=== PATIENT | female | born 1955 | race Caucasian/White ===

== ENCOUNTER → 2020-07-20 17:47 | Outpatient (CLI) | payer OTHER, SELFPAY ==
--- NOTE | ~2020-07-20 | MM_ITS ---
EXAMINATION: MM screening hiro BI w radha HISTORY: Screening mammogram TECHNIQUE: Craniocaudal and mediolateral oblique 3-D tomosynthesis images were obtained and synthetic 2-D images were generated. CAD analysis was submitted and interpreted. COMPARISON: 06/19/2019, 05/12/2018, 05/10/2017 bilateral digital screening mammogram examinations BREAST PARENCHYMAL COMPOSITION: There are scattered areas of fibroglandular density. FINDINGS: There is no evidence of suspicious mass, calcification, or architectural distortion to sugg est malignancy in either breast. There has been no suspicious interval change. IMPRESSION: 1. No mammographic evidence of malignancy. 2. Recommend routine screening mammography in one year. BI-RADS Category 1: Negative Reviewed, dictated and finalized at location A. TUTOR
--- NOTE | ~2020-07-20 | DEXA_ITS ---
Bone Density Report Name: Irasema Rodriguez Age: 64 Sex: Female Ethnicity: White Date of : 1955 Indication: osteopenia; height loss; asthma or emphysema; postmenopausal Referring Provider: URMILA MESSINA Study: Bone densitometry was performed. Exam Date: July 20, 2020 Accession number: [id number] Bone Density: Region BMD T-score Z-score Classification AP Spine (L2, L3, L4) 1.061 -0.2 1.5 Normal Femoral Neck (Left) 0.556 -2.6 -1.2 Osteoporosis Total Hip (Left) 0.693 -2.0 -0.9 Osteopenia Femoral Neck (Right) 0.699 -1.4 0.0 Osteopenia Total Hip (Right) 0.813 -1.1 0.0 Osteopenia Total Hip Mean 0.753 -1.6 -0.5 Osteopenia World Health Organization criteria for BMD impression classify patients as: Normal (T-score at or above -1.0), Osteopenia (T-score between -1.0 and -2.5), or Osteoporosis (T-score at or below -2.5). 10-year Fracture Risk: FRAX not reported because: Some T-score for Spine Total or Hip Total or Femoral Neck at or below -2.5 Previous Exams: Region Exam Age BMD T-score BMD Change BMD Change Date g/cm2 vs Baseline vs Previous AP Spine(L2, L3, L4) 07/20/2020 64 1.061 -0.2 -0.068* -0.025* 05/12/2018 62 1.087 0.1 -0.043* 0.030* 04/20/2013 57 1.057 -0.2 -0.073* -0.073* 02/28/2011 55 1.130 0.5 0.000 0.115* 02/15/2008 52 1.014 -0.6 -0.116* -0.116* 01/26/2007 51 1.130 0.5 Total Hip(Left) 07/20/2020 64 0.693 -2.0 -0.241* -0.089* 05/12/2018 62 0.783 -1.3 -0.152* -0.050* 04/20/2013 57 0.833 -0.9 -0.102* -0.050* 02/28/2011 55 0.883 -0.5 -0.052* 0.004 02/15/2008 52 0.879 -0.5 -0.056* -0.056* 01/26/2007 51 0.935 -0.1 Total Hip(Right) 07/20/2020 64 0.813 -1.1 -0.099* -0.022 05/12/2018 62 0.835 -0.9 -0.077* -0.022 04/20/2013 57 0.857 -0.7 -0.056* 0.050* 02/28/2011 55 0.807 -1.1 -0.105* -0.079* 02/15/2008 52 0.886 -0.5 -0.026 -0.026 01/26/2007 51 0.912 -0.2 *Denotes significance at 95% confidence level, LSC for AP Spine = 0.022 g/cm2, LSC for Total Hip = 0.027 g/cm2 Clinical Information Provided by Patient: Has used the following medications: Vitamin D, Calcium, SYNTHROID Has the following medical conditions: Asthma or Emphysema Patient maximum height was 65.5 Menopause Ag
== END ==
PROVIDERS: PCP Family Medicine; Visit Provider Obstetrics & Gynecology
DX: Z12.31 Encounter for screening mammogram for malignant neoplasm of breast (principal); Z78.0 Asymptomatic menopausal state; M81.0 Age-related osteoporosis without current pathological fracture; M85.852 Other specified disorders of bone density and structure, left thigh; M85.851 Other specified disorders of bone density and structure, right thigh
CPT/HCPCS: 77063; 77067; 77080

== ENCOUNTER → 2021-11-10 11:49 | Outpatient (CLI) | payer OTHER, SELFPAY ==
--- NOTE | ~2021-11-10 | MM_ITS ---
EXAMINATION: MM screening hiro BI w radha HISTORY: Screening TECHNIQUE: Craniocaudal and mediolateral oblique 3-D tomosynthesis images were obtained and synthetic 2-D images were generated. CAD analysis was submitted and interpreted. COMPARISON: Comparison to multiple prior studies sequentially, with oldest reviewed study dated 04/03. BREAST PARENCHYMAL COMPOSITION: The breasts are almost entirely fatty. FINDINGS: There is no evidence of suspicious mass, calcification, or architectural distortion to sugg est malignancy in either breast. There has been no suspicious interval change. IMPRESSION: 1. No mammographic evidence of malignancy. 2. Recommend routine screening mammography in one year. BI-RADS Category 1: Negative Reviewed, dictated and finalized at location A.
== END ==
PROVIDERS: PCP Family Medicine; Visit Provider Obstetrics & Gynecology
DX: Z12.31 Encounter for screening mammogram for malignant neoplasm of breast (principal)
CPT/HCPCS: 77063; 77067

== ENCOUNTER → 2023-07-19 16:23 | Outpatient (CLI) | payer MEDICARE, OTHER, SELFPAY ==
--- NOTE | ~2023-07-19 | MM_ITS ---
EXAMINATION: MM screening hiro BI w radha HISTORY: Screening TECHNIQUE: Craniocaudal and mediolateral oblique 3-D tomosynthesis images were obtained and synthetic 2-D images were generated. CAD analysis was submitted and interpreted. COMPARISON: No prior mammogram is available for comparison at this institution. BREAST PARENCHYMAL COMPOSITION: The breasts are almost entirely fatty. FINDINGS: There is no evidence of suspicious mass, calcification, or architectural distortion to sugg est malignancy in either breast. There has been no suspicious interval change. IMPRESSION: 1. No mammographic evidence of malignancy. 2. Recommend routine screening mammography in one year. BI-RADS Category 1: Negative Reviewed, dictated and finalized at location A. T THROWER
== END ==
PROVIDERS: PCP Obstetrics & Gynecology; Visit Provider Obstetrics & Gynecology
DX: Z12.31 Encounter for screening mammogram for malignant neoplasm of breast (principal)
CPT/HCPCS: 77063; 77067

== ENCOUNTER 2023-10-18 00:01 | Day surgery (SDC) | payer MEDICARE, OTHER, SELFPAY ==
[2023-10-10 10:41] VITALS: BMI 51.7
[2023-10-18 11:38] VITALS: BP 154/79; PULSE 90; RESP 18; TEMP 36.6; O2SAT 99; BMI 50.2
[2023-10-18] MEDS: LACTATED RINGERS 1,000 ML 150 ML IV CONT (11:40)
--- NOTE | 2023-10-18 11:51 | PM.HPGS ---
History of Present Illness History of Present Illness Consent: Risks, benefits, and alternatives have been discussed and questions answered. Patient agrees to proceed with procedure. Chief complaint: neoplasm screening Narrative: Irasema Rodriguez is a 67 year old female here for screening colonoscopy, last one 10 years ago Review of Systems Review of Systems: All systems reviewed & are unremarkable except as noted in HPI and below PMFSH Past Medical History Medical History (Updated 10/18/23 @ 11:51 by Ivan Rees MD) Anxiety Arthritis Asthma Bronchitis Colon cancer screening Depression GERD (gastroesophageal reflux disease) Hiatal hernia HTN (hypertension) Hypokalemia Hypothyroid Osteoarthritis of left knee Sleep apnea Surgical History Surgical History History of fundoplication History of inguinal hernia repair History of knee replacement (~2009) Right History of tonsillectomy Hx of removal of ovary Family History Family History Father Family history of malignant neoplasm of urinary bladder Family history of coronary artery disease Hypertension Patient's father is Sibling Family history of coronary artery disease Mother Family history of chronic obstructive pulmonary disease Patient's mother is Social History Social History Social History: Patient lives at home alone. She designates her sister, Vivien Monsivais, as her surrogate medical decision maker. Her primary is Dr. Camacho. She wishes to be a Full Code Smoking status: Never smoker Second hand tobacco smoke exposure: No Alcohol intake: never Substance use: never Substance use type: does not use Lack of Transportation: No Lack of Food: Never True Current Housing: I Have Housing Concerned About Future Housing: No Difficulty Paying Gas/Electric Bills: No Difficulty Paying for Meds: No Currently Unemployed: No Education: High School Diploma/GED Difficulty w/ Childcare or Family Care: No Living arrangements: alone Gender identity (if verbalized by the patient): Female Spiritual care concerns: No Agree to blood products: No Meds Home Medications and Allergies Home Medications Medication Instructions Recorded Confirmed Type aspirin 81 mg tablet,delayed 81 mg PO DAILY 04/27/20 10/18/23 History release (Adult Aspirin Regimen) cholecalciferol (vitamin D3) 25 25 mcg PO DAILY 04/27/20 10/18/23 History mcg (1,000 unit) capsule guaifenesin 1,200 mg tablet, 1,200 mg PO HS 04/27/20 10/18/23 History extended release 12 hr (Mucinex) loratadine 10 mg tablet (Claritin) 10 mg PO PRN PRN Allergy Symptoms 04/27/20 10/18/23 History mecobalamin (vitamin B12) 1,000 1,000 mcg sublingual DAILY 04/27/20 10/18/23 History mcg disintegrating tablet,sublingual valacyclovir 1 gram tablet 1,000 mg PO DAILY PRN Cold Sores 11/29/22 10/18/23 Rx (Valtrex) #90 tabs amlodipine 10 mg tablet 10 mg PO DAILY #90 tabs 03/03/23 10/18/23 Rx famotidine 40 mg tablet 40 mg PO .qhs #90 tabs 03/03/23 10/18/23 Rx gabapentin 300 mg capsule 300 mg PO HS #90 caps 03/03/23 10/18/23 Rx (Neurontin) levothyroxine 175 mcg tablet 175 mcg PO DAILY #90 tabs 03/03/23 10/18/23 Rx (Levoxyl) spironolactone 50 mg tablet 50 mg PO QAM #90 tabs 03/03/23 10/18/23 Rx bupropion HCl 150 mg 24 hr tablet, 150 mg PO DAILY #90 tabs 05/31/23 10/18/23 Rx extended release (Wellbutrin XL) indapamide 2.5 mg tablet 5 mg PO DAILY #180 tabs 05/31/23 10/18/23 Rx montelukast 10 mg tablet 10 mg PO DAILY #90 tabs 05/31/23 10/18/23 Rx (Singulair) omeprazole 40 mg capsule,delayed 40 mg PO DAILY #90 caps 05/31/23 10/18/23 Rx release sucralfate 1 gram tablet See Rx Instructions .Route 06/01/23 10/18/23 Rx .COMPLEX #180 tabs buspirone 10 mg t
--- NOTE | 2023-10-18 11:57 | WPDANESEPPF ---
Anes - Initial Pre Proc Eval Procedure: Operation Date: 10/18/23 13:00 Proposed Procedures p Screening Colonoscopy - Ivan Rees MD Date/Time: 10/18/23 11:57 Surgeon: Ivan Rees MD Pre Op Diagnosis: neoplasm screening Patient Data Age: 67 Gender: F Height: 1.65 m Weight: 137 kg Last Vital Signs Temp 97.8 F 10/18/23 11:38 Pulse 90 10/18/23 11:38 Resp 18 10/18/23 11:38 BP 154/79 H 10/18/23 11:38 Pulse Ox 99 10/18/23 11:38 O2 Del Method Room Air 10/18/23 11:38 Allergies Allergy/AdvReac Type Severity Reaction Status Date / Time amoxicillin Allergy angioedema Verified 10/18/23 11:35 Home Medications Medication Instructions Recorded Confirmed Type aspirin 81 mg tablet,delayed 81 mg PO DAILY 04/27/20 10/18/23 History release (Adult Aspirin Regimen) cholecalciferol (vitamin D3) 25 25 mcg PO DAILY 04/27/20 10/18/23 History mcg (1,000 unit) capsule guaifenesin 1,200 mg tablet, 1,200 mg PO HS 04/27/20 10/18/23 History extended release 12 hr (Mucinex) loratadine 10 mg tablet (Claritin) 10 mg PO PRN PRN Allergy Symptoms 04/27/20 10/18/23 History mecobalamin (vitamin B12) 1,000 1,000 mcg sublingual DAILY 04/27/20 10/18/23 History mcg disintegrating tablet,sublingual valacyclovir 1 gram tablet 1,000 mg PO DAILY PRN Cold Sores 11/29/22 10/18/23 Rx (Valtrex) #90 tabs amlodipine 10 mg tablet 10 mg PO DAILY #90 tabs 03/03/23 10/18/23 Rx famotidine 40 mg tablet 40 mg PO .qhs #90 tabs 03/03/23 10/18/23 Rx gabapentin 300 mg capsule 300 mg PO HS #90 caps 03/03/23 10/18/23 Rx (Neurontin) levothyroxine 175 mcg tablet 175 mcg PO DAILY #90 tabs 03/03/23 10/18/23 Rx (Levoxyl) spironolactone 50 mg tablet 50 mg PO QAM #90 tabs 03/03/23 10/18/23 Rx bupropion HCl 150 mg 24 hr tablet, 150 mg PO DAILY #90 tabs 05/31/23 10/18/23 Rx extended release (Wellbutrin XL) indapamide 2.5 mg tablet 5 mg PO DAILY #180 tabs 05/31/23 10/18/23 Rx montelukast 10 mg tablet 10 mg PO DAILY #90 tabs 05/31/23 10/18/23 Rx (Singulair) omeprazole 40 mg capsule,delayed 40 mg PO DAILY #90 caps 05/31/23 10/18/23 Rx release sucralfate 1 gram tablet See Rx Instructions .Route 06/01/23 10/18/23 Rx .COMPLEX #180 tabs buspirone 10 mg tablet 10 mg PO DAILY #90 tabs 06/05/23 10/18/23 Rx epinephrine 0.3 mg/0.3 mL 0.3 mg (0.3 mL) IM ONCE #2 ea 06/07/23 10/18/23 Rx injection, auto-injector (EpiPen 2-Ulises) albuterol sulfate 90 mcg/actuation See Rx Instructions .Route 07/19/23 10/18/23 Rx aerosol inhaler .COMPLEX 90 days #25.5 grams irbesartan 300 mg tablet See Rx Instructions .Route 08/31/23 10/18/23 Rx .COMPLEX #90 tabs hydrocodone 5 mg-acetaminophen 325 1 tablet PO BID PRN pain #60 tabs 10/06/23 10/18/23 Rx mg tablet lorazepam 0.5 mg tablet 0.5 mg PO QHS PRN anxiety #30 tabs 10/06/23 10/18/23 Rx zolpidem 10 mg tablet 10 mg PO .qhs #30 tabs 10/06/23 10/18/23 Rx fluticasone 113 mcg-salmeterol 14 1 inh inhalation BID PRN Shortness 10/10/23 10/18/23 History mcg/actuation breath activated Of Breath Or Wheezing powdr (AirDuo RespiClick) fluticasone propionate 50 2 spray intranasal DAILY PRN Nasal 10/10/23 10/18/23 History mcg/actuation nasal Congestion spray,suspension (Flonase Allergy Relief) Patient hx anesthesia problems: none Family hx anesthesia problems: none Results Review: All pre-operative results and documents have been reviewed as part of the pre-operative evaluation. [facility] Past Medical History Medical History (Updated 10/18/23 @ 11:51 by Ivan Rees MD) Anxiety Arthritis Asthma Bronchitis Colon cancer screening Depression GERD (gastroesophageal reflux disease) Hiatal hernia HTN (hypertension) Hypokalemia Hypothyroid Osteoarthritis of left knee Sleep apnea Surgical History Surgical History History of fundoplication History of inguinal hernia
[2023-10-18 12:13] VITALS: BP 118/47; PULSE 82; RESP 18; O2SAT 100
[2023-10-18 12:23] VITALS: BP 115/75; PULSE 69; RESP 23; O2SAT 100
[2023-10-18 12:33] VITALS: BP 125/48; PULSE 82; RESP 21; O2SAT 100
== END 2023-10-18 12:45 | disposition home or self-care (01) ==
PROVIDERS: PCP Family Medicine; Visit Provider Internal Medicine Gastroenterology
PROC: 0DJD8ZZ Inspection of Lower Intestinal Tract, Via Natural or Artificial Opening Endoscopic (ICD-10-PCS; CPT 45378; principal; 2023-10-18 13:00)
DX: Z12.11 Encounter for screening for malignant neoplasm of colon (principal); K57.30 Diverticulosis of large intestine without perforation or abscess without bleeding; K64.8 Other hemorrhoids; I10 Essential (primary) hypertension; E03.9 Hypothyroidism, unspecified; K21.9 Gastro-esophageal reflux disease without esophagitis; J45.909 Unspecified asthma, uncomplicated; F41.9 Anxiety disorder, unspecified; F32.A Depression, unspecified; G47.30 Sleep apnea, unspecified; Z79.82 Long term (current) use of aspirin; Z79.51 Long term (current) use of inhaled steroids; Z79.891 Long term (current) use of opiate analgesic; E66.01 Morbid (severe) obesity due to excess calories; Z68.43 Body mass index [BMI] 50.0-59.9, adult
CPT/HCPCS: G0121; J2704; J7120

== ENCOUNTER 2023-11-20 18:51 | Emergency (ER) | payer MEDICARE, OTHER, SELFPAY ==
--- NOTE | ~2023-11-20 | CT_ITS ---
EXAMINATION: CTA chest PE protocol DATE: 11/20/2023 20:40 INDICATION: Shortness of breath and elevated d-dimer TECHNIQUE: Computed tomography (CT) pulmonary angiogram of the chest was performed with 100 mL Omnipa que-350 intravenous contrast. Additional 3D reconstructions utilizing coronal maximum intensity proje ction (MIP) were performed. Automated exposure control and iterative reconstruction technique were em ployed. The dose-length product was 1142.03 mGy-cm. COMPARISON: None FINDINGS: No pulmonary embolism. Couple small calcified nodules in the right lower lobe consistent with old gra nulomatous disease. Mild discoid atelectasis at the lingula No pneumonia, pulmonary edema, pleural ef fusion or pneumothorax. Heart size is normal. Atherosclerotic coronary artery calcification. No peric ardial effusion. Enlargement of the central pulmonary arteries consistent with pulmonary arterial hyp ertension. 1.9 cm left thyroid nodule. No pathologically enlarged thoracic lymphadenopathy. A few hep atic and multiple splenic calcifications consistent with old granulomatous disease. Mild to moderate thoracic spondylosis and severe lumbar spondylosis. IMPRESSION: 1. No pulmonary embolism or other acute cardiopulmonary disease. 2. 1.9 cm left thyroid nodule. Consider follow-up thyroid ultrasound for risk stratification. Reviewed, dictated and finalized at location A. IMPRESSION: 1. No pulmonary embolism or other acute cardiopulmonary disease. 2. 1.9 cm left thyroid nodule. Consider follow-up thyroid ultrasound for risk s tratification.
--- NOTE | ~2023-11-20 | XR_ITS ---
EXAMINATION: XR chest 1V portable DATE: 11/20/2023 19:24 INDICATION: Shortness of breath TECHNIQUE: frontal view of the chest was obtained. COMPARISON: Chest radiograph dated 05/26/2019 FINDINGS: The lungs are clear with no focal airspace opacities, pulmonary edema, pleural effusion or pneumothor ax. Heart size is normal with small left paracardial fat pad. There is enlargement of the central pul monary arteries which can be seen with pulmonary arterial hypertension. IMPRESSION: 1. Enlargement of the central pulmonary arteries which can be seen with pulmonary arterial hypertensi on. No other acute cardiopulmonary disease. Reviewed, dictated and finalized at location A. IMPRESSION: 1. Enlargement of the central pulmonary arteries which can be seen with pulmona ry arterial hypertension. No other acute cardiopulmonary disease.
[2023-11-20 18:52] VITALS: BP 153/86; PULSE 118; RESP 22; TEMP 37.1; O2SAT 100
[2023-11-20 19:00] VITALS: PULSE 112; RESP 18
[2023-11-20] MEDS: IPRATROPIUM 0.5 MG/ALBUTEROL SULFATE 2.5 MG AMPUL.NEB 3 ML INHALATION (19:00)
--- NOTE | 2023-11-20 19:00 | ECG_ITS ---
SEE SCANNED COPY FOR CONFIRMED REPORT MTDD
[2023-11-20] MEDS: EPINEPHrine HCL INJ 1 MG/ML AMPUL 0.3 MG IM (19:02)
[2023-11-20] MEDS: methylPREDNISolone SOD SUCC 125 MG VIAL IV PUSH (19:02)
--- NOTE | 2023-11-20 19:02 | ED.GENADULT ---
HPI - General Adult General Chief complaint: Shortness of Breath/Dyspnea Stated complaint: resp distress Time Seen by Provider: 11/20/23 18:55 History of Present Illness HPI narrative: Patient is a 68-year-old female who presents to the emergency department this evening with shortness of breath. Patient admits that she does have a history of asthma, however, her home inhalers were not helping. Patient does appear to be in moderate to severe respiratory distress. She states that this happened shortly prior to arrival to our emergency department while she was working in the kitchen. Patient tried to wait this out for 20 minutes at home using her home inhaler with no relief. Patient denies any previous hospitalizations for asthma and denies ever needed to be intubated for her asthma. She admits that her asthma has always been mild. She is currently denies any chest pain, nausea or vomiting, denies any additional symptoms or concerns at this time. Related Data Home Medications Medication Instructions Recorded Confirmed aspirin 81 mg tablet,delayed 81 mg PO DAILY 04/27/20 10/18/23 release (Adult Aspirin Regimen) cholecalciferol (vitamin D3) 25 25 mcg PO DAILY 04/27/20 10/18/23 mcg (1,000 unit) capsule guaifenesin 1,200 mg tablet, 1,200 mg PO HS 04/27/20 10/18/23 extended release 12 hr (Mucinex) loratadine 10 mg tablet (Claritin) 10 mg PO PRN PRN Allergy Symptoms 04/27/20 10/18/23 mecobalamin (vitamin B12) 1,000 1,000 mcg sublingual DAILY 04/27/20 10/18/23 mcg disintegrating tablet,sublingual fluticasone 113 mcg-salmeterol 14 1 inh inhalation BID PRN Shortness 10/10/23 10/18/23 mcg/actuation breath activated Of Breath Or Wheezing powdr (AirDuo RespiClick) fluticasone propionate 50 2 spray intranasal DAILY PRN Nasal 10/10/23 10/18/23 mcg/actuation nasal Congestion spray,suspension (Flonase Allergy Relief) Allergies Allergy/AdvReac Type Severity Reaction Status Date / Time amoxicillin Allergy angioedema Verified 11/20/23 18:56 Review of Systems Review of Systems: All systems are reviewed and are negative unless stated otherwise in the HPI. [facility] Past Medical History Medical History Anxiety Arthritis Asthma Bronchitis Colon cancer screening Depression GERD (gastroesophageal reflux disease) Hiatal hernia HTN (hypertension) Hypokalemia Hypothyroid Osteoarthritis of left knee Sleep apnea Surgical History Surgical History History of fundoplication History of inguinal hernia repair History of knee replacement (~2009) Right History of tonsillectomy Hx of removal of ovary Family History Family History Father Family history of malignant neoplasm of urinary bladder Family history of coronary artery disease Hypertension Patient's father is Sibling Family history of coronary artery disease Mother Family history of chronic obstructive pulmonary disease Patient's mother is Social History Social History Social History: Patient lives at home alone. She designates her sister, Vivien Monsivais, as her surrogate medical decision maker. Her primary is Dr. Camacho. She wishes to be a Full Code Smoking status: Never smoker Second hand tobacco smoke exposure: No Alcohol intake: never Substance use: never Substance use type: does not use Lack of Transportation: No Lack of Food: Never True Current Housing: I Have Housing Concerned About Future Housing: No Difficulty Paying Gas/Electric Bills: No Difficulty Paying for Meds: No Currently Unemployed: No Education: High School Diploma/GED Difficulty w/ Childcare or Family Care: No Living arrangements: alone Gender identity (if verbalized by the patient): Female Spiritual care
[2023-11-20 19:10] VITALS: PULSE 102; RESP 18
[2023-11-20 19:10] LABS: Basophils Percent Auto 0.4 % (0.2-1.2); Hematocrit 38.3 % (37.0-47.0); Immature Granulocyte Absolute 0.02 K/mm3 (0.00-0.031); Immature Granulocyte Percent A 0.2 % (0-0.5); Lymphocytes Absolute Auto 2.74 K/mm3 (0.9-3.2); Lymphocytes Percent Auto 30.4 % (18.3-44.2); Mean Corpuscular HGB Conc 33.9 g/dl (32-36); Mean Corpuscular Hemoglobin 29.9 pg (26-34); Mean Platelet Volume 10.3 fl (7.4-10.4); Monocytes Absolute Auto 0.6 K/mm3 (0.1-0.6); Monocytes Percent Auto 6.7 % (2.6-8.5); Neutrophils Absolute Auto 5.6 K/mm3 (1.3-6.7); Neutrophils Percent Auto 62.3 % (45.5-73.1); Platelet Count Result 292 k/mm3 (150-375); Red Blood Count 4.35 M/mm3 (4.2-5.4); Red Cell Distribution Width 12.4 % (11.5-14.5)
[2023-11-20 19:22] LABS: Alanine Aminotransferase 19 U/L (6-35); Albumin Level 4.8 g/dL (3.5-5.1); Alkaline Phosphatase 96 U/L (38-126); Anion Gap 10 mmol/L (4-12); Aspartate Amino Transferase 20 U/L (14-36); Bilirubin,Total 0.6 mg/dL (0.2-1.3); Blood Urea Nitrogen 18 mg/dL (7-17); Calcium 9.2 mg/dL (8.4-10.2); Carbon Dioxide 24 mmol/L (22-30); Chloride 97 mmol/L (98-107); Estimated CRCL calculation 86 ml/min; Estimated Glomerular Filt Rate > 60; Glucose 131 mg/dL (65-110); Lactic Acid Reflex 2.4 mmol/L (0.7-2.0); Potassium 3.8 mmol/L (3.4-5.0); Sodium 131 mmol/L (137-145)
[2023-11-20 19:23] LABS: Prothrombin Time 13.8 Seconds (11.1-14.7)
[2023-11-20 19:24] LABS: Partial Thromboplastin Time 36.7 Seconds (22.3-36.8)
[2023-11-20 19:31] LABS: NT Pro B Type Natriuretic Pept 127 pg/mL (19.9-100)
[2023-11-20 19:33] LABS: D Dimer 0.77 ug/mL (<0.48)
[2023-11-20 20:10] LABS: Influenza A QL RT-PCR Negative (Negative); Influenza B QL RT-PCR Negative (Negative); RSV RNA, RT-PCR Negative (Negative); SARS-CoV-2 RNA PCR Negative (Negative)
[2023-11-20 20:15] VITALS: BP 135/75; PULSE 106; RESP 20; O2SAT 99
[2023-11-20 22:07] LABS: Reflex Lactic Acid Yes or No Add Lactic
== END 2023-11-20 21:19 | disposition home or self-care (01) ==
PROVIDERS: Emergency Provider Emergency Medicine; PCP Family Medicine
DX: J45.901 Unspecified asthma with (acute) exacerbation (principal); Z20.822 Contact with and (suspected) exposure to COVID-19; I10 Essential (primary) hypertension; E03.9 Hypothyroidism, unspecified; K21.9 Gastro-esophageal reflux disease without esophagitis; K44.9 Diaphragmatic hernia without obstruction or gangrene; M17.12 Unilateral primary osteoarthritis, left knee; G47.30 Sleep apnea, unspecified; Z96.651 Presence of right artificial knee joint; Z90.721 Acquired absence of ovaries, unilateral; Z79.82 Long term (current) use of aspirin; Z79.899 Other long term (current) drug therapy
CPT/HCPCS: 36415; 71045; 71275; 80053; 83605; 83880; 85025; 85380; 85610; 85730; 87637; 93005; 94640; 96372; 96374; 99284; J0171; J2919; J3475; Q9967

== ENCOUNTER 2023-11-21 11:35 | Inpatient (IN) | payer MEDICARE, OTHER, SELFPAY ==
[2023-11-21] VITALS (22 sets, daily range): BP systolic 111–192; BP diastolic 58–90; PULSE 84–140; RESP 18–30; TEMP 36.7–37.2; O2SAT 98–100; BMI 51.3
--- NOTE | ~2023-11-21 | XR_ITS ---
Portable chest x-ray Comparison: 11/21/2023 Clinical History: Respiratory failure Findings: Endotracheal tube and NG tube are in satisfactory positions. There is prominence of the ce ntral pulmonary vasculature. There is left basilar airspace consolidation. Cardiomediastinal silhoue tte is stable. Bones and soft tissues are unremarkable. Impression: Left basilar atelectasis versus pneumonia. Probable pulmonary artery hypertension. Hilar lymphadenopathy felt to be less likely. Support tubes, as above. Reviewed, dictated and finalized at location M. Impression: Left basilar atelectasis versus pneumonia. Probable pulmonary artery hypertension. Hilar lymphadenopathy felt to be less l ikely. Support tubes, as above.
--- NOTE | ~2023-11-21 | XR_ITS ---
EXAMINATION: XR chest 1V portable DATE: 11/21/2023 12:23 INDICATION: Shortness of breath. TECHNIQUE: A single frontal view of the chest was obtained. COMPARISON: Chest single view 11/20/2023, chest CT 11/20/2023 FINDINGS: There is no pneumonia, pleural effusion, or pneumothorax. The heart size is normal. There a re prominent pericardial fat pads. IMPRESSION: 1. No acute cardiopulmonary disease. Reviewed, dictated and finalized at location A.
--- NOTE | ~2023-11-21 | XR_ITS ---
EXAMINATION: XR chest ET placement, XR abdomen gastric tube insert DATE: 11/21/2023 20:13 INDICATION: Endotracheal tube placement and orogastric tube placement TECHNIQUE: 1. Frontal view of the chest was obtained. 2. Supine AP view of the abdomen was obtained. COMPARISON: Chest radiograph dated 11/21/2023 FINDINGS: Endotracheal tube tip 4.4 cm above the yulia. Orogastric tube tip in proximal side port in the body of the stomach. There are airspace opacities in bilateral lower lung zones which could represent atel ectasis or pneumonia. No pleural effusion or pneumothorax. The cardiomediastinal silhouette is normal . Likely cholecystectomy clips in right upper quadrant. No dilated loops of gas-filled bowel in the v isualized abdomen to suggest obstruction. IMPRESSION: 1. Endotracheal tube and orogastric tube in expected positions. 2. Opacities in bilateral lower lung zones which could represent atelectasis or pneumonia. Reviewed, dictated and finalized at location A. IMPRESSION: 1. Endotracheal tube and orogastric tube in expected positions. 2. Opacities in bilateral lower lung zones which could represent atelectasis or pneumonia.
--- NOTE | ~2023-11-21 | CT_ITS ---
EXAMINATION: CT soft tissue neck w con DATE: 11/21/2023 13:50 INDICATION: Sensation of airway closing. TECHNIQUE: Computed tomography (CT) of the neck was performed with 75 mL Omnipaque-350 intravenous co ntrast. Automated exposure control and iterative reconstruction technique were employed. The dose-francie gth product was 685.92 mGy-cm. COMPARISON: None FINDINGS: The pharynx and larynx are normal. There are no pathologically enlarged lymph nodes. There is an 18 mm nodule in left thyroid lobe. There is severe cervical spondylosis. There is mild mucosal thickening in the nasal sinuses. The mastoid air cells are normal. The orbits are normal. IMPRESSION: 1. Normal pharynx and larynx. 2. Left thyroid nodule. Consider thyroid ultrasound for risk stratification. Reviewed, dictated and finalized at location A.
--- NOTE | ~2023-11-21 | XR_ITS ---
Portable chest x-ray Comparison: 11/22/2023 Clinical History: Respiratory failure Findings: Endotracheal tube, NG tube, and left-sided PICC line are in satisfactory positions. There is left basilar airspace consolidation. Right lung clear. Cardiomediastinal silhouette is stable. Heber chelle and soft tissues are unremarkable. Impression: Support tubes, as above. Left basilar atelectasis versus pneumonia. Correlate clinically. Reviewed, dictated and finalized at location . Impression: Support tubes, as above. Left basilar atelectasis versus pneumonia. Correlate clinically.
--- NOTE | ~2023-11-21 | XR_ITS ---
EXAMINATION: XR chest PICC line DATE: 11/22/2023 11:55 INDICATION: Central line placement. TECHNIQUE: A single frontal view of the chest was obtained. COMPARISON: Chest view at 4:57 AM, chest CT 11/20/2023 FINDINGS: There are airspace opacities in the lower lung zones. No pleural effusion or pneumothorax. The heart size is normal. The endotracheal tube tip is 4.7 cm above the yulia. A left upper extremit y peripherally inserted central venous catheter (PICC) is seen with tip at the superior cavoatrial ju nction. Nasogastric tube tip is in the stomach. IMPRESSION: 1. PICC tip at the superior cavoatrial junction. 2. Stable airspace opacities in the lower lung zones, consistent with atelectasis versus pneumonia. Reviewed, dictated and finalized at location A. IMPRESSION: 1. PICC tip at the superior cavoatrial junction. 2. Stable airspace opacities in the lower lung zones, consistent with atelectas is versus pneumonia.
--- NOTE | ~2023-11-21 | XR_ITS ---
EXAMINATION: XR chest 1V portable DATE: 11/25/2023 05:23 INDICATION: Respiratory failure. TECHNIQUE: A single frontal view of the chest was obtained. COMPARISON: Chest single view 11/24/2023, chest CT 11/20/2023 FINDINGS: There are airspace opacities in the lower lung zones. No pleural effusion or pneumothorax. The heart size is normal. A left upper extremity peripherally inserted central venous catheter (PICC) is seen with tip in the superior vena cava. IMPRESSION: 1. Worsened airspace opacities in the lower lung zones, likely atelectasis. Reviewed, dictated and finalized at location A.
--- NOTE | ~2023-11-21 | XR_ITS ---
Portable chest x-ray Comparison: 11/23/2023 Clinical History: Respiratory failure Findings: Endotracheal tube, NG tube, and left-sided PICC line are in place. There is probable retro cardiac airspace disease. Right lung clear. Cardiomediastinal silhouette is stable. Bones and soft t issues are unremarkable. Impression: Left basilar atelectasis versus pneumonia. Support tubes, as above. Reviewed, dictated and finalized at location . Impression: Left basilar atelectasis versus pneumonia. Support tubes, as above.
[2023-11-21] MEDS: LORazepam INJ (*CRX) 2 MG/ML VIAL 0.5 MG IV PUSH (11:52)
[2023-11-21] MEDS: ALBUTEROL SULFATE NEB 2.5 MG/3 ML INH 15 MG INHALATION (11:55)
[2023-11-21] MEDS: IPRATROPIUM BR 0.02% INH SOLN 0.5 MG/2.5 ML VIAL 1 MG INHALATION (11:56)
--- NOTE | 2023-11-21 12:05 | ED.SOB ---
HPI - SOB/Dyspnea General Chief Complaint: Shortness of Breath/Dyspnea Stated Complaint: resp distress Time Seen by Provider: 11/21/23 11:38 History of Present Illness HPI Narrative: Patient with history of asthma he was been having intermittent shortness of breath that improved with albuterol the last few days presents here after having difficulty breathing at home. Was seen yesterday for a similar episode, got better and went home, had another episode this morning, got better with the treatment and decided not to come in when 1st seen by EMS, then hours later episode returned and got worse and came back with EMS. States that she feels like she is coughing and choking on phlegm and can not breathe Related Data Home Medications Medication Instructions Recorded Confirmed aspirin 81 mg tablet,delayed 81 mg PO DAILY 04/27/20 11/21/23 release (Adult Aspirin Regimen) cholecalciferol (vitamin D3) 25 50 mcg PO DAILY 04/27/20 11/21/23 mcg (1,000 unit) capsule guaifenesin 1,200 mg tablet, 1,200 mg PO HS 04/27/20 11/21/23 extended release 12 hr (Mucinex) loratadine 10 mg tablet (Claritin) 10 mg PO PRN PRN Allergy Symptoms 04/27/20 11/21/23 mecobalamin (vitamin B12) 1,000 1,000 mcg sublingual DAILY 04/27/20 11/21/23 mcg disintegrating tablet,sublingual fluticasone propionate 50 2 spray intranasal DAILY PRN Nasal 10/10/23 11/21/23 mcg/actuation nasal Congestion spray,suspension (Flonase Allergy Relief) albuterol sulfate 90 mcg/actuation 2 puff inhalation Q6H PRN sob 11/21/23 11/21/23 aerosol inhaler albuterol sulfate 90 mcg/actuation 2 inh inhalation BID PRN sob 11/21/23 11/21/23 aerosol inhaler (ProAir HFA) famotidine 40 mg tablet 40 mg PO QHS 11/21/23 11/21/23 furosemide 20 mg tablet 20 mg PO DAILY PRN swelling 11/21/23 11/21/23 hydrocodone 5 mg-acetaminophen 325 1 tablet PO BID PRN Pain (Scale 11/21/23 11/21/23 mg tablet Score 4-6) irbesartan 300 mg tablet 300 mg PO DAILY 11/21/23 11/21/23 pyridostigmine bromide 60 mg tablet 60 mg PO TID 11/21/23 11/21/23 spironolactone 50 mg tablet 25 mg PO QAM 11/21/23 11/21/23 sucralfate 1 gram tablet 2 g PO BID 11/21/23 11/21/23 zolpidem 10 mg tablet 10 mg PO QHS 11/21/23 11/21/23 Allergies Allergy/AdvReac Type Severity Reaction Status Date / Time amoxicillin Allergy angioedema Verified 11/20/23 18:56 Review of Systems Review of Systems: CONST: No fever. HEENT: Throat tightness C/V: Chest tightness RESP: Cough and shortness of breath GI: No abdominal pain, nausea vomiting : No dysuria. M/S: No joint pain. SKIN: No rash. NEURO: [No headache or focal numbness or weakness] PSYCH: Anxious [facility] [place] Past Medical History Medical History (Updated 11/21/23 @ 17:37 by Nazia Retana MD) Anxiety Arthritis Asthma Depression Diastolic dysfunction Gastroesophageal reflux disease Hiatal hernia Hypertension Hypothyroidism Morbid obesity with body mass index (BMI) of 40.0 or higher Myasthenia gravis Obstructive sleep apnea Surgical History Surgical History (Updated 11/21/23 @ 15:19 by Hui Johnson PA-C) History of fundoplication History of inguinal hernia repair History of oophorectomy History of right knee joint replacement (2009) History of tonsillectomy Family History Family History Father Family history of malignant neoplasm of urinary bladder Family history of coronary artery disease Hypertension Patient's father is Sibling Family history of coronary artery disease Mother Family history of chronic obstructive pulmonary disease Patient's mother is Social History Social History (Updated 11/21/23 @ 15:19 by Hui Johnson PA-C) Social History: Surrogate medical decision maker: Vivien Loi, . Code status: Full code. Smoking status: Never smoker Second hand tobacco smoke exposure: No Alcohol intake: never Substance use: never Sub
[2023-11-21 12:10] LABS: Basophils Percent Auto 0.1 % (0.2-1.2); Eosinophils Percent Auto 0.1 % (0-4.4); Hematocrit 36.9 % (37.0-47.0); Hemoglobin 12.7 g/dL (12.0-15.0); Immature Granulocyte Absolute 0.07 K/mm3 (0.00-0.031); Immature Granulocyte Percent A 0.6 % (0-0.5); Lymphocytes Absolute Auto 0.43 K/mm3 (0.9-3.2); Lymphocytes Percent Auto 3.4 % (18.3-44.2); Mean Corpuscular HGB Conc 34.4 g/dl (32-36); Mean Corpuscular Hemoglobin 30.2 pg (26-34); Mean Corpuscular Volume 87.6 fl (80-100); Mean Platelet Volume 10.2 fl (7.4-10.4); Monocytes Absolute Auto 0.6 K/mm3 (0.1-0.6); Neutrophils Absolute Auto 11.5 K/mm3 (1.3-6.7); Neutrophils Percent Auto 90.8 % (45.5-73.1); Platelet Count Result 276 k/mm3 (150-375); Red Blood Count 4.21 M/mm3 (4.2-5.4); Red Cell Distribution Width 12.4 % (11.5-14.5); White Blood Count 12.7 K/mm3 (4.5-10.0)
[2023-11-21 12:29] LABS: Anion Gap 14 mmol/L (4-12); Blood Urea Nitrogen 21 mg/dL (7-17); Calcium 9.4 mg/dL (8.4-10.2); Carbon Dioxide 19 mmol/L (22-30); Chloride 96 mmol/L (98-107); Estimated CRCL calculation 97 ml/min; Estimated Glomerular Filt Rate > 60; Glucose 235 mg/dL (65-110); Potassium 2.9 mmol/L (3.4-5.0); Sodium 129 mmol/L (137-145)
[2023-11-21 13:22] LABS: Base Excess ABG -1.1 mEq/l (+/-2.0); Fractional Inspired Oxygen 30 %; HCO3 ABG 19.6 mEq/l (22.0-26.0); Oxygen Content ABG 17.9 %vol (16.0-22.0); Oxygen Saturation ABG 99.2 % (95.0-100.0); Oxyhemoglobin 98.5 % THb (90.0-100.0); PO2 FiO2 Ratio Arterial Blood 5.07 %; Total Hemoglobin 12.7 g/dL (12.0-18.0)
[2023-11-21 13:27] LABS: PCO2 ABG 22.9 mmHg (35.0-45.0); Site Drawn LEFT RADIAL
[2023-11-21 13:28] LABS: Device NON-INVASIVE VENT; Modified Allen's Test Pass; Non-Invasive Vent Rate 14 /MIN
[2023-11-21 13:29] LABS: Non-Invasive Expiratory Pressure 8 CMH2O; Non-Invasive Inspiratory Pressure 14 CMH2O
[2023-11-21] MEDS: EPINEPHrine HCL INJ 1 MG/ML AMPUL (13:56)
[2023-11-21] MEDS: LACTATED RINGERS 1,000 ML 999 ML IV CONT (14:05)
--- NOTE | 2023-11-21 14:06 | PC.NURSE ---
[address] FOR SCAN WITH RT AND THIS RN FOR IMAGING. [address] BECAME VERY ANXIOUS AND DYSPNEIC. SATS REMAINED 100% DR LOPEZ CALLED TO BEDSIDE. .1356 0.5 EPI GIVEN IM TO L DELTOID. 1357 2.5MG VERSED GIVEN IVP. 1402 PT NOW CALMER NOW ON NON REBREATHER AT 15L.
[2023-11-21] MEDS: POTASSIUM CHLORIDE INJ 40 MEQ in SODIUM CHLORIDE 0.9% IV 500 ML 130 MEQ IVPB (14:09)
--- NOTE | 2023-11-21 14:14 | PC.NURSE ---
AT 1411 PT BECAME SHORT OF BREATH AGAIN AND FELT LIKE SHE COULDN'T GET ANY AIR. DR LOPEZ AT BEDSIDE. PLACED BACK ON BIPAP AT 1414
[2023-11-21] MEDS: pyRIDostigmine bromide 60 MG TABLET PO ×2 (15:03→22:50)
--- NOTE | 2023-11-21 15:17 | PM.IMHP ---
H&P: HPI History of Present Illness Date/Time: 11/21/23 15:17 Chief Complaint: Shortness of breath. Narrative: This is a 68-year-old female with asthma, myasthenia gravis, obstructive sleep apnea, hypertension, gastroesophageal reflux disease, and hypothyroidism who presented to the emergency department via EMS from home for evaluation of shortness of breath. The patient provides the following history. She was seen in the emergency department yesterday evening for evaluation of fairly sudden onset of shortness of breath while working in the kitchen. At that time she felt as though she had a lot of mucus stuck in her throat that she could not cough up. She received a continuous DuoNeb, Solu-Medrol, and IM epinephrine with improvement and was able to be discharged home. A Chest CTA done at that time was negative for pulmonary embolism. Overnight she had a similar episode but that passed but again this morning she once again felt as though there was something blocking her airway and she was extremely short of breath and called 911. They administered a nebulizer treatment and she felt better and declined transfer. Within a couple of hours her shortness of breath returned and she came back to the ED. En route to the hospital she was given a nebulizer treatment, steroids, and was placed on BiPAP. She denies fever, sinus congestion, sore throat, postnasal drip, hemoptysis, cough, chest pain, pleuritic pain, syncope, near syncope, flushing, rash, and urticaria. In the ED: She was tachycardic and tachypneic on arrival to the ER with stable blood pressures. She is afebrile. Labs are significant for WBC count 12.7, sodium 129, potassium 2.9, chloride 96, carbon dioxide 19, anion gap 14, BUN 21, glucose 235. ABG showed a pH of 7.550, pCO2 22.9, PO2 152, HC03 19.6. Chest x-ray showed no acute cardiopulmonary disease. CT of the neck ordered for evaluation of patient reporting that her throat felt as though was closing showed no acute findings but did show an 18 mm nodule in the left thyroid lobe. She was administered 60 mg pyridostigmine and she was admitted to the ICU with respiratory distress and concerns for possible myasthenia crisis. At the time of my initial evaluation her SpO2 was 100% on 30% FiO2 on BiPAP and she was able to freely speak through the mask. BiPAP was removed per respiratory therapist to check NIF which came back at -30 however she did receive several benzodiazepines in the ED. She remained off of the BiPAP and on 1 L nasal cannula with an SpO2 of 100% thereafter. 30 minutes later a repeat NIF was a -38. Within about 1 hours time the patient began complaining again of feeling as though she had mucus stuck in her airway and started to hyperventilate. She was attempting to jump out of the bed and was extremely panicky. She asked for the BiPAP which was placed on her but she continued to hyperventilate. Repeat ABG showed a pH of 7.700, pCO2 16.8, PO2 106.5. Decision was then made to intubate the patient given her significant panic and distress. Review of Systems Review of Systems: 12 systems were reviewed and are negative except for as per HPI. [facility] Past Medical History Medical History Anxiety Arthritis Asthma Depression Diastolic dysfunction Gastroesophageal reflux disease Hiatal hernia Hypertension Hypothyroidism Morbid obesity with body mass index (BMI) of 40.0 or higher Myasthenia gravis Obstructive sleep apnea Surgical History Surgical History History of fundoplication History of inguinal hernia repair History of oophorectomy History of right knee joint replacement (2009) History of tonsillectomy Family History Family History Father Family history of malignant neoplasm of urinary bladder Family history of coronary artery disease Hypertension Patient's fa
--- NOTE | 2023-11-21 16:03 | PC.NURSE ---
This patient, Irasema Rodriguez, was admitted to Intensive Care Unit-5. Patient/family oriented to hospital policies and general routines including ID bracelet, bed and alarms, visiting hours, pain management, procedures, bathroom and other care routines, personal items, smoking policy, room service/diet, and visiting hours. Information on how to activate the Rapid Response Team has been discussed. Patient/Family are encouraged to report perceived risks to care and to ask questions if they do not understand what they are told or what they should do.
--- NOTE | 2023-11-21 17:47 | PCRCNOTE ---
NIF performed -35 CMH20
[2023-11-21 18:35] LABS: Creatinine Urine 105.2 mg/dL; Urea Random Urine 714 MG/DL
[2023-11-21 18:39] LABS: Sodium Urine Random 75 meq/L
[2023-11-21 19:20] LABS: Alveolar/Arterial O2 Gradient 23.1 mmHg; Carboxyhemoglobin 0.3 % THb (0-2.0); Fractional Inspired Oxygen 21 %; Methemoglobin ABG 0.3 %THb (0-1.5); Oxygen Content ABG 17.6 %vol (16.0-22.0); PO2 ABG 106.5 mmHg (80.0-100.0); PO2 FiO2 Ratio Arterial Blood 5.07 %; Reduced Hemoglobin 1.4 %THb (0-5.0); Total Hemoglobin 12.7 g/dL (12.0-18.0)
[2023-11-21 20:05] LABS: pH ABG > 7.700 (7.350-7.450)
[2023-11-21 20:06] LABS: PCO2 ABG 16.8 mmHg (35.0-45.0)
[2023-11-21 20:08] LABS: Device ROOM AIR; Modified Allen's Test Pass; Site Drawn RIGHT RADIAL
--- NOTE | 2023-11-21 20:24 | PCRTNOTE ---
NIF prior to intubation around 1855 -38
--- NOTE | 2023-11-21 20:28 | P.PCNBED_ITS ---
Procedures Intubation Intubation Date: 11/21/23 Intubation Time: 19:55 Consent: Patient gave consent. A pre-procedural Time-Out was completed immediately before starting the procedure and confirmed: Patient Identification, Site, Procedure, Patient Position and the Availability of Requisite Equipment: Yes Sedative: etomidate Mg given: 20 Paralytic: rocuronium Mg given: 50 Laryngoscope: fiber optic video scope Assist device used: fiber optic device ET tube size: 7.5 Tube secured depth (cm): 25 Tube secured location: lips Tube placement confirmation: visualized tube passing through cords, equal breath sounds bilaterally, no breath sounds over epigastrium and confirmation by capnometry Patient tolerated procedure: well Intubation complications: none Additional comments: The patient became increasingly anxious and was hyperventilating (ABG showed a pH of greater than 7.70). Decision was made to intubate the patient. She was preoxygenated to 100% on BiPAP. Etomidate and rocuronium were given for RSI. She was intubated quickly and atraumatically using the glide scope. A 7.5 ET tube was seen passing through the vocal cords. Mist was noted in the ET tube and lung sounds were auscultated bilaterally with positive CO2 colorimetric change. Vital signs remained stable throughout. Oropharynx, tonsils, vocal cords, and epiglottis were unremarkable and without mucous. Chest x-ray showed ET tube approximately 4 cm above the yulia. Vent settings and sedation orders were provided by the glazing superintendent. Dr. Indra Garcia, attending ED physician, was at bedside.
[2023-11-21] MEDS: IPRATROPIUM 0.5 MG/ALBUTEROL SULFATE 2.5 MG AMPUL.NEB 3 ML INHALATION (20:41)
[2023-11-21] MEDS: PROPOFOL IV EMULSION 100 ML 4.2 MG IV CONT (21:01)
[2023-11-21 21:06] LABS: Anion Gap 13 mmol/L (4-12); Blood Urea Nitrogen 17 mg/dL (7-17); Calcium 9.3 mg/dL (8.4-10.2); Carbon Dioxide 19 mmol/L (22-30); Chloride 98 mmol/L (98-107); Estimated CRCL calculation 112 ml/min; Estimated Glomerular Filt Rate > 60; Glucose 184 mg/dL (65-110); Hemoglobin A1C 5.4 % (<5.7); Potassium 3.3 mmol/L (3.4-5.0); Sodium 130 mmol/L (137-145)
[2023-11-21 21:07] LABS: Magnesium 1.9 mg/dL (1.6-2.3); Triglycerides 73 mg/dL (<150)
[2023-11-21 22:40] LABS: Alveolar/Arterial O2 Gradient 75.1 mmHg; Base Excess ABG 0.5 mEq/l (+/-2.0); Fractional Inspired Oxygen 30 %; HCO3 ABG 24.4 mEq/l (22.0-26.0); Oxygen Content ABG 16.9 %vol (16.0-22.0); Oxygen Saturation ABG 97.6 % (95.0-100.0); Oxyhemoglobin 96.9 % THb (90.0-100.0); PCO2 ABG 36.7 mmHg (35.0-45.0); PO2 ABG 95.7 mmHg (80.0-100.0); PO2 FiO2 Ratio Arterial Blood 3.19 %; Total Hemoglobin 12.3 g/dL (12.0-18.0)
[2023-11-21 22:41] LABS: Modified Allen's Test Pass; Site Drawn RIGHT RADIAL
[2023-11-21 22:42] LABS: Arterial Blood Gas PEEP 8 cmH2O; Arterial Blood Gas Tidal Volume 400 ml; Arterial Blood Gas Vent Mode CMV; Arterial Blood Gas Ventilator rate 18 /MIN; Device VENTILATOR
[2023-11-21] MEDS: FAMOTIDINE 20 MG TABLET 40 MG PO (22:48)
[2023-11-21] MEDS: RAPID SEQUENCE INTUBATION KIT 1 EACH (22:48)
[2023-11-21] MEDS: GABAPENTIN 300 MG CAPSULE PO (22:49)
[2023-11-21] MEDS: guaiFENesin 12 HR 600 MG TABCR 1200 MG PO (22:49)
[2023-11-21] MEDS: LACTATED RINGERS 1,000 ML 100 ML IV CONT (22:50)
[2023-11-21] MEDS: POTASSIUM CHLORIDE 20 MEQ PACKET (FOR LIQUID) PO (22:50)
[2023-11-21] MEDS: MINERAL OIL/WHITE PETROLATUM OINTMENT 1 APPLIC EACH EYE (22:50)
[2023-11-22] VITALS (50 sets, daily range): BP systolic 109–136; BP diastolic 54–82; PULSE 61–103; RESP 12–24; TEMP 36.5–37.2; O2SAT 97–100; BMI 51.7
[2023-11-22 00:28] LABS: Glucose Point of Care 155 mg/dl (65-105)
[2023-11-22] MEDS: methylPREDNISolone SOD SUCC 125 MG VIAL 60 MG IV PUSH ×3 (00:28→09:13)
[2023-11-22] MEDS: PROPOFOL IV EMULSION 100 ML 29.4 MG IV CONT (00:45)
[2023-11-22] MEDS: IPRATROPIUM 0.5 MG/ALBUTEROL SULFATE 2.5 MG AMPUL.NEB 3 ML INHALATION ×4 (02:10→20:17)
[2023-11-22] MEDS: PROPOFOL IV EMULSION 100 ML 33.6 MG IV CONT ×2 (03:23→05:57)
[2023-11-22 03:46] LABS: Basophils Percent Auto 0.1 % (0.2-1.2); Hematocrit 35.3 % (37.0-47.0); Hemoglobin 11.9 g/dL (12.0-15.0); Immature Granulocyte Absolute 0.08 K/mm3 (0.00-0.031); Immature Granulocyte Percent A 0.5 % (0-0.5); Lymphocytes Absolute Auto 0.62 K/mm3 (0.9-3.2); Mean Corpuscular HGB Conc 33.7 g/dl (32-36); Mean Corpuscular Hemoglobin 29.5 pg (26-34); Mean Corpuscular Volume 87.6 fl (80-100); Mean Platelet Volume 10.3 fl (7.4-10.4); Monocytes Absolute Auto 0.6 K/mm3 (0.1-0.6); Neutrophils Percent Auto 91.4 % (45.5-73.1); Platelet Count Result 261 k/mm3 (150-375); Red Blood Count 4.03 M/mm3 (4.2-5.4); Red Cell Distribution Width 12.7 % (11.5-14.5); White Blood Count 15.3 K/mm3 (4.5-10.0)
[2023-11-22 04:04] LABS: Alanine Aminotransferase 19 U/L (6-35); Albumin Level 4.1 g/dL (3.5-5.1); Alkaline Phosphatase 68 U/L (38-126); Anion Gap 7 mmol/L (4-12); Aspartate Amino Transferase 22 U/L (14-36); Bilirubin,Total 0.6 mg/dL (0.2-1.3); Blood Urea Nitrogen 17 mg/dL (7-17); Calcium 8.9 mg/dL (8.4-10.2); Carbon Dioxide 23 mmol/L (22-30); Chloride 99 mmol/L (98-107); Estimated CRCL calculation 112 ml/min; Estimated Glomerular Filt Rate > 60; Glucose 157 mg/dL (65-110); Potassium 4.3 mmol/L (3.4-5.0); Sodium 129 mmol/L (137-145)
[2023-11-22] MEDS: LEVOTHYROXINE SODIUM 100 MCG TABLET PO (04:47)
[2023-11-22] MEDS: pyRIDostigmine bromide 60 MG TABLET PO (04:47)
[2023-11-22] MEDS: LEVOTHYROXINE SODIUM 75 MCG TABLET PO (04:47)
[2023-11-22 05:27] LABS: Alveolar/Arterial O2 Gradient 63.1 mmHg; Base Excess ABG -0.6 mEq/l (+/-2.0); Carboxyhemoglobin 0.4 % THb (0-2.0); Fractional Inspired Oxygen 30 %; HCO3 ABG 22.9 mEq/l (22.0-26.0); Methemoglobin ABG 0.3 %THb (0-1.5); Oxygen Content ABG 16.6 %vol (16.0-22.0); Oxygen Saturation ABG 98.2 % (95.0-100.0); Oxyhemoglobin 97.5 % THb (90.0-100.0); PCO2 ABG 34.1 mmHg (35.0-45.0); PO2 ABG 110.7 mmHg (80.0-100.0); PO2 FiO2 Ratio Arterial Blood 3.69 %; Reduced Hemoglobin 1.8 %THb (0-5.0); pH ABG 7.445 (7.350-7.450)
[2023-11-22 05:28] LABS: Device VENTILATOR; Modified Allen's Test Pass; Site Drawn RIGHT RADIAL
[2023-11-22 05:29] LABS: Arterial Blood Gas PEEP 8 cmH2O; Arterial Blood Gas Tidal Volume 400 ml; Arterial Blood Gas Vent Mode CMV; Arterial Blood Gas Ventilator rate 18 /MIN
[2023-11-22 07:38] LABS: MRSA (PCR) NOT DETECTED (NOT DETECTE)
[2023-11-22] MEDS: PROPOFOL IV EMULSION 100 ML 37.8 MG IV CONT ×6 (08:27→21:40)
[2023-11-22] MEDS: ENOXAPARIN 40 MG/0.4 ML SYRINGE SUB-Q (08:31)
[2023-11-22] MEDS: fentaNYL CITRATE INJ (*CRX) 100 MCG/2 ML VIAL 25 MCG IV PUSH ×4 (08:31→20:04)
[2023-11-22] MEDS: MONTELUKAST SODIUM 10 MG TABLET PO (08:32)
[2023-11-22] MEDS: ACETAMINOPHEN 325 MG TABLET 650 MG PO (08:32)
--- NOTE | 2023-11-22 08:32 | WPDCNINT ---
Assessment and Plan Assessment and plan (1) Acute respiratory failure: Code(s): J96.00 - Acute respiratory failure, unspecified whether with hypoxia or hypercapnia Status: Acute Assessment and Plan: Acute Respiratory failure with no clear etiology with differential of some combination of myasthenia crisis, asthma exacerbation, panic attack, vocal cord dysfunction Patient now intubated and sedated with propofol Continue full mechanical ventilation support to prevent hypoxemia/hypercarbia and end organ damage. ABG reviewed and will decrease tidal volume to 380 and rate to 16. Patient on 30% FiO2 and 8 of PEEP PCXR reviewed Continue Bronchodilators Patient was continued on pyridostigmine 60 mg q.8 hours. Neurology has been consulted. Acetylcholine receptor antibody ordered. Will discuss with Neurology regarding additional treatment like IVIG and whether to hold pyridostigmine. Obtain records from [facility] Patient has history of asthma but does not have any significant wheezing on exam. Will decrease does and duration steroids Consult ENT for evaluation for vocal cord dysfunction Patient now sedated with propofol appears calm. May need Precedex. Will avoid benzodiazepines at this time (2) Myasthenia gravis: Code(s): G70.00 - Myasthenia gravis without (acute) exacerbation Status: Acute Assessment and Plan: See above (3) Hypothyroidism: Code(s): E03.9 - Hypothyroidism, unspecified Status: Acute Assessment and Plan: TSH in normal range Continue levothyroxine (4) Gastroesophageal reflux disease: Code(s): K21.9 - Gastro-esophageal reflux disease without esophagitis Status: Acute Assessment and Plan: Protonix IV (5) Asthma: Qualifiers: Asthma complication type: unspecified Asthma persistence: unspecified Asthma severity: unspecified severity Qualified Code(s): J45.909 - Unspecified asthma, uncomplicated Code(s): J45.909 - Unspecified asthma, uncomplicated Status: Acute Assessment and Plan: See above (6) Anxiety: Code(s): F41.9 - Anxiety disorder, unspecified Status: Acute Assessment and Plan: See Plan DVT prophylaxis -Lovenox Stress ulcer prophylaxis -PPI Nutrition -start Tube Feeds Code Status - Full Code Total Critical Care Time - 40 minutes Due to a high probability of clinically significant, life threatening deterioration, the patient required my highest level of preparedness to intervene emergently and I personally spent this critical care time directly and personally managing the patient. This critical care time included obtaining a history; examining the patient; pulse oximetry; ordering and review of studies; arranging urgent treatment with development of a management plan; evaluation of patient's response to treatment; frequent reassessment; and discussions with other providers. It was exclusive of separately billable procedures and treating other patients and teaching time. Please see Assessment and Plan section and the rest of the note for further information on patient assessment and treatment [employer] Consult Note Consult date: 11/22/23 Reason for consult: Acute respiratory failure HPI: Irasema Rodriguez is a 68 year old female with past medical history of asthma, recent diagnosis of myasthenia gravis and started on treatment, obstructive sleep apnea, hypertension, gastroesophageal reflux disease, and hypothyroidism who presented to the emergency department via EMS from home for evaluation of shortness of breath. She was seen in the emergency department the day before g for evaluation of fairly sudden onset of shortness of breath while working in the kitchen. At that time she felt as though she had a lot of mucus stuck in her throat that she could not cough up. She was suspected to be having asthma exacerbation and received a continuous DuoNeb, Solu-Medrol, a
[2023-11-22] MEDS: CYANOCOBALAMIN 1,000 MCG TABLET 1000 MCG PO (08:33)
[2023-11-22] MEDS: CHOLECALCIFEROL 1,000 UNITS TABLET 2000 UNITS PO (08:33)
[2023-11-22] MEDS: ASPIRIN 81 MG ENTERIC TABLET PO (08:33)
[2023-11-22] MEDS: busPIRone HCL 10 MG TABLET PO (08:33)
[2023-11-22] MEDS: MINERAL OIL/WHITE PETROLATUM OINTMENT 1 APPLIC EACH EYE ×2 (08:34→21:31)
[2023-11-22] MEDS: PANTOPRAZOLE SODIUM IV 40 MG VIAL IV PUSH (08:34)
[2023-11-22] MEDS: SUCRALFATE 1 GM TABLET 2 GM PO (08:45)
[2023-11-22] MEDS: LIDOCAINE HCL 1% PF INJ 5 ML VIAL INFILTRATE (11:00)
[2023-11-22 12:20] LABS: Glucose Point of Care 145 mg/dl (65-105)
--- NOTE | 2023-11-22 12:29 | WPDNEURCNPN ---
Consult date: 11/22/23 HPI: Irasema Rodriguez is a 68 year old female admitted to the hospital through the emergency room for the complaints of difficulties in breathing in addition to the ongoing history of bronchial asthma was notedly in [id number] respiratory distress at the time of visit to the ER she use the home inhaler at home waited for 20minutes without any significant relief that is why she was brought to the ER her medications included aspirin 81mg daily loratadine 10mg p.r.n. she is allergic to amoxicillin admitted to the floor with the ongoing history of myasthenia gravis as well in addition to ongoing diagnosis of obstructive sleep apnea hypertension GERD hypothyroidism subsequent visit in the ER she was continued on her Mestinon on a regular dosage and subsequently neuro consultation has been obtained for the acute respiratory failure with no clear etiology differential of myasthenia crisis attack and vocal cord dysfunction patient at present is intubated sedated on propofol and being continued on full mechanical ventilation to prevent the hypoxia and hypercarbia he was continued on pyridostigmine 60mg q.8 hours acetylcholine receptor antibodies have been ordered records are being obtained from the [facility] Past Medical History Medical History Anxiety Arthritis Asthma Depression Diastolic dysfunction Gastroesophageal reflux disease Hiatal hernia Hypertension Hypothyroidism Morbid obesity with body mass index (BMI) of 40.0 or higher Myasthenia gravis Obstructive sleep apnea Surgical History Surgical History History of fundoplication History of inguinal hernia repair History of oophorectomy History of right knee joint replacement (2009) History of tonsillectomy Family History Family History Father Family history of malignant neoplasm of urinary bladder Family history of coronary artery disease Hypertension Patient's father is Sibling Family history of coronary artery disease Mother Family history of chronic obstructive pulmonary disease Patient's mother is Social History Social History Social History: Surrogate medical decision maker: Vivien Monsivais, . Code status: Full code. Smoking status: Never smoker Second hand tobacco smoke exposure: No Alcohol intake: never Substance use: never Substance use type: does not use Do You Feel Safe in your Home?: Yes Lack of Transportation: No Lack of Food: Never True Current Housing: I Have Housing Concerned About Future Housing: No Difficulty Paying Gas/Electric Bills: No Difficulty Paying for Meds: No Currently Unemployed: No Education: Decline to Answer Difficulty w/ Childcare or Family Care: No Living arrangements: alone Spiritual care concerns: No Agree to blood products: No Meds Home Medications and Allergies Home Medications Medication Instructions Recorded Confirmed Type aspirin 81 mg tablet,delayed 81 mg PO DAILY 04/27/20 11/21/23 History release (Adult Aspirin Regimen) cholecalciferol (vitamin D3) 25 50 mcg PO DAILY 04/27/20 11/21/23 History mcg (1,000 unit) capsule guaifenesin 1,200 mg tablet, 1,200 mg PO HS 04/27/20 11/21/23 History extended release 12 hr (Mucinex) loratadine 10 mg tablet (Claritin) 10 mg PO PRN PRN Allergy Symptoms 04/27/20 11/21/23 History mecobalamin (vitamin B12) 1,000 1,000 mcg sublingual DAILY 04/27/20 11/21/23 History mcg disintegrating tablet,sublingual amlodipine 10 mg tablet 10 mg PO DAILY #90 tabs 03/03/23 11/21/23 Rx gabapentin 300 mg capsule 300 mg PO HS #90 caps 03/03/23 11/21/23 Rx (Neurontin) levothyroxine 175 mcg tablet 175 mcg PO DAILY #90 tabs 03/03/23 11/21/23 Rx (Levoxyl) indapamide 2.
[2023-11-22] MEDS: pyRIDostigmine bromide 60 MG TABLET FEED TUBE ×2 (13:46→20:03)
[2023-11-22] MEDS: CENTRAL LINE FLUSH 10 ML IV PUSH ×2 (14:00→21:31)
--- NOTE | 2023-11-22 15:30 | ECHO_ITS ---
Patient Info Name: Irasema Rodriguez Age: 68 years : 1955 Gender: Female Ht: 65 in Wt: 308 lbs BSA: 2.62 m2 HR: 73 bpm BP: 127 / 82 mmHg Heart Rhythm: Sinus Rhythm Technical Quality: Good Exam Date: 11/22/2023 7:30 AM Exam Location: Echo Lab Patient Status: Inpatient Admit Date: 11/21/2023 Staff Ordering Physician: Hui Johnson PA-C Wire Brush Maker: Anthony Kimball RDCS Attending Provider: Livier Masters MD Referring Physician: Alex GARCIAS; Exam Type: CA echo doppler color flow Study Info Indications - HTN R06.02 - Shortness of breath R00.0 - Tachycardia, unspecified Complete two-dimensional, color flow and Doppler transthoracic echocardiogram is performed. Summary 1. Left ventricular chamber dimension is normal. 2. Left ventricular systolic function is hyperdynamic, estimated at >70%. 3. There is mildly increased left ventricular wall thickness. 4. The left ventricular diastolic function is grade I diastolic dysfunction. 5. Right ventricular systolic function is normal. 6. There is mild tricuspid valve regurgitation. 7. Estimated pulmonary arterial systolic pressure is 49 mmHg. Left Ventricle Left ventricular chamber dimension is normal. Left ventricular systolic function is hyperdynamic, estimated at >70%. There is mildly increased left ventricular wall thickness. The left ventricular diastolic function is grade I diastolic dysfunction. Right Ventricle Right ventricular chamber dimension is normal. Right ventricular systolic function is normal. Left Atria Left atrial chamber dimension is normal. Right Atria Right atrial chamber dimension is normal. Atrial Septum Intact interatrial septum visualized by color flow imaging. Aortic Valve The aortic valve is probable trileaflet. There is no aortic valve stenosis. There is no aortic valve regurgitation. Pulmonic Valve The pulmonic valve is not well visualized. There is no pulmonic regurgitation. Mitral Valve There is trace mitral valve regurgitation. The mitral valve annulus is mildly calcified. Tricuspid Valve There is mild tricuspid valve regurgitation. Estimated pulmonary arterial systolic pressure is 49 mmHg. Pericardium/Pleural There is no pericardial effusion. Inferior Vena Cava Dilated inferior vena cava with <50% collapse upon inspiration consistent with elevated right atrial pressure, 15 mmHg. Aorta The aortic root size at the sinus of Valsalva is normal. Left Ventricular Outflow Tract Name Value Normal LVOT 2D LVOT Diameter 2.1 cm LVOT Doppler LVOT Peak Gradient 8 mmHg LVOT Mean Gradient 4 mmHg LVOT VTI 29 cm LVOT VTI/AV VTI Ratio 0.9 LVOT Stroke Volume 99 ml LVOT CO 7.1 l/min LVOT CI 2.7 l/min/m2 Pulmonic Valve Name Value Normal PV Doppler
[2023-11-22 17:26] LABS: Glucose Point of Care 154 mg/dl (65-105)
--- NOTE | 2023-11-22 18:08 | PM.IMPN ---
Progress Note: A&P Assessment and Plan (1) Acute respiratory failure: Code(s): J96.00 - Acute respiratory failure, unspecified whether with hypoxia or hypercapnia Status: Acute Assessment and Plan: Acute Respiratory failure with no clear etiology with differential of some combination of myasthenia crisis, asthma exacerbation, panic attack, vocal cord dysfunction Patient now intubated and sedated with propofol Continue full mechanical ventilation support to prevent hypoxemia/hypercarbia and end organ damage. ABG reviewed and will decrease tidal volume to 380 and rate to 16. Patient on 30% FiO2 and 8 of PEEP PCXR reviewed Continue Bronchodilators Patient was continued on pyridostigmine 60 mg q.8 hours. Neurology has been consulted. Acetylcholine receptor antibody ordered. Will discuss with Neurology regarding additional treatment like IVIG and whether to hold pyridostigmine. Obtain records from [facility] Patient has history of asthma but does not have any significant wheezing on exam. Will decrease does and duration steroids Consult ENT for evaluation for vocal cord dysfunction Patient now sedated with propofol appears calm. May need Precedex. Will avoid benzodiazepines at this time 11/22/23: continue ventilatory support (2) Myasthenia gravis: Code(s): G70.00 - Myasthenia gravis without (acute) exacerbation Status: Acute Assessment and Plan: See above (3) Hypothyroidism: Code(s): E03.9 - Hypothyroidism, unspecified Status: Acute Assessment and Plan: TSH in normal range Continue levothyroxine (4) Gastroesophageal reflux disease: Code(s): K21.9 - Gastro-esophageal reflux disease without esophagitis Status: Acute Assessment and Plan: Protonix IV (5) Asthma: Qualifiers: Asthma severity: unspecified severity Asthma persistence: unspecified Asthma complication type: unspecified Qualified Code(s): J45.909 - Unspecified asthma, uncomplicated Code(s): J45.909 - Unspecified asthma, uncomplicated Status: Acute Assessment and Plan: See above (6) Anxiety: Code(s): F41.9 - Anxiety disorder, unspecified Status: Acute Assessment and Plan: See Plan DVT prophylaxis -Lovenox Stress ulcer prophylaxis -PPI Nutrition -start Tube Feeds Code Status - Full Code Time Spent With Patient Time with patient: 25 - 35 minutes Subjective Date/time seen: 11/22/23 18:08 Interval history: 11/22/23: Seen and examined; on Ventilator support. not in painful or respiratory distress; follows commands Review of Systems Review of Systems: 12 systems were reviewed and are negative except for as per HPI. ROS unobtainable: Yes unobtainable due to endotracheal tube, unobtainable due to medical condition and unobtainable due to mental status Exam Narrative: General: Pt is sedated, intubated and on mechanical ventilation Lungs/Chest: Trachea central Coarse BS B/L, No crackles or wheezing. Cardiac: RRR. Normal S1 S2. No murmurs Circulation: Pedal pulses are intact and symmetrical. Abdomen: Decreased bowel sounds. Morbidly Obese. Soft. NT. ND. Extremities: No clubbing, cyanosis or edema. Warm changes of chronic venous stasis : Wilson in place Neurologic: On holding sedation patient is arousable. PERRL follows commands with all 4 extremities Objective Data Vital Signs Vital Signs: Vital Signs - 24 hr 11/21/23 20:17 11/21/23 21:01 11/21/23 20:00 Temperature Pulse Rate 129 H 112 H Respiratory Rate 22 H Blood Pressure Pulse Oximetry 99 98 Oxygen Delivery Mechanical Ventilation Mechanical Ventilation Fraction of Inspired Oxygen 50 30 11/21/23 20:00 11/21/23 20:00 11/21/23 22:00 Temperature 99 F Pulse Rate 135 H 135 H 89 Respiratory Rate 18 Blood Pressure 192/72 H Pulse Oximetry 100 Oxygen Delivery Fraction of Inspired Oxygen 11/21/23 22:00
[2023-11-23] VITALS (55 sets, daily range): BP systolic 95–158; BP diastolic 55–78; PULSE 52–109; RESP 14–21; TEMP 36.4–37.1; O2SAT 94–100
[2023-11-23 00:10] LABS: Glucose Point of Care 176 mg/dl (65-105)
[2023-11-23] MEDS: PROPOFOL IV EMULSION 100 ML 42 MG IV CONT ×4 (01:52→09:34)
[2023-11-23] MEDS: fentaNYL CITRATE INJ (*CRX) 100 MCG/2 ML VIAL 25 MCG IV PUSH ×3 (01:52→21:00)
[2023-11-23] MEDS: IPRATROPIUM 0.5 MG/ALBUTEROL SULFATE 2.5 MG AMPUL.NEB 3 ML INHALATION ×4 (02:13→20:17)
[2023-11-23 05:07] LABS: Alveolar/Arterial O2 Gradient 77.2 mmHg; Base Excess ABG 2.5 mEq/l (+/-2.0); Carboxyhemoglobin 0.3 % THb (0-2.0); Fractional Inspired Oxygen 30 %; HCO3 ABG 26.3 mEq/l (22.0-26.0); Methemoglobin ABG 0.3 %THb (0-1.5); Oxygen Saturation ABG 97.4 % (95.0-100.0); Oxyhemoglobin 96.6 % THb (90.0-100.0); PCO2 ABG 37.8 mmHg (35.0-45.0); PO2 ABG 92.3 mmHg (80.0-100.0); PO2 FiO2 Ratio Arterial Blood 3.08 %; Reduced Hemoglobin 2.8 %THb (0-5.0); Total Hemoglobin 11.7 g/dL (12.0-18.0); pH ABG 7.461 (7.350-7.450)
[2023-11-23 05:21] LABS: Device VENTILATOR; Modified Allen's Test Pass; Site Drawn LEFT RADIAL
[2023-11-23 05:22] LABS: Arterial Blood Gas PEEP 8 cmH2O; Arterial Blood Gas Tidal Volume 380 ml; Arterial Blood Gas Vent Mode CMV; Arterial Blood Gas Ventilator rate 16 /MIN
[2023-11-23] MEDS: pyRIDostigmine bromide 60 MG TABLET FEED TUBE ×3 (05:28→21:05)
[2023-11-23] MEDS: CENTRAL LINE FLUSH 10 ML IV PUSH ×3 (05:28→21:05)
[2023-11-23] MEDS: LEVOTHYROXINE SODIUM 75 MCG TABLET PO (05:28)
[2023-11-23] MEDS: LEVOTHYROXINE SODIUM 100 MCG TABLET PO (05:28)
[2023-11-23 05:46] LABS: Alanine Aminotransferase 19 U/L (6-35); Albumin Level 3.8 g/dL (3.5-5.1); Alkaline Phosphatase 60 U/L (38-126); Anion Gap 6 mmol/L (4-12); Aspartate Amino Transferase 20 U/L (14-36); Bilirubin,Total 0.5 mg/dL (0.2-1.3); Blood Urea Nitrogen 27 mg/dL (7-17); Calcium 8.2 mg/dL (8.4-10.2); Carbon Dioxide 22 mmol/L (22-30); Chloride 97 mmol/L (98-107); Estimated CRCL calculation 112 ml/min; Estimated Glomerular Filt Rate > 60; Glucose 131 mg/dL (65-110); Magnesium 1.9 mg/dL (1.6-2.3); Potassium 3.8 mmol/L (3.4-5.0); Sodium 125 mmol/L (137-145)
[2023-11-23 06:05] LABS: Basophils Percent Auto 0.2 % (0.2-1.2); Hematocrit 33.7 % (37.0-47.0); Immature Granulocyte Absolute 0.09 K/mm3 (0.00-0.031); Immature Granulocyte Percent A 0.6 % (0-0.5); Lymphocytes Absolute Auto 1.24 K/mm3 (0.9-3.2); Lymphocytes Percent Auto 7.8 % (18.3-44.2); Mean Corpuscular HGB Conc 32.6 g/dl (32-36); Mean Corpuscular Hemoglobin 30.1 pg (26-34); Mean Corpuscular Volume 92.1 fl (80-100); Mean Platelet Volume 11.3 fl (7.4-10.4); Monocytes Absolute Auto 1.1 K/mm3 (0.1-0.6); Monocytes Percent Auto 6.8 % (2.6-8.5); Neutrophils Absolute Auto 13.4 K/mm3 (1.3-6.7); Neutrophils Percent Auto 84.6 % (45.5-73.1); Platelet Count Result 154 k/mm3 (150-375); Red Blood Count 3.66 M/mm3 (4.2-5.4); Red Cell Distribution Width 12.6 % (11.5-14.5); White Blood Count 15.8 K/mm3 (4.5-10.0)
[2023-11-23] MEDS: ASPIRIN 81 MG ENTERIC TABLET PO (08:21)
[2023-11-23] MEDS: busPIRone HCL 10 MG TABLET PO (08:21)
[2023-11-23] MEDS: methylPREDNISolone SOD SUCC 125 MG VIAL 60 MG IV PUSH (08:22)
[2023-11-23] MEDS: CYANOCOBALAMIN 1,000 MCG TABLET 1000 MCG PO (08:22)
[2023-11-23] MEDS: CHOLECALCIFEROL 1,000 UNITS TABLET 2000 UNITS PO (08:22)
[2023-11-23] MEDS: ENOXAPARIN 40 MG/0.4 ML SYRINGE SUB-Q (08:22)
[2023-11-23] MEDS: PANTOPRAZOLE SODIUM IV 40 MG VIAL IV PUSH (08:23)
--- NOTE | 2023-11-23 09:10 | WPDINTPN ---
Progress Note: A&P Assessment and Plan (1) Acute respiratory failure: Code(s): J96.00 - Acute respiratory failure, unspecified whether with hypoxia or hypercapnia Status: Acute Assessment and Plan: Acute Respiratory failure with no clear etiology with differential of some combination of myasthenia crisis, asthma exacerbation, panic attack ? vocal cord dysfunction Patient now intubated and sedated with propofol Continue full mechanical ventilation support to prevent hypoxemia/hypercarbia and end organ damage. ABG reviewed and will decrease tidal volume to 380 and rate to 14. Patient on 30% FiO2 and 8 of PEEP PCXR reviewed Continue Bronchodilators 11/[address] Reyes from Neurology patient was continued on pyridostigmine 60 mg q.8 hours. Acetylcholine receptor antibody ordered. Patient was started on IVIG. Request sent to Obtain records from [facility] but I have not received any records yet Patient has history of asthma but does not have any significant wheezing on exam. I have decreased does and duration steroids Consulted ENT for evaluation for vocal cord dysfunction Patient now sedated with propofol appears calm. On sedation holiday patient was evaluated for NIF and she recorded -30 and - 40 on 2 checks. Cuff leak was present. On spontaneous / PSV patient became anxious with tidal volumes 0832-9116 mL and agitated. Weaning trial was aborted. I will start patient on Precedex infusion to provide anxiolysis while we assess for weaning trial next time (2) Myasthenia gravis: Code(s): G70.00 - Myasthenia gravis without (acute) exacerbation Status: Acute Assessment and Plan: See above (3) Hypothyroidism: Code(s): E03.9 - Hypothyroidism, unspecified Status: Acute Assessment and Plan: TSH in normal range Continue levothyroxine (4) Gastroesophageal reflux disease: Code(s): K21.9 - Gastro-esophageal reflux disease without esophagitis Status: Acute Assessment and Plan: Protonix IV (5) Asthma: Qualifiers: Asthma severity: unspecified severity Asthma persistence: unspecified Asthma complication type: unspecified Qualified Code(s): J45.909 - Unspecified asthma, uncomplicated Code(s): J45.909 - Unspecified asthma, uncomplicated Status: Acute Assessment and Plan: See above (6) Anxiety: Code(s): F41.9 - Anxiety disorder, unspecified Status: Acute Assessment and Plan: See Plan DVT prophylaxis -Lovenox Stress ulcer prophylaxis -PPI Nutrition -continue Tube Feeds Code Status - Full Code Total Critical Care Time - 40 minutes Due to a high probability of clinically significant, life threatening deterioration, the patient required my highest level of preparedness to intervene emergently and I personally spent this critical care time directly and personally managing the patient. This critical care time included obtaining a history; examining the patient; pulse oximetry; ordering and review of studies; arranging urgent treatment with development of a management plan; evaluation of patient's response to treatment; frequent reassessment; and discussions with other providers. It was exclusive of separately billable procedures and treating other patients and teaching time. Please see Assessment and Plan section and the rest of the note for further information on patient assessment and treatment Subjective Date/time seen: 11/23/23 Overnight events reviewed. Afebrile Continues to be on mechanical ventilation 30% FiO2 Tolerating tube feeds Continues to be sedated with propofol Vitals acceptable Review of Systems Review of Systems: ROS unobtainable: Yes unobtainable due to endotracheal tube, unobtainable due to medical condition and unobtainable due to mental status Exam Narrative: General: Pt is sedated, intubated and on mechanical ventilation Lungs/Chest: Trachea
[2023-11-23] MEDS: dexmedeTOMIDine 400 MCG/100 ML 400 MCG/100 ML BAG 7.04 MCG IV CONT (09:36)
--- NOTE | 2023-11-23 10:21 | PCFNICU ---
ICU Rounding Note: Pt current nutrition is Vital AF 1.2 at 50 ml/hr. Last recorded weight is 140.8 kg, down from 141. 2 kg on admit. Bowel Motility: No BM reported. Labs Reviewed:Glu 131, Cr 0.6,BUN 27, Na 125, Hct 33.7,Hgb 11.0 Meds Noted:Vit D, Precedex, Propofol 37.8 ml/hb=845 kcals, Vit B12 Skin: WNL Additional Notes:Patient remains on mechanical vent. Tube feedings are being tolerated of Vital AF 1.2 at 50 ml/hr. Flush 30 ml q 4 hours. Patient started on Precedex today with plans to decrease Propofol infusion. Agree with diet orders. Following daily in ICU rounds. Will monitor weight, meds, labs, skin, tube feeding tolerance every Monday and Monday.
--- NOTE | 2023-11-23 11:05 | WPDNEUROPN ---
Progress Note: A&P Assessment and Plan (1) Acute respiratory failure: Code(s): J96.00 - Acute respiratory failure, unspecified whether with hypoxia or hypercapnia Status: Acute (2) History of myasthenia gravis: Code(s): Z86.69 - Personal history of other diseases of the nervous system and sense organs Status: Acute (3) Choking sensation: Code(s): R09.89 - Other specified symptoms and signs involving the circulatory and respiratory systems Status: Acute (4) Asthma: Qualifiers: Asthma severity: unspecified severity Asthma persistence: unspecified Asthma complication type: unspecified Qualified Code(s): J45.909 - Unspecified asthma, uncomplicated Code(s): J45.909 - Unspecified asthma, uncomplicated Status: Acute (5) Anxiety: Code(s): F41.9 - Anxiety disorder, unspecified Status: Acute Plan Ms. Peters is a 68 year old female with a history of asthma, HTN, GERD, hypothyroidism, and myasthenia gravis presenting for evaluation of shortness of breath. Atypical picture for myasthenia crisis. Obviously with respiratory difficulty on presentation but no other findings to suggest acute worsening of MG. She has Mestinon as a home medication but no immunotherapy. Suspect etiology to be multifactorial -- asthma, anxiety, vocal cord dysfunction, and MG as well. MG antibodies have been ordered and pending. She has been started on IVIG for myasthenia crisis and received second dose today. Will likely start oral steroids once extubated to continue until she follows up with Neurology. Subjective Date/time seen: 11/23/23 11:05 Interval history: Ms. Peters is a 68 year old female with a history of asthma, HTN, GERD, hypothyroidism, and myasthenia gravis presenting fore evaluation of shortness of breath. She initially presented with shortness of breath on 11/19. She felt sudden onst SOB while working in the kitchen and felt that she had mucus stuck in her throat that she could not cough up. She was seen in the ER given nebulizer treatment and steroids. She felt better and was subsequently discharged. However, the follow-ing day she had a similar episode where she felt something was blocking her airway and was extremely short of breath. EMS was called and she was given a nebulizer treatment. She felt better and declined transfer to ER. However, within a couple of hours her shortness of breath returned so she came to the ER. En route she was given a nebulizer treatment, steroids and placed on BiPAP. BiPAP was removed by RT and she had a NIF of -30. She remained off BiPAP for about an hour. Her repeat NIH was -38. She began to hyperventilate due to feeling like something was obstructing her airway. She was put back on BiPAP but continued to hyperventilate. She was subsequently intubated. She had been receiving Mestinon 60mg TID. Unclear how and when diagnosis of myasthenia gravis was made. Myasthenia antibodies have been ordered and are pending. She was started on IVIG yesterday. Today she received a second dose. She is being sedated with Precedex currently. Review of Systems Review of Systems: ROS unobtainable: Yes unobtainable due to endotracheal tube Exam Const: General: comfortable and no acute distress Other: sedated with Precedex but still following commands well Eyes: Pupils: Equal, round and reactive pupils present Other: able to open eyes on command Resp: Effort & Inspection: normal respiratory effort Skin: General skin exam: normal color Neuro: Other: Drowsy but easily arousable, PERRL, able to open eyes on exam, face is symmetric, cough intact, able to move all extremities against gravity on command. Extrem: General: normal to inspection Objective Data Vital Signs Vital Signs: Vital Signs - 24 hr 11/22/23 11:24 11/22/23 11:24 11/22/23 12:00 Temperature Pulse Rate 80 80 75 Respiratory Rate 16 16 Blood Pressure Pulse Oximetry
[2023-11-23] MEDS: PROPOFOL IV EMULSION 100 ML 25.2 MG IV CONT (12:13)
[2023-11-23 15:37] LABS: Osmolality, Urine 714 mOsm/kg (50-1200)
[2023-11-23] MEDS: dexmedeTOMIDine 400 MCG/100 ML 400 MCG/100 ML BAG 10.56 MCG IV CONT (16:12)
[2023-11-23 16:15] LABS: Glucose Point of Care 165 mg/dl (65-105)
[2023-11-23] MEDS: PROPOFOL IV EMULSION 100 ML 16.8 MG IV CONT ×2 (17:07→22:23)
[2023-11-23 18:10] LABS: Glucose Point of Care 178 mg/dl (65-105)
--- NOTE | 2023-11-23 18:13 | PM.IMPN ---
Progress Note: A&P Assessment and Plan (1) Acute respiratory failure: Code(s): J96.00 - Acute respiratory failure, unspecified whether with hypoxia or hypercapnia Status: Acute Assessment and Plan: Acute Respiratory failure with no clear etiology with differential of some combination of myasthenia crisis, asthma exacerbation, panic attack ? vocal cord dysfunction Patient now intubated and sedated with propofol Continue full mechanical ventilation support to prevent hypoxemia/hypercarbia and end organ damage. ABG reviewed and will decrease tidal volume to 380 and rate to 14. Patient on 30% FiO2 and 8 of PEEP PCXR reviewed Continue Bronchodilators 11/[address] Reyes from Neurology patient was continued on pyridostigmine 60 mg q.8 hours. Acetylcholine receptor antibody ordered. Patient was started on IVIG. Request sent to Obtain records from [facility] but I have not received any records yet Patient has history of asthma but does not have any significant wheezing on exam. I have decreased does and duration steroids Consulted ENT for evaluation for vocal cord dysfunction Patient now sedated with propofol appears calm. On sedation holiday patient was evaluated for NIF and she recorded -30 and - 40 on 2 checks. Cuff leak was present. On spontaneous / PSV patient became anxious with tidal volumes 9974-5767 mL and agitated. Weaning trial was aborted. I will start patient on Precedex infusion to provide anxiolysis while we assess for weaning trial next time (2) Myasthenia gravis: Code(s): G70.00 - Myasthenia gravis without (acute) exacerbation Status: Acute Assessment and Plan: See above She has been started on IVIG for myasthenia crisis and received second dose today. Will likely start oral steroids once extubated to continue until she follows up with Neurology. (3) Hypothyroidism: Code(s): E03.9 - Hypothyroidism, unspecified Status: Acute Assessment and Plan: TSH in normal range Continue levothyroxine (4) Gastroesophageal reflux disease: Code(s): K21.9 - Gastro-esophageal reflux disease without esophagitis Status: Acute Assessment and Plan: Protonix IV (5) Asthma: Qualifiers: Asthma severity: unspecified severity Asthma persistence: unspecified Asthma complication type: unspecified Qualified Code(s): J45.909 - Unspecified asthma, uncomplicated Code(s): J45.909 - Unspecified asthma, uncomplicated Status: Acute Assessment and Plan: See above (6) Anxiety: Code(s): F41.9 - Anxiety disorder, unspecified Status: Acute Assessment and Plan: See Plan DVT prophylaxis -Lovenox Stress ulcer prophylaxis -PPI Nutrition -continue Tube Feeds Code Status - Full Code Total Critical Care Time - 40 minutes Due to a high probability of clinically significant, life threatening deterioration, the patient required my highest level of preparedness to intervene emergently and I personally spent this critical care time directly and personally managing the patient. This critical care time included obtaining a history; examining the patient; pulse oximetry; ordering and review of studies; arranging urgent treatment with development of a management plan; evaluation of patient's response to treatment; frequent reassessment; and discussions with other providers. It was exclusive of separately billable procedures and treating other patients and teaching time. Please see Assessment and Plan section and the rest of the note for further information on patient assessment and treatment Subjective Date/time seen: 11/23/23 18:13 Interval history: Ms. Peters is a 68 year old female with a history of asthma, HTN, GERD, hypothyroidism, and myasthenia gravis presenting fore evaluation of shortness of breath. She initially presented with shortness of breath on 11/19. She felt sudden onst SOB while wor
[2023-11-23] MEDS: GABAPENTIN 300 MG CAPSULE PO (21:05)
[2023-11-23] MEDS: MINERAL OIL/WHITE PETROLATUM OINTMENT 1 APPLIC EACH EYE (21:05)
[2023-11-23 22:17] LABS: Triglycerides 77 mg/dL (<150)
[2023-11-24] VITALS (40 sets, daily range): BP systolic 98–147; BP diastolic 53–76; PULSE 50–78; RESP 12–21; TEMP 37–37.6; O2SAT 96–100
[2023-11-24] MEDS: dexmedeTOMIDine 400 MCG/100 ML 400 MCG/100 ML BAG 14.08 MCG IV CONT (00:08)
[2023-11-24 00:14] LABS: Glucose Point of Care 169 mg/dl (65-105)
[2023-11-24] MEDS: IPRATROPIUM 0.5 MG/ALBUTEROL SULFATE 2.5 MG AMPUL.NEB 3 ML INHALATION ×4 (01:10→19:59)
[2023-11-24] MEDS: PROPOFOL IV EMULSION 100 ML 16.8 MG IV CONT (03:26)
[2023-11-24 04:12] LABS: Alveolar/Arterial O2 Gradient 61.5 mmHg; Base Excess ABG 1.5 mEq/l (+/-2.0); Carboxyhemoglobin 0.4 % THb (0-2.0); Fractional Inspired Oxygen 30 %; HCO3 ABG 25.3 mEq/l (22.0-26.0); Methemoglobin ABG 0.3 %THb (0-1.5); Oxygen Content ABG 15.8 %vol (16.0-22.0); Oxygen Saturation ABG 98.2 % (95.0-100.0); Oxyhemoglobin 97.4 % THb (90.0-100.0); PCO2 ABG 37.2 mmHg (35.0-45.0); PO2 ABG 108.7 mmHg (80.0-100.0); PO2 FiO2 Ratio Arterial Blood 3.62 %; Reduced Hemoglobin 1.9 %THb (0-5.0); Total Hemoglobin 11.4 g/dL (12.0-18.0); pH ABG 7.451 (7.350-7.450)
[2023-11-24 04:13] LABS: Device VENTILATOR; Modified Allen's Test Pass; Site Drawn RIGHT RADIAL
[2023-11-24 04:14] LABS: Arterial Blood Gas PEEP 8 cmH2O; Arterial Blood Gas Tidal Volume 380 ml; Arterial Blood Gas Vent Mode CMV; Arterial Blood Gas Ventilator rate 16 /MIN
[2023-11-24 05:38] LABS: Basophils Percent Auto 0.1 % (0.2-1.2); Hematocrit 31.7 % (37.0-47.0); Hemoglobin 10.6 g/dL (12.0-15.0); Immature Granulocyte Absolute 0.06 K/mm3 (0.00-0.031); Immature Granulocyte Percent A 0.7 % (0-0.5); Lymphocytes Absolute Auto 1.29 K/mm3 (0.9-3.2); Lymphocytes Percent Auto 14.1 % (18.3-44.2); Mean Corpuscular HGB Conc 33.4 g/dl (32-36); Mean Corpuscular Hemoglobin 30.1 pg (26-34); Mean Corpuscular Volume 90.1 fl (80-100); Mean Platelet Volume 10.9 fl (7.4-10.4); Monocytes Absolute Auto 0.7 K/mm3 (0.1-0.6); Monocytes Percent Auto 7.2 % (2.6-8.5); Neutrophils Absolute Auto 7.2 K/mm3 (1.3-6.7); Neutrophils Percent Auto 77.9 % (45.5-73.1); Platelet Count Result 197 k/mm3 (150-375); Red Blood Count 3.52 M/mm3 (4.2-5.4); Red Cell Distribution Width 12.5 % (11.5-14.5); White Blood Count 9.2 K/mm3 (4.5-10.0)
[2023-11-24] MEDS: CENTRAL LINE FLUSH 10 ML IV PUSH ×3 (05:42→21:40)
[2023-11-24] MEDS: pyRIDostigmine bromide 60 MG TABLET FEED TUBE (05:42)
[2023-11-24] MEDS: LEVOTHYROXINE SODIUM 100 MCG TABLET PO (05:42)
[2023-11-24] MEDS: LEVOTHYROXINE SODIUM 75 MCG TABLET PO (05:42)
[2023-11-24 05:48] LABS: Alanine Aminotransferase 23 U/L (6-35); Albumin Level 3.6 g/dL (3.5-5.1); Alkaline Phosphatase 53 U/L (38-126); Anion Gap 4 mmol/L (4-12); Aspartate Amino Transferase 22 U/L (14-36); Bilirubin,Total 0.4 mg/dL (0.2-1.3); Blood Urea Nitrogen 32 mg/dL (7-17); Calcium 8.1 mg/dL (8.4-10.2); Carbon Dioxide 26 mmol/L (22-30); Chloride 95 mmol/L (98-107); Estimated CRCL calculation 97 ml/min; Estimated Glomerular Filt Rate > 60; Glucose 136 mg/dL (65-110); Magnesium 2.1 mg/dL (1.6-2.3); Potassium 3.8 mmol/L (3.4-5.0); Sodium 125 mmol/L (137-145)
[2023-11-24] MEDS: CHOLECALCIFEROL 1,000 UNITS TABLET 2000 UNITS PO (08:08)
[2023-11-24] MEDS: methylPREDNISolone SOD SUCC 125 MG VIAL 60 MG IV PUSH (08:08)
[2023-11-24] MEDS: PANTOPRAZOLE SODIUM IV 40 MG VIAL IV PUSH (08:08)
[2023-11-24] MEDS: busPIRone HCL 10 MG TABLET PO (08:09)
[2023-11-24] MEDS: ENOXAPARIN 40 MG/0.4 ML SYRINGE SUB-Q (08:09)
[2023-11-24] MEDS: ASPIRIN 81 MG ENTERIC TABLET PO (08:09)
[2023-11-24] MEDS: CYANOCOBALAMIN 1,000 MCG TABLET 1000 MCG PO (08:09)
[2023-11-24] MEDS: MINERAL OIL/WHITE PETROLATUM OINTMENT 1 APPLIC EACH EYE (08:09)
[2023-11-24] MEDS: SODIUM CHLORIDE 500 MG TABLET FEED TUBE (08:09)
--- NOTE | 2023-11-24 08:28 | WPDINTPN ---
Progress Note: A&P Assessment and Plan (1) Acute respiratory failure: Code(s): J96.00 - Acute respiratory failure, unspecified whether with hypoxia or hypercapnia Status: Acute Assessment and Plan: Acute Respiratory failure with no clear etiology with differential of some combination of myasthenia crisis, asthma exacerbation, panic attack ? vocal cord dysfunction Patient now intubated and sedated with propofol and Precedex Continue full mechanical ventilation support to prevent hypoxemia/hypercarbia and end organ damage. ABG reviewed and will decrease tidal volume to 350 and rate to 14. Patient on 30% FiO2 and 8 of PEEP PCXR reviewed Continue Bronchodilators 11/[address] Contreras from Neurology patient was continued on pyridostigmine 60 mg q.8 hours. Acetylcholine receptor antibody ordered and pending. Patient was started on IVIG and will be continued for 5 days. Request sent to Obtain records from [facility] but I have not received any records yet.. Continue Solu-Medrol Patient has history of asthma but does not have any significant wheezing on exam. I have decreased does steroids Consulted ENT for evaluation for vocal cord dysfunction evaluation Patient now sedated with propofol and Precedex appears calm. 11/22 On sedation holiday patient was evaluated for NIF and she recorded -30 and - 40 on 2 checks. Cuff leak was present. On spontaneous 11/04 PSV patient became anxious with tidal volumes 1715-0636 mL and agitated. Weaning trial was aborted. I will start patient on Precedex infusion to provide anxiolysis while we assess for weaning trial next time 11/23 patient placed on PSV weaning trial again today. Will check NIF and cuff leak (2) Myasthenia gravis: Code(s): G70.00 - Myasthenia gravis without (acute) exacerbation Status: Acute Assessment and Plan: See above (3) Hypothyroidism: Code(s): E03.9 - Hypothyroidism, unspecified Status: Acute Assessment and Plan: TSH in normal range Continue levothyroxine (4) Gastroesophageal reflux disease: Code(s): K21.9 - Gastro-esophageal reflux disease without esophagitis Status: Acute Assessment and Plan: Protonix IV (5) Asthma: Qualifiers: Asthma severity: unspecified severity Asthma persistence: unspecified Asthma complication type: unspecified Qualified Code(s): J45.909 - Unspecified asthma, uncomplicated Code(s): J45.909 - Unspecified asthma, uncomplicated Status: Acute Assessment and Plan: See above (6) Anxiety: Code(s): F41.9 - Anxiety disorder, unspecified Status: Acute Assessment and Plan: See Plan DVT prophylaxis -Lovenox Stress ulcer prophylaxis -PPI Nutrition -continue Tube Feeds Code Status - Full Code Total Critical Care Time - 30 minutes Due to a high probability of clinically significant, life threatening deterioration, the patient required my highest level of preparedness to intervene emergently and I personally spent this critical care time directly and personally managing the patient. This critical care time included obtaining a history; examining the patient; pulse oximetry; ordering and review of studies; arranging urgent treatment with development of a management plan; evaluation of patient's response to treatment; frequent reassessment; and discussions with other providers. It was exclusive of separately billable procedures and treating other patients and teaching time. Please see Assessment and Plan section and the rest of the note for further information on patient assessment and treatment Subjective Date/time seen: 11/24/23 Overnight events reviewed. Afebrile Continues to be on mechanical ventilation Continues to be sedated with propofol and Precedex Other Vitals acceptable Tolerating tube feeds Review of Systems Review of Systems: ROS unobtainable: Yes unobtainable due to endotrach
[2023-11-24] MEDS: dexmedeTOMIDine 400 MCG/100 ML 400 MCG/100 ML BAG 17.6 MCG IV CONT (09:00)
[2023-11-24 09:16] LABS: Alveolar/Arterial O2 Gradient 81.5 mmHg; Base Excess ABG 0.4 mEq/l (+/-2.0); Fractional Inspired Oxygen 30 %; HCO3 ABG 24.3 mEq/l (22.0-26.0); Oxygen Content ABG 15.8 %vol (16.0-22.0); Oxygen Saturation ABG 97.2 % (95.0-100.0); Oxyhemoglobin 96.1 % THb (90.0-100.0); PCO2 ABG 36.2 mmHg (35.0-45.0); PO2 ABG 89.9 mmHg (80.0-100.0); Total Hemoglobin 11.6 g/dL (12.0-18.0); pH ABG 7.444 (7.350-7.450)
[2023-11-24 09:17] LABS: Device VENTILATOR; Modified Allen's Test Pass; Site Drawn LEFT RADIAL
[2023-11-24 09:18] LABS: Arterial Blood Gas Vent Mode SPONTANEOUS
[2023-11-24 09:19] LABS: Arterial Blood Gas PEEP 8 cmH2O; Arterial Blood Gas Pressure Support 5 cmH2O
--- NOTE | 2023-11-24 10:18 | WPDNEUROPN ---
Progress Note: A&P Assessment and Plan (1) Acute respiratory failure: Code(s): J96.00 - Acute respiratory failure, unspecified whether with hypoxia or hypercapnia Status: Acute (2) History of myasthenia gravis: Code(s): Z86.69 - Personal history of other diseases of the nervous system and sense organs Status: Acute (3) Choking sensation: Code(s): R09.89 - Other specified symptoms and signs involving the circulatory and respiratory systems Status: Acute Plan Ms. Peters is a 68 year old female with a history of asthma, HTN, GERD, hypothyroidism, and myasthenia gravis presenting for evaluation of shortness of breath. Concern for myasthenia crisis. Obviously with respiratory difficulty on presentation but no other findings to suggest acute worsening of MG. She has Mestinon as a home medication but no immunotherapy. Suspect etiology to be multifactorial -- myasthenia crisis, asthma, anxiety, and possibly vocal cord dysfunction. 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 She has been started on IVIG for myasthenia crisis and received third dose today. She has also been receiving solumedrol. She has been having a lot of secretions which could be related to Mestinon. I have asked Dr. Grey to hold this for now. Will continue full course of IVIG 2g/kg divided over five days. Once tolerating PO, can be transitioned from solumedrol to prednisone 60mg daily. Plan is to discharge her on Mestinon (likely a lower dose than she has been taking) and Prednisone 40mg daily, and then have her follow-up closely with her Neurologist who can then slowly taper the prednisone if symptoms are well controlled. Subjective Date/time seen: 11/24/23 10:18 Interval history: Ms. Peters is a 68 year old female with a history of asthma, HTN, GERD, hypothyroidism, and myasthenia gravis presenting fore evaluation of shortness of breath. She initially presented with shortness of breath on 11/19. She felt sudden onset SOB while working in the kitchen and felt that she had mucus stuck in her throat that she could not cough up.? She was seen in the ER given nebulizer treatment and steroids. She felt better and was subsequently discharged. However, the follow-ing day she had a similar episode where she felt something was blocking her airway and was extremely short of breath. EMS was called and she was given a nebulizer treatment. She felt better and declined transfer to ER. However, within a couple of hours her shortness of breath returned so she came to the ER. En route she was given a nebulizer treatment, steroids and placed on BiPAP. BiPAP was removed by RT and she had a NIF of -30. She remained off BiPAP for about an hour. Her repeat NIH was -38. She began to hyperventilate due to feeling like something was obstructing her airway. She was put back on BiPAP but continued to hyperventilate. She was subsequently intubated. She had been receiving Mestinon 60mg TID. Sister mentioned that patient was seeing a Neurologist at [facility] (Dr. Keita), who made the diagnosis. Sister said that the myasthenia antibodies were positive, and that patient had CT chest done in the past to look for thymoma. PAtient's MG symptoms were mainly localized to her eyes and speech/swallow per sister. She was started on IVIG on 11/21. Patient was extubated this morning. She is reporting a lot of secretions accumulating in her throat. She has already been started on solumedrol 60mg daily given the initial concerns for asthma. Review of Systems Review of Systems: complaining of sore throat and sensation of choking on secretions ROS unobtainable: Yes unobtainable due to medical condition Exam Const: General: uncomfortable HENMT: Mouth: Yes moist mucous membranes Eyes: Pupils: Equal, round and reactive pupils present EOM: EOMs intact bilaterally Other: conjugate gaze No ptosis Resp: Effort & Inspection: normal respiratory effort Other: frequent coughi
--- NOTE | 2023-11-24 11:03 | PCNFU ---
Nutrition Follow-Up Complete: Suboptimal energy intake as related to mechanical ventilation as evidenced by tube feedings/NPO. Goal: Meet estimated nutritional needs. Patient is progressing towards goal. We will continue current goal. Pt current nutrition is NPO. Nutrition recommendation: Advance diet as tolerated per MD orders. Last recorded weight is 140.8 kg, down from 141.2 kg on admit. Bowel Motility: +BM reported 11/23 Labs Reviewed:Glu 136, BUN 32, Na 125 Meds Noted: Precedex, VIt B12, Synthroid Skin:WNL Additional Notes: Patient has been extubated. Diet order: NPO. Recommend to advance as tolerated per MD orders. Agree with diet orders. Will follow in ICU rounds and monitoring weight, meds, labs, skin, tube feeding every 3 days.
[2023-11-24 11:43] LABS: Glucose Point of Care 172 mg/dl (65-105)
[2023-11-24] MEDS: FAMOTIDINE 20 MG/2 ML VIAL IV PUSH (13:45)
--- NOTE | 2023-11-24 14:43 | WPDPROCEDUR ---
Procedures Other Procedures Procedure 1: Other Procedure: All consents obtained procedure be flexible laryngoscopy. Right-sided nasal passage anesthetized a small amount of 4% lidocaine Afrin. Flexible scope passed. Mild postcricoid edema mild glottic edema cords move fully and symmetrically however there very weak patient make a very extreme effort to close the cords with they do move there is no obstruction no obstruction immediate subglottis. Patient tolerated the procedure very well
--- NOTE | 2023-11-24 14:44 | WPDCN ---
Assessment and Plan Assessment and plan (1) Shortness of breath: Code(s): R06.02 - Shortness of breath Status: Acute Assessment and Plan: Patient had hypo mobile cords are no masses no obstructions. The cords did move fully and symmetrically. Took an extreme effort to get them open and closed. No obstruction. (2) History of myasthenia gravis: Code(s): Z86.69 - Personal history of other diseases of the nervous system and sense organs Status: Acute HPI Data of Consult Date/Time: 11/24/23 14:44 Requesting Physician: Livier Masters MD Primary Care Provider: Wilberto Camacho MD Consult Narrative Narrative: Irasema Rodriguez is a 68 year old female history of respiratory insufficiency mycin gravis anxiety Review of Systems Review of Systems: All systems reviewed & are unremarkable except as noted in HPI and below PMFSH Past Medical History Medical History Anxiety Arthritis Asthma Depression Diastolic dysfunction Gastroesophageal reflux disease Hiatal hernia Hypertension Hypothyroidism Morbid obesity with body mass index (BMI) of 40.0 or higher Myasthenia gravis Obstructive sleep apnea Surgical History Surgical History History of fundoplication History of inguinal hernia repair History of oophorectomy History of right knee joint replacement (2009) History of tonsillectomy Family History Family History Father Family history of malignant neoplasm of urinary bladder Family history of coronary artery disease Hypertension Patient's father is Sibling Family history of coronary artery disease Mother Family history of chronic obstructive pulmonary disease Patient's mother is Social History Social History Social History: Surrogate medical decision maker: Vivien Loi, sister. Code status: Full code. Smoking status: Never smoker Second hand tobacco smoke exposure: No Alcohol intake: never Substance use: never Substance use type: does not use Do You Feel Safe in your Home?: Yes Lack of Transportation: No Lack of Food: Never True Current Housing: I Have Housing Concerned About Future Housing: No Difficulty Paying Gas/Electric Bills: No Difficulty Paying for Meds: No Currently Unemployed: No Education: Decline to Answer Difficulty w/ Childcare or Family Care: No Living arrangements: alone Spiritual care concerns: No Agree to blood products: No Meds Home Medications and Allergies Home Medications Medication Instructions Recorded Confirmed Type aspirin 81 mg tablet,delayed 81 mg PO DAILY 04/27/20 11/21/23 History release (Adult Aspirin Regimen) cholecalciferol (vitamin D3) 25 50 mcg PO DAILY 04/27/20 11/21/23 History mcg (1,000 unit) capsule guaifenesin 1,200 mg tablet, 1,200 mg PO HS 04/27/20 11/21/23 History extended release 12 hr (Mucinex) loratadine 10 mg tablet (Claritin) 10 mg PO PRN PRN Allergy Symptoms 04/27/20 11/21/23 History mecobalamin (vitamin B12) 1,000 1,000 mcg sublingual DAILY 04/27/20 11/21/23 History mcg disintegrating tablet,sublingual amlodipine 10 mg tablet 10 mg PO DAILY #90 tabs 03/03/23 11/21/23 Rx gabapentin 300 mg capsule 300 mg PO HS #90 caps 03/03/23 11/21/23 Rx (Neurontin) levothyroxine 175 mcg tablet 175 mcg PO DAILY #90 tabs 03/03/23 11/21/23 Rx (Levoxyl) indapamide 2.5 mg tablet 5 mg PO DAILY #180 tabs 05/31/23 11/21/23 Rx montelukast 10 mg tablet 10 mg PO DAILY #90 tabs 05/31/23 11/21/23 Rx (Singulair) omeprazole 40 mg capsule,delayed 40 mg PO DAILY #90 caps 05/31/23 11/21/23 Rx release epinephrine 0.3 mg/0.3 mL 0.3 mg (0.3 mL) IM ONCE #2 ea 06/07/23 11/21/23 Rx injection, auto-injector (EpiPen 2-Ulises) lorazepam 0.
[2023-11-24 15:54] LABS: Glucose Point of Care 189 mg/dl (65-105)
[2023-11-24] MEDS: dexmedeTOMIDine 400 MCG/100 ML 400 MCG/100 ML BAG 10.56 MCG IV CONT (17:52)
[2023-11-25] VITALS (24 sets, daily range): BP systolic 110–143; BP diastolic 56–85; PULSE 51–86; RESP 10–20; TEMP 36.2–37.9; O2SAT 93–100
[2023-11-25] MEDS: dexmedeTOMIDine 400 MCG/100 ML 400 MCG/100 ML BAG 10.56 MCG IV CONT ×2 (00:43→06:43)
[2023-11-25] MEDS: IPRATROPIUM 0.5 MG/ALBUTEROL SULFATE 2.5 MG AMPUL.NEB 3 ML INHALATION ×4 (02:14→20:28)
[2023-11-25] MEDS: CENTRAL LINE FLUSH 10 ML IV PUSH ×3 (06:42→20:06)
[2023-11-25 06:43] LABS: Basophils Percent Auto 0.3 % (0.2-1.2); Eosinophils Percent Auto 0.1 % (0-4.4); Hematocrit 32.8 % (37.0-47.0); Hemoglobin 10.7 g/dL (12.0-15.0); Immature Granulocyte Absolute 0.06 K/mm3 (0.00-0.031); Immature Granulocyte Percent A 0.8 % (0-0.5); Lymphocytes Absolute Auto 1.47 K/mm3 (0.9-3.2); Lymphocytes Percent Auto 18.5 % (18.3-44.2); Mean Corpuscular HGB Conc 32.6 g/dl (32-36); Mean Corpuscular Hemoglobin 29.9 pg (26-34); Mean Corpuscular Volume 91.6 fl (80-100); Mean Platelet Volume 10.9 fl (7.4-10.4); Monocytes Absolute Auto 0.7 K/mm3 (0.1-0.6); Monocytes Percent Auto 9.2 % (2.6-8.5); Neutrophils Absolute Auto 5.7 K/mm3 (1.3-6.7); Neutrophils Percent Auto 71.1 % (45.5-73.1); Platelet Count Result 178 k/mm3 (150-375); Red Blood Count 3.58 M/mm3 (4.2-5.4); Red Cell Distribution Width 12.4 % (11.5-14.5); White Blood Count 7.9 K/mm3 (4.5-10.0)
[2023-11-25 06:51] LABS: Alanine Aminotransferase 25 U/L (6-35); Albumin Level 3.5 g/dL (3.5-5.1); Alkaline Phosphatase 52 U/L (38-126); Anion Gap 5 mmol/L (4-12); Aspartate Amino Transferase 16 U/L (14-36); Bilirubin,Total 0.5 mg/dL (0.2-1.3); Blood Urea Nitrogen 25 mg/dL (7-17); Calcium 7.9 mg/dL (8.4-10.2); Carbon Dioxide 25 mmol/L (22-30); Chloride 102 mmol/L (98-107); Estimated CRCL calculation 112 ml/min; Estimated Glomerular Filt Rate > 60; Glucose 125 mg/dL (65-110); Magnesium 2.2 mg/dL (1.6-2.3); Potassium 3.6 mmol/L (3.4-5.0); Sodium 132 mmol/L (137-145)
[2023-11-25 07:27] LABS: Glucose Point of Care 123 mg/dl (65-105)
--- NOTE | 2023-11-25 07:59 | WPDINTPN ---
Progress Note: A&P Assessment and Plan (1) Acute respiratory failure: Code(s): J96.00 - Acute respiratory failure, unspecified whether with hypoxia or hypercapnia Status: Acute Assessment and Plan: Acute Respiratory failure with no clear etiology with differential of some combination of myasthenia crisis, asthma exacerbation, panic attack ? vocal cord dysfunction Patient was intubated and placed on mechanical ventilation 11/23 extubated after a successful weaning trial and adequate NIF and no cuff leak 11/23 evaluated by ENT and no evidence of vocal cord dysfunction on laryngoscopy PCXR reviewed and will add incentive spirometer Continue Bronchodilators 11/[address] Contreras from Neurology patient was continued on pyridostigmine 60 mg q.8 hours. Acetylcholine receptor antibody ordered and pending. Patient was started on IVIG and will be continued for 5 days. Request sent to Obtain records from [facility] but I have not received any records yet.. Continue Solu-Medrol Patient has history of asthma but does not have any significant wheezing on exam. 11/23. pyridostigmine was held due to concern of increased secretions after discussion with Neurology 11/24 will resume pyridostigmine at a lower dose (2) Myasthenia gravis: Code(s): G70.00 - Myasthenia gravis without (acute) exacerbation Status: Acute Assessment and Plan: See above (3) Hypothyroidism: Code(s): E03.9 - Hypothyroidism, unspecified Status: Acute Assessment and Plan: TSH in normal range Continue levothyroxine (4) Gastroesophageal reflux disease: Code(s): K21.9 - Gastro-esophageal reflux disease without esophagitis Status: Acute Assessment and Plan: Protonix and Pepcid as per patient's home regimen (5) Asthma: Qualifiers: Asthma complication type: unspecified Asthma persistence: unspecified Asthma severity: unspecified severity Qualified Code(s): J45.909 - Unspecified asthma, uncomplicated Code(s): J45.909 - Unspecified asthma, uncomplicated Status: Acute Assessment and Plan: See above (6) Anxiety: Code(s): F41.9 - Anxiety disorder, unspecified Status: Acute Assessment and Plan: DC Precedex Plan DVT prophylaxis -Lovenox Stress ulcer prophylaxis -PPI Nutrition -advance diet Code Status - Full Code Incentive spirometry, up in chair, PT OT consult Transfer out of ICU today Subjective Date/time seen: 11/25/23 Overnight events reviewed. Patient was extubated yesterday after a successful weaning trial. Afebrile On nasal cannula this morning. Clear liquid diet On 0.2 mics of Precedex She states she feels better this morning and denies any new complaints. She does have heartburn. She denies any chest pain and states the heartburn is in her belly and tracks up to her chest. She states this has been going on for years. She states she has been evaluated in the past but does not remember all the details. She is on multiple antacids. She denies any chest pain or exertional discomfort. And she also complains of cough which is better than before but as stated with clear sputum. Denies any other complaints. Patient denies fever, chest pain, shortness of breath, nausea vomiting, abdominal pain,, diarrhea, headache or constipation.. All other systems reviewed and were negative Other Vitals acceptable Review of Systems Review of Systems: All systems reviewed & are unremarkable except as noted in HPI and below (HPI) Exam Narrative: General: Pt is alert awake oriented and in no distress Lungs/Chest: Trachea central Coarse BS B/L, No crackles or wheezing. Cardiac: RRR. Normal S1 S2. No murmurs Circulation: Pedal pulses are intact and symmetrical. Abdomen: Decreased bowel sounds. Morbidly Obese. Soft. NT. ND. Extremities: No clubbing, cyanosis or edema. Warm changes of chronic venous stasis : Katie
[2023-11-25] MEDS: POTASSIUM CHLORIDE 20 MEQ PACKET (FOR LIQUID) 40 MEQ PO (08:23)
[2023-11-25] MEDS: CHOLECALCIFEROL 1,000 UNITS TABLET 2000 UNITS PO (08:23)
[2023-11-25] MEDS: ENOXAPARIN 40 MG/0.4 ML SYRINGE SUB-Q (08:23)
[2023-11-25] MEDS: CYANOCOBALAMIN 1,000 MCG TABLET 1000 MCG PO (08:23)
[2023-11-25] MEDS: methylPREDNISolone SOD SUCC 125 MG VIAL 60 MG IV PUSH (08:23)
[2023-11-25] MEDS: ASPIRIN 81 MG ENTERIC TABLET PO (08:23)
[2023-11-25] MEDS: busPIRone HCL 10 MG TABLET PO (08:23)
[2023-11-25] MEDS: MINERAL OIL/WHITE PETROLATUM OINTMENT 1 APPLIC EACH EYE (08:24)
[2023-11-25] MEDS: PANTOPRAZOLE SODIUM IV 40 MG VIAL IV PUSH (08:24)
[2023-11-25] MEDS: pyRIDostigmine bromide 30 MG TABLET PO (08:24)
--- NOTE | 2023-11-25 10:27 | PCFNICU ---
ICU Rounding Note: Pt current nutrition is Clear liquids to advance to regular diet today as tolerated. Nutrition recommendation: Add Ensure compact BID for an additional 220kcals, 9g protein per shake Last recorded weight is 140.8 kg. Bowel Motility: +BM 11/23 Labs Reviewed: Hgb:10.7, HCT:32.8, NA:132,BUN:25, Cr:0.6, Glu:189 Meds Noted: lovenox, novolog, solumedrol Skin: WNL Additional Notes: Pt extubated yesters, diet advanced to clears, to advance to regular today at lunch. Minimal intake at this time per nursing. Will send up Ensure compact for supplement. Following daily in ICU rounds. Will monitor weight, meds, labs, skin, Follow up in 3 days.
[2023-11-25] MEDS: LORATADINE 10 MG TABLET PO (11:22)
[2023-11-25 11:34] LABS: Glucose Point of Care 114 mg/dl (65-105)
[2023-11-25] MEDS: SUCRALFATE SUSP 100 MG/ML 10 ML UDC 1000 MG PO ×2 (16:28→20:05)
[2023-11-25 16:38] LABS: Glucose Point of Care 153 mg/dl (65-105)
--- NOTE | 2023-11-25 18:02 | PM.IMPN ---
Progress Note: A&P Assessment and Plan (1) Acute respiratory failure: Code(s): J96.00 - Acute respiratory failure, unspecified whether with hypoxia or hypercapnia Status: Acute Assessment and Plan: Acute Respiratory failure with no clear etiology with differential of some combination of myasthenia crisis, asthma exacerbation, panic attack ? vocal cord dysfunction Patient status post on IV Precedex, now extubated Continue Bronchodilators 11/[address] Reyes from Neurology patient was continued on pyridostigmine 60 mg q.8 hours. Acetylcholine receptor antibody ordered. Patient was started on IVIG. Request sent to Obtain records from [facility] Patient has history of asthma but does not have any significant wheezing on exam. Decreased does and duration steroids Consulted ENT for evaluation for vocal cord dysfunction. Patient underwent laryngoscopy 11/24/2023 which ruled out any obstruction or subglottis. Patient with hypomobile vocal cords that moves fully and symmetrically. (2) Myasthenia gravis: Code(s): G70.00 - Myasthenia gravis without (acute) exacerbation Status: Acute Assessment and Plan: See above She has been started on IVIG for myasthenia crisis and received 4 doses so far Continue with steroids Continue with pyridostigmine Follow-up closely with Neurology as an outpatient (3) Hypothyroidism: Code(s): E03.9 - Hypothyroidism, unspecified Status: Acute Assessment and Plan: TSH in normal range Continue levothyroxine (4) Gastroesophageal reflux disease: Code(s): K21.9 - Gastro-esophageal reflux disease without esophagitis Status: Acute Assessment and Plan: Protonix IV (5) Asthma: Qualifiers: Asthma severity: unspecified severity Asthma persistence: unspecified Asthma complication type: unspecified Qualified Code(s): J45.909 - Unspecified asthma, uncomplicated Code(s): J45.909 - Unspecified asthma, uncomplicated Status: Acute Assessment and Plan: See above (6) Anxiety: Code(s): F41.9 - Anxiety disorder, unspecified Status: Acute Assessment and Plan: Chronic stable May consider antianxiety meds as needed Plan DVT prophylaxis -Lovenox Stress ulcer prophylaxis -PPI Nutrition -continue Tube Feeds Code Status - Full Code ? Patient seen and examined at bedside during my morning rounds ? Collaborated with patient's nurse at the bedside in detail and addressed all concerns ? Labs, electrolytes, radiology, investigations and test results reviewed ? Consult/Nursing/Ancilliary notes on the chart reviewed and appreciated ? Spoke with patient/family at the bedside and answered all the questions that they had Repeat labs in a.m. Electrolyte replacement as per protocol. Patient will be monitored very closely on the floor. Further recommendations as per the hospital course. Time Spent With Patient Time with patient: 15 - 25 minutes Subjective Date/time seen: 11/25/23 18:02 Interval history: Ms. Peters is a 68 year old female with a history of asthma, HTN, GERD, hypothyroidism, and myasthenia gravis presenting fore evaluation of shortness of breath. She initially presented with shortness of breath on 11/19. She felt sudden onst SOB while working in the kitchen and felt that she had mucus stuck in her throat that she could not cough up. She was seen in the ER given nebulizer treatment and steroids. She felt better and was subsequently discharged. However, the follow-ing day she had a similar episode where she felt something was blocking her airway and was extremely short of breath. EMS was called and she was given a nebulizer treatment. She felt better and declined transfer to ER. However, within a couple of hours her shortness of breath returned so she came to the ER. En route she was given a nebulizer treatment, steroids and placed on BiPAP. BiPAP was removed by RT a
--- NOTE | 2023-11-25 18:27 | WPDNEUROPN ---
Progress Note: A&P Assessment and Plan (1) Acute respiratory failure: Code(s): J96.00 - Acute respiratory failure, unspecified whether with hypoxia or hypercapnia Status: Acute (2) History of myasthenia gravis: Code(s): Z86.69 - Personal history of other diseases of the nervous system and sense organs Status: Acute Plan Patient showing improvement. I believe that she will require some steroids along with Mestinon if she continues to improve eventually. She is should be in 5 days IVIG and after she stabilizes we can switch her from Solu-Medrol to oral prednisone around 30-40 mg a day and Mestinon 60 mg half to 1 tablet 3 to 4 times a day. She is somewhat reluctant on account of excessive salivation. Of course I made clear that this is a short-acting strategy and of course she will need to be on some steroid or immunosuppressant therapy such as a IVIG of another newer drugs can be a consideration. Subjective Date/time seen: 11/25/23 18:27 Interval history: Patient was diagnosed to have myasthenia gravis in June and is seeing a neurologist at [facility]. She has been on Mestinon however she did not find a significant improvement in her symptoms. She was not on any other treatment. She came to the hospital with debridement difficulties in ended up having intubation. She has improved after starting IV at measures. Now she is extubated and able to talk however physis still weak. She is in bed. She has some difficulty in swallowing patient denies any specific weakness in upper lower limbs. Her symptoms prior to diagnosis were difficulty speech and weakness and apparently her antibody titers were high. She has not been on any steroids and immunosuppression therapy in the past. Review of Systems Review of Systems: All systems reviewed & are unremarkable except as noted in HPI and below Exam Narrative: No aphasiaSeizure but she has somewhat of a soft speech. When asked to count from 1-50 she did manage to count up to 35 and her voice started to become weak. No weakness in upper lower limbs. No drooping of the eyes or limitation of extraocular movements. Objective Data Vital Signs Vital Signs: Vital Signs - 24 hr 11/24/23 18:43 11/24/23 19:34 11/24/23 19:37 Temperature Pulse Rate 70 67 63 Respiratory Rate 18 18 Blood Pressure Pulse Oximetry 98 Oxygen Delivery Nasal Cannula Oxygen Flow Rate 2 11/24/23 20:00 11/24/23 20:04 11/24/23 20:08 Temperature Pulse Rate 64 68 Respiratory Rate 15 12 Blood Pressure Pulse Oximetry 96 Oxygen Delivery Nasal Cannula Oxygen Flow Rate 2 11/24/23 20:00 11/24/23 22:00 11/24/23 22:00 Temperature 37.3 C 37.4 C Pulse Rate 78 56 L 57 L Respiratory Rate 18 14 Blood Pressure 136/72 129/66 Pulse Oximetry 98 97 Oxygen Delivery Oxygen Flow Rate 11/24/23 22:00 11/24/23 23:51 11/24/23 23:53 Temperature Pulse Rate 57 L 55 L 55 L Respiratory Rate 18 16 Blood Pressure Pulse Oximetry 99 Oxygen Delivery Nasal Cannula Oxygen Flow Rate 2 11/25/23 00:00 11/25/23 00:43 11/25/23 00:43 Temperature 37.4 C Pulse Rate 53 L 53 L 53 L Respiratory Rate 14 12 12 Blood Pressure 123/70 Pulse Oximetry 98 Oxygen Delivery Oxygen Flow Rate 11/25/23 00:00 11/25/23 02:16 11/25/23 02:22 Temperature Pulse Rate 55 L 57 L 59 L Respiratory Rate 14 12 18 Blood Pressure Pulse Oximetry Oxygen Delivery Oxygen Flow Rate 11/25/23 02:00 11/25/23 02:00 11/25/23 02:00 Temperature 37.2 C Pulse Rate 56 L 51 L 51 L Respiratory Rate 12 12 Blood Pressure 125/68 Pulse Oximetry 98 Oxygen Delivery Oxygen Flow Rate 11/25/23 04:00 11/25/23 04:00 11/25/23 04:00 Temperature 36.5 C Pulse Rate 66 66 60 Respiratory Rate 15 14 Blood Pressure 120/65 Pulse Oximetry 98 97 Oxygen Delivery Nasal Cannula Oxygen Flow Rate 2 11/25/23 04:00 11/25/23
[2023-11-25] MEDS: GABAPENTIN 300 MG CAPSULE PO (20:05)
[2023-11-25 20:11] LABS: Glucose Point of Care 84 mg/dl (65-105)
[2023-11-25] MEDS: ACETAMINOPHEN ELIXIR 325 MG/10.15 ML UDC 650 MG PO (20:11)
--- NOTE | 2023-11-25 21:44 | PC.NURSE ---
This patient, Irasema Rodriguez, was received from ICU-05 on 11/25/23 at 2140. Report received from SP Henriquez. Patient/family oriented to unit policies and routines
[2023-11-25 22:19] LABS: Triglycerides 103 mg/dL (<150)
[2023-11-26] VITALS (29 sets, daily range): BP systolic 134–188; BP diastolic 66–105; PULSE 71–160; RESP 14–22; TEMP 36–37.1; O2SAT 92–100
[2023-11-26] MEDS: IPRATROPIUM 0.5 MG/ALBUTEROL SULFATE 2.5 MG AMPUL.NEB 3 ML INHALATION ×4 (02:13→20:32)
[2023-11-26] MEDS: CENTRAL LINE FLUSH 20 ML IV PUSH (04:43)
[2023-11-26] MEDS: CENTRAL LINE FLUSH 10 ML IV PUSH ×3 (04:43→22:21)
[2023-11-26 05:11] LABS: Basophils Percent Auto 0.1 % (0.2-1.2); Eosinophils Percent Auto 0.1 % (0-4.4); Hematocrit 32.2 % (37.0-47.0); Hemoglobin 10.6 g/dL (12.0-15.0); Immature Granulocyte Absolute 0.09 K/mm3 (0.00-0.031); Immature Granulocyte Percent A 0.8 % (0-0.5); Lymphocytes Absolute Auto 2.16 K/mm3 (0.9-3.2); Lymphocytes Percent Auto 19.1 % (18.3-44.2); Mean Corpuscular HGB Conc 32.9 g/dl (32-36); Mean Corpuscular Hemoglobin 29.9 pg (26-34); Mean Platelet Volume 10.7 fl (7.4-10.4); Monocytes Percent Auto 8.4 % (2.6-8.5); Neutrophils Absolute Auto 8.1 K/mm3 (1.3-6.7); Neutrophils Percent Auto 71.5 % (45.5-73.1); Platelet Count Result 196 k/mm3 (150-375); Red Blood Count 3.54 M/mm3 (4.2-5.4); Red Cell Distribution Width 12.6 % (11.5-14.5); White Blood Count 11.3 K/mm3 (4.5-10.0)
[2023-11-26 05:26] LABS: Alanine Aminotransferase 32 U/L (6-35); Albumin Level 3.4 g/dL (3.5-5.1); Alkaline Phosphatase 60 U/L (38-126); Anion Gap 1 mmol/L (4-12); Aspartate Amino Transferase 25 U/L (14-36); Bilirubin,Total 0.5 mg/dL (0.2-1.3); Blood Urea Nitrogen 28 mg/dL (7-17); Calcium 8.1 mg/dL (8.4-10.2); Carbon Dioxide 31 mmol/L (22-30); Chloride 104 mmol/L (98-107); Estimated CRCL calculation 112 ml/min; Estimated Glomerular Filt Rate > 60; Glucose 105 mg/dL (65-110); Potassium 3.2 mmol/L (3.4-5.0); Sodium 136 mmol/L (137-145)
[2023-11-26] MEDS: LEVOTHYROXINE SODIUM 100 MCG TABLET PO (06:38)
[2023-11-26] MEDS: LEVOTHYROXINE SODIUM 75 MCG TABLET PO (06:38)
[2023-11-26] MEDS: SUCRALFATE SUSP 100 MG/ML 10 ML UDC 1000 MG PO ×4 (06:40→22:14)
[2023-11-26 07:56] LABS: Glucose Point of Care 76 mg/dl (65-105)
[2023-11-26 08:43] LABS: Phosphorus 3.4 mg/dL (2.5-4.5)
[2023-11-26] MEDS: CHOLECALCIFEROL 1,000 UNITS TABLET 2000 UNITS PO (09:11)
[2023-11-26] MEDS: busPIRone HCL 10 MG TABLET PO (09:11)
[2023-11-26] MEDS: POTASSIUM CHLORIDE 20 MEQ ER TABLET 40 MEQ PO ×2 (09:11→22:14)
[2023-11-26] MEDS: PANTOPRAZOLE SODIUM IV 40 MG VIAL IV PUSH (09:11)
[2023-11-26] MEDS: CYANOCOBALAMIN 1,000 MCG TABLET 1000 MCG PO (09:11)
[2023-11-26] MEDS: ASPIRIN 81 MG ENTERIC TABLET PO (09:11)
[2023-11-26] MEDS: ENOXAPARIN 40 MG/0.4 ML SYRINGE SUB-Q (09:12)
[2023-11-26] MEDS: pyRIDostigmine bromide 30 MG TABLET PO ×3 (09:19→16:57)
[2023-11-26 11:45] LABS: Glucose Point of Care 108 mg/dl (65-105)
[2023-11-26] MEDS: HYDROcodone/acetaminophen (*CRX) 5-325 MG TABLET 1 TAB PO (12:12)
--- NOTE | 2023-11-26 15:22 | PC.NURSE ---
This patient, Irasema Rodriguez, was transferred to [facility] on 11/26/23 at 1522. Personal belongings sent with patient. Report given to Terri SNOWDEN. Appropriate documentation sent with patient.
--- NOTE | 2023-11-26 16:16 | ECG_ITS ---
SEE SCANNED COPY FOR CONFIRMED REPORT MTDD
[2023-11-26] MEDS: METOPROLOL TARTRATE INJ 5 MG/5 ML VIAL IV PUSH (16:23)
[2023-11-26 16:30] LABS: Glucose Point of Care 111 mg/dl (65-105)
--- NOTE | 2023-11-26 16:42 | PC.NURSE ---
Patient's case liner was showing patient in a-fib with rate into 150's-160's, sustaining elevated heart rate. Rapid response called at 16:16, stat EKG taken showing a-fib with RVR. Pt. given 5mg IVP Lopressor x1. Pt. transferred into IMU room 203, care transferred to Kenny SNOWDEN. Belongings and appropriate documentation sent with patient.
--- NOTE | 2023-11-26 16:46 | PC.NURSE ---
This patient, Irasema Peters Jacobbola, was received from [facility] on 11/26/23 at 1646. Patient/family oriented to unit policies and routines.
--- NOTE | 2023-11-26 16:50 | PM.IMPN ---
Progress Note: A&P Assessment and Plan (1) Acute respiratory failure: Code(s): J96.00 - Acute respiratory failure, unspecified whether with hypoxia or hypercapnia Status: Acute Assessment and Plan: Acute Respiratory failure with no clear etiology with differential of some combination of myasthenia crisis, asthma exacerbation, panic attack ? vocal cord dysfunction Patient status post on IV Precedex, now extubated Continue Bronchodilators 11/[address] Reyes from Neurology patient was continued on pyridostigmine 60 mg q.8 hours. Acetylcholine receptor antibody ordered. Patient was started on IVIG. Request sent to Obtain records from [facility] Patient has history of asthma but does not have any significant wheezing on exam. Decreased does and duration steroids Consulted ENT for evaluation for vocal cord dysfunction. Patient underwent laryngoscopy 11/24/2023 which ruled out any obstruction or subglottis. Patient with hypomobile vocal cords that moves fully and symmetrically. (2) Myasthenia gravis: Code(s): G70.00 - Myasthenia gravis without (acute) exacerbation Status: Acute Assessment and Plan: See above She has been started on IVIG for myasthenia crisis and received 4 doses so far Continue with steroids Continue with pyridostigmine ... Decreased to 30 mg q.8 hours as patient is experiencing hypersalivation. Follow-up closely with Neurology both as inpatient as well as outpatient (3) Hypothyroidism: Code(s): E03.9 - Hypothyroidism, unspecified Status: Acute Assessment and Plan: TSH in normal range Continue levothyroxine (4) Gastroesophageal reflux disease: Code(s): K21.9 - Gastro-esophageal reflux disease without esophagitis Status: Acute Assessment and Plan: Protonix IV switched to oral protonix. (5) Asthma: Qualifiers: Asthma severity: unspecified severity Asthma persistence: unspecified Asthma complication type: unspecified Qualified Code(s): J45.909 - Unspecified asthma, uncomplicated Code(s): J45.909 - Unspecified asthma, uncomplicated Status: Acute Assessment and Plan: Chronic, stable. Continue with meds (6) Anxiety: Code(s): F41.9 - Anxiety disorder, unspecified Status: Acute Assessment and Plan: Chronic stable May consider antianxiety meds as needed (7) Paroxysmal atrial fibrillation with RVR: Code(s): I48.0 - Paroxysmal atrial fibrillation Status: Acute Assessment and Plan: 11/26/2023: Rapid Response called as patient developed new onset AFib with RVR Patient given Lopressor 5 mg IV x1 dose Started patient on IV Cardizem drip to be titrated 2D echo with colorflow doppler ordered to evaluate cardiac structure and function Cardiac enzymes x3 ordered Cardiology consult given for evaluation and further treatment recommendations Plan DVT prophylaxis -Lovenox Stress ulcer prophylaxis -PPI Nutrition - Heart healthy diet h Code Status - Full Code ? Patient seen and examined at bedside during my morning rounds ? Collaborated with patient's nurse at the bedside in detail and addressed all concerns ? Labs, electrolytes, radiology, investigations and test results reviewed ? Consult/Nursing/Ancilliary notes on the chart reviewed and appreciated ? Spoke with patient/family at the bedside and answered all the questions that they had Repeat labs in a.m. Electrolyte replacement as per protocol. Patient will be monitored very closely on the floor. Further recommendations as per the hospital course. This case had a high probability of a clinically significant, sudden, or life threatening deterioration of this patient's condition which required my full and direct attention, intervention and personal management. I spent around 47 minutes of direct patient care including (but not limited to) bedside evaluation, physical examination, decision-
[2023-11-26] MEDS: dilTIAZem 100 MG/100 ML 100 MG/100 ML BAG IV CONT (17:57)
--- NOTE | 2023-11-26 18:02 | WPDNEUROPN ---
Progress Note: A&P Assessment and Plan (1) Myasthenia gravis: Code(s): G70.00 - Myasthenia gravis without (acute) exacerbation Status: Acute (2) Myasthenic crisis: Code(s): G70.01 - Myasthenia gravis with (acute) exacerbation Status: Acute (3) Paroxysmal atrial fibrillation with RVR: Code(s): I48.0 - Paroxysmal atrial fibrillation Status: Acute (4) Morbid obesity with body mass index (BMI) of 40.0 or higher: Code(s): E66.01 - Morbid (severe) obesity due to excess calories Status: Acute (5) Serum acetylcholine receptor antibody positive: Code(s): R76.8 - Other specified abnormal immunological findings in serum Status: Acute Plan I spoke to the hospitalist and thought the patient should be if the be observed in ICU or transfer to tertiary care center in view of complications on day 5 despite IVIG previous he may require plasmapheresis or higher dose of steroid to manage her myasthenia in the meanwhile if atrial fibrillation would complicate things. I agree with cardiology consultation and further evaluation from the cardiac point of view. Also chest x-ray shows worsening of the atelectasis. If she has any underlying infection that can also worsen the condition. I have reviewed all the medication in fact I called [facility] where they told me that they do not have any beds available either on the floor or in ICU. I have requested and put her name on the waiting list. At the coordinating person is going to have the ICU in charge also call me and talk to me. I am waiting for the call. In the meanwhile I advised the patient should be moved to ICU and observe for any further deterioration in view of the current situation. Her sees on Solu-Medrol 60 mg a day and Mestinon 30 mg 3 times a day. Recommendations 1. While we wait for possible transfer to a tertiary care center we need to observe her closely from the point of view of any come decompensation of her breathing by keeping an eye on her respiratory function and treat her for any underlying sepsis. She may have underlying pneumonia or urinary tract infection and I spoke to the hospitalist team about that. Empiric treatment with antibiotics could be a consideration we do not shows any medication that could compromise the arm muscle weakness. Subjective Date/time seen: 05/26/24 18:02 Interval history: The patient is having difficulty with breathing and her speech is also somewhat weaker than yesterday. She went into atrial fibrillation and was treated by hospitalist with IV metoprolol once and thereafter put on Cardizem drip. She will be followed up by operator bearer systems. In the meanwhile she is on day 5 of IVIG. No fever or any additional symptoms reported. Review of Systems Review of Systems: Denies any chest pain however feels somewhat short of breath she is on oxygen. Has difficulty speech and mild difficulty swallowing. All systems reviewed & are unremarkable except as noted in HPI and below Exam Narrative: Fully conscious alert oriented to self time place and person. Cranial nerve examination shows pupils were equal reacting visual ta by confrontation are normal. There is no facial asymmetry. His face sensation were normal. Tongue was midline. However her speech is whispering. Motor system normal power and tone in both upper and lower limbs no involuntary movements are seen. Objective Data Vital Signs Vital Signs: Vital Signs - 24 hr 11/25/23 20:00 11/25/23 20:18 11/25/23 20:26 Temperature 37.9 C H Pulse Rate 83 83 76 Respiratory Rate 17 17 15 Blood Pressure 140/73 Pulse Oximetry 97 97 Oxygen Delivery Nasal Cannula Oxygen Flow Rate 2 11/25/23 20:26 11/25/23 20:36 11/25/23 23:43 Temperature 36.2 C L Pulse Rate 79 73 Respiratory Rate 16 20 Blood Pressure 143/66 H Pulse Oximetry 96 97 Oxygen Delivery Nasal Cannula Oxygen Flow Rate 2
[2023-11-26 18:53] LABS: Troponin I 0.017 ng/mL (0.000-0.034)
--- NOTE | 2023-11-26 22:01 | PCRCNOTE ---
PULMONARY MECHANICS: NIF -55CM H20 FVC 1.28 L GOOD PATIENT EFFORT
[2023-11-26] MEDS: GABAPENTIN 300 MG CAPSULE PO (22:14)
[2023-11-26 22:28] LABS: Glucose Point of Care 70 mg/dl (65-105)
[2023-11-26 22:53] LABS: Appearance Urine Cloudy (Clear); Bacteria Urine Rare /hpf; Bilirubin Urine Negative (Negative); Blood Urine Non-Hemolyzed Trace (Negative); Color Urine Dark Yellow (Yellow); Glucose Urine UA Negative (Negative); Ketones Urine Negative (Negative); Leukocyte Esterase Ur 2+ LEU/UL (Negative); Nitrate Urine Negative (Negative); Non Pathogenic Casts 0-2; Protein Urine 1+ mg/dL (Negative); Squamous Epithelial Cell Urine Moderate /hpf (Few); WBC Urine 21-50 /hpf (0-3); pH Urine 5.5 (5.0-9.0)
[2023-11-26 23:09] LABS: Troponin I 0.029 ng/mL (0.000-0.034)
[2023-11-26 23:23] LABS: Specific Grav Ur 1.036 (1.001-1.035)
[2023-11-26 23:25] LABS: Add Urine Microscopic? YES
[2023-11-27] VITALS (15 sets, daily range): BP systolic 140–184; BP diastolic 71–90; PULSE 69–95; RESP 15–24; TEMP 36.4–36.8; O2SAT 97–100
--- NOTE | 2023-11-27 00:02 | PC.NURSE ---
This patient, Irasema Haynes Fran Jamesbola, was received from Kenny SNOWDEN in IMU on 11/26/23 at 1945. Patient/family oriented to unit policies and routines
[2023-11-27 05:21] LABS: Basophils Percent Auto 0.3 % (0.2-1.2); Eosinophils Percent Auto 0.1 % (0-4.4); Hematocrit 35.7 % (37.0-47.0); Hemoglobin 11.3 g/dL (12.0-15.0); Immature Granulocyte Absolute 0.07 K/mm3 (0.00-0.031); Immature Granulocyte Percent A 0.6 % (0-0.5); Lymphocytes Absolute Auto 1.27 K/mm3 (0.9-3.2); Lymphocytes Percent Auto 11.3 % (18.3-44.2); Mean Corpuscular HGB Conc 31.7 g/dl (32-36); Mean Corpuscular Hemoglobin 29.7 pg (26-34); Mean Corpuscular Volume 93.7 fl (80-100); Mean Platelet Volume 10.1 fl (7.4-10.4); Monocytes Absolute Auto 1.1 K/mm3 (0.1-0.6); Monocytes Percent Auto 9.4 % (2.6-8.5); Neutrophils Absolute Auto 8.8 K/mm3 (1.3-6.7); Neutrophils Percent Auto 78.3 % (45.5-73.1); Platelet Count Result 185 k/mm3 (150-375); Red Blood Count 3.81 M/mm3 (4.2-5.4); Red Cell Distribution Width 12.7 % (11.5-14.5); White Blood Count 11.2 K/mm3 (4.5-10.0)
[2023-11-27 05:38] LABS: Alanine Aminotransferase 49 U/L (6-35); Albumin Level 3.4 g/dL (3.5-5.1); Alkaline Phosphatase 62 U/L (38-126); Anion Gap 1 mmol/L (4-12); Aspartate Amino Transferase 27 U/L (14-36); Bilirubin,Total 0.6 mg/dL (0.2-1.3); Blood Urea Nitrogen 24 mg/dL (7-17); Calcium 7.9 mg/dL (8.4-10.2); Carbon Dioxide 30 mmol/L (22-30); Chloride 106 mmol/L (98-107); Estimated CRCL calculation 131 ml/min; Estimated Glomerular Filt Rate > 60; Glucose 115 mg/dL (65-110); Magnesium 1.9 mg/dL (1.6-2.3); Potassium 4.4 mmol/L (3.4-5.0); Sodium 137 mmol/L (137-145)
[2023-11-27 05:54] LABS: Troponin I 0.036 ng/mL (0.000-0.034)
[2023-11-27] MEDS: SUCRALFATE SUSP 100 MG/ML 10 ML UDC 1000 MG PO ×4 (06:05→22:04)
[2023-11-27] MEDS: CENTRAL LINE FLUSH 10 ML IV PUSH ×3 (06:05→22:06)
[2023-11-27] MEDS: LEVOTHYROXINE SODIUM 75 MCG TABLET PO (06:05)
[2023-11-27] MEDS: LEVOTHYROXINE SODIUM 100 MCG TABLET PO (06:05)
[2023-11-27 08:13] LABS: Glucose Point of Care 80 mg/dl (65-105)
--- NOTE | 2023-11-27 08:18 | WPDINTPN ---
Progress Note: A&P Assessment and Plan (1) Acute respiratory failure: Code(s): J96.00 - Acute respiratory failure, unspecified whether with hypoxia or hypercapnia Status: Acute Assessment and Plan: Acute Respiratory failure with no clear etiology with differential of some combination of myasthenia crisis, asthma exacerbation, panic attack ? vocal cord dysfunction Patient was intubated and placed on mechanical ventilation 11/[address] Contreras from Neurology patient was continued on pyridostigmine 60 mg q.8 hours. Acetylcholine receptor antibody ordered and pending. Patient was started on IVIG and will be continued for 5 days. Request sent to Obtain records from [facility] but I have not received any records yet.. Continue Solu-Medrol Patient has history of asthma but does not have any significant wheezing on exam. 11/23. pyridostigmine was held due to concern of increased secretions after discussion with Neurology 11/23 extubated after a successful weaning trial and adequate NIF and no cuff leak 11/23 evaluated by ENT and no evidence of vocal cord dysfunction on laryngoscopy 11/24 will resume pyridostigmine at a lower dose 11/25 chest x-ray showed atelectasis. Patient started on Rocephin by hospitalist with concerns for pneumonia 11/26 patient is afebrile. WBC minimally elevated which could be secondary to steroids. Continue Rocephin for now although it appears more likely to be atelectasis. Patient is morbidly obese and has been in bed for many days now. I have discussed with the patient and emphasized on using incentive spirometer. Check Procalcitonin level patient is on 2 L nasal cannula. Her NIF was checked on transfer to ICU and was -55. Patient asymptomatic and not in any respiratory distress at this time (2) Myasthenia gravis: Code(s): G70.00 - Myasthenia gravis without (acute) exacerbation Status: Acute Assessment and Plan: Continue pyridostigmine and steroids Patient has completed 5 day course of IVIG Patient is awaiting transfer to [facility] I spoke to and discussed case with Dr. Julien with Neurology. He recommends increasing pyridostigmine to 60 mg and continuing steroids at 60 mg IV q.12 hours (3) Hypothyroidism: Code(s): E03.9 - Hypothyroidism, unspecified Status: Acute Assessment and Plan: TSH in normal range Continue levothyroxine (4) Gastroesophageal reflux disease: Code(s): K21.9 - Gastro-esophageal reflux disease without esophagitis Status: Acute Assessment and Plan: Protonix and Pepcid as per patient's home regimen (5) Asthma: Qualifiers: Asthma complication type: unspecified Asthma persistence: unspecified Asthma severity: unspecified severity Qualified Code(s): J45.909 - Unspecified asthma, uncomplicated Code(s): J45.909 - Unspecified asthma, uncomplicated Status: Acute Assessment and Plan: See above (6) Paroxysmal atrial fibrillation with RVR: Code(s): I48.0 - Paroxysmal atrial fibrillation Status: Acute Assessment and Plan: Patient had episode of AFib with RVR yesterday and was started on Cardizem infusion. Patient converted to sinus rhythm within few hours. Patient does not have history of AFib. It could be possible secondary to albuterol inhalation. I have changed bronchodilators to p.r.n. Patient is on aspirin and DVT prophylaxis Lovenox Echo Summary ? 1. Left ventricular chamber dimension is normal. ? 2. Left ventricular systolic function is hyperdynamic, estimated at >70%. ? 3. There is mildly increased left ventricular wall thickness. ? 4. The left ventricular diastolic function is grade I diastolic dysfunction. ? 5. Right ventricular systolic function is normal. ? 6. There is mild tricuspid valve regurgitation. ? 7. Estimated pulmonary arterial systolic pressure is 49 mmHg. Cardiology has been consulted further recomm
[2023-11-27] MEDS: CHOLECALCIFEROL 1,000 UNITS TABLET 2000 UNITS PO (08:19)
[2023-11-27] MEDS: busPIRone HCL 10 MG TABLET PO (08:19)
[2023-11-27] MEDS: ASPIRIN 81 MG ENTERIC TABLET PO (08:19)
[2023-11-27] MEDS: amLODIPine BESYLATE 5 MG TABLET PO (08:19)
[2023-11-27] MEDS: CYANOCOBALAMIN 1,000 MCG TABLET 1000 MCG PO (08:20)
[2023-11-27] MEDS: ENOXAPARIN 40 MG/0.4 ML SYRINGE SUB-Q (08:20)
[2023-11-27] MEDS: PANTOPRAZOLE 40 MG TABLET PO (08:20)
[2023-11-27] MEDS: pyRIDostigmine bromide 30 MG TABLET PO ×2 (08:20→11:25)
[2023-11-27] MEDS: ACETAMINOPHEN ELIXIR 325 MG/10.15 ML UDC 650 MG PO (08:21)
[2023-11-27] MEDS: hydrALAZINE HCL 20 MG/ML VIAL 10 MG IV PUSH (08:22)
[2023-11-27 09:35] LABS: Procalcitonin 0.1 ng/mL
--- NOTE | 2023-11-27 10:08 | PM.CNCAR ---
Assessment and Plan Assessment and plan (1) Paroxysmal atrial fibrillation with RVR: Code(s): I48.0 - Paroxysmal atrial fibrillation Status: Acute Plan 68-year-old woman with an episode of atrial fibrillation last night which converted to sinus rhythm after she was treated with intravenous diltiazem. The most likely etiology is of this are either the bronchodilator she was receiving for treatment of her respiratory difficulty and also the fact that she has morbid obesity and sleep apnea. At this time I would simply observe this conservatively in the hospital. Because of concern regarding her respiratory status I would prefer not to prescribe a beta-daniele at this time. We will follow her with you during this hospitalization and anticipate she will shortly be transferred to [facility] for plasmapheresis according to what I see on the chart as the ongoing plan of treatment for her myasthenia. Kee Campbell MD [facility] History of Present Illness History of Present Illness Consult date/time: 11/27/23 10:08 Reason For Visit: Shortness of Breath Narrative: This is a very pleasant but apparently rather unfortunate 54-year-old lady who has a recent diagnosis of myasthenia gravis who has been in the hospital here with difficulty with respiratory insufficiency. She has felt to have difficulty because of myasthenia and it was actually intubated earlier during this hospitalization because of respiratory failure and panicking on her part regarding her airway. She is now extubated and is relatively comfortable. She just finished a 5 day course of IVIG and was extubated. Last night she developed atrial fib with RVR which prompted this consultation. She was receiving bronchodilators with albuterol prior to that. She with her atrial fib she had a rapid ventricular response but was hemodynamically stable. An echocardiogram was done earlier during this hospitalization which was unremarkable. When she was in atrial fib last night she was given intravenous diltiazem after she converted to sinus rhythm that was stopped. According to the fisher trawl net and Neurology consultants plans are in place to transfer her to [facility] for plasmapheresis. 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 Review of Systems Constitutional: Comments: Muscle weakness ENT: Reports system reviewed and no additional complaints, except as documented Cardiovascular: Cardiovascular: Reports no additional cardiovascular complaints Respiratory: Respiratory: Reports as per HPI and Reports dyspnea Gastrointestinal: Gastrointestinal: Reports no additional gastrointestinal complaints Musculoskeletal: Musculoskeletal: Reports no additional musculoskeletal complaints Integumentary/Breasts: Skin/Breast: Reports system reviewed and no additional complaints, except as docu Neurologic: Reports as per HPI Endocrine: Endocrine: Reports no additional endocrine complaints Hematologic/Lymphatic: Hematologic/Lymphatic: Reports no additional hematologic/lymphatic complaints Allergic/Immunologic: Allergic/Immunologic: Reports no additional allergic/immunologic complaints [facility] Past Medical History Medical History (Updated 11/27/23 @ 08:35 by Adonis Grey MD) Anxiety Arthritis Asthma Depression Diastolic dysfunction Gastroesophageal reflux disease Hiatal hernia Hypertension Hypothyroidism Morbid obesity with body mass index (BMI) of 40.0 or higher Myasthenia gravis Myasthenia gravis in crisis Myasthenia gravis in remission Myasthenic crisis Obstructive sleep apnea Surgical History Surgical History History of fundoplication History of inguinal hernia repair History of oophorectomy History of shreya
[2023-11-27] MEDS: methylPREDNISolone SOD SUCC 125 MG VIAL 60 MG IV PUSH ×2 (11:25→22:05)
[2023-11-27 12:49] LABS: Glucose Point of Care 94 mg/dl (65-105)
--- NOTE | 2023-11-27 14:42 | PM.TDS ---
Transfer Discharge Sum: Prov Provider Date of admission: 11/21/23 16:35 Primary care physician: Wilberto Camacho MD Admitting clinician: Livier Masters MD Attending physician on admission: Livier Masters Consults: 11/21/23 14:37 Consult to Physician Routine Comment: Consulting Provider: Koby Contreras Reason for consultation: MG crisis? Has provider been notified: Yes 11/21/23 14:41 Consult to Physician Routine Comment: Consulting Provider: Adonis Grey Reason for consultation: MG crisis? shortness of breath, BIPAP Has provider been notified: Yes 11/22/23 Consult to Physician Routine Comment: notified and will follow up when pt. is extubated Consulting Provider: Bart Vera weight caller/MD group to consult: ENT Reason for consultation: Vocal cord dysfunction Has provider been notified: Yes 11/26/23 Consult to Physician Routine Comment: Consulting Provider: Kee Campbell weight caller/MD group to consult: cardiology Reason for consultation: afib rvr Has provider been notified: Yes Attending physician on discharge: Beka Hunt Discharging clinician: Beka Hunt Anticipated date of transfer: 11/27/23 Receiving physician/facility: Dr. Julian ..Megha Kiln Car Repairer at MICU at [facility] Dr. Velasquez Hudson Neurologist at [facility] DS: Admitting Diagnosis Discharge Date 11/27/2023: Admitting Diagnosis (1) Respiratory distress: ?Code(s): R06.03 - Acute respiratory distress ?Status:?Acute ?Assessment and Plan: She presented in respiratory distress and received nebulizers, steroids, and IM epinephrine in the ED. A similar episode occurred last night but she was discharged home given improvement with the same treatment. Differential diagnosis includes asthma exacerbation which is unlikely as she has no wheezing on exam, myasthenia gravis crisis given shortness of breath and reports of slurred speech the last few days but no evidence of respiratory failure on ABG (7.550/22.9/152/19.6), vocal cord dysfunction given intermittent inspiratory stridor which improve with calming techniques, versus other. Now intubated on cm be mode with a tidal volume of 400, respiratory rate 18, peep of 8. Sedated comfortably on propofol. (2) Myasthenia gravis: ?Code(s): G70.00 - Myasthenia gravis without (acute) exacerbation ?Status:?Acute ?Assessment and Plan: Positive acetylcholine antibodies in April 2023. Reports taking pyridostigmine at home but she does not know the dose. Started on 60 mg pyridostigmine q.8 hours. Neurology consulted for their opinion. (3) Electrolyte abnormality: ?Code(s): E87.8 - Other disorders of electrolyte and fluid balance, not elsewhere classified ?Status:?Acute ?Assessment and Plan: Several electrolyte abnormalities including a sodium of 129, potassium 2.9, chloride 96. May be a bit dry. Potassium will be repleted and monitored. Normal saline to be given overnight with repeat labs in a.m. Hold indapamide and furosemide (p.r.n. for swelling). (4) Asthma: ?Qualifiers: ?Asthma complication type:?unspecified??Asthma persistence:?unspecified??Asthma severity:?unspecified severity? Qualified Code(s):?J45.909 - Unspecified asthma, uncomplicated ?Code(s): J45.909 - Unspecified asthma, uncomplicated ?Status:?Acute ?Assessment and Plan: Patient reports being diagnosed with mild asthma. Rescue inhaler has not helped her symptoms the last few days. (5) Left thyroid nodule: ?Code(s): E04.1 - Nontoxic single thyroid nodule ?Status:?Acute ?Assessment and Plan: 18 mm left thyroid nodule noted on cervical spine CT. Will need outpatient thyroid ultrasound for risk stratification. (6) Hyperglycemia: ?Code(s): R73.9 - Hyperglycemia, unspecified ?Status:?Acute ?Assessment and Plan: Random glucose was 235 though she did receive IV steroids. Check fasting glucose and hemoglobin A1c. (7) Hypothyroi
[2023-11-27] MEDS: pyRIDostigmine bromide 60 MG TABLET PO ×2 (15:40→16:54)
[2023-11-27 16:46] LABS: Glucose Point of Care 131 mg/dl (65-105)
--- NOTE | 2023-11-27 19:11 | WPDNEUROPN ---
Progress Note: A&P Assessment and Plan (1) Myasthenic crisis: Code(s): G70.01 - Myasthenia gravis with (acute) exacerbation Status: Acute (2) Paroxysmal atrial fibrillation with RVR: Code(s): I48.0 - Paroxysmal atrial fibrillation Status: Acute (3) Atelectasis: Code(s): J98.11 - Atelectasis Status: Acute (4) Elevated troponin: Code(s): R79.89 - Other specified abnormal findings of blood chemistry Status: Acute (5) Obstructive sleep apnea: Code(s): G47.33 - Obstructive sleep apnea (adult) (pediatric) Status: Acute Plan I discussed this case with the [facility] neurologist and senior insight manager international in addition to Dr. Grey, senior insight manager international and . He agreed to keep her on Solu-Medrol 60 mg IV twice a day and pyridostigmine 60 mg 3 times a day. I would also suggest to keep her on CPAP since he was using it at home and she has not used that in the last 2 nights. In She is still on the waiting list for transfer to [facility] where there is a shortage of beds currently. Thank you very much Subjective Date/time seen: 11/27/23 19:11 Interval history: The patient is 68 years old with history of myasthenia gravis in intensive care unit at this time since he has deteriorated yesterday however she is stable today. For the most part she feels that her breathing was better during the daytime but in the last hour or 2 she is getting somewhat short of breath. She is on oxygen 2 liters/minute. In addition she is also having some problem the speech but no diplopia or any other new symptoms. She is able to swallow but thinks he has slight problem with larger pills. See you is tolerating Mestinon 60 mg 3 times a day as advised. Review of Systems Review of Systems: All systems reviewed & are unremarkable except as noted in HPI and below Exam Narrative: Steve was alert oriented to self time place and person Cranial nerves angio test intact. Extraocular movements are intact. No ptosis. Motor system normal power and tone in both upper and lower limbs. When asked to count from 1-50 she did start to get somewhat short of breath and also the voice became slightly weak after 20 she did well. No other additional findings noted. Objective Data Vital Signs Vital Signs: Vital Signs - 24 hr 11/26/23 20:35 11/26/23 20:36 11/26/23 20:46 Temperature Pulse Rate 89 90 Respiratory Rate 14 14 17 Blood Pressure Pulse Oximetry 98 Oxygen Delivery Nasal Cannula Oxygen Flow Rate 4 11/26/23 20:00 11/26/23 22:00 11/26/23 20:00 Temperature Pulse Rate 90 82 90 Respiratory Rate Blood Pressure Pulse Oximetry Oxygen Delivery Oxygen Flow Rate 11/26/23 22:00 11/26/23 22:00 11/26/23 20:00 Temperature Pulse Rate 88 88 Respiratory Rate 18 Blood Pressure 188/79 H 188/79 H Pulse Oximetry 97 99 Oxygen Delivery Nasal Cannula Oxygen Flow Rate 4 11/27/23 00:00 11/27/23 00:00 11/26/23 20:00 Temperature 37.1 C Pulse Rate 80 90 Respiratory Rate 21 H Blood Pressure 184/80 H Pulse Oximetry 97 99 Oxygen Delivery Nasal Cannula Oxygen Flow Rate 4 11/26/23 20:08 11/27/23 00:00 11/27/23 00:58 Temperature Pulse Rate 88 84 Respiratory Rate Blood Pressure 175/80 H 172/83 H Pulse Oximetry Oxygen Delivery Oxygen Flow Rate 11/27/23 02:00 11/27/23 04:00 11/27/23 06:00 Temperature Pulse Rate 89 88 90 Respiratory Rate Blood Pressure Pulse Oximetry Oxygen Delivery Oxygen Flow Rate 11/27/23 00:00 11/27/23 04:00 11/27/23 02:00 Temperature 36.4 C L Pulse Rate 86 89 Respiratory Rate 18 19 Blood Pressure 184/80 H 165/87 H Pulse Oximetry 98 99 98 Oxygen Delivery Nasal Cannula Oxygen Flow Rate 4 11/27/23 04:00 11/27/23 06:00 11/27/23 08:08 Temperature 36.6 C Pulse Rate 77 90 Respiratory Rate 18 18 Blood Pressure 161/89 H 170/85
[2023-11-27] MEDS: HYDROcodone/acetaminophen (*CRX) 5-325 MG TABLET 1 TAB PO (22:04)
[2023-11-27] MEDS: GABAPENTIN 300 MG CAPSULE PO (22:05)
[2023-11-28] VITALS (10 sets, daily range): BP systolic 133–181; BP diastolic 81–101; PULSE 62–93; RESP 12–24; TEMP 36.6–36.7; O2SAT 93–99
[2023-11-28] MEDS: LEVOTHYROXINE SODIUM 75 MCG TABLET PO (05:32)
[2023-11-28] MEDS: SUCRALFATE SUSP 100 MG/ML 10 ML UDC 1000 MG PO ×2 (05:32→11:43)
[2023-11-28] MEDS: LEVOTHYROXINE SODIUM 100 MCG TABLET PO (05:32)
[2023-11-28] MEDS: CENTRAL LINE FLUSH 10 ML IV PUSH ×2 (05:32→13:13)
[2023-11-28 05:44] LABS: Basophils Percent Auto 0.1 % (0.2-1.2); Hematocrit 33.8 % (37.0-47.0); Hemoglobin 11.1 g/dL (12.0-15.0); Immature Granulocyte Absolute 0.08 K/mm3 (0.00-0.031); Immature Granulocyte Percent A 1.1 % (0-0.5); Lymphocytes Absolute Auto 0.53 K/mm3 (0.9-3.2); Lymphocytes Percent Auto 7.4 % (18.3-44.2); Mean Corpuscular HGB Conc 32.8 g/dl (32-36); Mean Corpuscular Volume 91.4 fl (80-100); Mean Platelet Volume 10.5 fl (7.4-10.4); Monocytes Absolute Auto 0.3 K/mm3 (0.1-0.6); Monocytes Percent Auto 3.9 % (2.6-8.5); Neutrophils Absolute Auto 6.3 K/mm3 (1.3-6.7); Neutrophils Percent Auto 87.5 % (45.5-73.1); Platelet Count Result 171 k/mm3 (150-375); Red Cell Distribution Width 12.5 % (11.5-14.5); White Blood Count 7.2 K/mm3 (4.5-10.0)
[2023-11-28 05:54] LABS: Alanine Aminotransferase 53 U/L (6-35); Albumin Level 3.2 g/dL (3.5-5.1); Alkaline Phosphatase 61 U/L (38-126); Anion Gap 1 mmol/L (4-12); Aspartate Amino Transferase 25 U/L (14-36); Bilirubin,Total 0.5 mg/dL (0.2-1.3); Blood Urea Nitrogen 29 mg/dL (7-17); Carbon Dioxide 29 mmol/L (22-30); Chloride 105 mmol/L (98-107); Estimated CRCL calculation 130 ml/min; Estimated Glomerular Filt Rate > 60; Glucose 151 mg/dL (65-110); Potassium 4.2 mmol/L (3.4-5.0); Sodium 135 mmol/L (137-145); Triglycerides 78 mg/dL (<150)
[2023-11-28 07:28] LABS: Glucose Point of Care 144 mg/dl (65-105)
[2023-11-28] MEDS: ASPIRIN 81 MG ENTERIC TABLET PO (08:20)
[2023-11-28] MEDS: amLODIPine BESYLATE 5 MG TABLET PO (08:20)
[2023-11-28] MEDS: busPIRone HCL 10 MG TABLET PO (08:20)
[2023-11-28] MEDS: methylPREDNISolone SOD SUCC 125 MG VIAL 60 MG IV PUSH (08:20)
[2023-11-28] MEDS: CHOLECALCIFEROL 1,000 UNITS TABLET 2000 UNITS PO (08:20)
[2023-11-28] MEDS: ENOXAPARIN 40 MG/0.4 ML SYRINGE SUB-Q (08:21)
[2023-11-28] MEDS: CYANOCOBALAMIN 1,000 MCG TABLET 1000 MCG PO (08:21)
[2023-11-28] MEDS: pyRIDostigmine bromide 60 MG TABLET PO ×2 (08:21→13:12)
[2023-11-28] MEDS: PANTOPRAZOLE 40 MG TABLET PO (08:21)
--- NOTE | 2023-11-28 11:19 | PCNFU ---
Nutrition Follow-Up Complete: Suboptimal energy intake as related to mechanical ventilation as evidenced by tube feedings/NPO. Goal: Meet estimated nutritional needs. Patient is progressing towards goal. We will continue current goal. Pt current nutrition is Regular with Ensure compact BID. Last recorded weight is 137.8 kg, down from 141 kg on admit. Bowel Motility: +BM reported 11/27 Labs Reviewed: Glu 151, Cr 0.5, BUN 29, Na 135, Alb 3.2 Meds Noted:Vit B, Vit D, Synthroid,Lovenox,Protonix Skin: WNL Additional Notes: Patient remains on a Regular diet, tolerating diet. Diet Supplements of ensure compact BID providing an additional 220 kcal and 9 gm protein. Agree with diet orders. Will monitor weight, meds, labs, skin, tube feeding tolerance every Monday and Monday.
[2023-11-28 11:44] LABS: Glucose Point of Care 125 mg/dl (65-105)
--- NOTE | 2023-11-28 11:45 | WPDINTPN ---
Progress Note: A&P Assessment and Plan (1) Acute respiratory failure: Code(s): J96.00 - Acute respiratory failure, unspecified whether with hypoxia or hypercapnia Status: Acute Assessment and Plan: Acute Respiratory failure with no clear etiology with differential of some combination of myasthenia crisis, asthma exacerbation, panic attack ? vocal cord dysfunction Patient was intubated and placed on mechanical ventilation 11/[address] Contreras from Neurology patient was continued on pyridostigmine 60 mg q.8 hours. Acetylcholine receptor antibody ordered and pending. Patient was started on IVIG and will be continued for 5 days. Request sent to Obtain records from [facility] but I have not received any records yet.. Continue Solu-Medrol Patient has history of asthma but does not have any significant wheezing on exam. 11/23. pyridostigmine was held due to concern of increased secretions after discussion with Neurology 11/23 extubated after a successful weaning trial and adequate NIF and no cuff leak 11/23 evaluated by ENT and no evidence of vocal cord dysfunction on laryngoscopy 11/24 will resume pyridostigmine at a lower dose 11/25 chest x-ray showed atelectasis. Patient started on Rocephin by hospitalist with concerns for pneumonia 11/26 patient is afebrile. WBC minimally elevated which could be secondary to steroids. Continue Rocephin for now although it appears more likely to be atelectasis. Patient is morbidly obese and has been in bed for many days now. I have discussed with the patient and emphasized on using incentive spirometer. Check Procalcitonin level patient is on 2 L nasal cannula. Her NIF was checked on transfer to ICU and was -55. Patient asymptomatic and not in any respiratory distress at this time -11/27: Patient is currently on room air with adequate O2 sats, WBC count has normalized, remains on steroids for myasthenia gravis along with pyridostigmine. Patient has been able to stand up and walk to the restroom. Good strength in all extremities (2) Myasthenia gravis: Code(s): G70.00 - Myasthenia gravis without (acute) exacerbation Status: Acute Assessment and Plan: Continue pyridostigmine and steroids Patient has completed 5 day course of IVIG Patient is awaiting transfer to [facility] 11/26: Case was discussed with Dr. Draper,with Neurology. He recommends increasing pyridostigmine to 60 mg and continuing steroids (3) Hypothyroidism: Code(s): E03.9 - Hypothyroidism, unspecified Status: Acute Assessment and Plan: TSH in normal range Continue levothyroxine (4) Gastroesophageal reflux disease: Code(s): K21.9 - Gastro-esophageal reflux disease without esophagitis Status: Acute Assessment and Plan: Protonix and Pepcid as per patient's home regimen (5) Asthma: Qualifiers: Asthma severity: unspecified severity Asthma persistence: unspecified Asthma complication type: unspecified Qualified Code(s): J45.909 - Unspecified asthma, uncomplicated Code(s): J45.909 - Unspecified asthma, uncomplicated Status: Acute Assessment and Plan: See above (6) Paroxysmal atrial fibrillation with RVR: Code(s): I48.0 - Paroxysmal atrial fibrillation Status: Acute Assessment and Plan: Patient had episode of AFib with RVR yesterday and was started on Cardizem infusion. Patient converted to sinus rhythm within few hours. Patient does not have history of AFib. It could be possible secondary to albuterol inhalation. I have changed bronchodilators to p.r.n. Patient is on aspirin and DVT prophylaxis Lovenox -currently in sinus rhythm Echo Summary ? 1. Left ventricular chamber dimension is normal. ? 2. Left ventricular systolic function is hyperdynamic, estimated at >70%. ? 3. There is mildly increased left ventricular wall thickness. ? 4. The left ventricular d
--- NOTE | 2023-11-28 14:16 | PM.DS ---
DS: Admitting Diagnosis Discharge Date 11/28/2023: Admitting Diagnosis (1) Respiratory distress: ?Code(s): R06.03 - Acute respiratory distress ?Status:?Acute ?Assessment and Plan: She presented in respiratory distress and received nebulizers, steroids, and IM epinephrine in the ED. A similar episode occurred last night but she was discharged home given improvement with the same treatment. Differential diagnosis includes asthma exacerbation which is unlikely as she has no wheezing on exam, myasthenia gravis crisis given shortness of breath and reports of slurred speech the last few days but no evidence of respiratory failure on ABG (7.550/22.9/152/19.6), vocal cord dysfunction given intermittent inspiratory stridor which improve with calming techniques, versus other. Now intubated on cm be mode with a tidal volume of 400, respiratory rate 18, peep of 8. Sedated comfortably on propofol. (2) Myasthenia gravis: ?Code(s): G70.00 - Myasthenia gravis without (acute) exacerbation ?Status:?Acute ?Assessment and Plan: Positive acetylcholine antibodies in April 2023. Reports taking pyridostigmine at home but she does not know the dose. Started on 60 mg pyridostigmine q.8 hours. Neurology consulted for their opinion. (3) Electrolyte abnormality: ?Code(s): E87.8 - Other disorders of electrolyte and fluid balance, not elsewhere classified ?Status:?Acute ?Assessment and Plan: Several electrolyte abnormalities including a sodium of 129, potassium 2.9, chloride 96. May be a bit dry. Potassium will be repleted and monitored. Normal saline to be given overnight with repeat labs in a.m. Hold indapamide and furosemide (p.r.n. for swelling). (4) Asthma: ?Qualifiers: ?Asthma complication type:?unspecified??Asthma persistence:?unspecified??Asthma severity:?unspecified severity? Qualified Code(s):?J45.909 - Unspecified asthma, uncomplicated ?Code(s): J45.909 - Unspecified asthma, uncomplicated ?Status:?Acute ?Assessment and Plan: Patient reports being diagnosed with mild asthma. Rescue inhaler has not helped her symptoms the last few days. (5) Left thyroid nodule: ?Code(s): E04.1 - Nontoxic single thyroid nodule ?Status:?Acute ?Assessment and Plan: 18 mm left thyroid nodule noted on cervical spine CT. Will need outpatient thyroid ultrasound for risk stratification. (6) Hyperglycemia: ?Code(s): R73.9 - Hyperglycemia, unspecified ?Status:?Acute ?Assessment and Plan: Random glucose was 235 though she did receive IV steroids. Check fasting glucose and hemoglobin A1c. (7) Hypothyroidism: ?Code(s): E03.9 - Hypothyroidism, unspecified ?Status:?Acute ?Assessment and Plan: Continue levothyroxine and check TSH. (8) Obstructive sleep apnea: ?Code(s): G47.33 - Obstructive sleep apnea (adult) (pediatric) ?Status:?Acute ?Assessment and Plan: CPAP will be provided for the patient to use while hospitalized. DS: Discharge Diagnosis Discharge Diagnosis (1) Myasthenic crisis: Code(s): G70.01 - Myasthenia gravis with (acute) exacerbation Status: Acute (2) Atelectasis: Code(s): J98.11 - Atelectasis Status: Acute (3) Elevated troponin: Code(s): R79.89 - Other specified abnormal findings of blood chemistry Status: Acute (4) Paroxysmal atrial fibrillation with RVR: Code(s): I48.0 - Paroxysmal atrial fibrillation Status: Acute (5) Acute respiratory failure: Code(s): J96.00 - Acute respiratory failure, unspecified whether with hypoxia or hypercapnia Status: Acute (6) Shortness of breath: Code(s): R06.02 - Shortness of breath Status: Acute (7) Choking sensation: Code(s): R09.89 - Other specified symptoms and signs involving the circulatory and respiratory systems Status: Acute (8) Acute hyperventilation: Code(s): R06.4 - Hyperventila
[2023-12-01 22:37] LABS: Anti Striated Muscle Antibody POSITIVE (NEGATIVE)
[2023-12-07 09:48] LABS: Acetylchol Receptor Binding Ab 3.86 nmol/L
== END 2023-11-28 15:39 | disposition home health service (06) | DRG 56 ==
LOC: ANHED 11:52 → ANHICU 15:02 → ANHIMU 11-25 21:14 → ANH3MEDSUR 11-26 15:12 → ANHIMU 11-26 16:39 → ANHICU 11-26 19:19
PROVIDERS: Internal Medicine; Physician Assistant; Admitting Provider General Practice; Emergency Provider Emergency Medicine; PCP Family Medicine; Visit Provider Family Medicine
DX: G70.01 Myasthenia gravis with (acute) exacerbation (principal); J18.9 Pneumonia, unspecified organism; J96.00 Acute respiratory failure, unspecified whether with hypoxia or hypercapnia; Z68.43 Body mass index [BMI] 50.0-59.9, adult; J98.11 Atelectasis; I48.0 Paroxysmal atrial fibrillation; I51.89 Other ill-defined heart diseases; I10 Essential (primary) hypertension; J45.909 Unspecified asthma, uncomplicated; E04.1 Nontoxic single thyroid nodule; E87.8 Other disorders of electrolyte and fluid balance, not elsewhere classified; E03.9 Hypothyroidism, unspecified; E66.01 Morbid (severe) obesity due to excess calories; E87.6 Hypokalemia; R79.89 Other specified abnormal findings of blood chemistry; R73.9 Hyperglycemia, unspecified; K44.9 Diaphragmatic hernia without obstruction or gangrene; K21.9 Gastro-esophageal reflux disease without esophagitis; M19.90 Unspecified osteoarthritis, unspecified site; G47.33 Obstructive sleep apnea (adult) (pediatric); F32.A Depression, unspecified; F41.9 Anxiety disorder, unspecified; Z96.651 Presence of right artificial knee joint; Z79.82 Long term (current) use of aspirin
CPT/HCPCS: 36415; 36569; 36600; 70491; 71045; 71275; 80048; 80053; 81001; 82375; 82570; 82805; 82948; 83036; 83050; 83605; 83735; 83880; 83930; 83935; 84100; 84145; 84300; 84443; 84478; 84484; 84540; 85025; 85380; 85610; 85730; 86255; 87637; 87641; 93005; 93306; 94002; 94003; 94640; 96372; 96374; 97110; 97116; 97162; 97165; A9270; C1751; C9113; G0378; J0171; J0360; J0696; J1459; J1650; J2060; J2250; J2704; J2919; J3010; J3480; J7040; J7120; Q9967

== ENCOUNTER 2023-12-18 08:41 | Outpatient (CLI) | payer MEDICARE, OTHER, SELFPAY ==
--- NOTE | ~2023-12-18 | US_ITS ---
EXAMINATION: US thyroid DATE: 12/18/2023 09:03 INDICATION: Nontoxic single thyroid nodule. TECHNIQUE: Multiple ultrasound images of the thyroid were obtained. COMPARISON: Neck CT 11/21/2023 FINDINGS: The right thyroid lobe measures 4.9 x 1.9 x 2.1 cm. The left thyroid lobe measures 5.4 x 2.0 x 2.4 c m. The thyroid demonstrates heterogeneous echogenicity and increased vascularity. No discrete nodule . IMPRESSION: 1. Heterogeneous, hypervascular thyroid, consistent with chronic lymphocytic (Anderson) thyroiditis. Reviewed, dictated and finalized at location E. IMPRESSION: 1. Heterogeneous, hypervascular thyroid, consistent with chronic lymphocytic (H ashimoto) thyroiditis.
== END 2023-12-18 08:42 ==
LOC: GOSHIMG 08:41
PROVIDERS: PCP Otolaryngology; Visit Provider Family Medicine
DX: E04.1 Nontoxic single thyroid nodule (principal)
CPT/HCPCS: 76536

== ENCOUNTER 2024-01-11 13:19 | Outpatient (CLI) | payer MEDICARE, OTHER, SELFPAY ==
--- NOTE | ~2024-01-11 | XR_ITS ---
Clinical Indication: Pneumonia PA and lateral views of the chest: Comparison: 11/25/2023 Findings: The lungs are clear, without evidence of focal consolidation or pleural effusion. Cardiome diastinal silhouette is within normal limits. Bones and soft tissues are unremarkable. Impression: Clear lungs. Reviewed, dictated and finalized at location . Impression: Clear lungs.
== END 2024-01-11 13:20 | disposition home or self-care (01) ==
PROVIDERS: PCP Family Medicine; Visit Provider Family Medicine
DX: J18.9 Pneumonia, unspecified organism (principal)
CPT/HCPCS: 71046

== ENCOUNTER 2024-01-23 13:03 | Outpatient (CLI) | payer MEDICARE, OTHER, SELFPAY ==
--- NOTE | ~2024-01-23 | US_ITS ---
EXAMINATION:US venous doppler LE BI INDICATION:Leg edema TECHNIQUE: Multiple grayscale, color flow and Doppler images of the right and left lower extremity de ep venous systems were obtained and reviewed. COMPARISON:04/05/2009 FINDINGS: The common femoral, superficial femoral and popliteal veins demonstrate normal respiratory variation, augmentation and compressibility. Color flow is also seen within the posterior tibial, pe roneal, greater saphenous and profunda veins. IMPRESSION: 1: No lower extremity deep venous thrombosis. Reviewed, dictated and finalized at location B.
== END 2024-01-23 13:04 | disposition home or self-care (01) ==
LOC: ANHIMG 13:04
PROVIDERS: PCP Family Medicine; Visit Provider Physician Assistant
DX: R60.0 Localized edema (principal); M79.605 Pain in left leg; I83.90 Asymptomatic varicose veins of unspecified lower extremity
CPT/HCPCS: 93970

== ENCOUNTER 2024-07-29 13:45 | Outpatient (CLI) | payer MEDICARE, OTHER, SELFPAY ==
--- OUTSIDE RECORDS SUMMARY | 2024-07-29 14:37 | XMS_ITS | Continuity of Care Document ---
Author Organization [facility] Address [address] [place] [address] Phone Care Team Providers Care Director [employer] Name Role Phone Filemon MOBLEY, Dixie Unavailable Unavailable Allergies, Adverse Reactions, Alerts Substance Reaction Status Criticality amlodipine Active No Information Cephalosporins Swelling(moderate) Active No Info rmation clarithromycin GI Pain(moderate) Active No Infor divine astlilianaizole Makes her nuts(moderate) Active No Information HYDROCODONE BITARTRATE (moderate) Active No In formation acetaminophen (moderate) Active No Information latex (moderate) Active No Information azithromycin (moderate) Active No Information RANITIDINE HCL (moderate) Active No Informatio n Medications Medication Instructions Dosage Effective Dates (start - stop) Status Comments ASPIRIN 81 mg ORAL - Active Tirosint 75 mcg capsule take 1 capsule by oral route every day 75 MCG - Active metoprolol tartrate 50 mg tablet take 1 tablet by oral route every day with meals 50 MG - Active metformin 1,000 mg tablet take 1 tablet by oral route 2 times every day with morning and evening meals 1000 MG - Active Vitamin D3 1,000 unit tablet take 1 tablet by oral route every day 1 tablet - Active Procedures Procedure Date COLONOSCOPY/ BX FACILITY COLONOSCOPY/ BX Moderate Sedation TISSUE EXAM BY PATHOLOGIST COLONOSCOPY/ BX FACILITY COLONOSCOPY/ BX TISSUE EXAM BY PATHOLOGIST Advance Directives Directive Yes / No Effective Date File Name No Information Encounters Encounter Description Practice Location Reason(s) For Visit Diagnoses Date Provider Providers Copied on Encounter [facility], [facility], [place], [id number] tel: [phone] [facility] No Information Filemon Colin. [facility], [place], [address]. tel: [phone] [facility], [facility] [place] [id number] tel: [phone] [facility] Personal history of colonic polypsRectal polyp Filemon Colin. [facility], [place], [address]. tel: [phone] [facility], [address] [place], [place] [address], [place], [id number] tel: [phone] [facility] No Information Filemon Colin. [facility], [place], [address]. tel: [phone] [facility], [address] [place], [place] [address], [place], [id number] tel: [phone] [facility] No Information Filemon Colin. [facility], [place], [address]. tel: [phone] [facility], [address] [place], [place] [address], [id number] tel: [phone] [facility] [place] Screening Malignant Neoplasm ColonColon PolypHemorrhoi ds, Unspecified Filemon Colin. [address] [place] [address], [place], [address]. tel: [phone] [facility], [address] [place], [place] [address], [id number] tel: [phone] [facility] No Information Filemon Colin. [facility], [place], [address]. tel: [phone] [facility], [address] [place] [address], [place], [place], [id number] tel: [phone] [facility] No Information Filemon Colin. [address] , [facility], [place], [address]. tel: [phone] Family History Family Member Type Diagnosis Age At Onset Problem (finding) Family history of gallb ladder disease Payers Payer name Insurance type Covered alliance party ID Ender kunz(s) Linda CI [id number] Social History Type Description Quantity Date Captured Comments Alcohol Use Details Unknown Caffeine Use Details Unknown Tobacco Use Status No Information Smoking Status No Information Sex Female Chief Complaint And Reason For Visit No Information Reason For Referral Reason For Referral No Information History Of Present Illness Encounter Date Complaint History Of Prese nt Illness No Information Functional Status Date Functional Assessmen t No Information Instructions Date Instruction Additional Infor mation No Information Assessments Type Assessment Date No Information Patient Care Teams Name Effective Dates (start - stop) Status Members No Information
--- OUTSIDE RECORDS SUMMARY | 2024-07-29 14:37 | XMS_ITS | Data Portability ---
Author Organization [place] - [facility], Main Office Address [address] [place] [address] Care Team Providers Care Pin Cleaner Name Role Phone CATE BETANCOURT Primary Care Provider CATE BETANCOURT Referring Provider [phone] Assessment Encounter Date Assessment Date Assessment LastModified by Organization Details LastModified Time 02/16/2024 02/16/2024 The patient has a new onset of more significant left lower extremity pain with edema bilaterally due to the fact that she is on chronic steroids now and has been treated for myasthenia gravis she also has some more significant left knee pain that was doing very well after shot of cortisone about 6 weeks ago this has been aggravated by activities where she was overdoing it as well. We talked about trying to get rid of that swelling she has furosemide that she is going to use for p.r.n. use I think she needs to use this she will discuss this further with her primary care physician. She really can not use compression stockings because of the shape of her legs she would not be able to find anything that can fit her or stay up properly. Talked about elevating her leg as much as possible. She was requesting a shot of cortisone but it is too early for that we did talk about possibly doing gel shots she wanted proceed therefore under sterile conditions I injected the patient's left knee joint in the office with the Orthovisc injection number 1. I will see her back next week for the 2nd injection left knee. She voiced understanding and agrees above plan she will call for any further problems difficulties or questions. Not available 02/16/2024 11:30:53 02/26/2024 02/26/2024 The patient has severe primary osteoarthritis left knee joint with valgus deformity as described. Under sterile conditions I injected the patient's left knee joint in the office today with Orthovisc injection number 2. I will see her back next week for the 3rd injection left knee. She voiced understanding agrees above plan she will call for any further problems difficulties or questions. Not available 02/26/2024 11:59:30 03/05/2024 03/05/2024 The patient has severe primary osteoarthritis left knee joint. Under sterile conditions I injected the patient's left knee joint in the office with Orthovisc injection number 3. I will see her back in 6-8 weeks to see what impact treatment has had. Hopefully she will get good relief that will improve over time. She voiced understanding agrees above plan she will call for any further problems difficulties or questions. Not available 03/05/2024 14:56:44 04/16/2024 04/16/2024 The patient has severe primary osteoarthritis left knee joint. At her request under sterile conditions I injected the patient's left knee joint in the office with 4 cc 0.5% bupivacaine and 20 mg of Kenalog. Patient tolerated the procedure well. I will see her back as needed we can do this again in 3 months if necessary she has to wait 4 1/2 months before we can do gel shots again. She voiced understanding agrees above plan she will call for any further problems difficulties or questions. Not available 04/16/2024 14:32:05 07/09/2024 07/09/2024 The patient has severe primary osteoarthritis left knee joint as described. Under sterile conditions I injected the patient's left knee joint in the office with 4 cc of 0.5% bupivacaine and 20 mg of Kenalog. Patient tolerated the procedure well. I will see her back as needed we can do this again in 3 months if necessary although she is thinking about doing gel shots instead next time we will get this set up for her. She thought those worked pretty well for her also. We are going to try to get by with conservative measures until she can achieve enough weight loss to undergo total knee arthroplasty which is what she really needs she voiced understanding and agreed with the above plan. Not available 07/09/2024 14:30:53 Plan of Treatment Reminders Order Date Submit Date Provider Last Modified By Organization Details Last Modified Time Details Appointments Any 2024 01:00P M MANUELA Her Not available Not available Not available Any 2024 01:30P M MANUELA Her Not available Not available Not available Any 2024 01:00P M MANUELA Her Not available Not available Not available Lab None recorded. Referral None recorded. Procedures knee aspiratio n/injecti on (PROC) 2023 024 [email or web address] In-Office Order, Internal Use Only DO Not Attach Compendium DO Not Attach Compendium, Do Not Delete/merge, [id number] 02/16/2024 10:58:43 knee aspiratio n/injecti on (PROC) 2023 024 [email or web address] In-Office Order, Internal Use Only DO Not Attach Compendium DO Not Attach Compendium, Do Not Delete/merge, [id number] 02/26/2024 11:31:21 knee aspiratio n/injecti on (PROC) 2023 024 [email or web address] In-Office Order, Internal Use Only DO Not Attach Compendium DO Not Attach Compendium, Do Not Delete/merge, [id number] 03/05/2024 14:45:45 injection /aspirati on joint/bur sa (PROC) 2023 024 [email or web address] In-Office Order, Internal Use Only DO Not Attach Compendium DO Not Attach Compendium, Do Not Delete/merge, [id number] 04/16/2024 14:18:30 injection /aspirati on joint/bur sa (PROC) 2024 025 [email or web address] In-Office Order, Internal Use Only DO Not Attach Compendium DO Not Attach Compendium, Do Not Delete/merge, [id number] 07/09/2024 14:18:15 Surgeries None recorded. Imaging XR, tibia + fibula 2023 024 [email or web address] [facility] [place], [address], [place], [address], 02/16/2024 11:33:15 XR, knee 2024 025 [facility] [place], [address], [place], [address], 07/09/2024 15:39:00 Medication Orders ORTHOVISC 30 mg/2 mL intra-art icular syringe 2023 024 [email or web address] [id number], [address], [place], [place], [id number], 07/09/2024 14:09:39 ORTHOVISC 30 mg/2 mL intra-art icular syringe 2023 024 [email or web address] [facility] #[id number], [address], [place], [place], [phone], 07/09/2024 14:09:39 ORTHOVISC 30 mg/2 mL intra-art icular syringe 2023 024 [email or web address] [facility] #69755, [address], [place], [place], [id number], 07/09/2024 14:09:39 bupivacai ne HCl 0.5 % (5 mg/mL) injection solution 2023 024 [email or web address] [facility]64, [address], [place], [place], [id number], 07/09/2024 14:07:53 Kenalog 10 mg/mL suspensio n for injection 2023 024 [email or web address] [id number], [address] [place], [place], [id number], 07/09/2024 14:10:51 bupivacai ne HCl 0.5 % (5 mg/mL) injection solution 2024 025 [facility], [address], [place], [id number], 07/09/2024 15:39:00 Kenalog 10 mg/mL suspensio n for injection 2024 025 [facility] #77506, [address], [place], [place], [id number], 07/09/2024 15:39:00 Patient TargetsNo targets recorded. Patient InstructionsNo instructions recorded. Reason for Referral None Reported. Results Created Date Observation Date Name Description Value Unit Range Abnormal Flag Note LastModifiedBy Organization Detail LastModifiedTime 02/16/20 24 XR, tibia + fibul a No observ ation record ed. [facility] [place] [address], [place], [address], 02/16/2024 11:31:38 07/09/19 25 XR, knee No observ ation record ed. [facility] [place] [address], [place], [address], 07/09/2024 14:34:48 Result Notes None recorded. Problems Name Problem SNOMED Code Status Onset Date Resolution Date Notes Provider Name and Address Organization Details Recorded Time History of total knee arthroplas ty 3765812164628 Active 2021 Not Available [facility] 3 03:08:20 Osteoarthr itis of knee 651311914 Active 2021 Not Available [facility] 3 03:08:20 Osteoarthr itis of left knee joint 2113829584301 09 Active 2021 Not Available [facility] 3 03:08:20 Osteoarthr itis 521545377 Active Not Available [facility] 3 03:08:21 Pain of left knee joint 5868474427671 07 Active 2021 Not Available [facility] 3 03:08:21 Pain in left lower limb 466583168 Active 2023 Carina Nunez CNA null, [place] [facility] 4 10:32:45 Essential hypertensi on 57154552 Active 2023 CONNER Longo, [place] [facility] 4 14:31:40 Gout 95680591 Active 2023 Carina Nunez [employer]ELD INSTRUCTOR null, [place] [facility] 4 14:31:40 Folliculit is 62765995 Active 2023 Carina Nunez FIELD INSTRUCTOR null, [place] [facility] [place] [facility] 14:31:40 Problem Notes None recorded. Procedures Surgical History Date Name Laterality Status Provider Name and Address Organization Details Recorded Time operation on ovary completed CONNER Longo - [facility] 07/09/2024 14:11:46 Hernia Surgery completed Not Available [facility] 08/31/2022 02:55:10 Knee Replacement completed Carina guaman CNA [place] - [facility] 07/09/2024 14:11:36 Imaging Results Imaging Date Name Status LastModified by Organiz ation Details LastModified Time 02/16/2024 XR, tibia + fibula completed [facility] [place] [address], [place], [address], 02/16/2024 11:31:38 07/09/2024 XR, knee completed [facility] [place] [address], [place], [address], 07/09/2024 14:34:48 Procedure Notes None recorded. Medical Equipment None Reported. Allergies Allergen ID Allergen Name Allergen Category Reaction Reaction Severity Criticality Documentation Date Start Date Code Code System Note Provider Name and Address Organization Details Recorded Time 15095 amoxicill in medicatio n swelling Not available Not available 07/09/2024 723 RxNorm Carina Nunez FIELD INSTRUCTOR null, [place] [facility] [place] [facility] 14:07:22 Medications Name Sig Start Date Stop Date Status Note LastModified by Organization Details LastModified Time levothyroxi ne 175 mcg tablet TAKE 1 TABLET BY MOUTH DAILY active Not Available Not Available No t Available levothyroxi ne 137 mcg tablet 04/18 completed Not Available Not Available Not Available prednisone 10 mg tablet TAKE 2 TABLETS BY MOUTH DAILY 07/09 completed Not Available Not Available Not Available albuterol sulfate 2.5 mg/3 mL (0.083 %) solution for nebulizatio n 07/18 completed Not Available Not Available Not Available loperamide 2 mg capsule 07/09 completed Not Available Not Available Not Available azithromyci n 250 mg tablet 07/18 completed Not Available Not Available Not Available indapamide 2.5 mg tablet TAKE 2 TABLETS BY MOUTH DAILY active Not Available Not Available No t Available tizanidine 4 mg tablet 02/17 completed Not Available Not Available Not Available sulfamethox azole 400 mg-trimetho prim 80 mg tablet TAKE 1 TABLET BY MOUTH DAILY active Not Available Not Available No t Available valacyclovi r 1 gram tablet TAKE 1 TABLET BY MOUTH DAILY NEEDED FOR COLD SORES active Not Available Not Available No t Available ranitidine 300 mg tablet 02/17 completed Not Available Not Available Not Available hydrocodone 5 mg-acetamin ophen 325 mg tablet TAKE 1 TABLET BY MOUTH TWICE DAILY NEEDED FOR PAIN active Not Available Not Available No t Available sucralfate 1 gram tablet TAKE 1 TABLET BY MOUTH TWICE DAILY NEEDED active Not Available Not Available No t Available famotidine 40 mg tablet TAKE 1 TABLET BY MOUTH EVERY NIGHT AT BEDTIME active Not Available Not Available No t Available bupivacaine HCl 0.5 % (5 mg/mL) injection solution Take 20 mg by injection route. 2024 active Not Available Not Available Not Avai lable prednisone 20 mg tablet TAKE 1 TABLET BY MOUTH TWICE DAILY FOR 3 DAYS 07/09 completed Not Available Not Available Not Available prednisone 5 mg tablet TAKE 8 TABLETS BY MOUTH DAILY active Not Available Not Available No t Available valsartan 80 mg tablet 04/18 completed Not Available Not Available Not Available diltiazem CD 360 mg capsule,ext ended release 24 hr 02/17 completed Not Available Not Available Not Available amlodipine 5 mg tablet TAKE 1 TABLET BY MOUTH EVERY MORNING 07/09 completed Not Available Not Available Not Available omeprazole 40 mg capsule,del ayed release TAKE 1 CAPSULE BY MOUTH DAILY active Not Available Not Available No t Available spironolact one 25 mg tablet TAKE 1 TABLET BY MOUTH ONCE DAILY active Not Available Not Available No t Available mycophenola te mofetil 500 mg tablet take 2 tablets bid active Not Available Not Available No t Available prednisone 10 mg tablets in a dose pack Take 1 tab by mouth, 3 times a day for 3 daysTake 1 tab by mouth 2 times a day for 2 daysTake 1 tab by mouth once a day for 1 day 02/17 completed Not Available Not Available Not Available amoxicillin 875 mg tablet TAKE 1 TABLET BY MOUTH TWICE DAILY UNTIL ALL TAKEN 07/09 completed Not Available Not Available Not Available potassium chloride ER 20 mEq tablet,exte nded release(par t/cryst) TAKE 1 TABLET BY MOUTH EVERY OTHER DAY 02/17 completed Not Available Not Available Not Available prednisolon e acetate 1 % eye drops,suspe nsion 04/27 completed Not Available Not Available Not Available lorazepam 0.5 mg tablet TAKE 1 TABLET BY MOUTH EVERY NIGHT AT BEDTIME NEEDED FOR ANXIETY active Not Available Not Available No t Available Kenalog 10 mg/mL suspension for injection Take 20 mg by injection route. [address] [facility]: 0003- 0494- 20 Not Available Not Available Not Available amlodipine 10 mg tablet TAKE 1 TABLET BY MOUTH DAILY active Not Available Not Available No t Available benzonatate 100 mg capsule 02/17 completed Not Available Not Available Not Available cephalexin 500 mg capsule TAKE 4 CAPSULES BY MOUTH 1 HOUR BEFORE PROCEDURE active Not Available Not Available No t Available pantoprazol e 40 mg tablet,vern yed release TAKE 1 TABLET BY MOUTH EVERY MORNING active Not Available Not Available No t Available levothyroxi ne 125 mcg tablet 04/18 completed Not Available Not Available Not Available buspirone 10 mg tablet TAKE 1 TABLET BY MOUTH DAILY 07/09 completed Not Available Not Available Not Available pyridostigm ine bromide 60 mg tablet tid active Not Available Not Available Not Available levothyroxi ne 150 mcg tablet 04/18 completed Not Available Not Available Not Available indapamide 1.25 mg tablet 04/05 completed Not Available Not Available Not Available gabapentin 300 mg capsule TAKE 1 CAPSULE BY MOUTH DAILY AT BEDTIME active Not Available Not Available No t Available irbesartan 75 mg tablet 07/09 completed Not Available Not Available Not Available cephalexin 500 mg tablet Take 4 tablets by oral route as directed. 07/09 completed Not Available Not Available Not Available montelukast 10 mg tablet TAKE 1 TABLET BY MOUTH DAILY active Not Available Not Available No t Available furosemide 20 mg tablet TAKE 1 TABLET BY MOUTH DAILY NEEDED FOR SWELLING active Not Available Not Available No t Available gabapentin 100 mg capsule 04/05 completed Not Available Not Available Not Available irbesartan 150 mg tablet 07/18 completed Not Available Not Available Not Available epinephrine 0.3 mg/0.3 mL injection, auto-inject or active Not Available Not Available Not Available zolpidem 10 mg tablet TAKE 1 TABLET BY MOUTH EVERY NIGHT AT BEDTIME 07/09 completed Not Available Not Available Not Available methylpredn isolone 4 mg tablets in a dose pack TAKE BY MOUTH DIRECTED ON INSIDE OF PACKAGE 04/27 completed Not Available Not Available Not Available albuterol sulfate HFA 90 mcg/actuati on aerosol inhaler INHALE 2 PUFFS EVERY 4 TO 6 HOURS NEEDED FOR SHORTNESS OF BREATH active Not Available Not Available No t Available ondansetron 4 mg disintegrat ing tablet 02/17 completed Not Available Not Available Not Available fluticasone propionate 50 mcg/actuati on nasal spray,suspe nsion USE 2 SPRAY(S) IN EACH NOSTRIL ONCE DAILY active Not Available Not Available No t Available irbesartan 300 mg tablet TAKE 1 TABLET BY MOUTH DAILY active Not Available Not Available No t Available loratadine 10 mg tablet 10/11 completed Not Available Not Available Not Available spironolact one 50 mg tablet TAKE 1/2 TABLET BY MOUTH EVERY MORNING 07/09 completed Not Available Not Available Not Available levothyroxi ne 112 mcg tablet 04/05 completed Not Available Not Available Not Available valsartan 40 mg tablet 04/18 completed Not Available Not Available Not Available cyclobenzap rine 5 mg tablet TAKE 1 TABLET BY MOUTH THREE TIMES DAILY NEEDED FOR MUSCLE SPASM 02/17 completed Not Available Not Available Not Available bupropion HCl XL 150 mg 24 hr tablet, extended release TAKE 1 TABLET BY MOUTH ONCE DAILY 02/17 completed Not Available Not Available Not Available Marcaine (PF) 0.5 % (5 mg/mL) injection solution Take 20 mg by injection route. 07/09 completed Not Available Not Available Not Available ORTHOVISC 30 mg/2 mL intra-artic ular syringe Inject 2 mL every week by intra-art icular route. 07/09 completed Not Available Not Available Not Available DILT-XR 120 mg capsule, extended release TAKE 3 CAPSULES BY MOUTH AT BEDTIME 02/17 completed Not Available Not Available Not Available ibandronate 150 mg tablet TAKE 1 TABLET BY MOUTH ONCE EVERY MONTH 07/09 completed Not Available Not Available Not Available Boniva 02/17 completed Not Available Not Available Not Available lidocaine (PF) 10 mg/mL (1 %) injection solution In office injection administe red by the provider 02/[address] [facility]: [phone]- 4276- 17 Not Available Not Available Not Available lidocaine (PF) 5 mg/mL (0.5 %) injection solution Take 20 mg by injection route. 02/17 completed Not Available Not Available Not Available FeroSul 325 mg (65 mg iron) tablet TAKE 1 TABLET BY MOUTH DAILY active Not Available Not Available No t Available Dexilant 60 mg capsule, delayed release 04/05 completed Not Available Not Available Not Available Matzim LA 360 mg tablet,exte nded release 04/05 completed Not Available Not Available Not Available ropivacaine (PF) 5 mg/mL (0.5 %) injection solution Take 20 mg by injection route. 07/[address] [facility] [phone] -[phone] Not Available Not Available Not Available Dymista 137 mcg-50 mcg/spray nasal spray 04/05 completed Not Available Not Available Not Available Belviq 10 mg tablet 04/05 completed Not Available Not Available Not Available Breo Ellipta 100 mcg-25 mcg/dose powder for inhalation 04/05 completed Not Available Not Available Not Available Belviq XR 20 mg tablet,exte nded release 04/05 completed Not Available Not Available Not Available fluticasone 113 mcg-salmete rol 14 mcg/actuati on breath activated powdr INHALE ONE PUFF BY MOUTH TWICE DAILY. RINSE AND SPIT AFTER EACH USE active Not Available Not Available No t Available Afluria Quad (PF) 60 mcg (15 mcg x 4)/0.5 mL IM syringe ADM 0.5ML IM UTD 04/05 completed Not Available Not Available Not Available Afluria Qd 2018- (36 mos up)(PF)60 mcg (15 mcg x4)/0.5 mL IM syringe ADM 0.5ML IM UTD 02/17 completed Not Available Not Available Not Available Vitals Date Recorded Body height Body mass index (BMI) Body weight Provider Name and Address Organization Details Last Updated DateTime 02/16/2024 165.1 cm 51.6 kg/m2 834597.63 g Carina [place], FIELD IN[employer] [facility] 02/16/2024 10:27:21 Date Recorded Body height Body mass index (BMI) Body weight Provider Name and Address Organization Details Last Updated DateTime 02/26/2024 165.1 cm 51.6 kg/m2 100758.63 g Carina [place], FIELD INSTRUCTOR [facility] 02/26/2024 11:29:54 Date Recorded Body height Body mass index (BMI) Body weight Provider Name and Address Organization Details Last Updated DateTime 03/05/2024 165.1 cm 51.6 kg/m2 787212.63 g Carina [place], FIELD INSTRUCTOR [facility] 03/05/2024 14:43:23 Date Recorded Body height Body mass index (BMI) Body weight Provider Name and Address Organization Details Last Updated DateTime 04/16/2024 165.1 cm 51.6 kg/m2 034239.63 g Carina [place], FIELD INSTRUCTOR [facility] 04/16/2024 14:16:46 Date Recorded Body height Body mass index (BMI) Body weight Provider Name and Address Organization Details Last Updated DateTime 07/09/2024 165.1 cm 51.6 kg/m2 544372.63 g Carina [place], FIELD INSTRUCTOR [facility] 07/09/2024 14:06:44 Social History Question Answer Notes LastModified by Organizat ion Details LastModified Time Tobacco Smoking Status Never Smoker Carina [place], FIELD IN[employer]CTOR [employer], [facility] 07/09/2024 14:11:25 What Is Your Level Of Alcohol Consumption? None [email or web address] Information not available 07/09/2024 Sex: Unknown Functional Status None recorded. Mental Status None recorded. Family History Relationship Description Onset Age of this Age Resolved Age Notes LastModified by Organization Details LastModified Time Father Heart disease [id number] Not available 08/31/2022 02:55:20 Father Family history of malignant neoplasm [email or web address] Not available 2024 13:54:02 Father Essential hypertension [email or web address] Not available 12/2024 13:54:02 Brother Heart disease [id number] Not available 08/31/2022 02:55:21 Medical History Condition Response HYPERTENSION Y Gynecological HistoryNo gynecological history recorded. Obstetrics History GPAL:G 0 P 0 0 0 0 Past Encounters Encounter ID Performer Location Encounter Start Date Encounter Closed Date Diagnosis/Indication Diagnosis SNOMED-CT Code Diagnosis ICD10 Code Diagnosis Note [id number] [facility] [place] [address] [place] [address] 09/17/2020 00:00:00 09/17/2020 10:46:44 [id number] [facility] [place] [address] [place] [address] 11/19/2020 00:00:00 11/19/2020 11:01:38 [id number] [facility] [place] [address] [place], [place] [address] 02/02/2021 00:00:00 02/02/2021 14:52:38 [id number] [facility] [place] [address] [place] [address] 04/15/2021 00:00:00 04/15/2021 11:36:08 [id number] [facility] [place] [address] [place], [place] [address] 06/15/2021 00:00:00 06/15/2021 16:02:39 [id number] [facility] [place] [address] [place] [address] 09/07/2021 00:00:00 09/07/2021 14:28:30 [id number] [facility] [place] [address] [place] [address] 11/23/2021 00:00:00 11/23/2021 14:38:22 [id number] [facility] [place] [address] [place] [address] 02/17/2022 00:00:00 02/17/2022 15:31:43 [id number] [facility] [place] [address] [place] [address] 05/19/2022 00:00:00 05/19/2022 15:37:07 [id number] [facility] [place] [address] [place] [address] 08/18/2022 00:00:00 08/18/2022 14:42:40 [id number] MANUELA Her [facility] [place] [address] [place] [address] 11/10/2022 14:05:25 11/10/2022 16:08:32 Osteoarthritis of left knee joint 1893667876 17768 M17.12 Pain of le ft knee joint 0326677097 95255 M25.562 [id number] MANUELA Her [facility] [place] [address] [place] [address] 01/31/2023 13:58:35 01/31/2023 15:15:00 Osteoarthritis of left knee joint 4995008829 87652 M17.12 Pain of le ft knee joint 7423144485 50003 M25.566 [id number] MANUELA Her [facility] [place] [address] [place] [address] 04/27/2023 13:54:12 04/27/2023 14:33:12 Pain of left knee joint 4420419602 61638 M25.562 Osteoarthr itis of left knee joint 2720353159 58390 M17.12 History of right total knee replacement 3999989140 142897 Z96.501 [id number] MANUELA Her [facility] [place] [address] [place] [address] 07/20/2023 14:12:27 07/20/2023 14:31:22 Pain of left knee joint 9002581054 42102 M25.562 Osteoarthr itis of left knee joint 6783524933 69585 M17.12 History of right total knee replacement 5925986977 991042 Z96.124 [id number] MANUELA Her [facility] [place] [address] [place] [address] 10/12/2023 14:10:25 10/12/2023 15:05:48 Osteoarthritis of left knee joint 3375059827 28067 M17.12 Pain of le ft knee joint 4198621821 93140 M25.562 History of total knee arthroplasty 0475444016 105 Z96.298 [id number] MANUELA Her [facility] [address] [place] [address] 12/28/2023 14:00:03 12/28/2023 14:32:04 History of total knee arthroplasty [id number] 105 Z96.651 Osteoarthr itis of left knee joint [id number] 22356 M17.12 Pain of le ft knee joint 1550535649 84191 M25.813 [id number] MANUELA Her [facility] [address] [place] [address] 02/16/2024 10:23:03 02/16/2024 11:33:14 History of total knee arthroplasty [id number] 105 Z96.651 Osteoarthr itis of left knee joint [id number] 25230 M17.12 Pain of le ft knee joint 4230219597 49040 M25.562 Pain in le ft lower limb 675878915 M79.783 [id number] MANUELA Her [facility] [address] [place] [address] 02/26/2024 11:27:33 02/26/2024 12:13:24 History of total knee arthroplasty [id number] 105 Z96.651 Osteoarthr itis of left knee joint 3763027422 52956 M17.12 Pain of le ft knee joint 4083351783 29939 M25.562 Pain in le ft lower limb 273536428 M79.223 [id number] MANUELA Her [facility] [address] [place] [address] 03/05/2024 14:41:22 03/05/2024 15:19:21 History of total knee arthroplasty [id number] 105 Z96.651 Osteoarthr itis of left knee joint 3429834209 59849 M17.12 Pain of le ft knee joint [id number] 53321 M25.562 Pain in le ft lower limb 903362030 M79.322 [id number] MANUELA Her [facility] [address] [place] [address] 04/16/2024 14:12:24 04/16/2024 14:59:48 History of total knee arthroplasty 8890739486 105 Z96.651 Osteoarthr itis of left knee joint 2386223688 20967 M17.12 Pain of le ft knee joint 2085972894 00231 M25.562 Pain in le ft lower limb 201026728 M79.784 [id number] MANUELA Her [facility] [address] [place] [address] 07/09/2024 13:52:19 07/09/2024 14:42:38 History of total knee arthroplasty 5471786537 105 Z96.651 Osteoarthr itis of left knee joint 4323890448 26442 M17.12 Pain of le ft knee joint 8599713957 69255 M25.562 Health Concerns Section Related Observation LastModified by Organization Detai ls LastModified Time None Recorded Concern Status LastModified by Organization Details LastModified Time None Recorded Advance Directives Directive None Recorded Payers Encounter Date Sequence Insurance Name Policy Number Policy Rajan Covered Member ID Rajan Member ID Guarantor Name 02/16/2024 1 [place] Irasema Rodriguez [id number] Irasema Dardenal owski 02/16/2024 2 [employer] [place] (MEDICARE SUPPLEMENT) Irasema Artalowski [id number] Irasema Peters-Nicolas owski 02/26/2024 1 [place] Irasema Artalowski [id number] Irasema Haynes Fran-Nicolas owski 02/26/2024 2 [employer] [place] (MEDICARE SUPPLEMENT) Irasema Alvares Rafalowski [id number] Irasema Haynes Fran-Nicolas owski 03/05/2024 1 [place] Irasema Alvares Rafalowski [id number] 5 Irasema Haynes Fran-Nicolas owski 03/05/2024 2 [employer] [place] (MEDICARE SUPPLEMENT) Irasema S Rafalowski [id number] Irasema Haynes Fran-Nicolas owski 04/16/2024 1 [place] Irasema Alvares Rafalowski [id number] 5 Irasema Peters-Nicolas owski 04/16/2024 2 [employer] [place] (MEDICARE SUPPLEMENT) Irasema Alvares Rafalowski [id number] Irasema Haynes Fran-Nicolas owski 07/09/2024 1 [place] Irasema Artalowski [id number] 5 Irasema Haynes Fran-Nicolas owski 07/09/2024 2 [employer] [place] (MEDICARE SUPPLEMENT) Irasema Alvares Rafalowski [id number] Irasema Haynes Fran-Nicolas owski Notes Date Note Type Note Provider Name and Address Organization Details Recorded Time 02/16/2024 text/html patient returns today with new complaints with her left lower extremity. She does have a long history of severe primary osteoarthritis of left knee joint with valgus deformity jmye-vj-gjpc changes lateral compartment and hypertrophic spurring. She has a hard time getting around her BMI is 50.8 way too high for total knee arthroplasty. She has made no progress in losing any weight recently. She did have hospitalization due to myasthenia gravis and currently she is on steroids. She states the steroids have started to cause her to have quite a bit of lower extremity edema from the shins down. On exam she does have pitting edema both lower extremities. She states a couple weeks ago she did a lot of walking back and forth over at [facility] and then soon afterwards she started having a lot of pain that radiated down from her knee to her ankle. Previously the pain was basically localized to her knee. She also noted increasingly worsening swelling of the bilateral lower extremities. She has talked to her primary care doctor about this and he has placed her on furosemide she states she has elevated her legs a bit here and there but continues have some swelling. She is going to increase the dose of her p.r.n. furosemide. In the meantime she is having a lot of aching pain where she can hardly walk or get around she uses a cane for support pain is localized to the lateral left lower extremity down to the ankle we will get x-rays of the tibia and fibula to see if there is anything new going on. I suspect the overuse recently with increasing swelling in both lower extremities has aggravated her left lower extremity pain. MANUELA Her [address], [address], [place], [address], [facility] 02/16/2024 11:32:02 02/26/2024 text/html Patient returns for Orthovisc injection number 2 left knee. The patient has severe primary osteoarthritis with valgus deformity and zthd-rt-xkhz changes lateral compartment with hypertrophic spurring. Her BMI is 50.8 which is too high for total knee arthroplasty she is in the progress of recovering from a myasthenia gravis episode and hospitalization has not been able to lose much weight. She does state that the 1st injection has already started giving her some relief. MANUELA Her [address], [address], [place], [address], [facility] 02/26/2024 11:59:42 03/05/2024 text/html Patient returns for Orthovisc injection number 3 left knee. She has severe primary osteoarthritis with valgus deformity and obws-qm-usxz changes lateral compartment hypertrophic spurring. She states she was getting some good relief from the 1st round has not noticed much relief since then I have advised her to give it more time see how the 3rd injection does over the next month. MANUELA Her [address], [address], [place], [address], [employer] [facility] 03/05/2024 14:57:11 04/16/2024 text/html Patient returns she has severe primary osteoarthritis left knee joint with valgus deformity and eurs-ms-xlzu changes lateral compartment with hypertrophic spurring. She got pretty good relief from the round of Orthovisc injections this lasted her about a month or so but now her pain has started to return. She is stating she is having quite a bit of pain about an 8 on a scale of 1-10 denies any erythema effusion or signs of infection no new trauma or injury. She has to use a cane for support to get around unfortunately she is not a good candidate for total knee arthroplasty at 5 ft 5 in tall 310 lb. She knows she needs to she had quite a bit of weight before she could qualify for total knee arthroplasty she comes in today asking for cortisone left knee. This typically gives her a couple of months relief. MANUELA Her [address], [address], [place], [address], [employer] [facility] 04/16/2024 14:48:59 07/09/2024 text/html The patient retu rns with left knee pain. She has severe primary osteoarthritis left knee joint with valgus deformity and emgc-ri-qafe changes in the lateral compartment. She walks with an antalgic gait has to use a cane for support. Unfortunately she is not a candidate for total knee arthroplasty due the fact that her height is 5 ft 5 in tall weight is 310 lb. It has been quite awhile since she has had x-rays we will get new x-rays today to check the progression of the osteoarthritis. Over the holiday she was quite busy and active this aggravated her symptoms. Her pain is about a 7 on a scale of 1-10 today. The last shot of cortisone gave her good relief but has now completely worn off. She is having a hard time getting around. She would like another shot today. New past medical history sheet was reviewed and signed on intake sheet of today's date drug allergies current medications family social history previous surgical history 10 point review of systems was reviewed and discussed in detail today with the patient. MANUELA Her [address], [address], [place], [address], [facility] [place] [facility] 07/09/2024 14:35:15 OBGyn Episode No OBEpisode recorded.
--- OUTSIDE RECORDS SUMMARY | 2024-07-29 14:37 | XMS_ITS | Clinical Summary ---
Author Organization [facility] Address [address] [address] Phone Care Team Providers Care Boots And Shoes Supervisor Name Role Phone Wilberto Camacho MD Primary Care Provider Catia Vaz MD Unavailable [phone] Allergies No known active allergies Medications albuterol (PROVENTIL, VENTOLIN) (2.5 MG/3ML) 0.083% Nebulizer Soln as needed. 02/14/2018 Act steffanie PROAIR HFA 108 (90 Base) MCG/ACT Aerosol Solution 04/16/2018 Active levothyroxine (SYNTHROID) 125 MCG Tablet TAKE 1 TABLET BY MOUTH ONCE DAILY 02/14/2018 Active DilTIAZem HCl Coated Beads 360 MG CAPSULE SR 24 HR 04/18/2018 Active buPROPion (WELLBUTRIN) 150 MG XL tablet 04/03/2018 Active zolpidem (AMBIEN) 10 MG Tablet Take by mouth. Active valACYclovir (VALTREX) 1 GM Tablet as needed Active aspirin EC 81 MG Tablet Delayed Response take 1 tablet at bedtime Active DYMISTA 137-50 MCG/ACT Suspension SHAKE LQ AND U 1 SPR IEN BID 5 05/09/2018 Active fluticasone-elizabeth anterol (BREO ELLIPTA) 100-25 MCG/INH AEROSOL POWDER, BREATH ACTIVATED as needed. 02/14/2018 Active furosemide (LASIX) 20 MG Tablet as needed Active gabapentin (NEURONTIN) 300 MG Capsule 04/18/2018 Active raNITIdine (ZANTAC) 300 MG Tablet 04/23/2018 Active sucralfate (CARAFATE) 1 GM Tablet 03/23/2018 Active Family History Medical History Relation Name Comments Heart Attack Father No Known Problems Mother Relation Name Status Comments Father Mother Social History Tobacco Use Types Packs/Day Years Used Date Smoking Tobacco: Never Smokeless Tobacco: Never Alcohol Use Standard Drinks/Week Comments No 0 (1 standard drink = 0.6 oz pur e alcohol) Sexually Active Control Partners Comments Never Comments Unknown Sex and Gender Information Value Date Recorded Sex Assigned at Not on file Legal Sex Female 11:41 PM CDT Gender Identity Not on file Sexual Orientation Not on file Last Filed Vital Signs Vital Sign Reading Time Taken Comments Blood Pressure 120/92 05/28/2018 1:32 PM [employer] Pulse 62 05/28/2018 1:32 PM [employer]INEER Temperature - - Respiratory Rate 20 05/28/2018 1:32 PM [employer] ENGINEER Oxygen Saturation 98% 05/28/2018 1:32 PM [employer] ENGINEER Inhaled Oxygen Concentration - - Weight 138.6 kg (305 lb 9.6 oz) 05/28/2018 1:32 PM [employer] ENGINEER Height 166.4 cm (5' 5.5 ) 05/28/2018 1:32 PM [employer]INEER Body Mass Index 50.08 05/28/2018 1:32 PM [employer]INEER Plan of Treatment Health Maintenance Due Date Last Done Comments DEXA Bone Density 1955 Hepatitis C Virus (HCV) Screening 1955 TdaP Immunization 1955 Cologuard 11/14/2007 Immunochemical Fecal Occult Blood 11/14/2007 Mammogram 11/14/2007 Pneumococcal Immunization (5 0+ years) (1 of 1 - PCV) 11/14/2007 Zoster Immunization (1 of 2) 11/14/2007 Colonoscopy 03/26/2019 03/26/2018, 07/20/2009 Colorectal Cancer Screening 03/26/2019 Influenza Immunization (#1) 2024 SARS-COV-2 Immunization ( - 2023- season) 2024 09/22/2020, 09/01/2020 Respiratory Syncytial Virus (RSV) Immunization (Adult) (1 - 1-dose 75+ series) 2032 03/26/2018, 07/20/2009 Hepatitis B Immunization Aged Out No longer eligible based on patient's age to complete this topic Meningococcal Immunization (ACWY) Aged Out No longer eligible b ased on patient's age to complete this topic Rotavirus Immunization Aged Out No lo nger eligible based on patient's age to complete this topic Procedures Procedure Name Priority Date/Time Associated Diagnosis Comments HM COLONOSCOPY Routine 03/26/2018 from Last 3 Months or Most Recently Relevant to Health Maintenance Results * HM COLONOSCOPY (03/26/2018) Fabian Piedra DO PROCEDURE/MINOR SURGICAL ORDERA BLES Final Result from Last 3 Months or Most Recently Relevant to Health Maintenance Care Teams Boots And Shoes Supervisor Relationship Specialty Start Date End Date Wilberto Camacho MD [address] [place], [place] [id number] PCP - General Family Medicine 11/06/17 Catia Vaz MD [address] [place] [address] Pulmonary Disease 11/06/17
[2024-07-29 14:42] LABS: Basophils Percent Auto 0.2 % (0.2-1.2); Hematocrit 35.4 % (37.0-47.0); Hemoglobin 11.5 g/dL (12.0-15.0); Immature Granulocyte Absolute 0.11 K/mm3 (0.00-0.031); Immature Granulocyte Percent A 1.1 % (0-0.5); Lymphocytes Absolute Auto 0.54 K/mm3 (0.9-3.2); Lymphocytes Percent Auto 5.2 % (18.3-44.2); Mean Corpuscular HGB Conc 32.5 g/dl (32-36); Mean Corpuscular Hemoglobin 29.8 pg (26-34); Mean Corpuscular Volume 91.7 fl (80-100); Mean Platelet Volume 10.9 fl (7.4-10.4); Monocytes Absolute Auto 0.3 K/mm3 (0.1-0.6); Monocytes Percent Auto 2.6 % (2.6-8.5); Neutrophils Absolute Auto 9.4 K/mm3 (1.3-6.7); Neutrophils Percent Auto 90.9 % (45.5-73.1); Platelet Count Result 244 k/mm3 (150-375); Red Blood Count 3.86 M/mm3 (4.2-5.4); White Blood Count 10.3 K/mm3 (4.5-10.0)
[2024-07-29 14:56] LABS: CRP 0.7 mg/dL (<1.0)
[2024-07-29 15:16] LABS: Erythrocyte Sedimentation Rate 19 mm/hr (0-20)
== END 2024-07-29 13:46 | disposition home or self-care (01) ==
PROVIDERS: PCP Family Medicine; Visit Provider Family Medicine
DX: G70.00 Myasthenia gravis without (acute) exacerbation (principal); M54.9 Dorsalgia, unspecified; R53.83 Other fatigue
CPT/HCPCS: 36415; 85025; 85652; 86140

== ENCOUNTER 2024-08-27 07:52 | Outpatient (CLI) | payer MEDICARE, OTHER, SELFPAY ==
--- OUTSIDE RECORDS SUMMARY | 2024-08-27 08:01 | XMS_ITS | Data Portability ---
Author Organization [place] [facility], Main Office Address [address] [place] [address] Care Team Providers Care Sample Maker Original Name Role Phone CATE BETANCOURT Primary Care Provider CATE BETANCOURT Referring Provider Assessment Encounter Date Assessment Date Assessment LastModified [...] Lab None recorded. Referral None recorded. Procedures injection /aspirati on joint/bur sa (PROC) 2024 025 [email or web address] In-Office Order, Internal Use Only DO Not Attach Compendium DO Not Attach Compendium, Do Not Delete/merge, [id number] 07/09/2024 14:18:15 injection /aspirati on joint/bur sa (PROC) 2023 024 [email or web address] In-Office Order, Internal Use Only DO Not Attach Compendium DO Not Attach Compendium, Do Not Delete/merge, [id number] 04/16/2024 14:18:30 knee aspiratio n/injecti on (PROC) 2023 024 [email or web address] In-Office Order, Internal Use Only DO Not Attach Compendium DO Not Attach Compendium, Do Not Delete/merge, [id number] 03/05/2024 14:45:45 knee aspiratio n/injecti on (PROC) 2023 024 [email or web address] In-Office Order, Internal Use Only DO Not Attach Compendium DO Not Attach Compendium, Do Not Delete/merge, [id number] 02/26/2024 11:31:21 knee aspiratio n/injecti on (PROC) 2023 024 [email or web address] In-Office Order, Internal Use Only DO Not Attach Compendium DO Not Attach Compendium, Do Not Delete/merge, [id number] 02/16/2024 10:58:43 Surgeries None recorded. Imaging XR, knee 2024 025 [facility] [place], [address], [place], [address], 07/09/2024 15:39:00 XR, tibia + fibula 2023 024 [email or web address] [facility] [place], [address], [place], [address], 02/16/2024 11:33:15 Medication Orders bupivacai ne HCl 0.5 % (5 mg/mL) injection solution 2024 025 [id number], [address] [facility], [place], [place], [id number], 07/09/2024 15:39:00 Kenalog 10 mg/mL suspensio n for injection 2024 025 [facility], [address] [facility], [place], [place], [id number], 07/09/2024 15:39:00 bupivacai ne HCl 0.5 % (5 mg/mL) injection solution 2023 024 [email or web address] [facility] #34997, [address] [facility], [place], [place], [id number], 07/09/2024 14:07:53 Kenalog 10 mg/mL suspensio n for injection 2023 024 [email or web address] [facility] #33213, [address] [facility], [place], [place], [id number], 07/09/2024 14:10:51 ORTHOVISC 30 mg/2 mL intra-art icular syringe 2023 024 [email or web address] [facility]807, [address] [place], [place], [id number], 07/09/2024 14:09:39 ORTHOVISC 30 mg/2 mL intra-art icular syringe 2023 024 [email or web address] [facility]86256, [address] [place] [address], [id number], 07/09/2024 14:09:39 ORTHOVISC 30 mg/2 mL intra-art icular syringe 2023 024 [email or web address] [facility] #21204, [address], [place], [place], [id number], 07/09/2024 14:09:39 Patient TargetsNo targets recorded. Patient InstructionsNo instructions recorded. Reason for Referral None Reported. Results Created Date Observation Date Name Description Value Unit Range Abnormal Flag Note LastModifiedBy Organization Detail LastModifiedTime 02/16/20 24 XR, tibia + fibul a No observ ation record ed. [facility] [place] [address], [place], [address], 02/16/2024 11:31:38 07/09/19 25 XR, knee No observ ation record ed. [facility] [place] [address], [place], [address], 07/09/2024 14:34:48 Result Notes None recorded. Problems Name Problem SNOMED Code Status Onset Date Resolution Date Notes Provider Name and Address Organization Details Recorded Time History of total knee arthroplas ty 3316469654658 Active 2021 Not Available [facility] 3 03:08:20 Osteoarthr itis of knee 315791091 Active 2021 Not Available [facility] 3 03:08:20 Osteoarthr itis of left knee joint 1179787980577 09 Active 2021 Not Available [facility] 3 03:08:20 Osteoarthr itis 206645533 Active Not Available [facility] 3 03:08:21 Pain of left knee joint 1126365341493 07 Active 2021 Not Available [facility] 3 03:08:21 Pain in left lower limb 284298719 Active 2023 Carina Nunez CNA null, [place] [facility] 4 10:32:45 Essential hypertensi on 24982525 Active 2023 CONNER Longo, [place] [facility] 4 14:31:40 Gout 20917142 Active 2023 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 Procedures Surgical History Date Name Laterality Status Provider Name and Address Organization Details Recorded Time operation on ovary completed CONNER Longo - [facility] 07/09/2024 14:11:46 Hernia Surgery completed Not Available [facility] 08/31/2022 02:55:10 Knee Replacement completed Carina guaman CNA [place] [facility] [employer] [facility] 07/09/2024 14:11:36 Imaging Results Imaging Date Name Status LastModified by Organiz ation Details LastModified Time 02/16/2024 XR, tibia + fibula completed [facility] [place] [address], [place], [address], 02/16/2024 11:31:38 07/09/2024 XR, knee completed [facility] [place] [address], [place], [address], 07/09/2024 14:34:48 Procedure Notes None recorded. Medical Equipment None Reported. Allergies Allergen ID Allergen Name Allergen Category Reaction Reaction Severity Criticality Documentation Date Start Date Code Code System Note Provider Name and Address Organization Details Recorded Time 42905 amoxicill in medicatio n swelling Not available Not available 07/09/2024 723 RxNorm Carina Nunez PRESSING MACHINE TENDER null, [place] [facility] 14:07:22 Medications Name Sig Start Date Stop [...] 20 mg by injection route. [address] [facility]: 0003- 0494- 20 Not Available Not Available [...] administe red by the provider 02/[address] [facility]: 0409- 4276- 17 Not Available Not Available [...] 20 mg by injection route. 07/[address] [facility] 40814 -064- 01 Not Available Not Available Not [...] Updated DateTime 02/16/2024 165.1 cm 51.6 kg/m2 589883.63 g Carina [place]ra, PRESSING MACHINE TENDER [facility] 02/16/2024 10:27:21 Date Recorded Body height Body mass index (BMI) Body weight Provider Name and Address Organization Details Last Updated DateTime 02/26/2024 165.1 cm 51.6 kg/m2 758536.63 g Carina [place]ra, PRESSING MACHINE TENDER [facility] 02/26/2024 11:29:54 Date Recorded Body height Body mass index (BMI) Body weight Provider Name and Address Organization Details Last Updated DateTime 03/05/2024 165.1 cm 51.6 kg/m2 752252.63 g Carina [place]ra, PRESSING MACHINE TENDER [employer] [facility] 03/05/2024 14:43:23 Date Recorded Body height Body mass index (BMI) Body weight Provider Name and Address Organization Details Last Updated DateTime 04/16/2024 165.1 cm 51.6 kg/m2 774981.63 g Carina [place]ra, PRESSING MACHINE TENDER [employer] [facility] 04/16/2024 14:16:46 Date Recorded Body height Body mass index (BMI) Body weight Provider Name and Address Organization Details Last Updated DateTime 07/09/2024 165.1 cm 51.6 kg/m2 687727.63 g Carina [place]ra, PRESSING MACHINE TENDER [facility] [facility] 07/09/2024 14:06:44 Social History Question Answer Notes LastModified by Organizat ion Details LastModified Time Tobacco Smoking Status Never Smoker Carina [place]ra, PRESSING MACHINE T[employer]ER [employer], [facility] 07/09/2024 14:11:25 What Is Your Level Of Alcohol Consumption? None [email or web address] Information not available 07/09/2024 Sex: Unknown Functional Status None recorded. Mental Status None recorded. Family History Relationship Description Onset Age of this Age Resolved Age Notes LastModified by Organization Details LastModified Time Father Heart disease [id number] Not available 08/31/2022 02:55:20 Father Family history of malignant neoplasm [email or web address] Not available 2024 13:54:02 Father Essential hypertension [email or web address] Not available 12/2024 13:54:02 Brother Heart disease [id number] [id number] Not available 08/31/2022 02:55:21 Medical History Condition Response HYPERTENSION Y Gynecological HistoryNo gynecological history recorded. Obstetrics History GPAL:G 0 P 0 0 0 0 Past Encounters Encounter ID Performer Location Encounter Start Date Encounter Closed Date Diagnosis/Indication Diagnosis SNOMED-CT Code Diagnosis ICD10 Code Diagnosis Note [id number] [facility] [place] [address] [place] [address] 09/17/2020 00:00:00 09/17/2020 10:46:44 [id number] [facility] [place] [address] [place] [address] 11/19/2020 00:00:00 11/19/2020 11:01:38 [id number] [facility] [place] [address] [place], [place] [address] 02/02/2021 00:00:00 02/02/2021 14:52:38 [id number] [facility] [place] [address] [place] [address] 04/15/2021 00:00:00 04/15/2021 11:36:08 [id number] [facility] [place] [address] [place], [place] [address] 06/15/2021 00:00:00 06/15/2021 16:02:39 [id number] [facility] [place] [address] [place] [address] 09/07/2021 00:00:00 09/07/2021 14:28:30 [id number] [facility] [place] [address] [place] [address] 11/23/2021 00:00:00 11/23/2021 14:38:22 [id number] [facility] [place] [address] [place] [address] 02/17/2022 00:00:00 02/17/2022 15:31:43 [id number] [facility] [place] [address] [place] [address] 05/19/2022 00:00:00 05/19/2022 15:37:07 [id number] [facility] [place] [address] [place] [address] 08/18/2022 00:00:00 08/18/2022 14:42:40 [id number] MANUELA Her [facility] [place] [address] [place] [address] 11/10/2022 14:05:25 11/10/2022 16:08:32 Osteoarthritis of left knee joint 0903555696 36516 M17.12 Pain of le ft knee joint 3215399717 82229 M25.562 [id number] MANUELA Her [facility] [place] [address] [place] [address] 01/31/2023 13:58:35 01/31/2023 15:15:00 Osteoarthritis of left knee joint 0282345508 44889 M17.12 Pain of le ft knee joint 4806763062 23649 M25.514 [id number] MANUELA Her [facility] [place] [address] [place] [address] 04/27/2023 13:54:12 04/27/2023 14:33:12 Pain of left knee joint 3157337775 33660 M25.562 Osteoarthr itis of left knee joint 0304559912 07754 M17.12 History of right total knee replacement 6216512924 815695 Z96.441 [id number] MANUELA Her [facility] [place] [address] [place] [address] 07/20/2023 14:12:27 07/20/2023 14:31:22 Pain of left knee joint 6630725134 02111 M25.562 Osteoarthr itis of left knee joint 8194355943 81331 M17.12 History of right total knee replacement 1850359792 679972 Z96.616 [id number] MANUELA Her [facility] [place] [address] [place] [address] 10/12/2023 14:10:25 10/12/2023 15:05:48 Osteoarthritis of left knee joint 2999792045 93711 M17.12 Pain of le ft knee joint 2197496358 45961 M25.562 History of total knee arthroplasty 4616088302 105 Z96.513 [id number] MANUELA Her [facility] [place] [address] [place] [address] 12/28/2023 14:00:03 12/28/2023 14:32:04 History of total knee arthroplasty 0375557263 105 Z96.651 Osteoarthr itis of left knee joint 3991057498 03748 M17.12 Pain of le ft knee joint 9224745724 48143 M25.044 [id number] MANUELA Her [facility] [place] [address] [place] [address] 02/16/2024 10:23:03 02/16/2024 11:33:14 History of total knee arthroplasty 4753236698 105 Z96.651 Osteoarthr itis of left knee joint 9323271610 24395 M17.12 Pain of le ft knee joint 6638408407 04925 M25.562 Pain in le ft lower limb 258067062 M79.715 [id number] MANUELA Her [facility] [place] [address] [place] [address] 02/26/2024 11:27:33 02/26/2024 12:13:24 History of total knee arthroplasty 7415688151 105 Z96.651 Osteoarthr itis of left knee joint 2617482012 55495 M17.12 Pain of le ft knee joint 0762654119 75246 M25.562 Pain in le ft lower limb 948320827 M79.614 [id number] MANUELA Her [facility] [place] [address] [place] [address] 03/05/2024 14:41:22 03/05/2024 15:19:21 History of total knee arthroplasty 7843998567 105 Z96.651 Osteoarthr itis of left knee joint 2372440031 17217 M17.12 Pain of le ft knee joint 1239239705 10502 M25.562 Pain in le ft lower limb 706143218 M79.187 [id number] MANUELA Her [facility] [place] [address] [place] [address] 04/16/2024 14:12:24 04/16/2024 14:59:48 History of total knee arthroplasty 2074203287 105 Z96.651 Osteoarthr itis of left knee joint 9565816894 78300 M17.12 Pain of le ft knee joint 1418653129 51051 M25.562 Pain in le ft lower limb 641535668 M79.105 [id number] MANUELA Her [facility] [place] [address] [place] [address] 07/09/2024 13:52:19 07/09/2024 14:42:38 History of total knee arthroplasty 6999616925 105 Z96.651 Osteoarthr itis of left knee joint 1715985216 06441 M17.12 Pain of le ft knee joint 3742133478 30590 M25.562 Health Concerns Section Related Observation LastModified by Organization Detai ls LastModified Time None Recorded Concern Status LastModified by Organization Details LastModified Time None Recorded Advance Directives Directive None Recorded Payers Encounter Date Sequence Insurance Name Policy Number Policy Rajan Covered Member ID Rajan Member ID Guarantor Name 02/16/2024 1 [place] Irasema Rodriguez [id number] Irasema Dardenal owski 02/16/2024 2 [employer] (MEDICARE SUPPLEMENT) Irasema Artalowski [id number] Irasema Peters-Nicolas owski 02/26/2024 1 [place] Irasema Artalowski [id number] 5 Irasema Haynes Fran-Nicolas owski 02/26/2024 2 [employer] [place] (MEDICARE SUPPLEMENT) Irasema Alvares Rafalowski [id number] Irasema [place] Fran-Nicolas owski 03/05/2024 1 [place] Irasema Alvares Rafalowski [id number] 5 Irasema [place] Fran-Nicolas owski 03/05/2024 2 [employer] [place] (MEDICARE SUPPLEMENT) Irasmea S Rafalowski [id number] Irasema [place] Fran-Nicolas owski 04/16/2024 1 [place] Irasema Alvares Rafalowski [id number] 5 Irasema Peters-Nicolas owski 04/16/2024 2 [employer] [place] (MEDICARE SUPPLEMENT) Irasema Alvares Rafalowski [id number] Irasema [place] Fran-Nicolas owski 07/09/2024 1 [place] Irasema Artalowski [id number] 5 Irasema [place] Fran-Nicolas owski 07/09/2024 2 [employer] [place] [place] (MEDICARE SUPPLEMENT) Irasema Alvares Rafalowski [id number] Irasema [place] Fran-Nicolas owski Notes Date Note Type Note Provider Name and Address Organization Details Recorded Time 02/16/2024 text/html patient returns today with new complaints with her left lower extremity. She does have a long history of severe primary osteoarthritis of left knee joint with valgus deformity avdl-cx-ehrq changes lateral compartment and hypertrophic spurring. She [...] of walking back and forth over at [facility] and then soon afterwards she started having [...] extremity pain. MANUELA Her [address], [employer], [place], [address], [employer] [facility] 02/16/2024 11:32:02 02/26/2024 text/html Patient returns for Orthovisc injection number 2 left knee. The patient has severe primary osteoarthritis with valgus deformity and qyxo-pe-evcy changes lateral compartment with hypertrophic spurring. Her BMI is 50.8 which is too high for total knee arthroplasty she is in the progress of recovering from a myasthenia gravis episode and hospitalization has not been able to lose much weight. She does state that the 1st injection has already started giving her some relief. MANUELA Her [address], [address], [place], [address], [employer] [facility] 02/26/2024 11:59:42 03/05/2024 text/html Patient returns for Orthovisc injection number 3 left knee. She has severe primary osteoarthritis with valgus deformity and ebsl-du-vjwq changes lateral compartment hypertrophic spurring. She states she was getting some good relief from the 1st round has not noticed much relief since then I have advised her to give it more time see how the 3rd injection does over the next month. MANUELA Her [address], [address], [place], [address], [employer] [facility] 03/05/2024 14:57:11 04/16/2024 text/html Patient returns she has severe primary osteoarthritis left knee joint with valgus deformity and zjbk-yi-hcns changes lateral compartment with hypertrophic spurring. She [...] MANUELA Her [address], [address], [place], [address], [employer] [facility] 04/16/2024 14:48:59 07/09/2024 text/html The patient retu rns with left knee pain. She has severe primary osteoarthritis left knee joint with valgus deformity and skqz-st-impz changes in the lateral compartment. She walks [...] today with the patient. MANUELA Her [address], [address], [place], [address], [facility] [facility] 07/09/2024 14:35:15 OBGyn Episode No OBEpisode recorded.
--- OUTSIDE RECORDS SUMMARY | 2024-08-27 08:01 | XMS_ITS | Continuity of Care Document ---
Author Organization [facility] Address [address] [place] [address] Phone Care Team Providers Care Smalltalk Developer Name Role Phone Filemon MOBLEY, Dixie Unavailable [...] Date Provider Providers Copied on Encounter [facility], [facility] [place], [place], [id number] tel: [phone] [facility] No Information Filemon Colin. [facility], [place], [address]. tel: [phone] [facility] [place] [id number] tel: [phone] [facility] Personal history of colonic polypsRectal polyp Filemon Colin. [facility], [place], [address]. tel: [phone] [facility], [address] [place], [place] [address], [place], [id number] tel: [phone] [facility] No Information Filemon Colin. [facility], [place], [address]. tel: [phone] [facility], [address] [place], [place] [address], [place], [id number] tel: [phone] [facility] No Information Filemon Colin. [facility], [place], [address]. tel: [phone] [facility], [address] [place], [place] [address], [place], [id number] tel: [phone] [facility] [place] Screening Malignant Neoplasm ColonColon PolypHemorrhoi ds, Unspecified Filemon Colin. [address] [place] [address], [place], [address]. tel: [phone] [facility], [address] [place], [place] [address], [place], [id number] tel: [phone] [facility] No Information Filemon Colin. [facility], [place], [address]. tel: [phone] [facility], [address] [place] [address], [place], [place], [id number] tel: [phone] [facility] No Information Filemon Colin. [address] , [facility], [place], [address]. tel: [phone] Family History Family Member Type Diagnosis Age At Onset Problem (finding) Family history of gallb ladder disease Payers Payer name Insurance type Covered constitution party ID Ender kunz(s) Linda CI [id number] Social History Type Description Quantity Date Captured [...]
--- NOTE | 2024-09-19 07:57 | P.SLEEP_ITS ---
Sleep Study Date of Study: 08/27/24 Ordering Provider: Priscilla Snyder MD Interpreting Physician: Letitia Orr DO Sleep Study Type: CPAP Titration Height: 1.65 m Weight: 147.418 kg Body Mass Index: 54.1 Neck Circumference (inches): 17 [place]: 3 Reason for Sleep Study Previously diagnosed GISELA and compliant with APAP. Nocturnal oximetry on 05/25/2024 showed that the lowest saturation was 78%, ERICKA 29, 88 min spent below 88% saturation. Insurance required CPAP Titration before they would cover supplemental oxygen therapy. Sleep History The patient is a 68-year-old female that had a sleep study ordered by her fruit preserver for hypoxemia present on nocturnal oximetry despite using AutoPAP. The patient occasionally awakens from sleep short of breath. She rarely awakens at night with coughing, heartburn or belching. She rarely snores and is never loud enough that others complain. She occasionally has trouble sleeping when she has a cold. She occasionally wakes up gasping for air throughout the night. She rarely has breathing problems at night observed by herself or others. She denies sweating excessively at night. She denies having heart palpitations or irregular heartbeats during the night. She denies falling asleep during the day and while driving. She denies sleep paralysis, cataplexy and hypnagogic/ hypnopompic hallucinations. She denies having trouble at school or work due to sleepiness. She occasionally feels afraid of going to sleep. She denies having nightmares. She rarely remembers her dreams. She rarely has thoughts racing through her mind. She rarely feels sad, depressed or anxious. She frequently has muscular tension. She rarely notices parts of her body jerk. She rarely kicks during the night. She occasionally has crawling and aching feelings in her legs and occasionally has leg pain during the night. He denies grinding her teeth during sleep and denies awakening with morning jaw pain. She is occasionally bothered by pain during the day and occasionally awakened by pain during the night. She frequently wakes up feeling stiff in the morning. She rarely wakes up with sore or achy muscles. She rarely wakes up the pain in the neck, spine or other joints. She goes to bed at 11:00 p.m. on both weekdays and weekends. It takes her 30 minutes to fall asleep. She wakes up twice throughout the night to urinate and is able fall back asleep within 10 minutes. She wakes up at 6:00 a.m. on both weekdays and weekends. She typically gets 4-6 hours of sleep per night. She will stay in bed for 5 minutes after waking up in the morning. He currently lives alone. She denies consuming any caffeinated beverages within 2 hours of bedtime. She denies engaging in physical exercise before bedtime. She denies reading before falling asleep. She will watch television before falling asleep. She denies taking naps in the afternoon or the evening. She consumes 3 caffeinated beverages per day. She denies tobacco, alcohol and recreational drug use. COUNT INCLUDES THE [facility] Past Medical History Medical History Rhinitis Myasthenic crisis Myasthenia gravis in remission Myasthenia gravis in crisis Myasthenia gravis Obstructive sleep apnea Hypothyroidism Hypertension Gastroesophageal reflux disease Morbid obesity with body mass index (BMI) of 40.0 or higher Diastolic dysfunction Anxiety Depression Arthritis Hiatal hernia Asthma Surgical History Surgical History History of oophorectomy History of right knee joint replacement (2009) History of fundoplication History of inguinal hernia repair History of tonsillectomy Family History Family History Father Family history of malignant neoplasm of urinary bladder Family history of coronary artery disease Hypertension Patient's father is Sibling Family history of coronary artery disease Mother Family history of chronic obstructive pulmonary disease Patient's mother is Social History Social History Social History: Surrogate medical decision maker: Vivien Monsivais, sister. Code status: Full code. Smoking status: Never smoker Second hand tobacco smoke exposure: No Alcohol intake: never Substance use: never Substance use type: does not use Do You Feel Safe in your Home?: Yes Lack of Transportation: No Lack of Food: Never True Current Housing: I Have Housing Concerned About Future Housing: No Difficulty Paying Gas/Electric Bills: No Difficulty Paying for Meds: No Currently Unemployed: No Education: High School Diploma/GED Difficulty w/ Childcare or Family Care: No Living arrangements: alone Occupation/Education: occupation Gender identity (if verbalized by the patient): Female Sexual Orientation (if Verbalized by the Patient): Straight or Heterosexual Spiritual care concerns: No Agree to blood products: No Medications Home Medications ?Medication ?Instructions ?Recorded ?Confirmed ?Type cholecalciferol (vitamin D3) 25 50 mcg PO DAILY 04/27/20 07/29/24 History mcg (1,000 unit) capsule guaifenesin 1,200 mg tablet, 1,200 mg PO HS 04/27/20 07/29/24 History extended release 12 hr (Mucinex) loratadine 10 mg tablet (Claritin) 10 mg PO PRN PRN Allergy Symptoms 04/27/20 07/29/24 History mecobalamin (vitamin B12) 1,000 1,000 mcg sublingual DAILY 04/27/20 07/29/24 History mcg disintegrating tablet,sublingual epinephrine 0.3 mg/0.3 mL 0.3 mg (0.3 mL) IM ONCE #2 ea 06/07/23 07/29/24 Rx injection, auto-injector (EpiPen 2-Ulises) fluticasone propionate 50 2 spray intranasal DAILY PRN Nasal 10/10/23 07/29/24 History mcg/actuation nasal Congestion spray,suspension (Flonase Allergy Relief) albuterol sulfate 90 mcg/actuation 2 puff inhalation Q6H PRN sob 11/21/23 07/29/24 History aerosol inhaler albuterol sulfate 90 mcg/actuation 2 inh inhalation BID PRN sob 11/21/23 07/29/24 History aerosol inhaler (ProAir HFA) pyridostigmine bromide 60 mg tablet 60 mg PO TID #30 tabs 11/28/23 07/29/24 Rx albuterol sulfate 90 mcg/actuation 2 inh inhalation Q4-6H PRN 02/19/24 07/29/24 Rx aerosol inhaler (Ventolin HFA) shortness of breath 90 days #8.5 grams valacyclovir 1 gram tablet See Rx Instructions .Route 03/19/24 07/29/24 Rx (Valtrex) .COMPLEX #84 tabs montelukast 10 mg tablet 10 mg PO DAILY #90 tabs 04/03/24 07/29/24 Rx (Singulair) mycophenolate mofetil 500 mg 500 mg PO Q12H 04/30/24 07/29/24 History tablet (CellCept) ferrous sulfate 325 mg (65 mg 325 mg PO DAILY #90 tabs 05/24/24 07/29/24 Rx iron) tablet furosemide 20 mg tablet 20 mg PO DAILY PRN swelling #90 05/24/24 07/29/24 Rx tabs sulfamethoxazole 400 1 tablet PO DAILY 05/24/24 07/29/24 Rx mg-trimethoprim 80 mg tablet pneumocystis/toxoplasmosis prophylaxis #90 tabs amlodipine 10 mg tablet 10 mg PO DAILY #90 tabs 06/11/24 07/29/24 Rx indapamide 2.5 mg tablet 5 mg (2 x 2.5 mg) PO DAILY #180 06/11/24 07/29/24 Rx tabs omeprazole 40 mg capsule,delayed 40 mg PO DAILY #90 caps 06/11/24 07/29/24 Rx release spironolactone 50 mg tablet 25 mg (1/2 x 50 mg) PO QAM #45 tabs 06/11/24 07/29/24 Rx sucralfate 1 gram tablet See Rx Instructions .Route 06/17/24 07/29/24 Rx .COMPLEX #180 tabs famotidine 40 mg tablet See Rx Instructions .Route 07/08/24 07/29/24 Rx .COMPLEX #90 tabs prednisone 10 mg tablet 40 mg (4 x 10 mg) PO DAILY #60 tabs 07/18/24 07/29/24 Rx baclofen 10 mg tablet 10 mg PO TID #21 tabs 08/19/24 Rx lorazepam 0.5 mg tablet 0.5 mg PO QHS PRN anxiety #30 tabs 08/30/24 Rx fluticasone 113 mcg-salmeterol 14 1 inh inhalation BID #1 ea 09/06/24 Rx mcg/actuation breath activated powdr gabapentin 300 mg capsule 300 mg PO HS #90 caps 09/07/24 Rx (Neurontin) hydrocodone 5 mg-acetaminophen 325 1 tablet PO BID PRN Pain (Scale 09/07/24 Rx mg tablet Score 4-6) #60 tabs irbesartan 300 mg tablet 300 mg PO DAILY #90 tabs 09/07/24 Rx levothyroxine 175 mcg tablet 175 mcg PO DAILY #90 tabs 09/07/24 Rx (Levoxyl) Sleep Procedure A full night CPAP Titration using the [employer] multi-channel system recorded the standard physiologic parameters including EEG, EOG, submentalis EMG, anterior tibialis EMG, EKG, body position, nasal and oral airflow using nasal pressure sensor and thermistor.? Respiratory parameters of chest and abdominal movements were recorded with Respiratory Inductance Plethysmography belts. Oxygen saturation was recorded by pulse oximetry. Video monitoring was also performed. Sleep stages, periodic limb movements, and EEG arousals were scored in 30 second epochs according to the criteria of the AASM Scoring Manual. The Apnea-Hypopnea Index was calculated using [facility] guidelines for definition of hypopnea with 4% O2 desaturations while scoring respiratory events. Sleep Architecture The total recording time was 483.0 minutes.? The total sleep time was 327.0 minutes. Sleep latency was 14.4 minutes. REM latency was 171.0 minutes. Sleep efficiency was 67.7%. The patient had 40 awakenings for an awakening index of 7.3. Wake after Sleep Onset time was 142.0 minutes. The patient spent 36.0 minutes, 11.0% of total sleep time in Stage N1. The patient spent 261.5 minutes, 80.0% in Stage N2. The patient spent 4.5 minutes, 1.4% in Stage N3. The patient spent 25.0 minutes, 7.6% in Stage REM. Respiratory Analysis The patient had 8 hypopneas, 1 mixed apnea, and 1 central apnea for an overall Apnea Hypopnea Index of 1.8 events per hour. The REM Apnea Hypopnea Index was 7.2. The NREM Apnea Hypopnea Index was 1.4. The patient had a Central Apnea Hypopnea Index of 0.2. There was no evidence of Paul-Ballard Respirations. The patient was started on CPAP 5 cm H2O and titrated to CPAP 11 cm H2O due to hypopneas. The patient was able to fall asleep starting on CPAP 5 cm H2O. The patient was able to achieve REM sleep starting on CPAP 10 cm H2O. The patient was able to achieve a residual AHI less than 5 with both NREM and REM sleep on the final 2 pressure settings. On CPAP 10 cm H2O, the patient spent 46 minutes in NREM and 8.5 minutes in REM with 1 hypopnea, resulting in an AHI of 1.1. On CPAP 11 cm H2O, the patient spent 181 minutes in NREM and 16.5 minutes in REM with 1 central apnea, 1 mixed apnea and 6 hypopneas, resulting in an AHI of 2.4. The patient had a sleep efficiency of 99.1% on 10 cm H2O and 73.8% on 11 cm H2O. Arousals There were 64 total arousals for an arousal index of 11.7. There were 29 spontaneous arousals for an index of 5.3. ?There were 7 arousals due to respiratory events for an index of 1.3. There were 21 arousals due to periodic limb movements for an index of 3.9.? There were 7 arousals due to isolated limb movements for an index of 1.3. Periodic Limb Movements The patient had 11 isolated limb movements with an index of 2.0. The patient had 66 periodic limb movements with index of 12.1. Patient had a total of 77 limb movements with a total limb movement index of 14.1. Oximetry Data The patient had an average oxygen saturation of 93.0% in sleep with a minimum oxygen saturation of 86.0% and a maximum oxygen saturation of 99.0%. The patient had 13 oxygen desaturations that were 4% or greater resulting in an Oxygen Desaturation Index of 2.4.? The patient spent 5.5 minutes, 1.2% of total sleep time with an oxygen saturation below 88%. Snoring Profile Moderate snoring was present in the beginning of the study. The snoring resolved once the patient was titrated to 10 cm H2O. Cardiac Profile The EKG showed normal sinus rhythm with rare PVCs. The patient had an average pulse rate of 80.8 bpm with a minimum pulse rate of 68.0 bpm and a maximum pulse rate of 102.0 bpm. ? EEG Profile No signs of seizure activity seen. Alpha intrusion was present throughout the majority of the study. Assessment and Plan Assessment and Plan (1) Obstructive sleep apnea: Code(s): G47.33 - Obstructive sleep apnea (adult) (pediatric) Status: Acute Assessment and Plan: The patient was started on CPAP 5 cm H2O and titrated to CPAP 11 cm H2O due to hypopneas. The patient's sleep apnea fully resolved on the final two pressure settings and her SpO2 remained above 90%. I recommend that the patient's pressure settings be changed to CPAP 10 cm H2O. The patient did not achieve REM sleep in the supine position during this study. If the patient sleeps in the supine position at home, her oxygen saturation could fall below 90%. I recommend getting a nocturnal oximetry in 2 weeks after changing her pressure settings to ensure that her SpO2 remains above 90% during sleep. This should be used with all episodes of sleep.? Compliance should be reviewed within 31-90 days of starting therapy for usage greater than 4 hours per night greater than 70% of the nights. The patient should be asked about symptoms such as?excessive daytime sleepiness, quality of sleep, decreased nocturia, increased?mental functioning such as memory, mood, and concentration. Alpha intrusion, also known as alpha-delta sleep, is an EEG finding where alpha waves are present during NREM sleep. Alpha waves are typically present in wake. While alpha intrusion can be seen in a small subset of healthy individuals, it is often found in patients with depression, fibromyalgia, chronic pain and other sleep disorders. Clinically, alpha intrusion presents as non-restorative sleep. Treatment of alpha intrusion is directed towards the underlying cause. Data The data obtained during this sleep study is adequate for interpretation. Certification This sleep study has been reviewed by a board certified sleep medicine physician.
[2024-09-19 09:04] VITALS: BMI 54.1
== END 2024-08-28 07:18 | disposition home or self-care (01) ==
LOC: ANHCSM 07:52
PROVIDERS: PCP Family Medicine; Visit Provider Internal Medicine Critical Care Medicine
DX: G47.33 Obstructive sleep apnea (adult) (pediatric) (principal)
CPT/HCPCS: 95811

== ENCOUNTER 2024-11-11 14:11 | Outpatient (CLI) | payer MEDICARE, OTHER, SELFPAY ==
--- NOTE | ~2024-11-11 | CT_ITS ---
CT Scan of the Chest without Contrast: Clinical Indication: Pulmonary nodule Technique: Contiguous sections were acquired throughout the chest without intravenous contrast. Dose reduction technique was used on this scan by utilizing automated exposure control and iterative recon struction technique. The dose-length product (DLP) was 792.98 mGy-cm. COMPARISON: 11/20/2023 Findings: There is no evidence of any significant mediastinal, hilar or axillary lymphadenopathy. Coronary arsenio ry calcifications are present. There is no evidence of pleural or pericardial effusion. Stable small right lower lobe calcified granulomas. No suspicious pulmonary nodule. Images through the upper abdomen reveal no abnormalities. Impression: No significant abnormalities seen. Reviewed, dictated and finalized at location . Impression: No significant abnormalities seen.
--- OUTSIDE RECORDS SUMMARY | 2024-11-11 14:15 | XMS_ITS | Data Portability ---
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 Not available 07/09/2024 14:30:53 09/03/2024 09/03/2024 The patient has severe primary osteoarthritis left knee joint as described. Under sterile conditions I injected the patient's left knee joint in the office today with Orthovisc injection number 1. I will see her back next week for the 2nd injection left knee. She has done well with these before hopefully she will get the same result this time she voiced understanding and agreed with the above plan she will call for any further problems difficulties or questions. Not available 09/03/2024 14:27:13 09/10/2024 09/10/2024 The patient has severe primary osteoarthritis left knee joint as described. At her request under sterile conditions I injected the patient's left knee joint in the office with Orthovisc injection number 2. I will see her back next week for the 3rd injection left knee she voiced understanding and agreed with the above plan she will call for any further problems difficulties or questions. Not available 09/10/2024 14:54:59 09/24/2024 09/24/2024 The patient has severe primary osteoarthritis left knee joint. She is getting good relief from the 1st 2 rounds of injections she comes in today for Orthovisc injection 3. Under sterile conditions I injected the patient's left knee joint in the office with Orthovisc injection number 3. I will see her back in a couple of months if necessary for cortisone if she needs it hopefully the gel shots will last for awhile. 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 We talked about treatment options for this in detail as well she would like to try a shot of cortisone she declined formal therapy or other medication. At her request under sterile conditions I injected the patient's left shoulder joint in the office with 4 cc of 0.5% bupivacaine and 20 mg of Kenalog. The patient tolerated procedure well. I will recheck her shoulder in a couple of months as well. If her symptoms worsen or change she will call she voiced understanding and agreed with the above plan. Not available 09/24/2024 14:16:26 Plan of Treatment Reminders Order Date Submit Date Provider Last Modified By Organization Details Last Modified Time Details Appointments Any 5 2024 01:00P MANUELA Bueno Not available Not available Not available Lab None recorded. Referral None recorded. Procedures injection /aspirati on joint/bur sa (PROC) 2024 025 [email or web address] In-Office Order, Internal Use Only DO Not Attach Compendium DO Not Attach Compendium, Do Not Delete/merge, [id number] 09/24/2024 14:10:54 knee aspiratio n/injecti on (PROC) 2024 025 [email or web address] In-Office Order, Internal Use Only DO Not Attach Compendium DO Not Attach Compendium, Do Not Delete/merge, [id number] 09/24/2024 13:54:04 knee aspiratio n/injecti on (PROC) 2024 025 [email or web address] In-Office Order, Internal Use Only DO Not Attach Compendium DO Not Attach Compendium, Do Not Delete/merge, [id number] 09/10/2024 14:38:48 knee aspiratio n/injecti on (PROC) 2024 025 [email or web address] In-Office Order, Internal Use Only DO Not Attach Compendium DO Not Attach Compendium, Do Not Delete/merge, [id number] 09/03/2024 14:08:30 injection /aspirati on joint/bur sa (PROC) 2024 025 [email or web address] In-Office Order, Internal Use Only DO Not Attach Compendium DO Not Attach Compendium, Do Not Delete/merge, [id number] 07/09/2024 14:18:15 injection /aspirati on joint/bur sa (PROC) 2023 024 [email or web address] In-Office Order, Internal Use Only DO Not Attach Compendium DO Not Attach Compendium, Do Not Delete/merge, [id number] 04/16/2024 14:18:30 Surgeries None recorded. Imaging XR, shoulder 2024 025 [facility] [place], [address], [place], [address], 09/24/2024 15:10:38 XR, knee 2024 025 [facility] [place], [facility] [facility] [address], [place], [address], 07/09/2024 15:39:00 Medication Orders bupivacai ne HCl 0.5 % (5 mg/mL) injection solution 2024 025 [facility], [address], [place], [place], [id number], 09/24/2024 15:10:38 Kenalog 10 mg/mL suspensio n for injection 2024 025 [facility]16525, [address] [facility] [address] [facility], [place], [place], [id number], 09/24/2024 15:10:38 cephalexi n 500 mg capsule 2024 025 [facility] #61927, [address] [facility] [address] [facility], [place], [place], [id number], 09/24/2024 15:10:38 ORTHOVISC 30 mg/2 mL intra-art icular syringe 2024 025 [facility]26745, [address], [place], [place], [id number], 09/24/2024 15:10:38 ORTHOVISC 30 mg/2 mL intra-art icular syringe 2024 025 [facility]09969, [address], [place], [place], [id number], 09/10/2024 15:05:51 ORTHOVISC 30 mg/2 mL intra-art icular syringe 2024 025 [facility] #97512, [address], [place], [place], [id number], 09/03/2024 16:31:38 bupivacai ne HCl 0.5 % (5 mg/mL) injection solution 2024 025 [facility]87327, [address], [place], [place], [id number], 07/09/2024 15:39:00 Kenalog 10 mg/mL suspensio n for injection 2024 025 [facility] #35470, [address], [place], [place], [id number], 07/09/2024 15:39:00 bupivacai ne HCl 0.5 % (5 mg/mL) injection solution 2023 024 [email or web address] [facility]44870, [address], [place], [place], [id number], 07/09/2024 14:07:53 Kenalog 10 mg/mL suspensio n for injection 2023 024 [email or web address] [facility]63401, [address], [place], [place], [id number], 07/09/2024 14:10:51 Patient TargetsNo targets recorded. Patient InstructionsNo instructions recorded. Reason for Referral None Reported. Results Created Date Observation Date Name Description Value Unit Range Abnormal Flag Note LastModifiedBy Organization Detail LastModifiedTime 07/09/19 25 XR, knee No observ ation record ed. [facility] [place] [address], [place], [address], 07/09/2024 14:34:48 09/25/19 25 XR, shoul mo No observ ation record ed. [facility] [place] [address], [place], [address], 09/24/2024 14:17:59 Result Notes None recorded. Problems Name Problem SNOMED Code Status Onset Date Resolution Date Notes Provider Name and Address Organization Details Recorded Time History of total knee arthroplas ty 2348039103791 Active 2021 Not Available [facility] 3 03:08:20 Osteoarthr itis of knee 741002559 Active 2021 Not Available [facility] 3 03:08:20 Osteoarthr itis of left knee joint 5362612385873 09 Active 2021 Not Available [facility] 3 03:08:20 Osteoarthr itis 012663619 Active Not Available [facility] 3 03:08:21 Pain of left knee joint 9786029333983 07 Active 2021 Not Available [facility] 3 03:08:21 Pain in left lower limb 860910215 Active 2023 Carina Nunez [employer] null, [place] [facility] 4 10:32:45 Essential hypertensi on 18777325 Active 2023 Carina Nunez [facility] [employer] null, [place] [facility] 4 14:31:40 Gout 60466238 Active 2023 Carina Nunez [employer] null, [place] [facility] 4 14:31:40 Folliculit is 00960395 Active 2023 Carina Nunez [employer] null, [place] [facility] 4 14:31:40 Pain of left shoulder joint 5509882377540 9109 Active 2024 Carina Nunez [facility] [employer] null, [place] [facility] 5 13:52:20 Osteoarthr itis of left glenohumer al joint 2841657347802 104 Active 2024 MANUELA Her [address] [facility], [facility] [address], [place], [address] , [place] [facility] 5 14:18:10 Osteoarthr itis of left acromiocla vicular joint 2479985061966 108 Active 2024 MANUELA Her [address], [address], [place], [address] , [facility] [employer] [facility] 14:18:19 Tendinitis of left rotator cuff 4028854913872 9101 Active 2024 MANUELA Her [address], [address], [place], [address] , [facility] [employer] [facility] 14:18:25 Problem Notes None recorded. Procedures Surgical History Date Name Laterality Status Provider Name and Address Organization Details Recorded Time operation on ovary completed Carina Nunez CNA [place] [facility] [employer] [email or web address] 07/09/2024 14:11:46 Hernia Surgery completed Not Available [facility] 08/31/2022 02:55:10 Knee Replacement completed Carina guaman CNA [place] [email or web address] 07/09/2024 14:11:36 Imaging Results Imaging Date Name Status LastModified by [facility] Details LastModified Time 07/09/2024 XR, knee completed [facility] [place] [address], [place], [address], 07/09/2024 14:34:48 09/24/2024 XR, shoulder completed [facility] [place] [address], [place], [address], 09/24/2024 14:17:59 Procedure Notes None recorded. Medical Equipment None Reported. Allergies Allergen ID Allergen Name Allergen Category Reaction Reaction Severity Criticality Documentation Date Start Date Code Code System Note Provider Name and Address Organization Details Recorded Time 22909 amoxicill in medicatio n swelling Not available Not available 07/09/2024 723 RxNorm CONNER Longo [place] [email or web address] 14:07:22 Medications Name Sig Start Date Stop Date Status Note LastModified by Organization Details LastModified Time levothyroxi ne 175 mcg tablet TAKE 1 TABLET BY MOUTH DAILY active Not Available Not Available No t Available levothyroxi ne 137 mcg tablet 04/18 completed Not Available Not Available Not Available prednisone 10 mg tablet TAKE 1 TABLET BY MOUTH DAILY active Not Available Not Available No t Available albuterol sulfate 2.5 mg/3 mL (0.083 [...] tablet TAKE 1 TABLET BY MOUTH EVERY DAY AT BEDTIME NEEDED FOR ANXIETY active Not Available Not Available No t Available Kenalog 10 mg/mL suspension for injection Take 20 mg by injection route. [address] [facility]: 0003- 0494- 20 Not Available Not Available Not Available baclofen 10 mg tablet TAKE 1 TABLET BY MOUTH THREE TIMES DAILY active Not Available Not Available No t Available amlodipine 10 mg tablet TAKE 1 [...] Not Available gabapentin 300 mg capsule TAKE 2 CAPSULES BY MOUTH AT BEDTIME active Not Available Not Available [...] TAKE 1/2 TABLET BY MOUTH EVERY MORNING active Not Available Not Available No t Available levothyroxi ne 112 mcg tablet 04/05 [...] mL every week by intra-art icular route. 2024 active Not Available Not Available Not Johnnieai lable DILT-XR 120 mg capsule, extended release TAKE [...] route. 07/[address] [facility] 14830 -064- 01 Not Available Not Available Not [...] Not Available Not Available No t Available baclofen 5 mg tablet TAKE 1 TABLET BY MOUTH THREE TIMES DAILY active Not Available Not Available No [...] Updated DateTime 04/16/2024 165.1 cm 51.6 kg/m2 478043.63 g Carina Mayra, [employer] 04/16/2024 14:16:46 Date Recorded Body height Body mass index (BMI) Body weight Provider Name and Address Organization Details Last Updated DateTime 07/09/2024 165.1 cm 51.6 kg/m2 169022.63 g Carina Mayra, [email or web address] 07/09/2024 14:06:44 Date Recorded Body height Body mass index (BMI) Body weight Provider Name and Address Organization Details Last Updated DateTime 09/03/2024 165.1 cm 35.9 kg/m2 38259.95 g Carina Mayra, [facility] [employer] 09/03/2024 14:06:14 Date Recorded Body height Body mass index (BMI) Body weight Pain severity - 0-10 verbal numeric rating [Score] - Reported Provider Name and Address Organization Details Last Updated DateTime 09/10/2024 165.1 cm 52.6 kg/m2 935063.19 g Bhavesh Minor [facility] [email or web address] 09/10/2024 14:36:52 Date Recorded Body height Body mass index (BMI) Body weight Provider Name and Address Organization Details Last Updated DateTime 09/24/2024 165.1 cm 52.6 kg/m2 945459.19 g Carina Mayra, [facility] [employer] 09/24/2024 13:51:48 Social History None recorded. Functional Status Question Answer Note LastModified by Organization D etails LastModified Time What is your level of alcohol consumption? None [email or web address] Information not available 07/09/2024 Mental Status None recorded. Family History Relationship Description Onset Age of this Age Resolved Age Notes LastModified by Organization Details LastModified Time Father Heart disease [email or web address] [id number] Not available 08/31/2022 02:55:20 Father Family history of malignant neoplasm [email or web address] Not available 09/03 14:03:31 Father Essential hypertension [email or web address] Not available 14:03:31 Brother Heart disease [email or web address] [id number] Not available 08/31/2022 02:55:21 Medical History Condition Response HYPERTENSION Y Gynecological HistoryNo gynecological history recorded. Obstetrics History GPAL:G 0 P 0 0 0 0 Past Encounters Encounter ID Performer Location Encounter Start Date Encounter Closed Date Diagnosis/Indication Diagnosis SNOMED-CT Code Diagnosis ICD10 Code Diagnosis Note [id number] MANUELA Her [facility] [place] [address] [place] [address] 09/17/2020 00:00:00 09/17/2020 10:46:44 [id number] MANUELA Her [facility] [place] [address] [place] [address] 11/19/2020 00:00:00 11/19/2020 11:01:38 [id number] MANUELA Her [facility] [place] [address] [place] [address] 02/02/2021 00:00:00 02/02/2021 14:52:38 [id number] MANUELA Her [facility] [place] [address] [place] [address] 04/15/2021 00:00:00 04/15/2021 11:36:08 [id number] Miguel Metzger MD [facility] [place] [address] [place] [address] 06/15/2021 00:00:00 06/15/2021 16:02:39 [id number] Miguel Metzger MD [facility] [place] [address] [place] [address] 09/07/2021 00:00:00 09/07/2021 14:28:30 [id number] Miguel Metzger MD [facility] [place] [address] [place] [address] 11/23/2021 00:00:00 11/23/2021 14:38:22 [id number] Miguel Metzger MD [facility] [place] [address] [place] [address] 02/17/2022 00:00:00 02/17/2022 15:31:43 [id number] Miguel Metzger MD [facility] [place] [address] [place] [address] 05/19/2022 00:00:00 05/19/2022 15:37:07 [id number] Miguel Metzger MD [facility] [place] [address] [place] [address] 08/18/2022 00:00:00 08/18/2022 14:42:40 [id number] Miguel Metzger MD [facility] [place] [address] [place] [address] 11/10/2022 14:05:25 11/10/2022 16:08:32 Osteoarthritis of left knee joint 0698904188 86688 M17.12 Pain of le ft knee joint 9161868091 47027 M25.562 [id number] Miguel Metzger MD [facility] [place] [address] [place] [address] 01/31/2023 13:58:35 01/31/2023 15:15:00 Osteoarthritis of left knee joint 5550075397 77112 M17.12 Pain of le ft knee joint 7879555098 98730 M25.793 [id number] Cortez Armas MD [facility] [place] [address] [place] [address] 04/27/2023 13:54:12 04/27/2023 14:33:12 Pain of left knee joint 3460225224 03614 M25.562 Osteoarthr itis of left knee joint 5105935229 44890 M17.12 History of right total knee replacement 3148222842 304887 Z96.888 [id number] Cortez Armas MD [facility] [place] [address] [place] [address] 07/20/2023 14:12:27 07/20/2023 14:31:22 Pain of left knee joint 9992931929 36712 M25.562 Osteoarthr itis of left knee joint 9276348857 63750 M17.12 History of right total knee replacement 8207108608 403462 Z96.715 [id number] Derek Herrera MD [facility] [place] [address] [place] [address] 10/12/2023 14:10:25 10/12/2023 15:05:48 Osteoarthritis of left knee joint 6279098579 60690 M17.12 Pain of le ft knee joint 4688809800 08258 M25.562 History of total knee arthroplasty 4499660913 105 Z96.240 [id number] Derek Herrera MD [facility] [place] [address] [place] [address] 12/28/2023 14:00:03 12/28/2023 14:32:04 History of total knee arthroplasty 4138596781 105 Z96.651 Osteoarthr itis of left knee joint 7310456463 79425 M17.12 Pain of le ft knee joint 0759952782 02098 M25.623 [id number] Derek Herrera MD [facility] [place] [address] [place] [address] 02/16/2024 10:23:03 02/16/2024 11:33:14 History of total knee arthroplasty 0408054177 105 Z96.651 Osteoarthr itis of left knee joint 2720188298 34803 M17.12 Pain of le ft knee joint 7920019662 41762 M25.562 Pain in le ft lower limb 849950028 M79.751 [id number] Derek Herrera MD [facility] [place] [address] [place] [address] 02/26/2024 11:27:33 02/26/2024 12:13:24 History of total knee arthroplasty 9874283932 105 Z96.651 Osteoarthr itis of left knee joint 4396728538 58003 M17.12 Pain of le ft knee joint 4519497496 47025 M25.562 Pain in le ft lower limb 128936262 M79.702 [id number] Derek Herrera MD [facility] [place] [address] [place] [address] 03/05/2024 14:41:22 03/05/2024 15:19:21 History of total knee arthroplasty 1566209414 105 Z96.651 Osteoarthr itis of left knee joint 2621007849 49627 M17.12 Pain of le ft knee joint 2945052621 19937 M25.562 Pain in le ft lower limb 470513620 M79.882 [id number] Derek Herrera MD [facility] [place] [address] [place] [address] 04/16/2024 14:12:24 04/16/2024 14:59:48 History of total knee arthroplasty 8105008075 105 Z96.651 Osteoarthr itis of left knee joint 4415652837 57943 M17.12 Pain of le ft knee joint 8061226378 01184 M25.562 Pain in le ft lower limb 958563530 M79.444 [id number] Derek Herrera MD [facility] [place] [address] [place] [address] 07/09/2024 13:52:19 07/09/2024 14:42:38 History of total knee arthroplasty 0967391223 105 Z96.651 Osteoarthr itis of left knee joint 6773061545 23627 M17.12 Pain of le ft knee joint 1647350068 43409 M25.595 [id number] Derek [facility] [place] [address] [place] [address] 09/03/2024 14:00:38 09/03/2024 15:01:36 History of total knee arthroplasty 3084761037 105 Z96.651 Osteoarthr itis of left knee joint 1937627837 47030 M17.12 Pain of le ft knee joint 1625862809 05899 M25.904 [id number] Derek Herrera MD [facility] [place] [address] [place] [address] 09/10/2024 14:29:27 09/10/2024 15:14:45 History of total knee arthroplasty 9202613242 105 Z96.651 Osteoarthr itis of left knee joint 7591981047 85775 M17.12 Pain of le ft knee joint 1758802023 22079 M25.526 [id number] Derek Herrera MD [facility] [place] [address] [place] [address] 09/24/2024 13:48:41 09/24/2024 14:48:51 Osteoarthritis of left knee joint 9391285703 39875 M17.12 Pain of le ft knee joint 8956958763 79330 M25.562 Pain of le ft shoulder joint 2386260218 8275877 M25.512 History of right total knee replacement 6575927487 432508 Z96.651 Osteoarthr itis of left glenohumeral joint 4989933429 112802 M19.012 Osteoarthr itis of left acromioclavicular joint 1800975204 089352 M19.012 Tendinitis of left rotator cuff 3358785435 2285953 M67.814 Health Concerns Section Related Observation LastModified by Organization Detai ls LastModified Time None Recorded Concern Status LastModified by Organization Details LastModified Time None Recorded Advance Directives Directive None Recorded Payers Encounter Date Sequence Insurance Name Policy Number Policy Rajan Covered Member ID Rajan Member ID Guarantor Name 04/16/2024 1 [place] Irasema Rodriguez [id number] 5 Irasema [place] castro 04/16/2024 2 [employer] (MEDICARE SUPPLE[place]) Irasema Rodriguez [id number] Irasema [place] Katlyn castro 07/09/2024 1 [place]ras[place] Rodriguez [id number] 5 Irasema [place] castro 07/09/2024 2 [employer] [place] (MEDICARE SUPPLE[place]) Irasema Dentki [id number] Irasema Potts owski 09/03/2024 1 [place] Irasema Dentki [id number] 5 Irasema Potts owski 09/03/2024 2 [employer] [place] (MEDICARE SUPP[place]) Irasema Artalowski [id number] Irasema Potts owski 09/10/2024 1 [place] Irasema Jameswski [id number] 5 Irasema Potts owski 09/10/2024 2 [employer] [place] (MEDICARE SUPP[place]) Irasema Dentki [id number] Irasema oPtts owski 09/24/2024 1 [place] Irasema Artalowski [id number] 5 Irasema Potts owski 09/24/2024 2 [employer] [place] (MEDICARE SUPPLEMENT) Irasema Dentki [id number] Irasema leivai Notes Date Note Type Note Provider Name and Address Organization Details Recorded Time 04/16/2024 text/html Patient returns she has severe primary osteoarthritis left knee joint with valgus deformity and ktjo-oz-ddnp changes lateral compartment with hypertrophic spurring. She [...] couple of months relief. MANUELA Her [address] [facility], [address], [place], [address], [place] [facility] [employer] 04/16/2024 14:48:59 07/09/2024 text/html The patient retu rns with left knee pain. She has severe primary osteoarthritis left knee joint with valgus deformity and xxrh-oi-nmnm changes in the lateral compartment. She walks [...] today with the patient. MANUELA Her [address] [employer] [address], [place], [address], [email or web address] 07/09/2024 14:35:15 09/03/2024 text/html The patient retu rns for Orthovisc injection number 1 into the left knee. The patient has severe primary osteoarthritis with valgus deformity and qjeu-bc-rkyy changes lateral compartment. She has an antalgic gait uses a cane for support. She gets by with conservative measures at 5 ft 5 in tall 310 lb she is not a good candidate for total knee arthroplasty. She is trying to get by with conservative measures. The patellofemoral articulation also shows significant narrowing with lateral patellar tilt. She has a valgus deformity of about 20 . She comes in today for the 1st Orthovisc injection. MANUELA Her [address], [address], [place], [address], [email or web address] 09/03/2024 14:27:47 09/10/2024 text/html The patient retu rns for Orthovisc injection number 2 left knee. The patient has severe primary osteoarthritis with kqab-sp-mbqe changes lateral compartment and a significant valgus deformity of about 20 . She also has significant patellofemoral narrowing with lateral patellar tilt. She is not a candidate for total knee arthroplasty due to her elevated BMI she is getting by with conservative measures. She uses a walker for support due to her knee deformity, she typically gets pretty good relief from injections. States she is starting get some relief from the 1st round last week. MANUELA Her [address], [facility] [address], [place], [address], [employer] 09/10/2024 14:55:35 09/24/2024 text/html the patient retu rns for Orthovisc injection number 3 left knee. She is doing well after the 1st 2 rounds of injections. She does have severe inyp-vv-gajq primary osteoarthritis in the lateral compartment with significant valgus deformity of about 20 . She also has significant patellofemoral narrowing with lateral patellar tilt not a candidate for total knee arthroplasty due to elevated BMI. She gets by with conservative measures. The patient is having a new problem with her left shoulder today. She states over the past few weeks it has been bothering her she has had some chronic issues but not bad. Lately it has been quite significant about a 7 on a scale of 1-10. She denies any trauma or injury no weakness or loss of motion but lots of pain with trying to do anything heavy or repetitive particularly reaching behind her back or up overhead. She has aching pain in the anterior shoulder radiates a bit into the upper arm she also has little bit of tenderness over the AC joint but that has resolved. Her main complaint is aching pain in the shoulder denies any dysfunction no evidence of a frozen shoulder. She comes in today requesting initial evaluation treatment of her left shoulder pain as described. MANUELA Her [address], [facility] [address], [place], [address], [employer] 09/24/2024 14:21:09 OBGyn Episode No OBEpisode recorded.
--- OUTSIDE RECORDS SUMMARY | 2024-11-11 14:15 | XMS_ITS | Continuity of Care Document ---
Author Organization [facility] Address [address] [place] [address] Phone Care Team Providers Care Broadcast Checker Name Role Phone Filemon MOBLEY, Dixie Unavailable [...] Date Provider Providers Copied on Encounter [facility], [facility], [place], [id number] tel: [phone] [facility] No Information Filemon Colin. [facility] [facility], [place], [address]. tel: [phone] [facility] [place] [id number] tel: [phone] [facility] Personal history of colonic polypsRectal polyp Filemon Colin. [facility] [facility], [place], [address]. tel: [phone] [facility], [address] [place], [place] [address], [place], [id number] tel: [phone] [facility] No Information Filemon Colin. [facility] [facility], [place], [address]. tel: [phone] [facility], [address] [place], [place] [address], [place], [id number] tel: [phone] [facility] No Information Filemon Colin. [facility], [place], [address]. tel: [phone] [facility], [address] [place], [place] [address], [place], [id number] tel: [phone] [facility] Scre[facility] Malignant Neoplasm ColonColon PolypHemorrhoi ds, Unspecified Filemon Colin. [address] [place] [address], [place], [address]. tel: [phone] [facility], [address] [place], [place] [address], [place], [id number] tel: [phone] [facility] No Information Filemon Colin. [facility] [facility], [place], [address]. tel: [phone] [facility], [address] [place] [address], [place], [place], [id number] tel: [phone] [facility] No Information Filemon Colin. [address] , [facility], [place], [address]. tel: [phone] Family History Family Member Type Diagnosis Age At Onset Problem (finding) Family history of gallb ladder disease Payers Payer name Insurance type Covered democrat [place] Ender kunz(s) Linda CI [id number] Social History Type Description Quantity Date Captured [...]
--- OUTSIDE RECORDS SUMMARY | 2024-11-11 14:15 | XMS_ITS | Clinical Summary ---
Author Organization [facility] Address [address] [address] Phone Care Team Providers Care Manager Net Name Role Phone Wilberto Camacho MD Primary Care Provider Catia Vaz MD Unavailable [phone] Allergies No known active allergies Medications [...] Comments Blood Pressure 120/92 05/28/2018 1:32 PM SCREEN PRINTING EQUIPMENT SETTER Pulse 62 05/28/2018 1:32 PM SCREEN PRINTING EQUIPMENT SETTER Temperature - - Respiratory Rate 20 05/28/2018 1:32 PM SCREEN PRINTING EQUIPMENT SETTER Oxygen Saturation 98% 05/28/2018 1:32 PM SCREEN PRINTING EQUIPMENT SETTER Inhaled Oxygen Concentration - - Weight 138.6 kg (305 lb 9.6 oz) 05/28/2018 1:32 PM SCREEN PRINTING EQUIPMENT SETTER Height 166.4 cm (5' 5.5 ) 05/28/2018 1:32 PM SCREEN PRINTING EQUIPMENT SETTER Body Mass Index 50.08 05/28/2018 1:32 PM SCREEN PRINTING EQUIPMENT SETTER Plan of Treatment Health Maintenance Due Date Last Done Comments Hepatitis C Virus (HCV) Screening 1955 TdaP Immunization 1955 Cologuard 11/14/2007 Immunochemical Fecal Occult Blood 11/14/2007 Pneumococcal Immunization (5 0+ years) (1 of 1 - PCV) 11/14/2007 Zoster Immunization (1 of 2) 11/14/2007 Colonoscopy 03/26/2019 03/26/2018, 07/20/2009 Colorectal Cancer Screening 03/26/2019 Influenza Immunization (#1) 2024 SARS-COV-2 Immunization ( season) 2024 09/22/2020, 09/01/2020 Respiratory Syncytial Virus [...] Procedure Name Priority Date/Time Associated Diagnosis Comments COLONOSCOPY Routine 03/26/2018 from Last 3 Months or Most Recently Relevant to Health Maintenance Results * COLONOSCOPY (03/26/2018) Fabian Piedra DO PROCEDURE/MINOR SURGICAL ORDERA BLES Final Result from Last 3 Months or Most Recently Relevant to Health Maintenance Care Teams Manager Net Relationship Specialty Start Date End Date Wilberto Camacho MD [address] [place] [address] PCP - General Family Medicine 11/06/17 Catia Vaz MD [address] [place], [place] [id number] Pulmonary Disease 11/06/17
== END 2024-11-11 14:12 | disposition home or self-care (01) ==
PROVIDERS: PCP Family Medicine; Visit Provider Family Medicine
DX: R91.1 Solitary pulmonary nodule (principal)
CPT/HCPCS: 71250

== ENCOUNTER 2025-01-14 15:33 | Emergency (ER) | payer MEDICARE, OTHER, SELFPAY ==
--- NOTE | ~2025-01-14 | XR_ITS ---
XR hip RT 2V w AP pelvis Ordering provider: Max Garcia MD History: . pain, NKI . Comparison: January 30, 2017 FINDINGS: BONES: Healing fracture in the right pubic bone. Sclerotic lesion seen in the left iliac bone. HIP JOINT SPACES: Severe osteoarthritic changes of the right hip with impingement. SACROILIAC JOINT SPACES/LUMBAR SPINE: The sacroiliac joint spaces shows left sacroiliitis. Mild degen erative changes of the visualized lower lumbar spine. PUBIC SYMPHYSIS: Normal. SOFT TISSUES: Normal. IMPRESSION: Healing fracture in the right pubic bone. Severe right hip osteoarthritic changes with impingement. Sclerotic lesion in the left iliac bone with lucency. Further evaluation advised. Left sacroiliitis. Reviewed, dictated and finalized at location A. IMPRESSION: Healing fracture in the right pubic bone. Severe right hip osteoarthritic changes with impingement. Sclerotic lesion in the left iliac bone with lucency. Further evaluation advise d. Left sacroiliitis.
--- OUTSIDE RECORDS SUMMARY | 2025-01-14 15:35 | XMS_ITS | Clinical Summary ---
Author Organization [facility] Address [address] [address] Phone Care Team Providers Care Flask Carrier Name Role Phone Wilberto Camacho MD Primary Care Provider Catia Vaz MD Unavailable [phone] Allergies No known active allergies Medications [...] Comments Blood Pressure 120/92 05/28/2018 1:32 PM INBOUND SALES CONSULTANT Pulse 62 05/28/2018 1:32 PM INBOUND SALES CONSULTANT Temperature - - Respiratory Rate 20 05/28/2018 1:32 PM INBOUND SALES CONSULTANT Oxygen Saturation 98% 05/28/2018 1:32 PM INBOUND SALES CONSULTANT Inhaled Oxygen Concentration - - Weight 138.6 kg (305 lb 9.6 oz) 05/28/2018 1:32 PM INBOUND SALES CONSULTANT Height 166.4 cm (5' 5.5) 05/28/2018 1:32 PM INBOUND SALES CONSULTANT Body Mass Index 50.08 05/28/2018 1:32 PM INBOUND SALES CONSULTANT Plan of Treatment Health Maintenance Due Date Last Done Comments Hepatitis C Virus (HCV) Screening 1955 TdaP Immunization 1955 Cologuard 2002 Immunochemical Fecal Occult Blood 2002 Pneumococcal Immunization (5 0+ years) (1 of 1 - PCV) 11/14/2007 Zoster Immunization (1 of 2) 11/14/2007 Colonoscopy 03/26/2019 03/26/2018, 07/20/2009 Colorectal Cancer Screening 03/26/2019 SARS-COV-2 Immunization ( - 2023- season) 2024 09/22/2020, 09/01/2020 Influenza Immunization (#1) 2025 Respiratory Syncytial Virus (RSV) Immunization (Adult) (1 - 1-dose 75+ series) 2032 Hepatitis B Immunization Aged Out No longer eligible based on patient's age to complete this topic Human Papillomavirus (HPV) Immunization Aged Out No longer eligible b ased [...] Recently Relevant to Health Maintenance Care Teams Flask Carrier Relationship Specialty Start Date End Date Wilberto Camacho MD [address] [place] [address] PCP - General Family Medicine 11/06/17 Catia Vaz MD [address] [place] [address] Pulmonary Disease 11/06/17
--- OUTSIDE RECORDS SUMMARY | 2025-01-14 15:36 | XMS_ITS | Continuity of Care Document ---
Author Organization [facility] Address [address] [place] [address] Phone Care Team Providers Care Physician Ophthalmologist Name Role Phone Filemon MOBLEY, iDxie Unavailable Unavailable Allergies, Adverse Reactions, Alerts Substance Reaction Status Criticality amlodipine Active No Information Cephalosporins Swelling(moderate) Active No Info rmation clarithromycin GI Pain(moderate) Active No Infor divine astemizole Makes her nuts(moderate) Active No Information HYDROCODONE BITARTRATE (moderate) Active No In formation acetaminophen (moderate) Active No Information latex (moderate) Active No Information azithromycin (moderate) Active No Information RANITIDINE HCL (moderate) Active No Informatio n Medications Medication Instructions Dosage Effective Dates (start - stop) Status Comments ASPIRIN 81 mg ORAL - Active Vitamin D3 1,000 unit tablet take 1 tablet by oral route every day 1 tablet - Active metformin 1,000 mg tablet take 1 tablet by oral route 2 times every day with morning and evening meals 1000 MG - Active metoprolol tartrate 50 mg tablet take 1 tablet by oral route every day with meals 50 MG - Active Tirosint 75 mcg capsule take 1 capsule by oral route every day 75 MCG - Active Procedures Procedure Date COLONOSCOPY/ BX FACILITY COLONOSCOPY/ BX Moderate Sedation TISSUE EXAM BY PATHOLOGIST COLONOSCOPY/ BX FACILITY COLONOSCOPY/ BX TISSUE EXAM BY PATHOLOGIST Advance Directives Directive Yes / No Effective Date File Name No Information Encounters Encounter Description Practice Location Reason(s) For Visit Diagnoses Date Provider Providers Copied on Encounter [facility], [facility], [place], [id number] tel: [phone] [facility] No Information Filemon Colin. [facility]9 [facility], [place], [address]. tel: [phone] [facility] [place] [id number] tel: [phone] [facility] Personal history of colonic polypsRectal polyp Filemon Colin. [facility] [facility], [place], [address]. tel: [phone] [facility], [address] [place], [place] [address], [place], [id number] tel: [phone] [facility] No Information Filemon Colin. [facility], [place], [address]. tel: [phone] [facility], [address] [place], [place] [address], [place], [id number] tel: [phone] [facility] No Information Filemon Colin. [facility], [place], [address]. tel: [phone] [facility], [address] [place], [place] [address], [place], [id number] tel: [phone] [facility] Screening Malignant Neoplasm ColonColon PolypHemorrhoi ds, Unspecified Filemon Colin. [address] [place] [address], [place], [address]. tel: [phone] [facility], [address] [place], [place] [address], [place], [id number] tel: [phone] [facility] No Information Filemon Colin. [facility], [place], [address]. tel: [phone] [facility], [address] [place] [address], [place], [place], [id number] tel: [phone] [facility] No Information Filemon Colin. [address] , [facility], [place], [address]. tel: [phone] Family History Family Member Type Diagnosis Age At Onset Problem (finding) Family history of gallb ladder disease Payers Payer name Insurance type Covered libertarian [place] Ender kunz(s) Linda CI [id number] Social History Type Description Quantity Date Captured [...]
--- OUTSIDE RECORDS SUMMARY | 2025-01-14 15:36 | XMS_ITS | Data Portability ---
Author Organization [place] [facility] [employer], Main Office Address [address] [place] [address] Care Team Providers Care Nut Sorter Name Role Phone CATE BETANCOURT Primary Care Provider CATE BETANCOURT Referring Provider [phone] Assessment Encounter Date Assessment Date Assessment LastModified by Organization Details LastModified Time 07/09/2024 07/09/2024 The patient has severe primary [...] the above plan. 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 Under sterile conditions I injected the patient's left knee joint in the office with 4 cc 0.5% bupivacaine and 20 mg of Kenalog the patient tolerated procedure well. We can do this again in 3 months if necessary. She would also like to repeat this gel shot series at the six-month juwan we will do that down the road if necessary. The patient also has impingement with rotator cuff tendonitis of the right shoulder. X-rays today do show a large subacromial spur likely impinging on the rotator cuff tendon. Tendon appears to be intact on exam and x-ray today. We talked about treatment options for this she wanted proceed with cortisone therefore under sterile conditions I injected the patient's right shoulder subacromial space in the office with 4 cc 0.5% bupivacaine and 20 mg of Kenalog. The patient tolerated procedure well. She declined formal physical therapy for this she is going to give it time see how the shot works. The patient also has severe [id number]-ae-[id number] femoroacetabular joint osteoarthritis. Her symptoms do not seem to be related to this so much as the lateral trochanteric region of the right hip is very tender and causes aching pain in that anatomic region. Today's x-rays also show what appeared to be a nondisplaced healing fracture of the superior and inferior pubic ramus. This appears to be in the mid to late stages of healing. She has not recall any trauma or injury to the region states she has had some falls but did not relate any of those falls to any onset of pain in the pubic area or the groin. We will keep an eye on this get new x-rays when she comes in next time. If her symptoms worsen or change she is instructed to call. To treat the trochanteric bursitis she wants to try a shot of cortisone therefore under sterile conditions I injected the patient's right hip trochanteric bursa in the office with 4 cc 0.5% bupivacaine and 20 mg of Kenalog. Patient tolerated procedure well. As far as the osteoarthritis goes what she really needs a total hip arthroplasty unfortunately her BMI is quite high and she would have to lose weight to qualify for surgical intervention. We have talked about this in multiple occasions on previous exam visits. We have talked about bariatric surgery she states she would not want to go through surgical intervention she is afraid of that. She also states she can not afford the weight loss drugs as is very expensive. She states she has tried to diet but really has not had any success. Unfortunately she is also on chronic steroids but is tapering off of those. When she tapers off she states she will try to adjust her diet to see if she could trop significant weight. We have talked about getting her BMI below 40 and we talked about how to calculate this using Internet tools. If she decides that she is having a lot of groin pain due to the osteoarthritis and the cortisone injection does not work in the right hip laterally we could consider an intra-articular injection of the right hip under fluoroscopy. I have advised her to give the shot today at least 6 weeks how things go. I will see her back at that point. She voiced understanding and agreed with the above plan she will call for any further problems difficulties or questions. Unfortunately the patient's treatment options are limited and complicated by the fact that she is morbidly obese, she is on chronic high-dose steroids to treat myasthenia gravis and has severe osteoarthritis that really would require total joint arthroplasty in the right hip in the left knee to give her any sort of long-term relief. The patient would have to be tapered off of her steroids and then achieve significant weight loss before we could proceed with surgical interventions that would give her the best outcome. Not available 11/26/2024 14:59:37 Plan of Treatment Reminders Order Date Submit Date Provider Last Modified By Organization Details Last Modified Time Details Appointments Any 2024 01:00P M MANUELA Her Not available Not available Not available Any 2024 01:00P MANUELA Bueno Not available Not available Not available Any 2024 01:00P MANUELA Bueno Not available Not available Not available Any 2024 01:00P M MANUELA Her Not available Not available Not available Lab None recorded. Referral None recorded. Procedures injection /aspirati on joint/bur sa (PROC) 2024 025 [email or web address] In-Office Order, Internal Use Only DO Not Attach Compendium DO Not Attach Compendium, Do Not Delete/merge, [id number] 11/26/2024 14:32:50 injection /aspirati on joint/bur sa (PROC) 2024 025 [email or web address] In-Office Order, Internal Use Only DO Not Attach Compendium DO Not Attach Compendium, Do Not Delete/merge, [id number] 11/26/2024 13:59:01 injection /aspirati on joint/bur sa (PROC) 2024 025 [email or web address] In-Office Order, Internal Use Only DO Not Attach Compendium DO Not Attach Compendium, Do Not Delete/merge, [id number] 11/26/2024 14:32:51 injection /aspirati on joint/bur sa (PROC) 2024 025 [email or web address] In-Office Order, Internal Use Only DO Not Attach Compendium DO Not Attach Compendium, Do Not Delete/merge, 09/24/2024 14:10:54 knee aspiratio n/injecti on (PROC) 2024 025 [email or web address] In-Office Order, Internal Use Only DO Not Attach Compendium DO Not Attach Compendium, Do Not Delete/merge, 09/24/2024 13:54:04 knee aspiratio n/injecti on (PROC) 2024 025 [email or web address] In-Office Order, Internal Use Only DO Not Attach Compendium DO Not Attach Compendium, Do Not Delete/merge, 09/10/2024 14:38:48 knee aspiratio n/injecti on (PROC) 2024 025 [email or web address] In-Office Order, Internal Use Only DO Not Attach Compendium DO Not Attach Compendium, Do Not Delete/merge, [id number] 09/03/2024 14:08:30 injection /aspirati on joint/bur sa (PROC) 2024 025 [email or web address] In-Office Order, Internal Use Only DO Not Attach Compendium DO Not Attach Compendium, Do Not Delete/merge, 07/09/2024 14:18:15 Surgeries None recorded. Imaging XR, hip + pelvis, unilatera l, 2 or 3 view 2024 025 [facility] [place], [address], [place], [address], 11/26/2024 14:52:13 XR, shoulder 2024 025 [facility] [place], [address], [place], [address], 11/26/2024 14:53:52 XR, shoulder 2024 025 [facility] [place], [address], [place], [address], 09/24/2024 15:10:38 XR, knee 2024 025 [facility] [place], [address], [place], [address], 07/09/2024 15:39:00 Medication Orders bupivacai ne HCl 0.5 % (5 mg/mL) injection solution 2024 025 [facility], [address] [facility], [place], [place], [id number], 11/26/2024 14:35:26 Kenalog 10 mg/mL suspensio n for injection 2024 025 [facility] #[facility]99, [address] [facility] [address], [place], [place], [id number], 11/26/2024 14:35:26 bupivacai ne HCl 0.5 % (5 mg/mL) injection solution 2024 025 [facility] #05870, [address] [address], [place], [place], [id number], 11/26/2024 14:01:16 Kenalog 10 mg/mL suspensio n for injection 2024 025 [facility] #97496, [address], [place], [place], [id number], 11/26/2024 14:01:16 bupivacai ne HCl 0.5 % (5 mg/mL) injection solution 2024 025 [facility] #81136, [address], [place], [place], [id number], 11/26/2024 14:35:26 Kenalog 10 mg/mL suspensio n for injection 2024 025 [facility] #86753, [address], [place], [place], [id number], 11/26/2024 14:35:26 bupivacai ne HCl 0.5 % (5 mg/mL) injection solution 2024 025 [facility] #40522, [address], [place], [place], [id number], 09/24/2024 15:10:38 Kenalog 10 mg/mL suspensio n for injection 2024 025 [facility]20750, [address], [place], [place], [id number], 09/24/2024 15:10:38 cephalexi n 500 mg capsule 2024 025 [facility] #37611, [address], [place], [place], [id number], 09/24/2024 15:10:38 ORTHOVISC 30 mg/2 mL intra-art icular syringe 2024 025 [facility]89120, [address], [place], [place], [id number], 09/24/2024 15:10:38 ORTHOVISC 30 mg/2 mL intra-art icular syringe 2024 025 [facility] #41728, [address], [place], [place], [id number], 09/10/2024 15:05:51 ORTHOVISC 30 mg/2 mL intra-art icular syringe 2024 025 [facility] #30334, [address], [place], [place], [id number], 09/03/2024 16:31:38 bupivacai ne HCl 0.5 % (5 mg/mL) injection solution 2024 025 [email or web address] [facility] #85302, [address], [place], [place], [id number], 07/09/2024 15:39:00 Kenalog 10 mg/mL suspensio n for injection 2024 025 [email or web address] [facility] #53398, [address] [address], [place], [place], [id number], 07/09/2024 15:39:00 Patient TargetsNo targets recorded. Patient InstructionsNo instructions recorded. Reason for Referral None Reported. Results Created Date Observation Date Name Description Value Unit Range Abnormal Flag Note LastModifiedBy Organization Detail LastModifiedTime 07/09/19 25 XR, knee No observ ation record ed. [facility] [place] [address], [place], [address], 07/09/2024 14:34:48 09/25/19 25 XR, shoul mo No observ ation record ed. [facility] [place] [address], [place], [address], 09/24/2024 14:17:59 11/27/19 XR, hip + pelvi s, unila teral , 2 or 3 view No observ ation record ed. [facility] [place] [address], [place], [address], 11/26/2024 14:52:12 11/27/19 25 XR, shoul mo No observ ation record ed. [facility] [place] [address], [place], [address], 11/26/2024 14:53:50 Result Notes None recorded. Problems Name Problem SNOMED Code Status Onset Date Resolution Date Notes Provider Name and Address Organization Details Recorded Time History of total knee arthroplas ty 9481864809457 Active 2021 Not Available [facility] 3 03:08:20 Osteoarthr itis of knee 524075957 Active 2021 Not Available [facility] 3 03:08:20 Osteoarthr itis of left knee joint 0992963430364 09 Active 2021 Not Available [facility] 3 03:08:20 Osteoarthr itis 271150344 Active Not Available [facility] 3 03:08:21 Pain of left knee joint 5738462890653 07 Active 2021 Not Available [facility] 3 03:08:21 Pain in left lower limb 909039499 Active 2023 Carina Nunez TELECOMMUNICATIONS FIELD TECHNICIAN null, [place] [facility] 4 10:32:45 Essential hypertensi on 93704246 Active 2023 Carina Nunez TELECOMMUNICATIONS FIELD TECHNICIAN null, [facility] 4 14:31:40 Gout 60877078 Active 2023 Carina Nunez TELECOMMUNICATIONS FIELD TECHNICIAN null, [facility] 4 14:31:40 Folliculit is 71232528 Active 2023 Carina Nunez TELECOMMUNICATIONS FIELD TECHNICIAN null, [facility] 4 14:31:40 Pain of left shoulder joint 5282252772478 9109 Active 2024 TIM LongoA null, [facility] 5 13:52:20 Osteoarthr itis of left glenohumer al joint 6485038612775 104 Active 2024 MANUELA Her [address], [place], [address] , [facility] 5 14:18:10 Osteoarthr itis of left acromiocla vicular joint 5173861662525 108 Active 2024 MANUELA Her [address], [address], [place], [address] , [place] [facility] 5 14:18:19 Tendinitis of left rotator cuff 4240636537002 9101 Active 2024 MANUELA Her [address], [address], [place], [address] , [place] [facility] 5 14:18:25 Pain of hip region 35544808 Active 2024 Carina Mayra, [employer]COMM[employer] FI[employer] TECHNICIAN null, [place] [facility] 5 13:54:26 Pain of right shoulder region Active 2024 Carina Nunez TELECOMMUNICATIONS FIELD TECHNICIAN null, [place] [facility] 5 13:54:51 Trochanter ic bursitis of right hip 9626782262309 00 Active 2024 Carina Nunez TELECOMMUNICATIONS FIELD TECHNICIAN null, [place] [facility] 5 14:29:32 Osteoarthr itis of right hip joint 2720116202851 07 Active 2024 MANUELA Her [address], [address], [place], [address] , [place] [facility] 5 14:54:04 Greater trochanter ic pain syndrome 3374732 Active 2024 MANUELA Her [address], [address], [place], [address] , [place] [facility] 5 14:54:14 Closed fracture of pubic ramus Active 2024 MANUELA Her [address], [address], [place], [address] , [place] [facility] 5 14:54:53 Rotator cuff impingemen t syndrome 272298706 Active 2024 MANUELA Her [address], [address], [place], [address] , [facility] [employer] [facility] [employer] 14:55:09 Arthropath y 593717987 Active 2024 MANUELA Her [address] [facility] [facility] [address], [place], [address] , [facility] [employer] [facility] 14:55:21 Problem Notes None recorded. Procedures Surgical History Date Name Laterality Status Provider Name and Address Organization Details Recorded Time operation on ovary completed Carina Nunez TELECOMMUNICATIONS FIELD TECHNICIAN [facility] [employer] 07/09/2024 14:11:46 Hernia Surgery completed Not Available [employer] [facility] 08/31/2022 02:55:10 Knee Replacement completed Carina Ric guaman TELECOMMUNICATIONS FIELD TECHNICIAN [employer] [facility] [employer] [facility] 07/09/2024 14:11:36 Imaging Results None recorded. Procedure Notes None recorded. Medical Equipment None Reported. Allergies Allergen ID Allergen Name Allergen Category Reaction Reaction Severity Criticality Documentation Date Start Date Code Code System Note Provider Name and Address Organization Details Recorded Time 51129 amoxicill in medicatio n swelling Not available Not available 07/09/2024 723 RxNorm [facility] [employer] [facility] 14:07:22 Medications Name Sig Start Date [...] mL (0.083 %) solution for nebulizatio n USE 1 VIAL VIA NEBULIZER EVERY 6 HOURS NEEDED FOR SHORTNESS OF BREATH OR WHEEZING active Not Available Not Available No t Available loperamide 2 mg capsule 07/09 completed [...] mg tablet TAKE 8 TABLETS BY MOUTH EVERY OTHER DAY AND 6 TABLETS EVERY OTHER DAY active Not Available Not Available No t [...] 20 mg by injection route. 2024 active [facility]: 0003- 0494- 20 Not Available Not Available [...] HFA 90 mcg/actuati on aerosol inhaler INHALE 1 TO 2 PUFFS BY MOUTH EVERY 4 TO 6 HOURS NEEDED FOR SHORTNESS OF BREATH OR WHEEZING active Not Available Not Available No t [...] Not Available Not Available Not Avai lable DILT-XR 120 mg capsule, extended release [...] administe red by the provider 02/17 completed [facility]: 0409- 4276- 17 Not Available Not Available [...] 20 mg by injection route. 07/09 completed [facility] 14281 -064- 01 Not Available Not Available Not [...] Not Available No t Available Afluria Quad 7314-4724 (PF) 60 mcg (15 mcg x 4)/0.5 [...] Updated DateTime 07/09/2024 165.1 cm 51.6 kg/m2 564926.63 g CONNER Longo [facility] [employer]@ [employer] [facility] 07/09/2024 14:06:44 Date Recorded Body height Body mass index (BMI) Body weight Provider Name and Address Organization Details Last Updated DateTime 09/03/2024 165.1 cm 35.9 kg/m2 68909.95 ric Nunez CNA [facility] [employer] [facility] 09/03/2024 14:06:14 Date Recorded Body height Body mass index (BMI) Body weight Provider Name and Address Organization Details Last Updated DateTime 09/10/2024 165.1 cm 52.6 kg/m2 162939.19 ric Minor [facility] [employer] [facility] 09/10/2024 14:36:50 Date Recorded Body height Body mass index (BMI) Body weight Provider Name and Address Organization Details Last Updated DateTime 09/24/2024 165.1 cm 52.6 kg/m2 350931.19 ric Nunez [facility] [employer] [facility] 09/24/2024 13:51:48 Date Recorded Body height Body mass index (BMI) Body weight Provider Name and Address Organization Details Last Updated DateTime 11/26/2024 165.1 cm 52.6 kg/m2 317942.19 ric Nunez [facility] [employer] [facility] 11/26/2024 13:52:54 Social History None recorded. Functional Status Question Answer Note LastModified by Organization D etails LastModified Time What is your level of alcohol consumption? None [email or web address] Information not available 07/09/2024 Mental Status None recorded. Family History Relationship Description Onset Age of this Age Resolved Age Notes LastModified by Organization Details LastModified Time Father Heart disease [id number] Not available 08/31/2022 02:55:20 Father Family history of malignant neoplasm [email or web address] Not available 09/03 14:03:31 Father Essential hypertension [email or web address] Not available 14:03:31 Brother Heart disease [id number] [id number] Not available 08/31/2022 02:55:21 Medical History Condition Response HYPERTENSION Y Gynecological HistoryNo gynecological history recorded. Obstetrics History GPAL:G 0 P 0 0 0 0 Past Encounters Encounter ID Performer Location Encounter Start Date Encounter Closed Date Diagnosis/Indication Diagnosis SNOMED-CT Code Diagnosis ICD10 Code Diagnosis Note [id number] MANUELA Her [facility] [place] [address] [place] [address] 09/17/2020 00:00:00 09/17/2020 10:46:44 [id number] MANUELA Her [facility] [place] [address] [place] [address] 11/19/2020 00:00:00 11/19/2020 11:01:38 [id number] MANUELA Her [facility] [place] [address] [place] [address] 02/02/2021 00:00:00 02/02/2021 14:52:38 [id number] MANUELA Her [facility] [place] [address] [place] [address] 04/15/2021 00:00:00 04/15/2021 11:36:08 [id number] Miguel Metzger MD [facility] [place] [address] [place] [address] 06/15/2021 00:00:00 06/15/2021 16:02:39 [id number] Miguel Metzger MD [facility] [place] [address] [place] [address] 09/07/2021 00:00:00 09/07/2021 14:28:30 [id number] Miguel Metzger MD [facility] [place] [address] [place] [address] 11/23/2021 00:00:00 11/23/2021 14:38:22 [id number] Miguel Metzger MD [facility] [place] [address] [place] [address] 02/17/2022 00:00:00 02/17/2022 15:31:43 [id number] Miguel Metzger MD [facility] [place] [address] [place] [address] 05/19/2022 00:00:00 05/19/2022 15:37:07 [id number] Miguel Metzger MD [facility] [place] [address] [place] [address] 08/18/2022 00:00:00 08/18/2022 14:42:40 [id number] Miguel Metzger MD [facility] [place] [address] [place] [address] 11/10/2022 14:05:25 11/10/2022 16:08:32 Osteoarthritis of left knee joint 7479358935 90239 M17.12 Pain of le ft knee joint 8812516539 80300 M25.562 [id number] Miguel Metzger MD [facility] [place] [address] [place] [address] 01/31/2023 13:58:35 01/31/2023 15:15:00 Osteoarthritis of left knee joint 2987182085 00178 M17.12 Pain of le ft knee joint 6436624489 16083 M25.264 [id number] Cortez Armas MD [facility] [place] [address] [place] [address] 04/27/2023 13:54:12 04/27/2023 14:33:12 Pain of left knee joint 7014683219 15907 M25.562 Osteoarthr itis of left knee joint 4455017209 99170 M17.12 History of right total knee replacement 1192797039 305456 Z96.946 [id number] Cortez Armas MD [facility] [place] [address] [place] [address] 07/20/2023 14:12:27 07/20/2023 14:31:22 Pain of left knee joint 2385179438 15407 M25.562 Osteoarthr itis of left knee joint 3513921021 84797 M17.12 History of right total knee replacement 8536978228 838109 Z96.135 [id number] Derek Herrera MD [facility] [place] [address] [place] [address] 10/12/2023 14:10:25 10/12/2023 15:05:48 Osteoarthritis of left knee joint 7477344778 45372 M17.12 Pain of le ft knee joint 7627671015 72621 M25.562 History of total knee arthroplasty 2933491676 105 Z96.990 [id number] Derek Herrera MD [facility] [place] [address] [place] [address] 12/28/2023 14:00:03 12/28/2023 14:32:04 History of total knee arthroplasty 6826814667 105 Z96.651 Osteoarthr itis of left knee joint 6063555846 05751 M17.12 Pain of le ft knee joint 9401948388 66939 M25.468 [id number] Derek Herrera MD [facility] [place] [address] [place] [address] 02/16/2024 10:23:03 02/16/2024 11:33:14 History of total knee arthroplasty 1692268810 105 Z96.651 Osteoarthr itis of left knee joint 7142950956 88775 M17.12 Pain of le ft knee joint 3228048118 84236 M25.562 Pain in le ft lower limb 691168922 M79.899 [id number] Derek Herrera MD [facility] [place] [address] [place] [address] 02/26/2024 11:27:33 02/26/2024 12:13:24 History of total knee arthroplasty 0667461828 105 Z96.651 Osteoarthr itis of left knee joint 0120911661 98540 M17.12 Pain of le ft knee joint 3572400922 99936 M25.562 Pain in le ft lower limb 136902751 M79.525 [id number] Derek Herrera MD [facility] [place] [address] [place] [address] 03/05/2024 14:41:22 03/05/2024 15:19:21 History of total knee arthroplasty 7921484031 105 Z96.651 Osteoarthr itis of left knee joint 9721871960 13320 M17.12 Pain of le ft knee joint 2072451588 19854 M25.562 Pain in le ft lower limb 596071706 M79.088 [id number] Derek Herrera MD [facility] [place] [address] [place] [address] 04/16/2024 14:12:24 04/16/2024 14:59:48 History of total knee arthroplasty 7564852412 105 Z96.651 Osteoarthr itis of left knee joint 0126626542 37515 M17.12 Pain of le ft knee joint 5713407021 04224 M25.562 Pain in le ft lower limb 759647482 M79.611 [id number] MD [facility] [place] [address] [place] [address] 07/09/2024 13:52:19 07/09/2024 14:42:38 History of total knee arthroplasty 4393078899 105 Z96.651 Osteoarthr itis of left knee joint 5573537970 45067 M17.12 Pain of le ft knee joint 7147415946 48549 M25.741 [id number] Derek Herrera MD [facility] [place] [address] [place] [address] 09/03/2024 14:00:38 09/03/2024 15:01:36 History of total knee arthroplasty 7632541814 105 Z96.651 Osteoarthr itis of left knee joint 0194277752 39015 M17.12 Pain of le ft knee joint 4682030566 45530 M25.681 [id number] Derek Herrera MD [facility] [place] [address] [place] [address] 09/10/2024 14:29:27 09/10/2024 15:14:45 History of total knee arthroplasty 3076461025 105 Z96.651 Osteoarthr itis of left knee joint 3754026266 83703 M17.12 Pain of le ft knee joint 6019421303 64743 M25.454 [id number] [facility] [place] [address] [place] [address] 09/24/2024 13:48:41 09/24/2024 14:48:51 Osteoarthritis of left knee joint 0403509398 42484 M17.12 Pain of le ft knee joint 9319258797 06648 M25.562 Pain of le ft shoulder joint 2130508995 9778610 M25.512 History of right total knee replacement 9822922473 482904 Z96.651 Osteoarthr itis of left glenohumeral joint 5050265800 528949 M19.012 Osteoarthr itis of left acromioclavicular joint [id number] M19.012 Tendinitis of left rotator cuff [id number] M67.509 [id number] Derek Herrera MD [facility] [address] [place] [address] 11/26/2024 13:50:16 11/26/2024 14:38:32 Osteoarthritis of left knee joint [id number] 79967 M17.12 Pain of le ft knee joint [id number] 09551 M25.562 Pain of hip region 03715 002 M25.551 Pain of ri ght shoulder region [id number] M25.511 Trochanter ic bursitis of right hip [id number] 00190 M70.61 Osteoarthr itis of right hip joint [id number] 72396 M16.11 Closed fra cture of pubic ramus [id number] S32.591A Rotator cu ff impingement syndrome [id number] M75.41 Arthropathy [id number] M1 9.011 Health Concerns Section Related Observation LastModified by Organization Detai ls LastModified Time None Recorded Concern Status LastModified by Organization Details LastModified Time None Recorded Advance Directives Directive None Recorded Payers Insurance Date Sequence Insurance Name Policy Number Policy Rajan Covered Member ID Rajan Member ID Guarantor Name 11/23/2024 1 [place] Irasema Rodriguez [id number] Irasema castro 11/30/2024 2 [employer] [place] (MEDICARE SUPPLEMENT) Irasema Rodriguez [id number] Irasema castro 09/02/2024 1 [employer] [id number] Irasema Rodriguez [id number] Irasema castro Notes Date Note Type Note Provider Name and Address Organization Details Recorded Time 07/09/2024 text/html The patient retu rns with left knee pain. She has severe primary osteoarthritis left knee joint with valgus deformity and ifck-on-ogzd changes in the lateral compartment. She walks [...] today with the patient. MANUELA Her [address], [place], [address], [employer] 07/09/2024 14:35:15 09/03/2024 text/html The patient retu rns for Orthovisc injection number 1 into the left knee. The patient has severe primary osteoarthritis with valgus deformity and qcgd-of-ogei changes lateral compartment. She has an antalgic [...] the 1st Orthovisc injection. MANUELA Her [address], [address], [place], [address], [employer] 09/03/2024 14:27:47 09/10/2024 text/html The patient retu rns for Orthovisc injection number 2 left knee. The patient has severe primary osteoarthritis with kkwt-cz-txkn changes lateral compartment and a significant valgus [...] round last week. MANUELA Her [address], [place], [address], [employer] 09/10/2024 14:55:35 09/24/2024 text/html the patient retu rns for Orthovisc injection number 3 left knee. She is doing well after the 1st 2 rounds of injections. She does have severe ushe-lc-qfjp primary osteoarthritis in the lateral compartment with [...] pain as described. MANUELA Her [address], [place], [address], [employer] 09/24/2024 14:21:09 11/26/2024 text/html The patient retu rns today with multiple problems. First problem is recurrent left knee pain she has severe primary osteoarthritis she comes in every 3 months for cortisone injections. She had gel shots 2 months ago this gave her some temporary relief but her pain has returned. She would like another shot of cortisone in the left knee. Denies any new problems she has severe vvaa-vb-yutc osteoarthritis of the lateral compartment with a significant valgus deformity of about 20 . She also has significant patellofemoral narrowing with lateral patellar tilt. Unfortunately her high BMI precludes her from total knee arthroplasty. The patient also has developed right hip pain recently. She states since June she has been having quite a bit of pain more over the lateral trochanteric region but also somewhat in the groin. It took her 2-3 months to get to the point where she could get up and move very much. She was having a lot of pain kept her from going about her daily activities. Complicating this she has also had previous recent flare of myasthenia gravis and it has been on high-dose steroids for several months now. The pain was there before the steroid treatment however. She states she has trouble with range of motion of her hip notes that it is somewhat limited. She does walk with a walker because of her left knee pain mainly but also to support her right hip. She has no radicular pain down the leg no numbness or tingling or weakness. She states the pain will wake her up at night particularly if she tries to lie on her right side in bed. Denies any erythema effusion or signs of infection. She comes in today for an initial evaluation and treatment for right hip pain as described. The patient also has a new problem with her right shoulder. She has had previous issues with the left shoulder with rotator cuff tendonitis and impingement. She states the right shoulder starting to feel that way as well. She denies loss of motion or weakness but has aching pain that radiates into the upper arm. Most of the pain occurs if she tries to reach up overhead or out to her side or do anything heavy or repetitive in nature. She has had no specific trauma or injury to the right shoulder. Despite activity modification her symptoms continue. She comes in today for initial evaluation treatment of her right shoulder pain as described. MANUELA Her [address], [facility] [address], [place], [address], [place] - [email or web address] 11/26/2024 14:59:52 OBGyn Episode No OBEpisode recorded.
--- OUTSIDE RECORDS SUMMARY | 2025-01-14 15:45 | XMS_ITS | Continuity of Care Document ---
Author Organization [facility] Address [address] [place] [address] Phone Care Team Providers Care Founder Chairman And Chief Creative Officer Name Role Phone Filemon MOBLEY, Dixie Unavailable [...] Date Provider Providers Copied on Encounter [facility], [facility], [place], [id number] tel: [phone] [facility] No Information Filemon Colin. [facility] [facility], [place], [address]. tel: [phone] [facility], [facility] [place] [id number] tel: [phone] [facility] Personal history of colonic polypsRectal polyp Filemon Colin. [facility], [place], [address]. tel: [phone] [facility], [address] [place], [place] [address], [place], [id number] tel: [phone] [facility] No Information Filemon Colin. [facility], [place], [address]. tel: [phone] [facility], [address] [place], [place] [address], [place], [id number] tel: [phone] [facility] No Information Filemon Colin. [facility], [place], [address]. tel: [phone] [facility], [address] [place], [place] [address], [place], [id number] tel: [phone] [facility] [place] Screening Malignant Neoplasm ColonColon PolypHemorrhoi ds, Unspecified Filemon Colin. [address] [place] [address], [place], [address]. tel: [phone] [facility], [address] [place], [place] [address], [id number] tel: [phone] [facility] No Information Filemon Colin. [facility], [place], [address]. tel: [phone] [facility], [address] [place] [address], [place], [place], [id number] tel: [phone] [facility] No Information Filemon Colin. [address] , [facility], [place], [address]. tel: [phone] Family History Family Member Type Diagnosis Age At Onset Problem (finding) Family history of gallb ladder disease Payers Payer name Insurance type Covered green party ID Ender kunz(s) Linda CI [id number] Social History Type Description Quantity Date Captured [...]
[2025-01-14 15:52] VITALS: BP 153/79; PULSE 90; RESP 20; TEMP 36.6; O2SAT 99
[2025-01-14] MEDS: KETOROLAC (*BKC) 60 MG/2 ML VIAL IM (16:06)
[2025-01-14] MEDS: oxyCODONE/ACETAMINOPHEN (*CRX) 5-325 MG TABLET 1 TABLET PO (16:06)
--- NOTE | 2025-01-14 17:27 | ED_ITS ---
HPI - Extremity Problem General Chief complaint: Extremity Problem,Nontraumatic Stated complaint: right hip pain Time Seen by Provider: 01/14/25 15:36 History of Present Illness HPI Narrative: Patient is a 69-year-old female who presents ER with right hip pain. Ongoing for several months but worsening recently. She is trying to get into pain management. Known hip arthritis and resolving pelvic fracture. Has been on prednisone as well as muscle relaxers. No new numbness or tingling legs. No new trauma. She has tried Nemacolin without improvement. Related Data Home Medications ?Medication ?Instructions ?Recorded ?Confirmed ?Last Taken ?Type cholecalciferol (vitamin D3) 25 50 mcg PO DAILY 04/27/20 11/18/24 10/17/23 History mcg (1,000 unit) capsule loratadine 10 mg tablet (Claritin) 10 mg PO PRN PRN Allergy Symptoms 04/27/20 11/18/24 10/17/23 History fluticasone propionate 50 2 spray intranasal DAILY PRN Nasal 10/10/23 11/18/24 10/17/23 History mcg/actuation nasal Congestion spray,suspension (Flonase Allergy Relief) guaifenesin 1,200 mg tablet, 1,200 mg PO BID 10/22/24 11/18/24 Unknown History extended release 12 hr (Mucinex) mycophenolate mofetil 500 mg 1,000 mg PO Q12H 10/22/24 11/18/24 Unknown History tablet (CellCept) ibuprofen 800 mg tablet 800 mg PO Q6H 12/30/24 Unknown History Allergies Allergy/AdvReac Type Severity Reaction Status Date / Time amoxicillin Allergy angioedema Verified 01/14/25 15:56 Review of Systems Review of Systems: All systems reviewed & are unremarkable except as noted in HPI and below Constitutional: Constitutional: Reports no additional constitutional complain ts Respiratory: Respiratory: Reports no additional respiratory complaints Gastrointestinal: Gastrointestinal: Reports no additional gastrointestinal complaints Musculoskeletal: Musculoskeletal: Reports no additional musculoskeletal compla ints [facility] Past Medical History Medical History Rhinitis Myasthenic crisis Myasthenia gravis in remission Myasthenia gravis in crisis Myasthenia gravis Obstructive sleep apnea Hypothyroidism Hypertension Gastroesophageal reflux disease Morbid obesity with body mass index (BMI) of 40.0 or higher Diastolic dysfunction Anxiety Depression Arthritis Hiatal hernia Asthma Surgical History Surgical History History of oophorectomy History of right knee joint replacement (2009) History of fundoplication History of inguinal hernia repair History of tonsillectomy Family History Family History Father Family history of malignant neoplasm of urinary bladder Family history of coronary artery disease Hypertension Patient's father is Sibling Family history of coronary artery disease Mother Family history of chronic obstructive pulmonary disease Patient's mother is Social History Social History Social History: Surrogate medical decision maker: Vivien Monsivais, sister. Code status: Full code. Smoking status: Never smoker Second hand tobacco smoke exposure: No Alcohol intake: never Substance use: never Substance use type: does not use Do You Feel Safe in your Home?: Yes Lack of Transportation: No Lack of Food: Never True Current Housing: I Have Housing Concerned About Future Housing: No Difficulty Paying Gas/Electric Bills: No Difficulty Paying for Meds: No Currently Unemployed: No Education: High School Diploma/GED Difficulty w/ Childcare or Family Care: No Living arrangements: alone Occupation/Education: occupation Gender identity (if verbalized by the patient): Female Sexual Orientation (if Verbalized by the Patient): Straight or Heterosexual Spiritual care concerns: No Agree to blood products: No Exam Narrative: GENERAL: Well-appearing, morbidly obese, and in no acute distress. HEAD: Normocephalic, atraumatic. ENT: Mucous membranes moist. EXTREMITIES: Normal range of motion. No edema. SKIN: Warm, dry, no rash. NEURO: Alert and oriented x3. PSYCH: Normal mood and affect. Course Course Emergency Course: Patient received Toradol and Percocet. She is able to get up and walk a bit with a walker. Certainly has significant chronic disease to her hip and pelvis. She did get a phone call from pain management while she was here. Discharged with Percocet home. Discussed bowel regimen patient verbalized understanding. Vital Signs Vital signs: Vital Signs Temperature 98 F 01/14/25 15:52 Pulse Rate 90 01/14/25 15:52 Respiratory Rate 20 01/14/25 15:52 Blood Pressure 153/79 H 01/14/25 15:52 Pulse Oximetry 99 01/14/25 15:52 Oxygen Delivery Room Air 01/14/25 15:52 Temperature 98 F 01/14/25 15:52 Pulse Rate 90 01/14/25 15:52 Respiratory Rate 20 01/14/25 15:52 Blood Pressure 153/79 H 01/14/25 15:52 Pulse Oximetry 99 01/14/25 15:52 Oxygen Delivery Room Air 01/14/25 15:52 MDM - Extremity (Nontraumatic) Imaging Data Radiologist's impression: ITS Impressions Hip/Pelvis X-Ray 01/14/25 16:40 IMPRESSION: Healing fracture in the right pubic bone. Severe right hip osteoarthritic changes with impingement. Sclerotic lesion in the left iliac bone with lucency. Further evaluation advised. Left sacroiliitis. Discharge Plan Discharge Clinical Impression: Chronic hip pain Patient Disposition: Home Condition: Stable Instructions: Antibiotic Form Additional Instructions: Return ER if you suffered a fall with injury, you have chest pain shortness of breath, you can not keep down food water, or you have additional concerns. Continue to take stool softeners and laxatives as needed to avoid constipation. Patient Language: Italian Prescriptions: New oxycodone-acetaminophen [Endocet] 7.5-325 mg tablet 1 tablet PO Q6H PRN (Reason: pain) Qty: 20 0RF No Action epinephrine [EpiPen 2-Ulises] 0.3 mg/0.3 mL auto-injector 0.3 mg IM ONCE Qty: 2 0RF Rx Instructions: as a single dose; may repeat once sulfamethoxazole-trimethoprim 400-80 mg tablet 1 tablet PO DAILY Qty: 90 1RF furosemide 20 mg tablet 40 mg PO DAILY PRN (Reason: swelling) Qty: 180 1RF loratadine [Claritin] 10 mg tablet 10 mg PO PRN PRN (Reason: Allergy Symptoms) Rx Instructions: Every other day cholecalciferol (vitamin D3) 25 mcg (1,000 unit) capsule 50 mcg PO DAILY Mucinex 1,200 mg tablet extended release 12hr 1,200 mg PO BID mycophenolate mofetil [CellCept] 500 mg tablet 1,000 mg PO Q12H ferrous sulfate 325 mg (65 mg iron) tablet 325 mg PO DAILY Qty: 90 3RF prednisone 10 mg tablet 40 mg PO DAILY Qty: 60 1RF Rx Instructions: alternates w/ 15mg, 40mg ibuprofen 800 mg tablet 800 mg PO Q6H hydrocodone-acetaminophen 5-325 mg tablet 1 tablet PO Q8H PRN (Reason: pain) Qty: 90 0RF naloxone [Narcan] 4 mg/actuation spray,non-aerosol 1 spray intranasal Q2-3M PRN (Reason: opioid overdose) Qty: 2 0RF Rx Instructions: spray 1 dose into ONE nostril; alternate nostrils w each dose until help arrives fluticasone propionate [Flonase Allergy Relief] 50 mcg/actuation spray,suspension 2 spray INTRANASAL DAILY PRN (Reason: Nasal Congestion) pyridostigmine bromide 60 mg tablet 60 mg PO TID Qty: 30 0RF valacyclovir [Valtrex] 1 gram tablet See Rx Instructions .Route .COMPLEX Qty: 84 1RF Rx Instructions: 2 po prn cold sore, repeat after 12 hrs ; montelukast [Singulair] 10 mg tablet 10 mg PO DAILY Qty: 90 2RF indapamide 2.5 mg tablet 5 mg PO DAILY Qty: 180 2RF sucralfate 1 gram tablet See Rx Instructions .ROUTE .COMPLEX Qty: 180 1RF Dose Instruction: TAKE 1 TABLET BY MOUTH TWICE DAILY NEEDED Rx Instructions: TAKE 1 TABLET BY MOUTH TWICE DAILY NEEDED famotidine 40 mg tablet See Rx Instructions .ROUTE .COMPLEX Qty: 90 1RF Dose Instruction: TAKE 1 TABLET BY MOUTH EVERY NIGHT AT BEDTIME Rx Instructions: TAKE 1 TABLET BY MOUTH EVERY NIGHT AT BEDTIME fluticasone propion-salmeterol 113-14 mcg/actuation aerosol powdr breath activated 1 inh inhalation BID Qty: 1 11RF Rx Instructions: rinse and spit levothyroxine [Levoxyl] 175 mcg tablet 175 mcg PO DAILY Qty: 90 2RF irbesartan 300 mg tablet 300 mg PO DAILY Qty: 90 3RF gabapentin [Neurontin] 300 mg capsule 600 mg PO HS Qty: 180 2RF albuterol sulfate [Ventolin HFA] 90 mcg/actuation HFA aerosol inhaler 1 - 2 inh inhalation Q4-6H PRN (Reason: shortness of breath or wheezing) Qty: 8.5 5RF albuterol sulfate 2.5 mg /3 mL (0.083 %) solution for nebulization 2.5 mg inhalation Q6H PRN (Reason: shortness of breath or wheezing) Qty: 75 5RF amlodipine 10 mg tablet 10 mg PO DAILY Qty: 90 1RF spironolactone 50 mg tablet 25 mg PO QAM Qty: 45 1RF omeprazole 40 mg capsule,delayed release(DR/EC) 40 mg PO DAILY Qty: 90 1RF lorazepam 0.5 mg tablet 0.5 mg PO QHS PRN (Reason: anxiety) Qty: 30 0RF baclofen 10 mg tablet 10 mg PO TID PRN (Reason: muscle pain) Qty: 270 0RF Follow-up/Referrals: Wilberto Camacho MD [Primary Care Provider] - 1 Week
== END 2025-01-14 17:48 | disposition home or self-care (01) ==
PROVIDERS: Emergency Provider Emergency Medicine; PCP Family Medicine
DX: M25.551 Pain in right hip (principal); G89.29 Other chronic pain; M16.11 Unilateral primary osteoarthritis, right hip; G47.30 Sleep apnea, unspecified; E03.9 Hypothyroidism, unspecified; I10 Essential (primary) hypertension; K21.9 Gastro-esophageal reflux disease without esophagitis; F41.9 Anxiety disorder, unspecified; F32.A Depression, unspecified; J45.909 Unspecified asthma, uncomplicated
CPT/HCPCS: 73502; 96372; 99283; A9270; J1885

== ENCOUNTER 2025-04-07 14:00 | Outpatient (RCR) | payer MEDICARE, OTHER, SELFPAY ==
--- NOTE | 2025-03-12 15:31 | OPREHPOC ---
Outpatient Therapy Plan of Care This is a Multidisciplinary Plan of Care that may contain components documented by all disciplines (PT, OT, and ST.) PT Problem 1 PT Problem #1 Knowledge Deficit PT Goal 1 Goal / Goal Update *independent with HEP Target Visit 8 PT Problem 2 PT Problem #2 Impaired Strength PT Goal 1 Goal / Goal Update increase strength of R and L LE, to improve mobility skills: pt able to perform 10 reps of R and L: sitting hip flexion to 90' & knee extension to 0' Target Visit 8 PT Problem 3 PT Problem #3 Impaired Functional Mobility PT Goal 1 Goal / Goal Update 1* pt transfer sit to stand from w/c independent 2* pt ambulate with wheeled walker 50' 3* pt transfer supine/sit independent Target Visit 8
--- NOTE | 2025-03-12 15:31 | PTOPEVAL1 ---
Assessment and note entered by Shantell Huitron, PT Evaluation Information Assessment Status Evaluation ICD-10 Condition Codes (PT) Pain in right hip M25.551,Pain in left knee M25. 562 Other ICD-10 Condition Codes ( pain shoulder M25.519; OA R hip M16.11,OA L knee PT) M17.12;chronic painG89.29 Onset Jun 2024 Subjective Information have been using the cane for about 2 years due to knee pain; then started having more pain in R hip and started using a walker around June; in the past 2-3 months-- no longer driving and getting weaker, worse and more pain; x ray: severe OA R hip with impingement and healing pubic fracture; mild degenerative changes in lumbar spine saw ortho in [facility] RE; THR few days ago, they cannot do anything until she loses 80#; to be set up with new pain management there for other interventions; activity: in home, use wheeled walker to get room /room; do not have a wheel chair in her home; have not been out of the house except for dr batista over the past few months; live alone; have a lift recliner to assist her to stand at home; sleeping in the recliner chair due to pain; NOW- sister Kaia does all laundry, cooking, personal care, shopping, transportation; Reported Pain Level Pain Score Self Report Additional Pain Score Comments pain range in the past week 3-9/10; R lateral & anterior hip, groin anterior thigh increase pain: walking , move hip decrease pain: pain meds prescription, muscle cream, sitting sleeping in recliner--take pain pill before bed, occasional awaken from sleep due to pain- varies 0 -2x/night Assessment PT Clinical Summary Irasema has the diagnosis of shoulder pain, knee pain, hip pain and chronic pain. Her most concern is R hip--have seen ortho in [facility] about THR and was told she needed to lose 80# before she could have surgery. She reports her legs are more swollen and she does elevate them in her recliner chair. Her sister is assisting her with all personal and home care. She sleeps in her lift chair and uses it for assisting her to stand. Medical history includes myasthenia gravis, R TKR, a-fib. Aquatic therapy is not feasible for pt due to her weight is too much for the lift and she is not able to go up/down the 7 steps. With the evaluation: to dept in w/c and ambulated with walker 10' tolerance with pain increase to 6/10 and crying in pain; sit to stand from the w/c required moderate assist x1; poor standing posture with flexion of trunk and hips, L knee valgus. Weakness of both legs and limited bilateral knee flexion ROM. Skilled PT services are indicated for modalities for pain control, therapeutic exercises to increase LE strength, transfer and gait skills, with education for HEP and pain management. Plan of Care Interventions Electrical Stimulation,Gait Training,Hot Pack/Cold Pack,Manual Therapy,Neuro Re-education,Patient/ Caregiver Education,Therapeutic Activities, Therapeutic Exercise,Ultrasound,Other PT Services Indicated Yes Treatment Frequency and 1-2x/wk for 8 visits Duration These treatments will address the objective and functional deficits as defined above. The patient will be advanced safely and appropriately in order for the patient to progress towards his/her prior level of function. Additional exercises will be introduced and as well as a comprehensive home exercise program upon discharge, if needed, ?to ensure carryover of functional gains achieved in the clinic. This treatment plan has been reviewed and agreement upon by the patient.
--- NOTE | 2025-04-15 12:43 | PCPTNOTE ---
Pt's daughter canceled today and further appt.s due to hospitalization.
--- NOTE | 2025-04-29 11:45 | PTOPDC ---
Assessment and note entered by Shantell Huitron, PT Assessment Status Discharge - Pt Not Present ICD-10 Condition Codes (PT) Pain in right shoulder M25.511,Pain in left shoulder M25.512,Pain in right hip M25.551,Pain in right knee M25.561,Pain in left knee M25.562, Difficulty Walking R26.2,Abnormalities of gait and mobility R26.9,Weakness R53.1 Other ICD-10 Condition Codes ( pain shoulder M25.519; OA R hip M16.11,OA L knee PT) M17.12;chronic painG89.29 Onset Jun 2024 Subjective Information pt called on 04-15-25 and canceled PT treatments due to being in the hospital. Assessment PT Clinical Summary Irasema has received a total of 5 PT sessions, from Mar 12 to Apr 07. Discharge PT due to pt being in the hospital. The goals were not addressed. Plan of Care PT Services Indicated No
== END 2025-04-29 12:35 | disposition home or self-care (01) ==
LOC: ANHPT 14:00
PROVIDERS: PCP Family Medicine; Visit Provider Anesthesiology Pain Medicine
DX: M25.569 Pain in unspecified knee (principal); M25.551 Pain in right hip; M25.519 Pain in unspecified shoulder; M16.0 Bilateral primary osteoarthritis of hip; E66.01 Morbid (severe) obesity due to excess calories; G89.29 Other chronic pain
CPT/HCPCS: 97110; 97116; 97140; 97162; 97530

== ENCOUNTER 2025-04-09 16:54 | Emergency (ER) | payer MEDICARE, OTHER, SELFPAY ==
[2025-04-09] VITALS (56 sets, daily range): BP systolic 97–150; BP diastolic 53–83; PULSE 95–146; RESP 7–27; TEMP 37.2; O2SAT 78–98
--- NOTE | ~2025-04-09 | XR_ITS ---
Examination: XR chest 1V Clinical History: tachycardia, pain Comparison: 01/11/2024 Technique: Portable AP Findings: Cardiomegaly. Lungs clear. No acute bony abnormality. IMPRESSION: 1. No acute cardiopulmonary findings given portable technique. Reviewed, dictated and finalized at location R.
--- NOTE | ~2025-04-09 | CT_ITS ---
EXAMINATION: CT brain wo isadora, 04/09/2025 17:47 CDT HISTORY: altered mental status COMPARISON: No comparisons available. Technique: Axial images obtained of the brain without contrast. One or more of the following dose reduction techniques were used: automated exposure control, adjustment of the mA and/or kV according to patient size, use of iterative reconstruction technique. Findings: No acute infarct or parenchymal hemorrhage. No abnormal mass or mass effect. No midline shift. No extra-axial fluid collections. No hydrocephalus. Mastoid air cells unremarkable. Sinuses and orbits unremarkable. No acute fracture. No significant facial or scalp soft tissue swelling evident. No radiopaque foreign body is seen. Impression: 1.No acute intracranial abnormality. Reviewed, dictated and finalized at location P. Impression: 1.No acute intracranial abnormality.
--- NOTE | ~2025-04-09 | XR_ITS ---
Examination: XR hip BI 2V w AP pelvis Clinical History: bilateral hip pain Comparison: None Technique: 2 views bilateral hips and AP pelvis Findings/impression: 1. Fracture right symphysis pubis. 2. 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 3. No additional abnormality identified, but refer to upcoming CT abdomen pelvis ordered for today. Reviewed, dictated and finalized at location R.
--- NOTE | ~2025-04-09 | CT_ITS ---
CT ABDOMEN AND PELVIS WITHOUT CONTRAST Clinical History: lower abdominal pain Comparison: CT 10/15/2011 Technique: Unenhanced axial images lung bases to symphysis pubis Coronal, sagittal reformats CT images acquired with automatic exposure control for dose reduction DLP: 1628 mGy-cm Findings: Without intravenous contrast, sensitivity for detecting visceral parenchymal abnormalities decreased. Lung bases: Free air along GE junction. Visualized heart and pericardium: Cardiomegaly. Liver: Unremarkable. Gallbladder: Distended. Spleen: Unremarkable. Pancreas: Unremarkable. Adrenal glands: Unremarkable. Kidneys: Right kidney- No hydronephrosis. No renal stones. Left kidney- No hydronephrosis. No renal stones. Distal esophagus/stomach: Unremarkable. Small bowel loops: Normal caliber and wall thickness. Colon: Diverticula. Free air deep within pelvis abutting right lateral rectal wall Normal caliber and wall thickness. Normal RLQ appendix. Nodes: No enlarged nodes. Peritoneum: No ascites. Large volume scattered free intraperitoneal air. Central mesenteric phlegmon with large scattered free air and gas. Urinary bladder: Unremarkable. Uterus: Removed. Adnexa: No masses. Bones: No acute bony abnormality. Soft tissues: Unremarkable. Unopacified abdominal aorta: No aneurysmal dilatation. IMPRESSION: 1. Extensive free intraperitoneal air consistent with hollow viscus perforation. Urgent surgical consultation required. 2. Large phlegmon (nonorganized infection) lower abdominal central mesentery. 3. Site of perforation not definitely identified. Suspect sigmoid diverticula, but rectal wall also possible. Reviewed, dictated and finalized at location R. IMPRESSION: 1. Extensive free intraperitoneal air consistent with hollow viscus perforatio n. Urgent surgical consultation required. 2. Large phlegmon (nonorganized infection) lower abdominal central mesentery. 3. Site of perforation not definitely identified. Suspect sigmoid diverticula, but rectal wall also possible.
--- NOTE | 2025-04-09 16:57 | ECG_ITS ---
Test Date: 2025-04-09 16:57:20 Measurements Intervals [place] Rate: 120 P: 0 VT: 0 QRS: 28 QRSD: 88 T: 18 QT: 295 QTc: 418 Interpretive Statements ATRIAL FIBRILLATION WITH RAPID VENTRICULAR RESPONSE MINIMAL Q WAVES- INFERIOR LEADS NONSPECIFIC ST & T-WAVE ABNORMALITY- DIFFUSE LEADS ABNORMAL ECG No previous ECG available for comparison Electronically Signed On 04-09-2025 17:40:01 CDT by Mango Hollis D.O.
--- NOTE | 2025-04-09 17:28 | ED_ITS ---
HPI - Altered Mental Status General Chief Complaint: Altered Mental Status <Katlyn Ortiz APRN - Last Filed: 04/10/25 03:52> Stated Complaint: AMS <Katlyn Ortiz APRN - Last Filed: 04/10/25 03:52> Time Seen by Provider: 04/09/25 16:56 <Katlyn Ortiz APRN - Last Filed: 04/10/25 03:52> History of Present Illness HPI narrative: Patient is a 69-year-old female who presents to the ER altered mental status. Her sister is her primary caregiver and reports she has not been herself over the past couple of days. Patient's sister has been out of town recently so patient has been caring for herself. Her sister reports when she spoke with her phone she was incoherent at times and could not stay awake. Patient's sister reports the symptoms started 2 days ago. Her sister endorses a history of myasthenia gravis, asthma, congestive heart failure and diabetes. < Katlyn Ortiz APRN - Last Filed: 04/10/25 03:52> Related Data Home Medications: Home Medications ?Medication ?Instructions ?Recorded ?Confirmed ?Last Taken ?Type cholecalciferol (vitamin D3) 25 50 mcg PO DAILY 04/09/25 04/09/25 History mcg (1,000 unit) capsule loratadine 10 mg tablet (Claritin) 10 mg PO PRN PRN Al lergy Symptoms 04/27/20 04/09/25 04/09/25 History fluticasone propionate 50 2 spray intranasal DAILY PRN Nasal 10/10/23 04/09/25 04/09/25 History mcg/actuation nasal Congestion spray,suspension (Flonase Allergy Relief) mycophenolate mofetil 500 mg 1,000 mg PO Q12H 10/22/24 04/09/25 04/09/25 History tablet (CellCept) Held on 04/09/25. Instructions: Patient no longer taking ibuprofen 800 mg tablet 800 mg PO Q6H 12/30/2404/09 Unknown History semaglutide 0.5 mg/0.1 mL mg subcut 02/03/25 02/12/25 Unknown History subcutaneous syringe Held on 04/09/25. Instructions: Patient no longer taking baclofen 5 mg tablet mg 04/09/25 04/09/25 Histor y hydrocodone 5 mg-acetaminophen 325 tablet 04/09/25 Un known History mg tablet <Katlyn Ortiz APRN - Last Filed: 04/10/25 03:52> Allergies/Adverse Reactions: Allergies Allergy/AdvReac Type Severity Reaction Status Date / Time amoxicillin Allergy angioedema Verified 02/11/25 13:53 <Katlyn Ortiz APRN - Last Filed: 04/10/25 03:52> Review of Systems 2 Review of Systems: All systems reviewed & are unremarkable except as noted in HPI and below <Katlyn Ortiz APRN - Last Filed: 04/10/25 03:52> [facility] Past Medical History Medical History: Medical History Rhinitis Myasthenic crisis Myasthenia gravis in remission Myasthenia gravis in crisis Myasthenia gravis Obstructive sleep apnea Hypothyroidism Hypertension Gastroesophageal reflux disease Morbid obesity with body mass index (BMI) of 40.0 or higher Diastolic dysfunction Anxiety Depression Arthritis Hiatal hernia Asthma <Katlyn Ortiz APRN - Last Filed: 04/10/25 03:52> Surgical History Surgical History: Surgical History History of oophorectomy History of right knee joint replacement (2009) History of fundoplication History of inguinal hernia repair History of tonsillectomy <Katlyn Ortiz APRN - Last Filed: 04/10/25 03:52> Family History Family History: Family History Father Family history of malignant neoplasm of urinary bladder Family history of coronary artery disease Hypertension Patient's father is Sibling Family history of coronary artery disease Mother Family history of chronic obstructive pulmonary disease Patient's mother is <Katlyn Ortiz APRN - Last Filed: 04/10/25 03:52> Social History Social History: Social History Social History: Surrogate medical decision maker: Vivien Monsivais, sister. Code status: Full code. Smoking status: Never smoker Second hand tobacco smoke exposure: No Alcohol intake: never Substance use: never Substance use type: does not use Do You Feel Safe in your Home?: Yes Lack of Transportation: No Lack of Food: Never True Current Housing: I Have Housing Concerned About Future Housing: No Difficulty Paying Gas/Electric Bills: No Difficulty Paying for Meds: No Currently Unemployed: No Education: High School Diploma/GED Difficulty w/ Childcare or Family Care: No Living arrangements: alone Occupation/Education: occupation Gender identity (if verbalized by the patient): Female Sexual Orientation (if Verbalized by the Patient): Straight or Heterosexual Spiritual care concerns: No Agree to blood products: No <Katlyn Ortiz APRN - Last Filed: 04/10/25 03:52> Exam 2 Narrative: GENERAL: Ill appearing, well-nourished, non-toxic, in mild distress. HEAD: Normocephalic, atraumatic. NECK: Supple. No adenopathy, no masses. RESPIRATORY: Airway patent, respirations nonlabored. Clear to auscultation bilaterally, no rales, rhonchi, wheezing. CARDIOVASCULAR: Tachycardia without murmurs, rubs, or gallops. Peripheral pulses 2+ and equal bilaterally. ABDOMINAL: Soft, tender pelvis area-no pain to upper abdomen with palpation, nondistended, no hepatosplenomegaly. Normoactive BS. MUSCULOSKELETAL: Moves all extremities. Strength/ROM intact without gross deformities. SKIN: Warm, dry, normal color. No rashes. NEURO: A&O X3. Speech clear. Cranial nerves II-XII intact. No ataxic movements. PSYCHIATRIC: Appropriate mood and affect. Normal interaction. <Katlyn Ortiz, MANAGER OF TRAINING AND DEVELOPMENT - Last Filed: 04/10/25 03:52> Course STEREOTYPE MOLDER/PA Physician Supervision Upon learning that patient had a perforated viscus, I was made aware of this diagnosis and immediately presented to patient's bedside. She is having abdominal tenderness to palpation although initial complaint had been for left hip. She is tender in the left lower quadrant. CT scan had been performed without contrast however this is the suspected location of perforation due to other findings. Patient has been hemodynamically stable but has been altered by report of her sister who presents with her. Antibiotics were initiated. Nurse practitioner involved with coordinating patient's care including discussion with on-call surgeon, on-call anesthesia team, on-call hospitalist, patient is neurologist team as well as multiple providers through tertiary facilities given the concern for patient's myasthenia gravis. She remained hemodynamically stable in the emergency department and ultimately the decision was made for patient to be transferred. <Adilia Bearden MD - Last Filed: 04/11/25 08:08> Vital Signs Vital signs: Vital Signs Temperature 98.9 F 04/09/25 17:01 Pulse Rate 112 H 04/09/25 17:01 Respiratory Rate 18 04/09/25 17:01 Blood Pressure 100/81 04/09/25 17:01 Pulse Oximetry 96 04/09/25 17:01 Temperature 98.9 F 04/09/25 17:01 Pulse Rate 109 H 04/10/25 00:01 Respiratory Rate 11 L 04/10/25 00:01 Blood Pressure 130/58 L 04/10/25 00:01 Pulse Oximetry 96 04/09/25 23:32 Oxygen Delivery Room Air 04/09/25 18:16 <Katlyn Ortiz, MANAGER OF TRAINING AND DEVELOPMENT - Last Filed: 04/10/25 03:52> Vital Signs Temperature 98.9 F 04/09/25 17:01 Pulse Rate 112 H 04/09/25 17:01 Respiratory Rate 18 04/09/25 17:01 Blood Pressure 100/81 04/09/25 17:01 Pulse Oximetry 96 04/09/25 17:01 Temperature 98.9 F 04/09/25 17:01 Pulse Rate 109 H 04/10/25 00:01 Respiratory Rate 11 L 04/10/25 00:01 Blood Pressure 130/58 L 04/10/25 00:01 Pulse Oximetry 96 04/09/25 23:32 Oxygen Delivery Room Air 04/09/25 18:16 <Adilia Bearden MD - Last Filed: 04/11/25 08:08> MDM - Altered Mental Status MDM Narrative Medical decision making narrative: Patient is a 69-year-old female who presents to the ER altered mental status. She also complains of lower abdominal pain and bilateral hip pain. Her sister is her primary caregiver and reports she has not been herself over the past couple of days. Patient's sister has been out of town recently so patient has been caring for herself. Her sister reports when she spoke with her on the phone she was incoherent at times and could not stay awake. Patient's sister reports the symptoms started 2 days ago. Her sister endorses patient has a history of myasthenia gravis, asthma, congestive heart failure and diabetes. Labs Ordered: CBC, CMP, BNP, PTT, INR, lactic acid, lipase, TSH, CRP, UA, type and screen Imaging Ordered: CT abdomen pelvis without contrast, chest x-ray, x-ray bilateral hip Medications Ordered: 1 L normal saline IV bolus x2, Dilaudid 0.5 mg IV, Dilaudid 1 mg IV, Zofran 4 mg IV, Flagyl 500 mg IV, meropenem 1 g IV Results: Patient's CBC indicates white blood cell count of 31.1, RBCs of 3.7, hemoglobin of 10.9, hematocrit of 32.4%. Her chemistry indicates a sodium of 124, chloride of 90, carbon dioxide 21, anion gap of 13, BUN of 54, creatinine of 2.38, GFR of 20. Patient's CRP was 36.5. Her proBNP was 2880. Patient's lipase was 13. Her TSH was 2.46. Pt's CT scan indicates 1. Extensive free intraperitoneal air consistent with hollow viscus perforation. Urgent surgical consultation required. 2. Large phlegmon (nonorganized infection) lower abdominal central mesentery. 3. Site of perforation not definitely identified. Suspect sigmoid diverticula, but rectal wall also possible. MDM: Results of imaging and lab work shared with patient and her family. It was advised patient be admitted to the hospital for further evaluation and treatment. Patient and her family verbalized understanding and are in agreement with plan. 2029- Spoke with Dr. Black, general surgery, who will come in to operate on pt. He requests pt receive Meropenem and Flagyl for antibiotic coverage. Pt should remain NPO. 2114- Spoke with Dr. Masters, hospitalist, who voiced concerns regarding pt's myasthenia gravis history. He suggests contacting pt's neurologist at [facility] for further recommendation. Pt's neurologist at [facility] is Dr. Kevin Negron, . His team will be contacted for consult. 2129- Spoke with [facility], who reports their general surgeon, Dr Middleton, declined acceptance of pt to [facility] for emergency surgery. He reports if our facility has the capabilities to perform surgery, then it should proceed here since it is an emergent procedure. 2215- Spoke with neurology fellow, Dr. Palacio, who reports he could not admit pt at [facility] if she had been declined by general surgery. He reports there is a possibility pt could be transferred to their facility after her surgery. Dr. Palacio advised pt can receive IVIG if she is having difficulty coming off the ventilator following surgery. 2330- Dr. Black, [facility], spoke with attendings at [facility], who agreed to accept pt for emergent surgery. CRITICAL CARE ADDENDUM: Indication: Bowel perforation, sepsis, tachycardia Time type: intermittent I provided a total of 75 minutes of critical care excluding separately billable procedures. This includes time w/ EMS, initial bedside evaluation, reviewing old records, review of testing done while under my care, discussion w/ the family, nurses, csm consultant and guiding the patient?s care while in the emergency department. Approximate time distribution: 15 minutes ? Initial evaluation, d/w involved parties, attempting to gather old records. 10 minutes ? Documenting medical record 15 minutes ? Review of results (EKGs, labs, imaging) 15 minutes ? Serial repeat bedside evaluation 20 minutes ? Discussing case with multiple providers Please see main chart for details. Excludes separately billable procedures. <Katlyn Ortiz, MANAGER OF TRAINING AND DEVELOPMENT - Last Filed: 04/10/25 03:52> Differential Diagnosis Differential diagnosis: Likely hyponatremia, sepsis and other (Urinary tract infection, osteomyelitis, acute abdominal infection) <Katlyn Ortiz MANAGER OF TRAINING AND DEVELOPMENT - Last Filed: 04/10/25 03:52> Lab Data Attestation: I reviewed the patient's lab results. <Katlyn Ortiz MANAGER OF TRAINING AND DEVELOPMENT - Last Filed: 04/10/25 03:52> Result diagrams: 04/09/25 17:38 04/09/25 17:38 <Katlyn Ortiz, MANAGER OF TRAINING AND DEVELOPMENT - Last Filed: 04/10/25 03:52> Labs: Lab Results 04/09/25 04/09/25 04/09/25 Range/Units 17:37 17:38 17:38 WBC Cancelled 31.1 H RBC Cancelled Hgb Hct MCV MCH MCHC RDW Plt Count MPV Immature Gran % (Auto) Neut % (Auto) Lymph % (Auto) [place] % (Auto) Eos % (Auto) Baso % (Auto) Lymph # (Auto) [place] # (Auto) Eos # (Auto) Baso # (Auto) Abs Immat Gran (auto) Absolute Neuts (auto) Absolute Nucleated RBC Band Neutrophils % Nucleated RBC % Platelet Estimate (Adequate) % Immature Plt Fraction Crenated Cell Acanthocytes (Spur) Schistocytes PT INR APTT Sodium Potassium Chloride Carbon Dioxide Anion Gap BUN Creatinine Estim Creat Clear Calc Estimated GFR Glucose Lactic Acid (0.7-2.0) mmol/L Calcium Total Bilirubin AST ALT Alkaline Phosphatase C-Reactive Protein (<1.0) mg/dL NT-Pro-B Natriuret Pep (19.9-100) pg/mL Total Protein Albumin Lipase (23-300) U/L TSH (Reflex) (0.465-4.68) uIU/mL Urine Color (Yellow) Urine Appearance (Clear) Urine pH (5.0-9.0) Ur Specific [place] (1.001-1.035) Urine Protein (Negative) mg/dL Urine Glucose (UA) (Negative) mg/dL Urine Ketones (Negative) mg/dL Ur Blood (Man) (Negative) Urine Nitrate (Negative) Urine Bilirubin (Negative) Urine Urobilinogen (<2.0) mg/dL Leukocyte Esterase Rfl (Negative) VICTORIA/UL Urine RBC (0-2) /hpf Urine WBC (0-3) /hpf Ur Squamous Epith Cells (Few) /hpf Urine Bacteria /hpf Urine Casts Influenza A (RT-PCR) (Negative) Influenza B (RT-PCR) (Negative) RSV (RT-PCR) (Negative) SARS-CoV-2 RNA (RT-PCR) (Negative) Blood Type O Positive Antibody Screen Negative 04/09/25 04/09/25 04/09/25 Range/Units 17:38 17:38 17:38 WBC RBC 3.70 L Hgb Cancelled 10.9 L Hct Cancelled 32.4 L MCV Cancelled MCH MCHC RDW Plt Count MPV Immature Gran % (Auto) Neut % (Auto) Lymph % (Auto) [place] % (Auto) Eos % (Auto) Baso % (Auto) Lymph # (Auto) [place] # (Auto) Eos # (Auto) Baso # (Auto) Abs Immat Gran (auto) Absolute Neuts (auto) Absolute Nucleated RBC Band Neutrophils % Nucleated RBC % Platelet Estimate (Adequate) % Immature Plt Fraction Crenated Cell Acanthocytes (Spur) Schistocytes PT INR APTT Sodium Potassium Chloride Carbon Dioxide Anion Gap BUN Creatinine Estim Creat Clear Calc Estimated GFR Glucose Lactic Acid (0.7-2.0) mmol/L Calcium Total Bilirubin AST ALT Alkaline Phosphatase C-Reactive Protein (<1.0) mg/dL NT-Pro-B Natriuret Pep (19.9-100) pg/mL Total Protein Albumin Lipase (23-300) U/L TSH (Reflex) (0.465-4.68) uIU/mL Urine Color (Yellow) Urine Appearance (Clear) Urine pH (5.0-9.0) Ur Specific [place] (1.001-1.035) Urine Protein (Negative) mg/dL Urine Glucose (UA) (Negative) mg/dL Urine Ketones (Negative) mg/dL Ur Blood (Man) (Negative) Urine Nitrate (Negative) Urine Bilirubin (Negative) Urine Urobilinogen (<2.0) mg/dL Leukocyte Esterase Rfl (Negative) VICTORIA/UL Urine RBC (0-2) /hpf Urine WBC (0-3) /hpf Ur Squamous Epith Cells (Few) /hpf Urine Bacteria /hpf Urine Casts Influenza A (RT-PCR) (Negative) Influenza B (RT-PCR) (Negative) RSV (RT-PCR) (Negative) SARS-CoV-2 RNA (RT-PCR) (Negative) Blood Type Antibody Screen 04/09/25 04/09/25 04/09/25 Range/Units 17:38 17:38 17:38 WBC RBC Hgb Hct MCV 87.6 MCH Cancelled 29.5 MCHC Cancelled 33.6 RDW Cancelled Plt Count MPV Immature Gran % (Auto) Neut % (Auto) Lymph % (Auto) [place] % (Auto) Eos % (Auto) Baso % (Auto) Lymph # (Auto) [place] # (Auto) Eos # (Auto) Baso # (Auto) Abs Immat Gran (auto) Absolute Neuts (auto) Absolute Nucleated RBC Band Neutrophils % Nucleated RBC % Platelet Estimate (Adequate) % Immature Plt Fraction Crenated Cell Acanthocytes (Spur) Schistocytes PT INR APTT Sodium Potassium Chloride Carbon Dioxide Anion Gap BUN Creatinine Estim Creat Clear Calc Estimated GFR Glucose Lactic Acid (0.7-2.0) mmol/L Calcium Total Bilirubin AST ALT Alkaline Phosphatase C-Reactive Protein (<1.0) mg/dL NT-Pro-B Natriuret Pep (19.9-100) pg/mL Total Protein Albumin Lipase (23-300) U/L TSH (Reflex) (0.465-4.68) uIU/mL Urine Color (Yellow) Urine Appearance (Clear) Urine pH (5.0-9.0) Ur Specific [place] (1.001-1.035) Urine Protein (Negative) mg/dL Urine Glucose (UA) (Negative) mg/dL Urine Ketones (Negative) mg/dL Ur Blood (Man) (Negative) Urine Nitrate (Negative) Urine Bilirubin (Negative) Urine Urobilinogen (<2.0) mg/dL Leukocyte Esterase Rfl (Negative) VICTORIA/UL Urine RBC (0-2) /hpf Urine WBC (0-3) /hpf Ur Squamous Epith Cells (Few) /hpf Urine Bacteria /hpf Urine Casts Influenza A (RT-PCR) (Negative) Influenza B (RT-PCR) (Negative) RSV (RT-PCR) (Negative) SARS-CoV-2 RNA (RT-PCR) (Negative) Blood Type Antibody Screen 04/09/25 04/09/25 04/09/25 Range/Units 17:38 17:38 17:38 WBC RBC Hgb Hct MCV MCH MCHC RDW 14.5 Plt Count Cancelled 284 MPV Cancelled 10.0 Immature Gran % (Auto) Cancelled Neut % (Auto) Lymph % (Auto) [place] % (Auto) Eos % (Auto) Baso % (Auto) Lymph # (Auto) [place] # (Auto) Eos # (Auto) Baso # (Auto) Abs Immat Gran (auto) Absolute Neuts (auto) Absolute Nucleated RBC Band Neutrophils % Nucleated RBC % Platelet Estimate (Adequate) % Immature Plt Fraction Crenated Cell Acanthocytes (Spur) Schistocytes PT INR APTT Sodium Potassium Chloride Carbon Dioxide Anion Gap BUN Creatinine Estim Creat Clear Calc Estimated GFR Glucose Lactic Acid (0.7-2.0) mmol/L Calcium Total Bilirubin AST ALT Alkaline Phosphatase C-Reactive Protein (<1.0) mg/dL NT-Pro-B Natriuret Pep (19.9-100) pg/mL Total Protein Albumin Lipase (23-300) U/L TSH (Reflex) (0.465-4.68) uIU/mL Urine Color (Yellow) Urine Appearance (Clear) Urine pH (5.0-9.0) Ur Specific [place] (1.001-1.035) Urine Protein (Negative) mg/dL Urine Glucose (UA) (Negative) mg/dL Urine Ketones (Negative) mg/dL Ur Blood (Man) (Negative) Urine Nitrate (Negative) Urine Bilirubin (Negative) Urine Urobilinogen (<2.0) mg/dL Leukocyte Esterase Rfl (Negative) VICTORIA/UL Urine RBC (0-2) /hpf Urine WBC (0-3) /hpf Ur Squamous Epith Cells (Few) /hpf Urine Bacteria /hpf Urine Casts Influenza A (RT-PCR) (Negative) Influenza B (RT-PCR) (Negative) RSV (RT-PCR) (Negative) SARS-CoV-2 RNA (RT-PCR) (Negative) Blood Type Antibody Screen 04/09/25 04/09/25 04/09/25 Range/Units 17:38 17:38 17:38 WBC RBC Hgb Hct MCV MCH MCHC RDW Plt Count MPV Immature Gran % (Auto) 3.8 H Neut % (Auto) Cancelled 91.8 H Lymph % (Auto) Cancelled 0.8 L [place] % (Auto) Cancelled Eos % (Auto) Baso % (Auto) Lymph # (Auto) [place] # (Auto) Eos # (Auto) Baso # (Auto) Abs Immat Gran (auto) Absolute Neuts (auto) Absolute Nucleated RBC Band Neutrophils % Nucleated RBC % Platelet Estimate (Adequate) % Immature Plt Fraction Crenated Cell Acanthocytes (Spur) Schistocytes PT INR APTT Sodium Potassium Chloride Carbon Dioxide Anion Gap BUN Creatinine Estim Creat Clear Calc Estimated GFR Glucose Lactic Acid (0.7-2.0) mmol/L Calcium Total Bilirubin AST ALT Alkaline Phosphatase C-Reactive Protein (<1.0) mg/dL NT-Pro-B Natriuret Pep (19.9-100) pg/mL Total Protein Albumin Lipase (23-300) U/L TSH (Reflex) (0.465-4.68) uIU/mL Urine Color (Yellow) Urine Appearance (Clear) Urine pH (5.0-9.0) Ur Specific [place] (1.001-1.035) Urine Protein (Negative) mg/dL Urine Glucose (UA) (Negative) mg/dL Urine Ketones (Negative) mg/dL Ur Blood (Man) (Negative) Urine Nitrate (Negative) Urine Bilirubin (Negative) Urine Urobilinogen (<2.0) mg/dL Leukocyte Esterase Rfl (Negative) VICTORIA/UL Urine RBC (0-2) /hpf Urine WBC (0-3) /hpf Ur Squamous Epith Cells (Few) /hpf Urine Bacteria /hpf Urine Casts Influenza A (RT-PCR) (Negative) Influenza B (RT-PCR) (Negative) RSV (RT-PCR) (Negative) SARS-CoV-2 RNA (RT-PCR) (Negative) Blood Type Antibody Screen 04/09/25 04/09/25 04/09/25 Range/Units 17:38 17:38 17:38 WBC RBC Hgb Hct MCV MCH MCHC RDW Plt Count MPV Immature Gran % (Auto) Neut % (Auto) Lymph % (Auto) [place] % (Auto) 3.0 Eos % (Auto) Cancelled 0.2 Baso % (Auto) Cancelled 0.4 Lymph # (Auto) Cancelled [place] # (Auto) Eos # (Auto) Baso # (Auto) Abs Immat Gran (auto) Absolute Neuts (auto) Absolute Nucleated RBC Band Neutrophils % Nucleated RBC % Platelet Estimate (Adequate) % Immature Plt Fraction Crenated Cell Acanthocytes (Spur) Schistocytes PT INR APTT Sodium Potassium Chloride Carbon Dioxide Anion Gap BUN Creatinine Estim Creat Clear Calc Estimated GFR Glucose Lactic Acid (0.7-2.0) mmol/L Calcium Total Bilirubin AST ALT Alkaline Phosphatase C-Reactive Protein (<1.0) mg/dL NT-Pro-B Natriuret Pep (19.9-100) pg/mL Total Protein Albumin Lipase (23-300) U/L TSH (Reflex) (0.465-4.68) uIU/mL Urine Color (Yellow) Urine Appearance (Clear) Urine pH (5.0-9.0) Ur Specific [place] (1.001-1.035) Urine Protein (Negative) mg/dL Urine Glucose (UA) (Negative) mg/dL Urine Ketones (Negative) mg/dL Ur Blood (Man) (Negative) Urine Nitrate (Negative) Urine Bilirubin (Negative) Urine Urobilinogen (<2.0) mg/dL Leukocyte Esterase Rfl (Negative) VICTORIA/UL Urine RBC (0-2) /hpf Urine WBC (0-3) /hpf Ur Squamous Epith Cells (Few) /hpf Urine Bacteria /hpf Urine Casts Influenza A (RT-PCR) (Negative) Influenza B (RT-PCR) (Negative) RSV (RT-PCR) (Negative) SARS-CoV-2 RNA (RT-PCR) (Negative) Blood Type Antibody Screen 04/09/25 04/09/25 04/09/25 Range/Units 17:38 17:38 17:38 WBC RBC Hgb Hct MCV MCH MCHC RDW Plt Count MPV Immature Gran % (Auto) Neut % (Auto) Lymph % (Auto) [place] % (Auto) Eos % (Auto) Baso % (Auto) Lymph # (Auto) 0.26 L [place] # (Auto) Cancelled 0.9 H Eos # (Auto) Cancelled 0.1 Baso # (Auto) Cancelled Abs Immat Gran (auto) Absolute Neuts (auto) Absolute Nucleated RBC Band Neutrophils % Nucleated RBC % Platelet Estimate (Adequate) % Immature Plt Fraction Crenated Cell Acanthocytes (Spur) Schistocytes PT INR APTT Sodium Potassium Chloride Carbon Dioxide Anion Gap BUN Creatinine Estim Creat Clear Calc Estimated GFR Glucose Lactic Acid (0.7-2.0) mmol/L Calcium Total Bilirubin AST ALT Alkaline Phosphatase C-Reactive Protein (<1.0) mg/dL NT-Pro-B Natriuret Pep (19.9-100) pg/mL Total Protein Albumin Lipase (23-300) U/L TSH (Reflex) (0.465-4.68) uIU/mL Urine Color (Yellow) Urine Appearance (Clear) Urine pH (5.0-9.0) Ur Specific [place] (1.001-1.035) Urine Protein (Negative) mg/dL Urine Glucose (UA) (Negative) mg/dL Urine Ketones (Negative) mg/dL Ur Blood (Man) (Negative) Urine Nitrate (Negative) Urine Bilirubin (Negative) Urine Urobilinogen (<2.0) mg/dL Leukocyte Esterase Rfl (Negative) VICTORIA/UL Urine RBC (0-2) /hpf Urine WBC (0-3) /hpf Ur Squamous Epith Cells (Few) /hpf Urine Bacteria /hpf Urine Casts Influenza A (RT-PCR) (Negative) Influenza B (RT-PCR) (Negative) RSV (RT-PCR) (Negative) SARS-CoV-2 RNA (RT-PCR) (Negative) Blood Type Antibody Screen 04/09/25 04/09/25 04/09/25 Range/Units 17:38 17:38 17:38 WBC RBC Hgb Hct MCV MCH MCHC RDW Plt Count MPV Immature Gran % (Auto) Neut % (Auto) Lymph % (Auto) [place] % (Auto) Eos % (Auto) Baso % (Auto) Lymph # (Auto) [place] # (Auto) Eos # (Auto) Baso # (Auto) 0.1 Abs Immat Gran (auto) Cancelled 1.19 H Absolute Neuts (auto) Cancelled 28.5 H Absolute Nucleated RBC Cancelled Band Neutrophils % Nucleated RBC % Platelet Estimate (Adequate) % Immature Plt Fraction Crenated Cell Acanthocytes (Spur) Schistocytes PT INR APTT Sodium Potassium Chloride Carbon Dioxide Anion Gap BUN Creatinine Estim Creat Clear Calc Estimated GFR Glucose Lactic Acid (0.7-2.0) mmol/L Calcium Total Bilirubin AST ALT Alkaline Phosphatase C-Reactive Protein (<1.0) mg/dL NT-Pro-B Natriuret Pep (19.9-100) pg/mL Total Protein Albumin Lipase (23-300) U/L TSH (Reflex) (0.465-4.68) uIU/mL Urine Color (Yellow) Urine Appearance (Clear) Urine pH (5.0-9.0) Ur Specific [place] (1.001-1.035) Urine Protein (Negative) mg/dL Urine Glucose (UA) (Negative) mg/dL Urine Ketones (Negative) mg/dL Ur Blood (Man) (Negative) Urine Nitrate (Negative) Urine Bilirubin (Negative) Urine Urobilinogen (<2.0) mg/dL Leukocyte Esterase Rfl (Negative) VICTORIA/UL Urine RBC (0-2) /hpf Urine WBC (0-3) /hpf Ur Squamous Epith Cells (Few) /hpf Urine Bacteria /hpf Urine Casts Influenza A (RT-PCR) (Negative) Influenza B (RT-PCR) (Negative) RSV (RT-PCR) (Negative) SARS-CoV-2 RNA (RT-PCR) (Negative) Blood Type Antibody Screen 04/09/25 04/09/25 04/09/25 Range/Units 17:38 17:38 17:38 WBC RBC Hgb Hct MCV MCH MCHC RDW Plt Count MPV Immature Gran % (Auto) Neut % (Auto) Lymph % (Auto) [place] % (Auto) Eos % (Auto) Baso % (Auto) Lymph # (Auto) [place] # (Auto) Eos # (Auto) Baso # (Auto) Abs Immat Gran (auto) Absolute Neuts (auto) Absolute Nucleated RBC 0.000 Band Neutrophils % Not Reportable Nucleated RBC % Cancelled 0.0 Platelet Estimate Adequate (Adequate) % Immature Plt Fraction Cancelled Crenated Cell 1+ Acanthocytes (Spur) Occasional Schistocytes None seen PT Cancelled 15.5 H INR Cancelled APTT Sodium Potassium Chloride Carbon Dioxide Anion Gap BUN Creatinine Estim Creat Clear Calc Estimated GFR Glucose Lactic Acid (0.7-2.0) mmol/L Calcium Total Bilirubin AST ALT Alkaline Phosphatase C-Reactive Protein (<1.0) mg/dL NT-Pro-B Natriuret Pep (19.9-100) pg/mL Total Protein Albumin Lipase (23-300) U/L TSH (Reflex) (0.465-4.68) uIU/mL Urine Color (Yellow) Urine Appearance (Clear) Urine pH (5.0-9.0) Ur Specific [place] (1.001-1.035) Urine Protein (Negative) mg/dL Urine Glucose (UA) (Negative) mg/dL Urine Ketones (Negative) mg/dL Ur Blood (Man) (Negative) Urine Nitrate (Negative) Urine Bilirubin (Negative) Urine Urobilinogen (<2.0) mg/dL Leukocyte Esterase Rfl (Negative) VICTORIA/UL Urine RBC (0-2) /hpf Urine WBC (0-3) /hpf Ur Squamous Epith Cells (Few) /hpf Urine Bacteria /hpf Urine Casts Influenza A (RT-PCR) (Negative) Influenza B (RT-PCR) (Negative) RSV (RT-PCR) (Negative) SARS-CoV-2 RNA (RT-PCR) (Negative) Blood Type Antibody Screen 04/09/25 04/09/25 04/09/25 Range/Units 17:38 17:38 17:38 WBC RBC Hgb Hct MCV MCH MCHC RDW Plt Count MPV Immature Gran % (Auto) Neut % (Auto) Lymph % (Auto) [place] % (Auto) Eos % (Auto) Baso % (Auto) Lymph # (Auto) [place] # (Auto) Eos # (Auto) Baso # (Auto) Abs Immat Gran (auto) Absolute Neuts (auto) Absolute Nucleated RBC Band Neutrophils % Nucleated RBC % Platelet Estimate (Adequate) % Immature Plt Fraction Crenated Cell Acanthocytes (Spur) Schistocytes PT INR 1.2 APTT Cancelled 33.2 Sodium Cancelled 124 L Potassium Cancelled Chloride Carbon Dioxide Anion Gap BUN Creatinine Estim Creat Clear Calc Estimated GFR Glucose Lactic Acid (0.7-2.0) mmol/L Calcium Total Bilirubin AST ALT Alkaline Phosphatase C-Reactive Protein (<1.0) mg/dL NT-Pro-B Natriuret Pep (19.9-100) pg/mL Total Protein Albumin Lipase (23-300) U/L TSH (Reflex) (0.465-4.68) uIU/mL Urine Color (Yellow) Urine Appearance (Clear) Urine pH (5.0-9.0) Ur Specific [place] (1.001-1.035) Urine Protein (Negative) mg/dL Urine Glucose (UA) (Negative) mg/dL Urine Ketones (Negative) mg/dL Ur Blood (Man) (Negative) Urine Nitrate (Negative) Urine Bilirubin (Negative) Urine Urobilinogen (<2.0) mg/dL Leukocyte Esterase Rfl (Negative) VICTORIA/UL Urine RBC (0-2) /hpf Urine WBC (0-3) /hpf Ur Squamous Epith Cells (Few) /hpf Urine Bacteria /hpf Urine Casts Influenza A (RT-PCR) (Negative) Influenza B (RT-PCR) (Negative) RSV (RT-PCR) (Negative) SARS-CoV-2 RNA (RT-PCR) (Negative) Blood Type Antibody Screen 04/09/25 04/09/25 04/09/25 Range/Units 17:38 17:38 17:38 WBC RBC Hgb Hct MCV MCH MCHC RDW Plt Count MPV Immature Gran % (Auto) Neut % (Auto) Lymph % (Auto) [place] % (Auto) Eos % (Auto) Baso % (Auto) Lymph # (Auto) [place] # (Auto) Eos # (Auto) Baso # (Auto) Abs Immat Gran (auto) Absolute Neuts (auto) Absolute Nucleated RBC Band Neutrophils % Nucleated RBC % Platelet Estimate (Adequate) % Immature Plt Fraction Crenated Cell Acanthocytes (Spur) Schistocytes PT INR APTT Sodium Potassium 3.6 Chloride Cancelled 90 L Carbon Dioxide Cancelled 21 L Anion Gap Cancelled BUN Creatinine Estim Creat Clear Calc Estimated GFR Glucose Lactic Acid (0.7-2.0) mmol/L Calcium Total Bilirubin AST ALT Alkaline Phosphatase C-Reactive Protein (<1.0) mg/dL NT-Pro-B Natriuret Pep (19.9-100) pg/mL Total Protein Albumin Lipase (23-300) U/L TSH (Reflex) (0.465-4.68) uIU/mL Urine Color (Yellow) Urine Appearance (Clear) Urine pH (5.0-9.0) Ur Specific [place] (1.001-1.035) Urine Protein (Negative) mg/dL Urine Glucose (UA) (Negative) mg/dL Urine Ketones (Negative) mg/dL Ur Blood (Man) (Negative) Urine Nitrate (Negative) Urine Bilirubin (Negative) Urine Urobilinogen (<2.0) mg/dL Leukocyte Esterase Rfl (Negative) VICTORIA/UL Urine RBC (0-2) /hpf Urine WBC (0-3) /hpf Ur Squamous Epith Cells (Few) /hpf Urine Bacteria /hpf Urine Casts Influenza A (RT-PCR) (Negative) Influenza B (RT-PCR) (Negative) RSV (RT-PCR) (Negative) SARS-CoV-2 RNA (RT-PCR) (Negative) Blood Type Antibody Screen 04/09/25 04/09/25 04/09/25 Range/Units 17:38 17:38 17:38 WBC RBC Hgb Hct MCV MCH MCHC RDW Plt Count MPV Immature Gran % (Auto) Neut % (Auto) Lymph % (Auto) [place] % (Auto) Eos % (Auto) Baso % (Auto) Lymph # (Auto) [place] # (Auto) Eos # (Auto) Baso # (Auto) Abs Immat Gran (auto) Absolute Neuts (auto) Absolute Nucleated RBC Band Neutrophils % Nucleated RBC % Platelet Estimate (Adequate) % Immature Plt Fraction Crenated Cell Acanthocytes (Spur) Schistocytes PT INR APTT Sodium Potassium Chloride Carbon Dioxide Anion Gap 13 H BUN Cancelled 54 H D Creatinine Cancelled 2.38 H Estim Creat Clear Calc Cancelled Estimated GFR Glucose Lactic Acid (0.7-2.0) mmol/L Calcium Total Bilirubin AST ALT Alkaline Phosphatase C-Reactive Protein (<1.0) mg/dL NT-Pro-B Natriuret Pep (19.9-100) pg/mL Total Protein Albumin Lipase (23-300) U/L TSH (Reflex) (0.465-4.68) uIU/mL Urine Color (Yellow) Urine Appearance (Clear) Urine pH (5.0-9.0) Ur Specific [place] (1.001-1.035) Urine Protein (Negative) mg/dL Urine Glucose (UA) (Negative) mg/dL Urine Ketones (Negative) mg/dL Ur Blood (Man) (Negative) Urine Nitrate (Negative) Urine Bilirubin (Negative) Urine Urobilinogen (<2.0) mg/dL Leukocyte Esterase Rfl (Negative) VICTORIA/UL Urine RBC (0-2) /hpf Urine WBC (0-3) /hpf Ur Squamous Epith Cells (Few) /hpf Urine Bacteria /hpf Urine Casts Influenza A (RT-PCR) (Negative) Influenza B (RT-PCR) (Negative) RSV (RT-PCR) (Negative) SARS-CoV-2 RNA (RT-PCR) (Negative) Blood Type Antibody Screen 04/09/25 04/09/25 04/09/25 Range/Units 17:38 17:38 17:38 WBC RBC Hgb Hct MCV MCH MCHC RDW Plt Count MPV Immature Gran % (Auto) Neut % (Auto) Lymph % (Auto) [place] % (Auto) Eos % (Auto) Baso % (Auto) Lymph # (Auto) [place] # (Auto) Eos # (Auto) Baso # (Auto) Abs Immat Gran (auto) Absolute Neuts (auto) Absolute Nucleated RBC Band Neutrophils % Nucleated RBC % Platelet Estimate (Adequate) % Immature Plt Fraction Crenated Cell Acanthocytes (Spur) Schistocytes PT INR APTT Sodium Potassium Chloride Carbon Dioxide Anion Gap BUN Creatinine Estim Creat Clear Calc 30 Estimated GFR Cancelled 20 L Glucose Cancelled 117 H Lactic Acid 1.2 (0.7-2.0) mmol/L Calcium Cancelled Total Bilirubin AST ALT Alkaline Phosphatase C-Reactive Protein (<1.0) mg/dL NT-Pro-B Natriuret Pep (19.9-100) pg/mL Total Protein Albumin Lipase (23-300) U/L TSH (Reflex) (0.465-4.68) uIU/mL Urine Color (Yellow) Urine Appearance (Clear) Urine pH (5.0-9.0) Ur Specific [place] (1.001-1.035) Urine Protein (Negative) mg/dL Urine Glucose (UA) (Negative) mg/dL Urine Ketones (Negative) mg/dL Ur Blood (Man) (Negative) Urine Nitrate (Negative) Urine Bilirubin (Negative) Urine Urobilinogen (<2.0) mg/dL Leukocyte Esterase Rfl (Negative) VICTOIRA/UL Urine RBC (0-2) /hpf Urine WBC (0-3) /hpf Ur Squamous Epith Cells (Few) /hpf Urine Bacteria /hpf Urine Casts Influenza A (RT-PCR) (Negative) Influenza B (RT-PCR) (Negative) RSV (RT-PCR) (Negative) SARS-CoV-2 RNA (RT-PCR) (Negative) Blood Type Antibody Screen 04/09/25 04/09/25 04/09/25 Range/Units 17:38 17:38 17:38 WBC RBC Hgb Hct MCV MCH MCHC RDW Plt Count MPV Immature Gran % (Auto) Neut % (Auto) Lymph % (Auto) [place] % (Auto) Eos % (Auto) Baso % (Auto) Lymph # (Auto) [place] # (Auto) Eos # (Auto) Baso # (Auto) Abs Immat Gran (auto) Absolute Neuts (auto) Absolute Nucleated RBC Band Neutrophils % Nucleated RBC % Platelet Estimate (Adequate) % Immature Plt Fraction Crenated Cell Acanthocytes (Spur) Schistocytes PT INR APTT Sodium Potassium Chloride Carbon Dioxide Anion Gap BUN Creatinine Estim Creat Clear Calc Estimated GFR Glucose Lactic Acid (0.7-2.0) mmol/L Calcium 8.6 Total Bilirubin Cancelled 0.4 AST Cancelled 25 ALT Cancelled Alkaline Phosphatase C-Reactive Protein (<1.0) mg/dL NT-Pro-B Natriuret Pep (19.9-100) pg/mL Total Protein Albumin Lipase (23-300) U/L TSH (Reflex) (0.465-4.68) uIU/mL Urine Color (Yellow) Urine Appearance (Clear) Urine pH (5.0-9.0) Ur Specific [place] (1.001-1.035) Urine Protein (Negative) mg/dL Urine Glucose (UA) (Negative) mg/dL Urine Ketones (Negative) mg/dL Ur Blood (Man) (Negative) Urine Nitrate (Negative) Urine Bilirubin (Negative) Urine Urobilinogen (<2.0) mg/dL Leukocyte Esterase Rfl (Negative) VICTORIA/UL Urine RBC (0-2) /hpf Urine WBC (0-3) /hpf Ur Squamous Epith Cells (Few) /hpf Urine Bacteria /hpf Urine Casts Influenza A (RT-PCR) (Negative) Influenza B (RT-PCR) (Negative) RSV (RT-PCR) (Negative) SARS-CoV-2 RNA (RT-PCR) (Negative) Blood Type Antibody Screen 04/09/25 04/09/25 04/09/25 Range/Units 17:38 17:38 17:38 WBC RBC Hgb Hct MCV MCH MCHC RDW Plt Count MPV Immature Gran % (Auto) Neut % (Auto) Lymph % (Auto) [place] % (Auto) Eos % (Auto) Baso % (Auto) Lymph # (Auto) [place] # (Auto) Eos # (Auto) Baso # (Auto) Abs Immat Gran (auto) Absolute Neuts (auto) Absolute Nucleated RBC Band Neutrophils % Nucleated RBC % Platelet Estimate (Adequate) % Immature Plt Fraction Crenated Cell Acanthocytes (Spur) Schistocytes PT INR APTT Sodium Potassium Chloride Carbon Dioxide Anion Gap BUN Creatinine Estim Creat Clear Calc Estimated GFR Glucose Lactic Acid (0.7-2.0) mmol/L Calcium Total Bilirubin AST ALT 26 Alkaline Phosphatase Cancelled 125 C-Reactive Protein 36.5 H (<1.0) mg/dL NT-Pro-B Natriuret Pep 2880 H (19.9-100) pg/mL Total Protein Cancelled 7.2 Albumin Cancelled Lipase (23-300) U/L TSH (Reflex) (0.465-4.68) uIU/mL Urine Color (Yellow) Urine Appearance (Clear) Urine pH (5.0-9.0) Ur Specific [place] (1.001-1.035) Urine Protein (Negative) mg/dL Urine Glucose (UA) (Negative) mg/dL Urine Ketones (Negative) mg/dL Ur Blood (Man) (Negative) Urine Nitrate (Negative) Urine Bilirubin (Negative) Urine Urobilinogen (<2.0) mg/dL Leukocyte Esterase Rfl (Negative) VICTORIA/UL Urine RBC (0-2) /hpf Urine WBC (0-3) /hpf Ur Squamous Epith Cells (Few) /hpf Urine Bacteria /hpf Urine Casts Influenza A (RT-PCR) (Negative) Influenza B (RT-PCR) (Negative) RSV (RT-PCR) (Negative) SARS-CoV-2 RNA (RT-PCR) (Negative) Blood Type Antibody Screen 04/09/25 Range/Units 17:38 WBC RBC Hgb Hct MCV MCH MCHC RDW Plt Count MPV Immature Gran % (Auto) Neut % (Auto) Lymph % (Auto) [place] % (Auto) Eos % (Auto) Baso % (Auto) Lymph # (Auto) [place] # (Auto) Eos # (Auto) Baso # (Auto) Abs Immat Gran (auto) Absolute Neuts (auto) Absolute Nucleated RBC Band Neutrophils % Nucleated RBC % Platelet Estimate (Adequate) % Immature Plt Fraction Crenated Cell Acanthocytes (Spur) Schistocytes PT INR APTT Sodium Potassium Chloride Carbon Dioxide Anion Gap BUN Creatinine Estim Creat Clear Calc Estimated GFR Glucose Lactic Acid (0.7-2.0) mmol/L Calcium Total Bilirubin AST ALT Alkaline Phosphatase C-Reactive Protein (<1.0) mg/dL NT-Pro-B Natriuret Pep (19.9-100) pg/mL Total Protein Albumin 3.4 L Lipase 13 L (23-300) U/L TSH (Reflex) 2.460 (0.465-4.68) uIU/mL Urine Color Yellow (Yellow) Urine Appearance Clear (Clear) Urine pH 5.5 (5.0-9.0) Ur Specific [place] 1.012 (1.001-1.035) Urine Protein 1+ H (Negative) mg/dL Urine Glucose (UA) Negative (Negative) mg/dL Urine Ketones Negative (Negative) mg/dL Ur Blood (Man) Negative (Negative) Urine Nitrate Negative (Negative) Urine Bilirubin Negative (Negative) Urine Urobilinogen 0.2 (<2.0) mg/dL Leukocyte Esterase Rfl Negative (Negative) VICTORIA/UL Urine RBC 0-2 (0-2) /hpf Urine WBC 0-5 (0-3) /hpf Ur Squamous Epith Cells Few (Few) /hpf Urine Bacteria None seen /hpf Urine Casts 3-5 Influenza A (RT-PCR) Negative (Negative) Influenza B (RT-PCR) Negative (Negative) RSV (RT-PCR) Negative (Negative) SARS-CoV-2 RNA (RT-PCR) Negative (Negative) Blood Type Antibody Screen <Katlyn LMegha Ortiz, MANAGER OF TRAINING AND DEVELOPMENT - Last Filed: 04/10/25 03:52> Lab Results 04/09/25 04/09/25 04/09/25 Range/Units 17:37 17:38 17:38 WBC Cancelled 31.1 H RBC Cancelled Hgb Hct MCV MCH MCHC RDW Plt Count MPV Immature Gran % (Auto) Neut % (Auto) Lymph % (Auto) [place] % (Auto) Eos % (Auto) Baso % (Auto) Lymph # (Auto) [place] # (Auto) Eos # (Auto) Baso # (Auto) Abs Immat Gran (auto) Absolute Neuts (auto) Absolute Nucleated RBC Band Neutrophils % Nucleated RBC % Platelet Estimate (Adequate) % Immature Plt Fraction Crenated Cell Acanthocytes (Spur) Schistocytes PT INR APTT Sodium Potassium Chloride Carbon Dioxide Anion Gap BUN Creatinine Estim Creat Clear Calc Estimated GFR Glucose Lactic Acid (0.7-2.0) mmol/L Calcium Total Bilirubin AST ALT Alkaline Phosphatase C-Reactive Protein (<1.0) mg/dL NT-Pro-B Natriuret Pep (19.9-100) pg/mL Total Protein Albumin Lipase (23-300) U/L TSH (Reflex) (0.465-4.68) uIU/mL Urine Color (Yellow) Urine Appearance (Clear) Urine pH (5.0-9.0) Ur Specific [place] (1.001-1.035) Urine Protein (Negative) mg/dL Urine Glucose (UA) (Negative) mg/dL Urine Ketones (Negative) mg/dL Ur Blood (Man) (Negative) Urine Nitrate (Negative) Urine Bilirubin (Negative) Urine Urobilinogen (<2.0) mg/dL Leukocyte Esterase Rfl (Negative) VICTORIA/UL Urine RBC (0-2) /hpf Urine WBC (0-3) /hpf Ur Squamous Epith Cells (Few) /hpf Urine Bacteria /hpf Urine Casts Influenza A (RT-PCR) (Negative) Influenza B (RT-PCR) (Negative) RSV (RT-PCR) (Negative) SARS-CoV-2 RNA (RT-PCR) (Negative) Blood Type O Positive Antibody Screen Negative 04/09/25 04/09/25 04/09/25 Range/Units 17:38 17:38 17:38 WBC RBC 3.70 L Hgb Cancelled 10.9 L Hct Cancelled 32.4 L MCV Cancelled MCH MCHC RDW Plt Count MPV Immature Gran % (Auto) Neut % (Auto) Lymph % (Auto) [place] % (Auto) Eos % (Auto) Baso % (Auto) Lymph # (Auto) [place] # (Auto) Eos # (Auto) Baso # (Auto) Abs Immat Gran (auto) Absolute Neuts (auto) Absolute Nucleated RBC Band Neutrophils % Nucleated RBC % Platelet Estimate (Adequate) % Immature Plt Fraction Crenated Cell Acanthocytes (Spur) Schistocytes PT INR APTT Sodium Potassium Chloride Carbon Dioxide Anion Gap BUN Creatinine Estim Creat Clear Calc Estimated GFR Glucose Lactic Acid (0.7-2.0) mmol/L Calcium Total Bilirubin AST ALT Alkaline Phosphatase C-Reactive Protein (<1.0) mg/dL NT-Pro-B Natriuret Pep (19.9-100) pg/mL Total Protein Albumin Lipase (23-300) U/L TSH (Reflex) (0.465-4.68) uIU/mL Urine Color (Yellow) Urine Appearance (Clear) Urine pH (5.0-9.0) Ur Specific [place] (1.001-1.035) Urine Protein (Negative) mg/dL Urine Glucose (UA) (Negative) mg/dL Urine Ketones (Negative) mg/dL Ur Blood (Man) (Negative) Urine Nitrate (Negative) Urine Bilirubin (Negative) Urine Urobilinogen (<2.0) mg/dL Leukocyte Esterase Rfl (Negative) VICTORIA/UL Urine RBC (0-2) /hpf Urine WBC (0-3) /hpf Ur Squamous Epith Cells (Few) /hpf Urine Bacteria /hpf Urine Casts Influenza A (RT-PCR) (Negative) Influenza B (RT-PCR) (Negative) RSV (RT-PCR) (Negative) SARS-CoV-2 RNA (RT-PCR) (Negative) Blood Type Antibody Screen 04/09/25 04/09/25 04/09/25 Range/Units 17:38 17:38 17:38 WBC RBC Hgb Hct MCV 87.6 MCH Cancelled 29.5 MCHC Cancelled 33.6 RDW Cancelled Plt Count MPV Immature Gran % (Auto) Neut % (Auto) Lymph % (Auto) [place] % (Auto) Eos % (Auto) Baso % (Auto) Lymph # (Auto) [place] # (Auto) Eos # (Auto) Baso # (Auto) Abs Immat Gran (auto) Absolute Neuts (auto) Absolute Nucleated RBC Band Neutrophils % Nucleated RBC % Platelet Estimate (Adequate) % Immature Plt Fraction Crenated Cell Acanthocytes (Spur) Schistocytes PT INR APTT Sodium Potassium Chloride Carbon Dioxide Anion Gap BUN Creatinine Estim Creat Clear Calc Estimated GFR Glucose Lactic Acid (0.7-2.0) mmol/L Calcium Total Bilirubin AST ALT Alkaline Phosphatase C-Reactive Protein (<1.0) mg/dL NT-Pro-B Natriuret Pep (19.9-100) pg/mL Total Protein Albumin Lipase (23-300) U/L TSH (Reflex) (0.465-4.68) uIU/mL Urine Color (Yellow) Urine Appearance (Clear) Urine pH (5.0-9.0) Ur Specific [place] (1.001-1.035) Urine Protein (Negative) mg/dL Urine Glucose (UA) (Negative) mg/dL Urine Ketones (Negative) mg/dL Ur Blood (Man) (Negative) Urine Nitrate (Negative) Urine Bilirubin (Negative) Urine Urobilinogen (<2.0) mg/dL Leukocyte Esterase Rfl (Negative) VICTORIA/UL Urine RBC (0-2) /hpf Urine WBC (0-3) /hpf Ur Squamous Epith Cells (Few) /hpf Urine Bacteria /hpf Urine Casts Influenza A (RT-PCR) (Negative) Influenza B (RT-PCR) (Negative) RSV (RT-PCR) (Negative) SARS-CoV-2 RNA (RT-PCR) (Negative) Blood Type Antibody Screen 04/09/25 04/09/25 04/09/25 Range/Units 17:38 17:38 17:38 WBC RBC Hgb Hct MCV MCH MCHC RDW 14.5 Plt Count Cancelled 284 MPV Cancelled 10.0 Immature Gran % (Auto) Cancelled Neut % (Auto) Lymph % (Auto) [place] % (Auto) Eos % (Auto) Baso % (Auto) Lymph # (Auto) [place] # (Auto) Eos # (Auto) Baso # (Auto) Abs Immat Gran (auto) Absolute Neuts (auto) Absolute Nucleated RBC Band Neutrophils % Nucleated RBC % Platelet Estimate (Adequate) % Immature Plt Fraction Crenated Cell Acanthocytes (Spur) Schistocytes PT INR APTT Sodium Potassium Chloride Carbon Dioxide Anion Gap BUN Creatinine Estim Creat Clear Calc Estimated GFR Glucose Lactic Acid (0.7-2.0) mmol/L Calcium Total Bilirubin AST ALT Alkaline Phosphatase C-Reactive Protein (<1.0) mg/dL NT-Pro-B Natriuret Pep (19.9-100) pg/mL Total Protein Albumin Lipase (23-300) U/L TSH (Reflex) (0.465-4.68) uIU/mL Urine Color (Yellow) Urine Appearance (Clear) Urine pH (5.0-9.0) Ur Specific [place] (1.001-1.035) Urine Protein (Negative) mg/dL Urine Glucose (UA) (Negative) mg/dL Urine Ketones (Negative) mg/dL Ur Blood (Man) (Negative) Urine Nitrate (Negative) Urine Bilirubin (Negative) Urine Urobilinogen (<2.0) mg/dL Leukocyte Esterase Rfl (Negative) VICTORIA/UL Urine RBC (0-2) /hpf Urine WBC (0-3) /hpf Ur Squamous Epith Cells (Few) /hpf Urine Bacteria /hpf Urine Casts Influenza A (RT-PCR) (Negative) Influenza B (RT-PCR) (Negative) RSV (RT-PCR) (Negative) SARS-CoV-2 RNA (RT-PCR) (Negative) Blood Type Antibody Screen 04/09/25 04/09/25 04/09/25 Range/Units 17:38 17:38 17:38 WBC RBC Hgb Hct MCV MCH MCHC RDW Plt Count MPV Immature Gran % (Auto) 3.8 H Neut % (Auto) Cancelled 91.8 H Lymph % (Auto) Cancelled 0.8 L [place] % (Auto) Cancelled Eos % (Auto) Baso % (Auto) Lymph # (Auto) [place] # (Auto) Eos # (Auto) Baso # (Auto) Abs Immat Gran (auto) Absolute Neuts (auto) Absolute Nucleated RBC Band Neutrophils % Nucleated RBC % Platelet Estimate (Adequate) % Immature Plt Fraction Crenated Cell Acanthocytes (Spur) Schistocytes PT INR APTT Sodium Potassium Chloride Carbon Dioxide Anion Gap BUN Creatinine Estim Creat Clear Calc Estimated GFR Glucose Lactic Acid (0.7-2.0) mmol/L Calcium Total Bilirubin AST ALT Alkaline Phosphatase C-Reactive Protein (<1.0) mg/dL NT-Pro-B Natriuret Pep (19.9-100) pg/mL Total Protein Albumin Lipase (23-300) U/L TSH (Reflex) (0.465-4.68) uIU/mL Urine Color (Yellow) Urine Appearance (Clear) Urine pH (5.0-9.0) Ur Specific [place] (1.001-1.035) Urine Protein (Negative) mg/dL Urine Glucose (UA) (Negative) mg/dL Urine Ketones (Negative) mg/dL Ur Blood (Man) (Negative) Urine Nitrate (Negative) Urine Bilirubin (Negative) Urine Urobilinogen (<2.0) mg/dL Leukocyte Esterase Rfl (Negative) VICTORIA/UL Urine RBC (0-2) /hpf Urine WBC (0-3) /hpf Ur Squamous Epith Cells (Few) /hpf Urine Bacteria /hpf Urine Casts Influenza A (RT-PCR) (Negative) Influenza B (RT-PCR) (Negative) RSV (RT-PCR) (Negative) SARS-CoV-2 RNA (RT-PCR) (Negative) Blood Type Antibody Screen 04/09/25 04/09/25 04/09/25 Range/Units 17:38 17:38 17:38 WBC RBC Hgb Hct MCV MCH MCHC RDW Plt Count MPV Immature Gran % (Auto) Neut % (Auto) Lymph % (Auto) [place] % (Auto) 3.0 Eos % (Auto) Cancelled 0.2 Baso % (Auto) Cancelled 0.4 Lymph # (Auto) Cancelled [place] # (Auto) Eos # (Auto) Baso # (Auto) Abs Immat Gran (auto) Absolute Neuts (auto) Absolute Nucleated RBC Band Neutrophils % Nucleated RBC % Platelet Estimate (Adequate) % Immature Plt Fraction Crenated Cell Acanthocytes (Spur) Schistocytes PT INR APTT Sodium Potassium Chloride Carbon Dioxide Anion Gap BUN Creatinine Estim Creat Clear Calc Estimated GFR Glucose Lactic Acid (0.7-2.0) mmol/L Calcium Total Bilirubin AST ALT Alkaline Phosphatase C-Reactive Protein (<1.0) mg/dL NT-Pro-B Natriuret Pep (19.9-100) pg/mL Total Protein Albumin Lipase (23-300) U/L TSH (Reflex) (0.465-4.68) uIU/mL Urine Color (Yellow) Urine Appearance (Clear) Urine pH (5.0-9.0) Ur Specific [place] (1.001-1.035) Urine Protein (Negative) mg/dL Urine Glucose (UA) (Negative) mg/dL Urine Ketones (Negative) mg/dL Ur Blood (Man) (Negative) Urine Nitrate (Negative) Urine Bilirubin (Negative) Urine Urobilinogen (<2.0) mg/dL Leukocyte Esterase Rfl (Negative) VICTORIA/UL Urine RBC (0-2) /hpf Urine WBC (0-3) /hpf Ur Squamous Epith Cells (Few) /hpf Urine Bacteria /hpf Urine Casts Influenza A (RT-PCR) (Negative) Influenza B (RT-PCR) (Negative) RSV (RT-PCR) (Negative) SARS-CoV-2 RNA (RT-PCR) (Negative) Blood Type Antibody Screen 04/09/25 04/09/25 04/09/25 Range/Units 17:38 17:38 17:38 WBC RBC Hgb Hct MCV MCH MCHC RDW Plt Count MPV Immature Gran % (Auto) Neut % (Auto) Lymph % (Auto) [place] % (Auto) Eos % (Auto) Baso % (Auto) Lymph # (Auto) 0.26 L [place] # (Auto) Cancelled 0.9 H Eos # (Auto) Cancelled 0.1 Baso # (Auto) Cancelled Abs Immat Gran (auto) Absolute Neuts (auto) Absolute Nucleated RBC Band Neutrophils % Nucleated RBC % Platelet Estimate (Adequate) % Immature Plt Fraction Crenated Cell Acanthocytes (Spur) Schistocytes PT INR APTT Sodium Potassium Chloride Carbon Dioxide Anion Gap BUN Creatinine Estim Creat Clear Calc Estimated GFR Glucose Lactic Acid (0.7-2.0) mmol/L Calcium Total Bilirubin AST ALT Alkaline Phosphatase C-Reactive Protein (<1.0) mg/dL NT-Pro-B Natriuret Pep (19.9-100) pg/mL Total Protein Albumin Lipase (23-300) U/L TSH (Reflex) (0.465-4.68) uIU/mL Urine Color (Yellow) Urine Appearance (Clear) Urine pH (5.0-9.0) Ur Specific [place] (1.001-1.035) Urine Protein (Negative) mg/dL Urine Glucose (UA) (Negative) mg/dL Urine Ketones (Negative) mg/dL Ur Blood (Man) (Negative) Urine Nitrate (Negative) Urine Bilirubin (Negative) Urine Urobilinogen (<2.0) mg/dL Leukocyte Esterase Rfl (Negative) VICTORIA/UL Urine RBC (0-2) /hpf Urine WBC (0-3) /hpf Ur Squamous Epith Cells (Few) /hpf Urine Bacteria /hpf Urine Casts Influenza A (RT-PCR) (Negative) Influenza B (RT-PCR) (Negative) RSV (RT-PCR) (Negative) SARS-CoV-2 RNA (RT-PCR) (Negative) Blood Type Antibody Screen 04/09/25 04/09/25 04/09/25 Range/Units 17:38 17:38 17:38 WBC RBC Hgb Hct MCV MCH MCHC RDW Plt Count MPV Immature Gran % (Auto) Neut % (Auto) Lymph % (Auto) [place] % (Auto) Eos % (Auto) Baso % (Auto) Lymph # (Auto) [place] # (Auto) Eos # (Auto) Baso # (Auto) 0.1 Abs Immat Gran (auto) Cancelled 1.19 H Absolute Neuts (auto) Cancelled 28.5 H Absolute Nucleated RBC Cancelled Band Neutrophils % Nucleated RBC % Platelet Estimate (Adequate) % Immature Plt Fraction Crenated Cell Acanthocytes (Spur) Schistocytes PT INR APTT Sodium Potassium Chloride Carbon Dioxide Anion Gap BUN Creatinine Estim Creat Clear Calc Estimated GFR Glucose Lactic Acid (0.7-2.0) mmol/L Calcium Total Bilirubin AST ALT Alkaline Phosphatase C-Reactive Protein (<1.0) mg/dL NT-Pro-B Natriuret Pep (19.9-100) pg/mL Total Protein Albumin Lipase (23-300) U/L TSH (Reflex) (0.465-4.68) uIU/mL Urine Color (Yellow) Urine Appearance (Clear) Urine pH (5.0-9.0) Ur Specific [place] (1.001-1.035) Urine Protein (Negative) mg/dL Urine Glucose (UA) (Negative) mg/dL Urine Ketones (Negative) mg/dL Ur Blood (Man) (Negative) Urine Nitrate (Negative) Urine Bilirubin (Negative) Urine Urobilinogen (<2.0) mg/dL Leukocyte Esterase Rfl (Negative) VICTORIA/UL Urine RBC (0-2) /hpf Urine WBC (0-3) /hpf Ur Squamous Epith Cells (Few) /hpf Urine Bacteria /hpf Urine Casts Influenza A (RT-PCR) (Negative) Influenza B (RT-PCR) (Negative) RSV (RT-PCR) (Negative) SARS-CoV-2 RNA (RT-PCR) (Negative) Blood Type Antibody Screen 04/09/25 04/09/25 04/09/25 Range/Units 17:38 17:38 17:38 WBC RBC Hgb Hct MCV MCH MCHC RDW Plt Count MPV Immature Gran % (Auto) Neut % (Auto) Lymph % (Auto) [place] % (Auto) Eos % (Auto) Baso % (Auto) Lymph # (Auto) [place] # (Auto) Eos # (Auto) Baso # (Auto) Abs Immat Gran (auto) Absolute Neuts (auto) Absolute Nucleated RBC 0.000 Band Neutrophils % Not Reportable Nucleated RBC % Cancelled 0.0 Platelet Estimate Adequate (Adequate) % Immature Plt Fraction Cancelled Crenated Cell 1+ Acanthocytes (Spur) Occasional Schistocytes None seen PT Cancelled 15.5 H INR Cancelled APTT Sodium Potassium Chloride Carbon Dioxide Anion Gap BUN Creatinine Estim Creat Clear Calc Estimated GFR Glucose Lactic Acid (0.7-2.0) mmol/L Calcium Total Bilirubin AST ALT Alkaline Phosphatase C-Reactive Protein (<1.0) mg/dL NT-Pro-B Natriuret Pep (19.9-100) pg/mL Total Protein Albumin Lipase (23-300) U/L TSH (Reflex) (0.465-4.68) uIU/mL Urine Color (Yellow) Urine Appearance (Clear) Urine pH (5.0-9.0) Ur Specific [place] (1.001-1.035) Urine Protein (Negative) mg/dL Urine Glucose (UA) (Negative) mg/dL Urine Ketones (Negative) mg/dL Ur Blood (Man) (Negative) Urine Nitrate (Negative) Urine Bilirubin (Negative) Urine Urobilinogen (<2.0) mg/dL Leukocyte Esterase Rfl (Negative) VICTORIA/UL Urine RBC (0-2) /hpf Urine WBC (0-3) /hpf Ur Squamous Epith Cells (Few) /hpf Urine Bacteria /hpf Urine Casts Influenza A (RT-PCR) (Negative) Influenza B (RT-PCR) (Negative) RSV (RT-PCR) (Negative) SARS-CoV-2 RNA (RT-PCR) (Negative) Blood Type Antibody Screen 04/09/25 04/09/25 04/09/25 Range/Units 17:38 17:38 17:38 WBC RBC Hgb Hct MCV MCH MCHC RDW Plt Count MPV Immature Gran % (Auto) Neut % (Auto) Lymph % (Auto) [place] % (Auto) Eos % (Auto) Baso % (Auto) Lymph # (Auto) [place] # (Auto) Eos # (Auto) Baso # (Auto) Abs Immat Gran (auto) Absolute Neuts (auto) Absolute Nucleated RBC Band Neutrophils % Nucleated RBC % Platelet Estimate (Adequate) % Immature Plt Fraction Crenated Cell Acanthocytes (Spur) Schistocytes PT INR 1.2 APTT Cancelled 33.2 Sodium Cancelled 124 L Potassium Cancelled Chloride Carbon Dioxide Anion Gap BUN Creatinine Estim Creat Clear Calc Estimated GFR Glucose Lactic Acid (0.7-2.0) mmol/L Calcium Total Bilirubin AST ALT Alkaline Phosphatase C-Reactive Protein (<1.0) mg/dL NT-Pro-B Natriuret Pep (19.9-100) pg/mL Total Protein Albumin Lipase (23-300) U/L TSH (Reflex) (0.465-4.68) uIU/mL Urine Color (Yellow) Urine Appearance (Clear) Urine pH (5.0-9.0) Ur Specific [place] (1.001-1.035) Urine Protein (Negative) mg/dL Urine Glucose (UA) (Negative) mg/dL Urine Ketones (Negative) mg/dL Ur Blood (Man) (Negative) Urine Nitrate (Negative) Urine Bilirubin (Negative) Urine Urobilinogen (<2.0) mg/dL Leukocyte Esterase Rfl (Negative) VICTORIA/UL Urine RBC (0-2) /hpf Urine WBC (0-3) /hpf Ur Squamous Epith Cells (Few) /hpf Urine Bacteria /hpf Urine Casts Influenza A (RT-PCR) (Negative) Influenza B (RT-PCR) (Negative) RSV (RT-PCR) (Negative) SARS-CoV-2 RNA (RT-PCR) (Negative) Blood Type Antibody Screen 04/09/25 04/09/25 04/09/25 Range/Units 17:38 17:38 17:38 WBC RBC Hgb Hct MCV MCH MCHC RDW Plt Count MPV Immature Gran % (Auto) Neut % (Auto) Lymph % (Auto) [place] % (Auto) Eos % (Auto) Baso % (Auto) Lymph # (Auto) [place] # (Auto) Eos # (Auto) Baso # (Auto) Abs Immat Gran (auto) Absolute Neuts (auto) Absolute Nucleated RBC Band Neutrophils % Nucleated RBC % Platelet Estimate (Adequate) % Immature Plt Fraction Crenated Cell Acanthocytes (Spur) Schistocytes PT INR APTT Sodium Potassium 3.6 Chloride Cancelled 90 L Carbon Dioxide Cancelled 21 L Anion Gap Cancelled BUN Creatinine Estim Creat Clear Calc Estimated GFR Glucose Lactic Acid (0.7-2.0) mmol/L Calcium Total Bilirubin AST ALT Alkaline Phosphatase C-Reactive Protein (<1.0) mg/dL NT-Pro-B Natriuret Pep (19.9-100) pg/mL Total Protein Albumin Lipase (23-300) U/L TSH (Reflex) (0.465-4.68) uIU/mL Urine Color (Yellow) Urine Appearance (Clear) Urine pH (5.0-9.0) Ur Specific [place] (1.001-1.035) Urine Protein (Negative) mg/dL Urine Glucose (UA) (Negative) mg/dL Urine Ketones (Negative) mg/dL Ur Blood (Man) (Negative) Urine Nitrate (Negative) Urine Bilirubin (Negative) Urine Urobilinogen (<2.0) mg/dL Leukocyte Esterase Rfl (Negative) VICTORIA/UL Urine RBC (0-2) /hpf Urine WBC (0-3) /hpf Ur Squamous Epith Cells (Few) /hpf Urine Bacteria /hpf Urine Casts Influenza A (RT-PCR) (Negative) Influenza B (RT-PCR) (Negative) RSV (RT-PCR) (Negative) SARS-CoV-2 RNA (RT-PCR) (Negative) Blood Type Antibody Screen 04/09/25 04/09/25 04/09/25 Range/Units 17:38 17:38 17:38 WBC RBC Hgb Hct MCV MCH MCHC RDW Plt Count MPV Immature Gran % (Auto) Neut % (Auto) Lymph % (Auto) [place] % (Auto) Eos % (Auto) Baso % (Auto) Lymph # (Auto) [place] # (Auto) Eos # (Auto) Baso # (Auto) Abs Immat Gran (auto) Absolute Neuts (auto) Absolute Nucleated RBC Band Neutrophils % Nucleated RBC % Platelet Estimate (Adequate) % Immature Plt Fraction Crenated Cell Acanthocytes (Spur) Schistocytes PT INR APTT Sodium Potassium Chloride Carbon Dioxide Anion Gap 13 H BUN Cancelled 54 H D Creatinine Cancelled 2.38 H Estim Creat Clear Calc Cancelled Estimated GFR Glucose Lactic Acid (0.7-2.0) mmol/L Calcium Total Bilirubin AST ALT Alkaline Phosphatase C-Reactive Protein (<1.0) mg/dL NT-Pro-B Natriuret Pep (19.9-100) pg/mL Total Protein Albumin Lipase (23-300) U/L TSH (Reflex) (0.465-4.68) uIU/mL Urine Color (Yellow) Urine Appearance (Clear) Urine pH (5.0-9.0) Ur Specific [place] (1.001-1.035) Urine Protein (Negative) mg/dL Urine Glucose (UA) (Negative) mg/dL Urine Ketones (Negative) mg/dL Ur Blood (Man) (Negative) Urine Nitrate (Negative) Urine Bilirubin (Negative) Urine Urobilinogen (<2.0) mg/dL Leukocyte Esterase Rfl (Negative) VICTORIA/UL Urine RBC (0-2) /hpf Urine WBC (0-3) /hpf Ur Squamous Epith Cells (Few) /hpf Urine Bacteria /hpf Urine Casts Influenza A (RT-PCR) (Negative) Influenza B (RT-PCR) (Negative) RSV (RT-PCR) (Negative) SARS-CoV-2 RNA (RT-PCR) (Negative) Blood Type Antibody Screen 04/09/25 04/09/25 04/09/25 Range/Units 17:38 17:38 17:38 WBC RBC Hgb Hct MCV MCH MCHC RDW Plt Count MPV Immature Gran % (Auto) Neut % (Auto) Lymph % (Auto) [place] % (Auto) Eos % (Auto) Baso % (Auto) Lymph # (Auto) [place] # (Auto) Eos # (Auto) Baso # (Auto) Abs Immat Gran (auto) Absolute Neuts (auto) Absolute Nucleated RBC Band Neutrophils % Nucleated RBC % Platelet Estimate (Adequate) % Immature Plt Fraction Crenated Cell Acanthocytes (Spur) Schistocytes PT INR APTT Sodium Potassium Chloride Carbon Dioxide Anion Gap BUN Creatinine Estim Creat Clear Calc 30 Estimated GFR Cancelled 20 L Glucose Cancelled 117 H Lactic Acid 1.2 (0.7-2.0) mmol/L Calcium Cancelled Total Bilirubin AST ALT Alkaline Phosphatase C-Reactive Protein (<1.0) mg/dL NT-Pro-B Natriuret Pep (19.9-100) pg/mL Total Protein Albumin Lipase (23-300) U/L TSH (Reflex) (0.465-4.68) uIU/mL Urine Color (Yellow) Urine Appearance (Clear) Urine pH (5.0-9.0) Ur Specific [place] (1.001-1.035) Urine Protein (Negative) mg/dL Urine Glucose (UA) (Negative) mg/dL Urine Ketones (Negative) mg/dL Ur Blood (Man) (Negative) Urine Nitrate (Negative) Urine Bilirubin (Negative) Urine Urobilinogen (<2.0) mg/dL Leukocyte Esterase Rfl (Negative) VICTORIA/UL Urine RBC (0-2) /hpf Urine WBC (0-3) /hpf Ur Squamous Epith Cells (Few) /hpf Urine Bacteria /hpf Urine Casts Influenza A (RT-PCR) (Negative) Influenza B (RT-PCR) (Negative) RSV (RT-PCR) (Negative) SARS-CoV-2 RNA (RT-PCR) (Negative) Blood Type Antibody Screen 04/09/25 04/09/25 04/09/25 Range/Units 17:38 17:38 17:38 WBC RBC Hgb Hct MCV MCH MCHC RDW Plt Count MPV Immature Gran % (Auto) Neut % (Auto) Lymph % (Auto) [place] % (Auto) Eos % (Auto) Baso % (Auto) Lymph # (Auto) [place] # (Auto) Eos # (Auto) Baso # (Auto) Abs Immat Gran (auto) Absolute Neuts (auto) Absolute Nucleated RBC Band Neutrophils % Nucleated RBC % Platelet Estimate (Adequate) % Immature Plt Fraction Crenated Cell Acanthocytes (Spur) Schistocytes PT INR APTT Sodium Potassium Chloride Carbon Dioxide Anion Gap BUN Creatinine Estim Creat Clear Calc Estimated GFR Glucose Lactic Acid (0.7-2.0) mmol/L Calcium 8.6 Total Bilirubin Cancelled 0.4 AST Cancelled 25 ALT Cancelled Alkaline Phosphatase C-Reactive Protein (<1.0) mg/dL NT-Pro-B Natriuret Pep (19.9-100) pg/mL Total Protein Albumin Lipase (23-300) U/L TSH (Reflex) (0.465-4.68) uIU/mL Urine Color (Yellow) Urine Appearance (Clear) Urine pH (5.0-9.0) Ur Specific [place] (1.001-1.035) Urine Protein (Negative) mg/dL Urine Glucose (UA) (Negative) mg/dL Urine Ketones (Negative) mg/dL Ur Blood (Man) (Negative) Urine Nitrate (Negative) Urine Bilirubin (Negative) Urine Urobilinogen (<2.0) mg/dL Leukocyte Esterase Rfl (Negative) VICTORIA/UL Urine RBC (0-2) /hpf Urine WBC (0-3) /hpf Ur Squamous Epith Cells (Few) /hpf Urine Bacteria /hpf Urine Casts Influenza A (RT-PCR) (Negative) Influenza B (RT-PCR) (Negative) RSV (RT-PCR) (Negative) SARS-CoV-2 RNA (RT-PCR) (Negative) Blood Type Antibody Screen 04/09/25 04/09/25 04/09/25 Range/Units 17:38 17:38 17:38 WBC RBC Hgb Hct MCV MCH MCHC RDW Plt Count MPV Immature Gran % (Auto) Neut % (Auto) Lymph % (Auto) [place] % (Auto) Eos % (Auto) Baso % (Auto) Lymph # (Auto) [place] # (Auto) Eos # (Auto) Baso # (Auto) Abs Immat Gran (auto) Absolute Neuts (auto) Absolute Nucleated RBC Band Neutrophils % Nucleated RBC % Platelet Estimate (Adequate) % Immature Plt Fraction Crenated Cell Acanthocytes (Spur) Schistocytes PT INR APTT Sodium Potassium Chloride Carbon Dioxide Anion Gap BUN Creatinine Estim Creat Clear Calc Estimated GFR Glucose Lactic Acid (0.7-2.0) mmol/L Calcium Total Bilirubin AST ALT 26 Alkaline Phosphatase Cancelled 125 C-Reactive Protein 36.5 H (<1.0) mg/dL NT-Pro-B Natriuret Pep 2880 H (19.9-100) pg/mL Total Protein Cancelled 7.2 Albumin Cancelled Lipase (23-300) U/L TSH (Reflex) (0.465-4.68) uIU/mL Urine Color (Yellow) Urine Appearance (Clear) Urine pH (5.0-9.0) Ur Specific [place] (1.001-1.035) Urine Protein (Negative) mg/dL Urine Glucose (UA) (Negative) mg/dL Urine Ketones (Negative) mg/dL Ur Blood (Man) (Negative) Urine Nitrate (Negative) Urine Bilirubin (Negative) Urine Urobilinogen (<2.0) mg/dL Leukocyte Esterase Rfl (Negative) VICTORIA/UL Urine RBC (0-2) /hpf Urine WBC (0-3) /hpf Ur Squamous Epith Cells (Few) /hpf Urine Bacteria /hpf Urine Casts Influenza A (RT-PCR) (Negative) Influenza B (RT-PCR) (Negative) RSV (RT-PCR) (Negative) SARS-CoV-2 RNA (RT-PCR) (Negative) Blood Type Antibody Screen 04/09/25 Range/Units 17:38 WBC RBC Hgb Hct MCV MCH MCHC RDW Plt Count MPV Immature Gran % (Auto) Neut % (Auto) Lymph % (Auto) [place] % (Auto) Eos % (Auto) Baso % (Auto) Lymph # (Auto) [place] # (Auto) Eos # (Auto) Baso # (Auto) Abs Immat Gran (auto) Absolute Neuts (auto) Absolute Nucleated RBC Band Neutrophils % Nucleated RBC % Platelet Estimate (Adequate) % Immature Plt Fraction Crenated Cell Acanthocytes (Spur) Schistocytes PT INR APTT Sodium Potassium Chloride Carbon Dioxide Anion Gap BUN Creatinine Estim Creat Clear Calc Estimated GFR Glucose Lactic Acid (0.7-2.0) mmol/L Calcium Total Bilirubin AST ALT Alkaline Phosphatase C-Reactive Protein (<1.0) mg/dL NT-Pro-B Natriuret Pep (19.9-100) pg/mL Total Protein Albumin 3.4 L Lipase 13 L (23-300) U/L TSH (Reflex) 2.460 (0.465-4.68) uIU/mL Urine Color Yellow (Yellow) Urine Appearance Clear (Clear) Urine pH 5.5 (5.0-9.0) Ur Specific [place] 1.012 (1.001-1.035) Urine Protein 1+ H (Negative) mg/dL Urine Glucose (UA) Negative (Negative) mg/dL Urine Ketones Negative (Negative) mg/dL Ur Blood (Man) Negative (Negative) Urine Nitrate Negative (Negative) Urine Bilirubin Negative (Negative) Urine Urobilinogen 0.2 (<2.0) mg/dL Leukocyte Esterase Rfl Negative (Negative) VICTORIA/UL Urine RBC 0-2 (0-2) /hpf Urine WBC 0-5 (0-3) /hpf Ur Squamous Epith Cells Few (Few) /hpf Urine Bacteria None seen /hpf Urine Casts 3-5 Influenza A (RT-PCR) Negative (Negative) Influenza B (RT-PCR) Negative (Negative) RSV (RT-PCR) Negative (Negative) SARS-CoV-2 RNA (RT-PCR) Negative (Negative) Blood Type Antibody Screen <Adilia Bearden MD - Last Filed: 04/11/25 08:08> Critical Care Time Critical Care Time Critical Care Time: Yes <Katlyn Ortiz APRN - Last Filed: 04/10/25 03:52> Total Critical Care Time: 75 <Katlyn Ortiz APRN - Last Filed: 04/10/25 03:52> Discharge Plan Discharge Clinical Impression: Altered mental status, Perforated abdominal viscus, History of myasthenia gravis, Hyponatremia, Sepsis <Katlyn Ortiz APRN - Last Filed: 04/10/25 03:52> Patient Disposition: Acute Care Hospital <Katlyn Ortiz APRN - Last Filed: 04/10/25 03:52> Condition: Serious <Katlyn Ortiz APRN - Last Filed: 04/10/25 03:52> Patient Language: Vietnamese <Katlyn Ortiz APRN - Last Filed: 04/10/25 03:52> Prescriptions: No Action epinephrine [EpiPen 2-Ulises] 0.3 mg/0.3 mL auto-injector 0.3 mg IM ONCE Qty: 2 0RF Rx Instructions: as a single dose; may repeat once furosemide 20 mg tablet 40 mg PO DAILY PRN (Reason: swelling) Qty: 180 1RF loratadine [Claritin] 10 mg tablet 10 mg PO PRN PRN (Reason: Allergy Symptoms) Rx Instructions: Every other day cholecalciferol (vitamin D3) 25 mcg (1,000 unit) capsule 50 mcg PO DAILY mycophenolate mofetil [CellCept] 500 mg tablet 1,000 mg PO Q12H ferrous sulfate 325 mg (65 mg iron) tablet 325 mg PO DAILY Qty: 90 3RF prednisone 10 mg tablet 40 mg PO DAILY Qty: 60 1RF Rx Instructions: alternates w/ 15mg, 40mg ibuprofen 800 mg tablet 800 mg PO Q6H naloxone [Narcan] 4 mg/actuation spray,non-aerosol 1 spray intranasal Q2-3M PRN (Reason: opioid overdose) Qty: 2 0RF Rx Instructions: spray 1 dose into ONE nostril; alternate nostrils w each dose until help arrives semaglutide 0.5 mg/0.1 mL syringe subcut fluticasone propionate [Flonase Allergy Relief] 50 mcg/actuation spray,suspension 2 spray INTRANASAL DAILY PRN (Reason: Nasal Congestion) pyridostigmine bromide 60 mg tablet 60 mg PO TID Qty: 30 0RF hydrocodone-acetaminophen 5-325 mg tablet baclofen 5 mg tablet valacyclovir [Valtrex] 1 gram tablet See Rx Instructions .Route .COMPLEX Qty: 84 1RF Rx Instructions: 2 po prn cold sore, repeat after 12 hrs ; indapamide 2.5 mg tablet 5 mg PO DAILY Qty: 180 2RF sucralfate 1 gram tablet See Rx Instructions .ROUTE .COMPLEX Qty: 180 1RF Dose Instruction: TAKE 1 TABLET BY MOUTH TWICE DAILY NEEDED Rx Instructions: TAKE 1 TABLET BY MOUTH TWICE DAILY NEEDED fluticasone propion-salmeterol 113-14 mcg/actuation aerosol powdr breath activated 1 inh inhalation BID Qty: 1 11RF Rx Instructions: rinse and spit levothyroxine [Levoxyl] 175 mcg tablet 175 mcg PO DAILY Qty: 90 2RF irbesartan 300 mg tablet 300 mg PO DAILY Qty: 90 3RF gabapentin [Neurontin] 300 mg capsule 600 mg PO HS Qty: 180 2RF albuterol sulfate 2.5 mg /3 mL (0.083 %) solution for nebulization 2.5 mg inhalation Q6H PRN (Reason: shortness of breath or wheezing) Qty: 75 5RF amlodipine 10 mg tablet 10 mg PO DAILY Qty: 90 1RF spironolactone 50 mg tablet 25 mg PO QAM Qty: 45 1RF omeprazole 40 mg capsule,delayed release(DR/EC) 40 mg PO DAILY Qty: 90 1RF baclofen 10 mg tablet 10 mg PO TID PRN (Reason: muscle pain) Qty: 270 0RF montelukast [Singulair] 10 mg tablet 10 mg PO DAILY Qty: 90 2RF famotidine 40 mg tablet See Rx Instructions .ROUTE .COMPLEX Qty: 90 1RF Dose Instruction: TAKE 1 TABLET BY MOUTH EVERY NIGHT AT BEDTIME Rx Instructions: TAKE 1 TABLET BY MOUTH EVERY NIGHT AT BEDTIME lorazepam 0.5 mg tablet 0.5 mg PO QHS PRN (Reason: anxiety) Qty: 30 0RF albuterol sulfate 90 mcg/actuation HFA aerosol inhaler See Rx Instructions .ROUTE .COMPLEX Qty: 8.5 0RF Dose Instruction: INHALE 1 TO 2 PUFFS BY MOUTH EVERY 4 TO 6 HOURS NEEDED FOR SHORTNESS OF BREATH OR WHEEZING Rx Instructions: INHALE 1 TO 2 PUFFS BY MOUTH EVERY 4 TO 6 HOURS NEEDED FOR SHORTNESS OF BREATH OR WHEEZING oxycodone-acetaminophen 7.5-325 mg tablet 1 tablet PO Q6H MDD 4 PRN (Reason: pain) 14 Days Qty: 56 0RF Rx Instructions: Must last two weeks - 14 days, max of 4/day <Katlyn Ortiz APRN - Last Filed: 04/10/25 03:52> Follow-up/Referrals: Wilberto Camacho MD [Primary Care Provider, Family Practice] <Katlyn Ortiz APRN - Last Filed: 04/10/25 03:52>
[2025-04-09 17:49] LABS: Hematocrit 32.4 % (37.0-47.0); Hemoglobin 10.9 g/dL (12.0-15.0); Immature Granulocyte Percent A 3.8 % (0-0.5); Lymphocytes Absolute Auto 0.26 K/mm3 (0.9-3.2); Mean Corpuscular HGB Conc 33.6 g/dl (32-36); Mean Corpuscular Hemoglobin 29.5 pg (26-34); Mean Corpuscular Volume 87.6 fl (80-100); Nucleated Red Blood Cells Absolute Auto 0.000 K/mm3 (0.0-0.012); Nucleated Red Blood Cells Perc 0.0 % (0.0-0.2); Platelet Count Result 284 k/mm3 (150-375); Red Blood Count 3.70 M/mm3 (4.2-5.4); White Blood Count 31.1 K/mm3 (4.5-10.0)
[2025-04-09 18:00] LABS: INR 1.2; Prothrombin Time 15.5 Seconds (11.1-14.7)
[2025-04-09 18:01] LABS: Partial Thromboplastin Time 33.2 Seconds (22.3-36.8)
[2025-04-09 18:02] LABS: Lipase 13 U/L (23-300)
[2025-04-09 18:06] LABS: Acanthocytes Occasional; Alanine Aminotransferase 26 U/L (6-35); Albumin Level 3.4 g/dL (3.5-5.1); Alkaline Phosphatase 125 U/L (38-126); Anion Gap 13 mmol/L (4-12); Aspartate Amino Transferase 25 U/L (14-36); Bilirubin,Total 0.4 mg/dL (0.2-1.3); Blood Urea Nitrogen 54 mg/dL (7-17); Calcium 8.6 mg/dL (8.4-10.2); Carbon Dioxide 21 mmol/L (22-30); Chloride 90 mmol/L (98-107); Crenated RBC 1+; Estimated CRCL calculation 30 ml/min; Estimated Glomerular Filt Rate 20; Glucose 117 mg/dL (65-110); Potassium 3.6 mmol/L (3.4-5.0); Sodium 124 mmol/L (137-145); Total Protein 7.2 g/dL (6.3-8.2)
[2025-04-09 18:07] LABS: Schistocytes None Seen
[2025-04-09] MEDS: SODIUM CHLORIDE 0.9% IV 1,000 ML 999 ML IV CONT (18:07)
[2025-04-09] MEDS: ONDANSETRON INJ 4 MG/2 ML VIAL IV PUSH (18:08)
[2025-04-09] MEDS: HYDROmorphone HCL INJ (*CRX) 1 MG/ML SYR 0.5 MG IV PUSH (18:09)
[2025-04-09 18:11] LABS: NT Pro B Type Natriuretic Pept 2880 pg/mL (19.9-100)
[2025-04-09 18:32] LABS: Thyroid Stimulating Hormone Reflex 2.460 uIU/mL (0.465-4.68)
[2025-04-09 18:36] LABS: Add Urine Microscopic? YES; Appearance Urine Clear (Clear); Glucose Urine UA Negative (Negative); Leukocyte Esterase Ur Negative LEU/UL (Negative); Nitrate Urine Negative (Negative); Specific Grav Ur 1.012 (1.001-1.035)
[2025-04-09 18:42] LABS: CRP 36.5 mg/dL (<1.0)
[2025-04-09 18:46] LABS: Influenza A QL RT-PCR Negative (Negative); Influenza B QL RT-PCR Negative (Negative); RSV RNA, RT-PCR Negative (Negative); SARS-CoV-2 RNA PCR Negative (Negative)
[2025-04-09] MEDS: MEROPENEM 1 GM in SODIUM CHLORIDE 0.9% IV 100 ML 200 ML IVPB (21:03)
[2025-04-09] MEDS: metroNIDAZOLE 500 MG/ISO 100ML 500 MG/100 ML BAG 100 MG IVPB (21:03)
[2025-04-09] MEDS: HYDROmorphone HCL INJ (*CRX) 1 MG/ML SYR IV PUSH ×2 (21:39→23:14)
--- NOTE | 2025-04-09 23:30 | PC.NURSE ---
Dr Black at bedside speaking with family.
[2025-04-10] VITALS: PULSE 120; RESP 15
[2025-04-10 00:01] VITALS: BP 130/58; PULSE 109; RESP 11
[2025-04-10] MEDS: HYDROmorphone HCL INJ (*CRX) 1 MG/ML SYR IV PUSH (00:35)
== END 2025-04-10 00:43 | disposition short-term general hospital (02) ==
PROVIDERS: Surgery; Emergency Provider Registered Nurse; PCP Family Medicine
PROC: (CPT 49000; principal; 2025-04-09 22:00)
DX: A41.9 Sepsis, unspecified organism (principal); K63.1 Perforation of intestine (nontraumatic); R41.82 Altered mental status, unspecified; E87.1 Hypo-osmolality and hyponatremia; G70.00 Myasthenia gravis without (acute) exacerbation; I50.9 Heart failure, unspecified; I11.0 Hypertensive heart disease with heart failure; E11.9 Type 2 diabetes mellitus without complications; E03.9 Hypothyroidism, unspecified; E66.01 Morbid (severe) obesity due to excess calories; Z68.43 Body mass index [BMI] 50.0-59.9, adult; J45.909 Unspecified asthma, uncomplicated; G47.33 Obstructive sleep apnea (adult) (pediatric); M19.90 Unspecified osteoarthritis, unspecified site; K21.9 Gastro-esophageal reflux disease without esophagitis; K44.9 Diaphragmatic hernia without obstruction or gangrene; F41.9 Anxiety disorder, unspecified; F32.A Depression, unspecified; Z96.651 Presence of right artificial knee joint; K65.1 Peritoneal abscess; I48.91 Unspecified atrial fibrillation; R94.31 Abnormal electrocardiogram [ECG] [EKG]; Z79.85 Long-term (current) use of injectable non-insulin antidiabetic drugs; Z79.899 Other long term (current) drug therapy
CPT/HCPCS: 36415; 70450; 71045; 73521; 74176; 80053; 81001; 83605; 83690; 83880; 84443; 85025; 85610; 85730; 86140; 86850; 86900; 86901; 87637; 93005; 96361; 96365; 96367; 96375; 96376; 99285; J1171; J1836; J2004; J2185; J2405; J7030